=== PATIENT | male | born 1990 | race Caucasian/White ===

== ENCOUNTER 2017-08-13 02:49 | Emergency (ER) | payer OTHER ==
[~2017-08-13] VITALS: Ht 170.2 cm; Wt 79.4 kg
[~2017-08-13 02:49] MED LIST: "\\\"ANTIBIOTIC\\\"" PO; ACETAMINOPHEN-1 EAC1 PO; BACTRIM DS TAB1 EACH PO; CEPHALEXIN500 MG PO; CIPRO500 MG PO; CLINDAMYCIN HC300 MG PO; CYMBALTA60 MG PO; GABAPENTIN300 MG PO; HUMALOG100 UNIT/1 SUB-Q; HUMULIN R100 UNIT/1; IBUPROFEN800 MG PO; KEFLEX500 MG PO; LANTUS100 UNIT/1 SUB-Q; LISINOPRIL5 MG; NAPROXEN500 MG PO; NORCO 5-325 TA1 EACH PO; SILVADENE20 GM TOP; TRAMADOL HCL50 MG PO; ULTRAM50 MG PO
[2017-08-13] MEDS ORDERED: LYRICA150 MG PO (03:08)
[2017-08-13] MEDS ORDERED: CYCLOBENZAPRINE10 MG PO (03:08)
[2017-08-13] MEDS ORDERED: HUMALOG100 UNIT/1 SUB-Q (03:09)
--- OUTSIDE RECORDS SUMMARY | 2017-08-13 03:27 | XMS | Clinical Summary ---
Demographics + + + | Address | [address] | | | [place] [address] | + + + | Home Phone | | + + + | Preferred Language | Unknown | + + + | Marital Status | Single | + + + | Bahai Affiliation | UNKNOWN | + + + | Race | White | + + + | Ethnic Group | Not or | + + + Author + + + | Author | [facility] | + + + | Organization | [facility] | + + + | Address | Unknown | + + + | Phone | Unavailable | + + + Care Team Providers + +------+ + | Care Assembler Dc Field Ring Name | Role | Phone | + +------+ + PP | Unavailable | + +------+ + Allergies + + + +--------+ + | Active Allergy | Reactions | Severity | Noted | Comments | | | | | Date | | + + + +--------+ + | Amoxicillin | | | | | + + + +--------+ + | Penicillins | | | | | + + + +--------+ + Current Medications Not on file Active Problems + + + | Problem | Noted Date | + + + | Type I (juvenile type) diabetes mellitus without mention of | 07/30/2005 | | complication, not stated as uncontrolled | | + + + Social History + +-------+ +--------+------+ | Tobacco Use | Types | Packs/Day | Years | Date | | | | | Used | | + +-------+ +--------+------+ | Never Assessed | | | | | + +-------+ +--------+------+ + + + | Sex Assigned at | Date Recorded | | | | + + + | Not on file | | + + + Plan of Treatment + + + + + | Health Maintenance | Due Date | Last Done | Comments | + + + + + | Eye Exam Chronic | | | | | Disease | 8 | | | + + + + + | Foot Exam | | | | | | 8 | | | + + + + + | Microalbuminuria | | | | | | 8 | | | + + + + + | HIV Screening | | | | | | 3 | | | + + + + + | Hemoglobin A1c | | 11/23/2005, 07/27/2005, | | | | 6 | 01/26/2005 | | + + + + + | Lipid Screening | | 11/23/2005 | | | | 7 | | | + + + + + | Tetanus | | | | | | 7 | | | + + + + + | IMM Influenza (#1) | | | | | | 7 | | | + + + + + Results Not on filefrom Last 3 Months"
--- OUTSIDE RECORDS SUMMARY | 2017-08-13 03:27 | XMS | Clinical Summary ---
Demographics + + + | Address | [address] | | | [place] [address] | + + + | Home Phone | | + + + | Preferred Language | Unknown | + + + | Marital Status | Single | + + + | Restoration Affiliation | UNKNOWN | + + + [...] Team Providers + +------+ + | Care Program Lead Name | Role | Phone | + [...]
== END 2017-08-13 04:08 | disposition home or self-care (01) ==
LOC: ED 02:49
DX: H43.11 Vitreous hemorrhage, right eye (principal); E10.9 Type 1 diabetes mellitus without complications; I10 Essential (primary) hypertension; F17.200 Nicotine dependence, unspecified, uncomplicated; Z88.0 Allergy status to penicillin; Z88.1 Allergy status to other antibiotic agents; Z79.899 Other long term (current) drug therapy; Z79.4 Long term (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
CPT/HCPCS: 99282

== ENCOUNTER 2018-06-09 11:01 | Emergency (ER) | payer OTHER ==
[~2018-06-09] VITALS: Ht 170.2 cm; Wt 74.8 kg
[~2018-06-09 11:01] MED LIST changes: +CYCLOBENZAPRINE10 MG PO; +LYRICA150 MG PO
[2018-06-09] MEDS ORDERED: KETOROLAC TROME10 MG PO (12:12)
== END 2018-06-09 12:28 | disposition home or self-care (01) ==
LOC: ED 11:01
DX: R07.81 Pleurodynia (principal); E10.9 Type 1 diabetes mellitus without complications; I10 Essential (primary) hypertension; F17.200 Nicotine dependence, unspecified, uncomplicated; Z88.0 Allergy status to penicillin; Z79.899 Other long term (current) drug therapy
CPT/HCPCS: 71101; 96372; 99283; J1885

== ENCOUNTER 2019-01-08 15:41 | Emergency (ER) | payer OTHER ==
[~2019-01-08] VITALS: Ht 170.2 cm; Wt 85.3 kg
--- OUTSIDE RECORDS SUMMARY | ~2019-01-08 | XMS | Encounter Summary ---
Demographics + + + | Address | [address] | | | [place] [address] | + + + | Home Phone | | + + + | Preferred Language | Unknown | + + + | Marital Status | Single | + + + | Yazdanism Affiliation | NON | + + + | Race | White | + + + | Ethnic Group | Not or | + + + Author + + + | Author | [facility] | + + + | Organization | [facility] | + + + | Address | Unknown | + + + | Phone | Unavailable | + + + Support + + +---------+ + | Name | Relationship | Address | Phone | + + +---------+ + | MEIR ANN | ECON | Unknown | | + + +---------+ + Care Team Providers + +------+ + | Care Hose Sprayer Name | Role | Phone | + +------+ + | Dionne España | PCP | Unavailable | + +------+ + Reason for Visit + + + | Reason | Comments | + + + | Follow-up visit | | + + + Benefits Check (Routine) + +--------+ + + + + | Status | Reason | Specialty | Diagnoses / | Referred By | Referred To | | | | | Procedures | Contact | Contact | + +--------+ + + + + | Authorized | | Ophthalmology | | Non-[facility] | [facility] | | | | | | Epic Dept | [facility] | | | | | | | [address] | | | | | | | [place] | | | | | | | [place] | | | | | | | [place], [place] | | | | | | | [address] | | | | | | | Phone: | | | | | | | [phone] | | | | | | | Fax: | | | | | | | [phone] | + +--------+ + + + + Encounter Details +--------+---------+ + + + | Date | Type | Department | Care Team | Description | +--------+---------+ + + + | 11/13/ | Office | [facility] | Shahzad Awad, | Proliferative | | 2019 | Visit | [facility] | [address] | diabetic retinopathy | | | | [place] [address] | [place] | of left eye with | | | | [place], [place] | [place], [place] | macular edema | | | | [address] | [address] | associated with type | | | | [phone] | [phone] | 1 diabetes mellitus | | | | | | ([facility]); | | | | | | Proliferative | | | | | | diabetic retinopathy | | | | | | with macular edema, | | | | | | right eye | +--------+---------+ + + + Social History + + + +--------+------+ | Tobacco Use | Types | Packs/Day | Years | Date | | | | | Used | | + + + +--------+------+ | Current Every Day | Cigarettes | 0.5 | 10 | | | Smoker | | | | | + + + +--------+------+ + +---+---+---+ | Smokeless Tobacco: | | | | | Never Used | | | | + +---+---+---+ + + +---------+ + | Alcohol Use | Drinks/We | oz/Week | Comments | | | ek | | | + + +---------+ + | No | 0 | 0.0 | | | | Standard | | | | | drinks or | | | | | | | | | | equivalen | | | | | t | | | + + +---------+ + + + + | Sex Assigned at | Date Recorded | | | | + + + | Not on file | | + + + as of this encounter Progress Notes Shahzad Awad MD - 11/13/2018 3:30 PM PSTFormatting of this note may be different from the original. [facility] Progress Note 11/13/2018 Assessment & Plan: 28 y.o. 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 Will treat during upcoming visit in [place]. 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 Follow up: Return in about 2 weeks (around 11/27/2018). - Call for decreased vision, increased distortion, increased pain, new floaters or flashing lights Chief Complaint: Follow-up visit HPI (Edited by physician):Follow-up for diabetic retinopathy He states that 10/21 he noticed 'a bleed' in the right eye. It has cleared up some and he it is only at the top of his vision and is 'a little string hanging down.' Today when he woke up the left eye looked liked 'glazed over' and he couldn't see anything more than movement with that eye. BS: 154 this AM, currently 231 Last A1c: 8.6 (10/25) Current Outpatient Prescriptions (Other) Medication Sig cephALEXin Take 1 capsule by mouth four times daily. gabapentin Take 1 capsule by mouth three times daily. HumaLOG U-100 Insulin Indications: insulin pump 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: The respiratory therapy technician, under the supervision of the physician, is responsible for performing the f ollowing sections: RFV, ROS, PMH, PSH, SocHx, FH, Med list, Base Ophth Exam. The attending physician is responsible for the entire content of the note and has personall y performed the HPI and the physical examination SHAHZAD AWAD MD in this encounter Plan of Treatment Not on fileas of this encounter Procedures + +--------+ + + + | Procedure Name | Priori | Date/Time | Associated Diagnosis | Comments | | | ty | | | | + +--------+ + + + | OCT, RETINA | Routin | 11/13/2018 | Proliferative | Results for this | | | e | 3:39 PM | diabetic retinopathy | procedure are in the | | | | PST | of left eye with | results section. | | | | | macular edema | | | | | | associated with type | | | | | | 1 diabetes mellitus | | | | | | ([facility]) | | + +--------+ + + + in this encounter Results OCT, RETINA (11/13/2018 3:39 PM) + + + | Narrative | Performed At | + + + | [facility] | [facility] | | DocumentationRight EyeCentral macular thickness: 296 Left | [facility] | | EyeCentral macular thickness: 273 Provider DocumentationRight | | | EyeContour: no central thickening Fluid and related findings: | | | IRF, unchanged Left EyeComments: Traction on macula causing | | | elevation through fovea | | |Central macular thickness: 273 | | | | | | | | |Provider Documentation | | |Right Eye | | |Contour: no central thickening | | |Fluid and related findings: IRF, unchanged | | | | | | | | |Left Eye | | |Comments: Traction on macula causing elevation through fovea | | + + + + + + + + | Performing | Address | City/State/Zipcode | Phone Number | | Organization | | | | + + + + + | [facility] | [address] | [place] [address] | | | INSTITUTE | [place]. | | | + + + + + in this encounter Visit Diagnoses + + | Diagnosis | + + | Proliferative diabetic retinopathy of left eye with macular edema associated with type | | 1 diabetes mellitus (HCC) | + + | Proliferative diabetic retinopathy with macular edema, right eye | + +"
--- OUTSIDE RECORDS SUMMARY | ~2019-01-08 | XMS | Clinical Summary ---
Demographics + + + | Address | [address] | | | [place] [address] | + + + | Home Phone | | + + + | Preferred Language | Unknown | + + + | Marital Status | Single | + + + | Rastafarian Affiliation | NON | + + + | Race | White | + + + | Ethnic Group | Not or | + + + Author + + + | Author | [facility] | + + + | Organization | [facility] | + + + | Address | Unknown | + + + | Phone | Unavailable | + + + Support + + +---------+ + | Name | Relationship | Address | Phone | + + +---------+ + | MEIR ANN | ECON | Unknown | | + + +---------+ + Care Team Providers + +------+ + | Care Retail Representative Name | Role | Phone | + +------+ + | Dionne España | PP | Unavailable | + +------+ + Source Comments [facility] is fully [facility] and [facility] Allergies + + + + + + | Active Allergy | Reactions | Severity | Noted | Comments | | | | | Date | | + + + + + + | Penicillin | Hives | Medium | 05/01/20 | | | | | | 16 | | + + + + + + Current Medications + + +-------+---------+------+------+-------+ | Prescription | Sig. | Disp. | Refills | Star | End | Statu | | | | | | t | Date | s | | | | | | Date | | | + + +-------+---------+------+------+-------+ | HUMALOG 100 | Indications: | | | 02/2 | | Activ | | unit/mL subcutaneous | insulin pump | | | 8/20 | | e | | | | | | 17 | | | | solutionIndications: | | | | | | | | insulin pump | | | | | | | + + +-------+---------+------+------+-------+ | gabapentin 300 mg | Take 1 capsule by | | | 02/0 | | Activ | | oral capsule | mouth three times | | | 4/20 | | e | | | daily. | | | 19 | | | + + +-------+---------+------+------+-------+ | cephALEXin 500 mg | Take 1 capsule by | | | 02/0 | | Activ | | oral capsule | mouth four times | | | 6/20 | | e | | | daily. | | | 19 | | | + + +-------+---------+------+------+-------+ Active Problems + + + | Problem [...] treat | | during upcoming visit in [place]. 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 | + + + + + | Vitreous hemorrhage, right eye (HCC) | 08/13/2017 | + + + + + | Last Assessment & Plan: - STACY pappas for avastin right eye | + + + + + | Proliferative diabetic retinopathy (s/p PPV/MP [id number]) with | 12/12/2016 | | macular edema, [...] view today | | -discussed ultrasound in [place] is needed | + + + +---+ | Neuropathy (HCC) | | + +---+ Encounters +--------+ + + + + | Date | Type | Specialty | Care Team | Description | +--------+ + + + + | 11/13/ | Office | | Shahzad Awad, | Proliferative | | 2019 | Visit | | MD | diabetic retinopathy | | | | | | of left eye with | | | | | | macular edema | | | | | | associated with type | | | | | | 1 diabetes mellitus | | | | | | ([facility]); | | | | | | Proliferative | | | | | | diabetic retinopathy | | | | | | with macular edema, | | | | | | right eye | +--------+ + + + + | 10/21/ | Telephone | | Dania Mccloud, | Floaters | | 2019 | | | MD | | +--------+ + + + + from Last 3 Months Family History + + +------+ + | [...] on file | | + + + Last Filed Vital Signs + + + + | Vital Sign | Reading | Time Taken | + + + + | Blood Pressure | 139/80 | 03/31/2018 11:00 AM PDT | + + + + | Pulse | 88 | 03/31/2018 11:00 AM PDT | + + + + | Temperature | 36.7 C (98.1 F) | 03/31/2018 11:00 AM PDT | + + + + | Respiratory Rate | 19 | 03/31/2018 11:00 AM PDT | + + + + | Oxygen Saturation | 98% | 03/31/2018 11:00 AM PDT | + + + + | Inhaled Oxygen | - | - | | Concentration | | | + + + + | Weight | 74.8 kg (165 lb) | 03/31/2018 7:52 AM PDT | + + + + | Height | 170.2 cm (5' 7") | 03/31/2018 7:52 AM PDT | + + + + | Body Mass Index | 25.84 | 03/31/2018 7:52 AM PDT | + + + + Plan of Treatment + + + + + | Health Maintenance | Due Date | Last Done | Comments | + + + + + | Influenza (Flu) | | 07/16/2016, 10/08/2013, | | | vaccination (#1) | 8 | 08/16/2006, Additional history | | | | | exists | | + + + + + | Pneumococcal (Adult) | Completed | 02/23/2002 | | + + + + + Procedures + +--------+ + + + | [...] | | | | | | ([facility]) | | + +--------+ + + + from Last 3 Months Results OCT, RETINA (11/13/2018 3:39 PM) + + + | Narrative | Performed At | + + + | Physical Chemistry Professor | [facility] | | DocumentationRight EyeCentral [...] [facility] | [address] | [place] [address] | | | [place] | [place]. | | | + + + + + from Last 3 Months Insurance + +--------+ +--------+-------+---------+ | Payer | Benefi | Subscriber | Type | Phone | Address | | | t Plan | ID | | | | | | / | | | | | | | Group | | | | | + +--------+ +--------+-------+---------+ | METALLURGICAL ANALYST MEDICAID | METALLURGICAL ANALYST | xxxxxxxx | Medica | | | | | [place] | | id | | | | | [place] | | | | | + +--------+ +--------+-------+---------+ + +--------+ +--------+ + + | Guarantor Name | Accoun | Relation to | Date | Phone | Billing Address | | | t Type | Patient | of | | | | | | | | | | + +--------+ +--------+ + + | MARCO CABA | Person | Self | [birth year] | Home: | [address] | | [place] | [place] | | 1989 | [phone] | [place] | | | [place] | | | [phone] | + +--------+ +--------+ + +
--- OUTSIDE RECORDS SUMMARY | ~2019-01-08 | XMS | Encounter Summary ---
Demographics + + + | Address | [address] | | | [place] [address] | + + + | Home Phone [...] Author + + + | Author | [facility] | + + + | Organization | [facility] | + + + | Address | Unknown | + + + | Phone | Unavailable | + + + Support + + +---------+ + | Name | Relationship | Address | Phone | + + +---------+ + | MEIR ANN | ECON | Unknown | | + + +---------+ + Care Team Providers + +------+ + | Care Stoper Name | Role | Phone | + +------+ + | Dionne España | PCP | Unavailable | + +------+ + Reason for Visit + + + | Reason | Comments | + + + | Floaters | | + + + Encounter Details +--------+ + + + + | Date | Type | Department | Care Team | Description | +--------+ + + + + | 10/21/ | Telephone | [facility] | Dania Mccloud, | Floaters | | 2019 | | [facility] | [address] | | | | | [address] | [address] | | | | | [address] | [place], [place] | | | | | Mailcode: [facility] | [address] | | | | | [place], [place] | [phone] | | | | | [address] | | | | | | [phone] | | | +--------+ + + + [...] + + + as of this encounter Plan of Treatment Not on fileas of this encounter Visit Diagnoses Not on filein this encounter"
--- OUTSIDE RECORDS SUMMARY | ~2019-01-08 | XMS | Clinical Summary ---
Demographics + + + | Address | [address] | | | [place] [address] | + + + | Home Phone [...] + + | Author | [facility] | + + + | Organization | [facility] | + + + | Address | Unknown | + + + | Phone | Unavailable | + + + Support + + +---------+ + | Name | Relationship | Address | Phone | + + +---------+ + | MEIR ANN | ECON | Unknown | | + + +---------+ + Care Team Providers + +------+ + | Care Navy Seal Name | Role | Phone | + +------+ + | Dionne España | PP | Unavailable | + +------+ + Source Comments LIANET is fully [facility] Allergies + + + [...] treat | | during upcoming visit in [place]. He will have a lifter/driver. | + + + + + | Vitreous hemorrhage, right eye (HCC) | 08/13/2017 | + + + + + | Last Assessment & Plan: - STACY pappas for avastin right eye | + + + + + | Proliferative diabetic retinopathy (s/p PPV/MP [id number]) with | 12/12/2016 | | macular edema, [...] view today | | -discussed ultrasound in [place] is needed | + + + +---+ [...] | | | | | ([facility]); | | | | | | [...] | | | | | ([facility]) | | + +--------+ + + + from Last 3 Months Results OCT, RETINA (11/13/2018 3:39 PM) + + + | Narrative | Performed At | + + + | Hardware Test Engineer | [facility] | | DocumentationRight EyeCentral [...] [facility] | [address] | [place] [address] | | | [place] | [place]. | [...] | | | + +--------+ +--------+-------+---------+ | MAILING SPECIALIST MEDICAID | MAILING SPECIALIST | xxxxxxxx | Medica | | | [...] | [place] | | | [phone] | [phone] | + +--------+ +--------+ + +
--- OUTSIDE RECORDS SUMMARY | ~2019-01-08 | XMS | Encounter Summary ---
Demographics + + + | Address | [address] | | | [place] [address] | + + + | Home Phone [...] Author + + + | Author | [facility] | + + + | Organization | [facility] | + + + | Address | Unknown | + + + | Phone | Unavailable | + + + Support + + +---------+ + | Name | Relationship | Address | Phone | + + +---------+ + | MEIR ANN | ECON | Unknown | | + + +---------+ + Care Team Providers + +------+ + | Care Supervisor Dry Cell Assembly Name | Role | Phone | + [...] | | | | | | | [address] | | | | | | | [place] | | | | | | | [place] | | | | | | | [place], [place] | | | | | | | [address] | | | | | | | Phone: | | | | | | | [phone] | | | | | | | Fax: | | | | | | | [phone] | + +--------+ + + + + Encounter Details +--------+---------+ + + + | Date | Type | Department | Care Team | Description | +--------+---------+ + + + | 11/13/ | Office | [facility] | Shahzad Awad, | Proliferative | | 2019 | Visit | [facility] | [address] | diabetic retinopathy | | | | [place] [address] | [place] | of left eye with | | | | [place], [place] | [place], [place] | macular edema | | | | [address] | [address] | associated with type | | | | [phone] | [phone] | 1 diabetes mellitus | | | | | | ([facility]); | | | | | | [...] the original. [facility] Progress Note 11/13/2018 Assessment & Plan: 28 y.o. male Proliferative diabetic retinopathy (S/P PPV/MP [id number]) with macular edema, left eye New vitreous hemorrhage -no view today -discussed ultrasound in [place] is needed Proliferative diabetic retinopathy with macular edema, right eye Active NV today -needs treatment, does not want shot today because he drove and can only see out of this ey e currently. Will treat during upcoming visit in [place]. He will have a horse and wagon driver. Follow up: Return in about 2 [...] pump 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: The product safety technician, under the supervision of the [...] | | ([facility]) | | + +--------+ + + + in this encounter Results OCT, RETINA (11/13/2018 3:39 PM) + + + | Narrative | Performed At | + + + | Agricultural Equipment Sales Manager | [facility] | | DocumentationRight EyeCentral [...] [facility] | [address] | [place] [address] | | | INSTITUTE | [place]. | [...]
--- OUTSIDE RECORDS SUMMARY | ~2019-01-08 | XMS | Encounter Summary ---
Demographics + + + | Address | [address] | | | [place] [address] | + + + | Home Phone | | + + + | Preferred Language | Unknown | + + + | Marital Status | Single | + + + | Sikhism Affiliation | NON | + + + | Race | White | + + + | Ethnic Group | Not or | + + + Author + + + | Author | [facility] | + + + | Organization | [facility] | + + + | Address | Unknown | + + + | Phone | Unavailable | + + + Support + + +---------+ + | Name | Relationship | Address | Phone | + + +---------+ + | MEIR ANN | ECON | Unknown | | + + +---------+ + Care Team Providers + +------+ + | Care Claims Counsel Name | Role | Phone | + [...] | Floaters | | 2019 | | [facility] | [address] | | | | | [address] | [address] | | | | | [address] | [place], [place] | | | | | Mailcode: [facility] | [address] | | | | | [place], [place] | [phone] | | | | | [address] | | | | | | [phone] | | | +--------+ + + + [...]
[~2019-01-08 15:41] MED LIST changes: +KETOROLAC TROME10 MG PO
--- OUTSIDE RECORDS SUMMARY | 2019-01-08 15:44 | XMS ---
PreManage Notification: MARCO GARCIA Security Aba Tutor Events No recent Security Events currently on file CRITERIA MET - Group Notification - PDMP CARE PROVIDERS [facility]: Pulmonary Disease 06/10/2018-Current PHONE: Unknown Kevin Mayo Treatment Current PHONE: Unknown Sondra has no Care Guidelines for this patient. Arlene VISIT COUNT (12 MO.) Choco Borges TOTAL 2 NOTE: Visits indicate total known visits. ED/UCC VISIT TRACKING (12 MO.) 01/08/2019 15:41 [facility] [place] TYPE: Emergency COMPLAINT: - RIB PAIN 06/09/2018 11:02 [facility] [place] TYPE: Emergency COMPLAINT: - L RIB PAIN/FALL DIAGNOSES: - Allergy status to penicillin - Type 1 diabetes mellitus without complications - Nicotine dependence, unspecified, uncomplicated - Pleurodynia - Essential (primary) hypertension - Other shelter (current) drug therapy INPATIENT VISIT TRACKING (12 MO.) No inpatient visits to display in this time frame [email or web address]
[2019-01-08] MEDS ORDERED: GABAPENTIN300 MG PO (15:50)
== END 2019-01-08 16:04 | disposition home or self-care (01) ==
LOC: ED 15:41
DX: R07.81 Pleurodynia (principal); W19.XXXA Unspecified fall, initial encounter

== ENCOUNTER 2019-07-28 22:36 | Emergency (ER) | payer OTHER ==
[~2019-07-28] VITALS: Ht 170.2 cm; Wt 83.9 kg
--- OUTSIDE RECORDS SUMMARY | ~2019-07-28 | XMS | Encounter Summary ---
Demographics + + + | Address | [address] | | | [place] [address] | + + + | Home Phone | | + + + | Preferred Language | Unknown | + + + | Marital Status | Single | + + + | Holiness Affiliation | NON | + + + | Race | White | + + + | Ethnic Group | Not or | + + + Author + + + | Author | [facility] | + + + | Organization | [facility] | + + + | Address | Unknown | + + + | Phone | Unavailable | + + + Support + + +---------+ + | Name | Relationship | Address | Phone | + + +---------+ + | Madelyn Marquez | ECON | Unknown | | + + +---------+ + Care Team Providers + +------+ + | Care Project Architect Name | Role | Phone | + +------+ + | Taco Dionne NICHOLAS | PCP | | + +------+ + Reason for Visit + + + | Reason | Comments | + + + | Follow-up visit | | + + + | Proliferative | | | diabetic retinopathy | | + + + Benefits Check (Routine) +--------+--------+ + + + + | Status | Reason | Specialty | Diagnoses / | Referred By | Referred To | | | | | Procedures | Contact | Contact | +--------+--------+ + + + + | Closed | | Ophthalmology | | Non-[facility] | [facility], | | | | | | Epic Dept | MD Nghia | | | | | | | [address] | | [address] | | | | | | | [place], [place] | | | | | | | [address] | | | | | | | Phone: | | | | | | | [phone] | | | | | | | Fax: | | | | | | | [phone] | +--------+--------+ + + + + Encounter Details +--------+---------+ + + + | Date | Type | Department | Care Team | Description | +--------+---------+ + + + | 01/16/ | Office | [facility] | Nghia Bell MD | Proliferative | | 2017 | Visit | [facility] | [address] | diabetic retinopathy | | | | [place] [address] | [address] | of left eye with | | | | [place], [place] | [facility], [place] | macular edema | | | | [address] | [address] | associated with type | | | | [phone] | [phone] | 1 diabetes mellitus | | | | | | ([facility]) (Primary Dx) | +--------+---------+ + + + Social History + +-------+ +--------+------+ | Tobacco Use | Types | Packs/Day | Years | Date | | | | | Used | | + +-------+ +--------+------+ | Current Every Day | | | | | | Smoker | | | | | + +-------+ +--------+------+ + + +---------+ + | Alcohol Use | Drinks/Week | oz/Week | Comments | + + +---------+ + | Not Asked | 0 Standard drinks | 0.0 | | | | or equivalent | | | + + +---------+ + + + + | Sex Assigned at | Date Recorded | | | | + + + | Not on file | | + + + + + + + | Job Start Date | Occupation | Industry | + + + + | Not on file | Not on file | Not on file | + + + + + + + + | Travel History | Travel Start | Travel End | + + + + + + | No recent travel history available. | + + documented as of this encounter Progress Notes Nghia Bell MD - 01/16/2017 2:45 PM PDT [facility] Progress Note 01/16/2017 Assessment & Plan: 26 y.o. 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 OCT CMT Description Right 284 (01/16/17 1500) Comments:: No DME Fluid:: IRF;Better Edema:: No central edema Left 306 (01/16/17 1500) Comments:: No DME - - ERM, no TRD Fluid:: No fluid Edema:: No central edema Chief Complaint: Follow-up visit Proliferative diabetic retinopathy HPI: Pt feels vision has decreased since last visit tx. Current Outpatient Prescriptions (Other) Medication Sig cyclobenzaprine HumaLOG HYDROcodone-acetaminophen pregabalin Take by mouth two times daily. Max: 600 mg/day Past Medical History: Diagnosis Date Diabetes mellitus type 1 (HCC) Past Surgical History Procedure Laterality Date Hip fracture surgery Family History Problem Relation None Mother None Father None Sister None Brother None Maternal Grandmother None Maternal Grandfather None Paternal Grandmother None Paternal Grandfather Diabetes Neg Hx Glaucoma Neg Hx Macular degeneration Neg Hx Retinal detachment Neg Hx Social History Occupational History Not on file. Social History Main Topics Smoking status: Current Every Day Smoker Smokeless tobacco: Not on file Alcohol use Not on file Drug use: Yes Comment: Cannabus use Sexual activity: Not on file 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: The fabrication technician, under the supervision of the physician, is responsible for performing the f ollowing sections: RFV, ROS, PMH, PSH, SocHx, FH, Med list, Base Ophth Exam. The attending physician is responsible for the entire content of the note and has personall y performed the HPI and the physical examination NGHIA BELL MD docum ented in this encounter Plan of Treatment Not on filedocumented as of this encounter Visit Diagnoses + + | Diagnosis | + + | Proliferative diabetic retinopathy of left eye with macular edema associated with type | | 1 diabetes mellitus (HCC) - Primary | + + documented in this encounter"
--- OUTSIDE RECORDS SUMMARY | ~2019-07-28 | XMS | Encounter Summary ---
Demographics + + + | Address | [address] | | | [place] [address] | + + + | Home Phone | | + + + | Preferred Language | Unknown | + + + | Marital Status | Single | + + + | Confucianist Affiliation | NON | + + + | Race | White | + + + | Ethnic Group | Not or | + + + Author + + + | Author | [facility] | + + + | Organization | [facility] | + + + | Address | Unknown | + + + | Phone | Unavailable | + + + Support + + +---------+ + | Name | Relationship | Address | Phone | + + +---------+ + | Madelyn Marquez | ECON | Unknown | | + + +---------+ + Care Team Providers + +------+ + | Care Investment Fund Manager Name | Role | Phone | + +------+ + | TacoDionne MARINE STRUCTURAL DESIGNER | PCP | | + +------+ + Encounter Details +--------+ + + + + | Date | Type | Department | Care Team | Description | +--------+ + + + + | 08/15/ | Results/Int | [facility] | René Sue | Vitreous hemorrhage, | | 2016 | erpretation | [facility] | James Varela MD [address] | right eye (HCC) | | | | Aarti Cuello [facility] | [address] | | | | | [address] | [place], [place] | | | | | Mailcode: [facility] | [address] | | | | | [place], [place] | [phone] | | | | | [address] | | | | | | [phone] | | | +--------+ + + + + Social History + +-------+ +--------+------+ | Tobacco Use | Types | Packs/Day | Years | Date | | | | | Used | | + +-------+ +--------+------+ | Current Every Day | | | | | | Smoker | | | | | + +-------+ +--------+------+ + +---+---+---+ | Smokeless Tobacco: | [...] + documented as of this encounter Progress João Horta - 08/15/2017 8:43 AM ANGINaif Caba was seen in the [facility] Photography/Ultrasound Department today, 08/13/2017, for ultrasound. This is a B-scan of the right eye for vitreous hemorrhage. The ultrasound shows dense vitre ous opacities with inferior layering.There is a point of adhesion seen temporal to the macul a with possible NVE. The overall retina appears attached. This is a Preliminary Report. It is the responsibility of the ordering physician to determi ne clinical care from image provided, or wait for official report. João CHAVEZ I have reviewed the images and the initial report and I have made any necessary changes to the report as needed based on my assessment. RENÉ SUE MD documented in this encounter Plan of Treatment Not on filedocumented as of this encounter Visit Diagnoses + + | Diagnosis | + + | Vitreous hemorrhage, right eye (HCC) Vitreous hemorrhage | + + documented in this encounter"
--- OUTSIDE RECORDS SUMMARY | ~2019-07-28 | XMS | Encounter Summary ---
Demographics + + + | Address | [address] | | | [place] [address] | + + + | Home Phone | | + + + | Preferred Language | Unknown | + + + | Marital Status | Single | + + + | Uatsdin Affiliation | NON | + + + | Race | White | + + + | Ethnic Group | Not or | + + + Author + + + | Author | [facility] | + + + | Organization | [facility] | + + + | Address | Unknown | + + + | Phone | Unavailable | + + + Support + + +---------+ + | Name | Relationship | Address | Phone | + + +---------+ + | Madelyn Marquez | ECON | Unknown | | + + +---------+ + Care Team Providers + +------+ + | Care Transformer Repairer Name | Role | Phone | + [...] | | | | | | | [address] | | | [address] | | [address] | | | | | | | [place], [place] | | | | | | | [address] | | | | | | | Phone: | | | | | | | [phone] | | | | | | | Fax: | | | | | | | [phone] | +--------+--------+ + + + + Encounter Details +--------+---------+ + + + | Date | Type | Department | Care Team | Description | +--------+---------+ + + + | 05/22/ | Office | [facility] | Nghia Bell MD | Proliferative | | 2016 | Visit | [facility] | [address] | diabetic retinopathy | | | | [address]art[address]ello [address] | without macular | | | | [address] | [facility] [place] | edema associated | | | | Mailcode: [facility] | [address] | with type 1 diabetes | | | | [place], [place] | [phone] | mellitus (HCC) | | | | [address] | | (Primary Dx) | | | | [phone] | | | +--------+---------+ + + + Social History [...] of this encounter Patient Instructions Patient Instructions Dionne Rosen - 05/22/2016 5:09 PM PDT Care Instructions After Eye Injection: Do not rub or touch the eye. Redness in the corner of the eye is okay. Use Artificial tears every hour, RIGHT EYE, as needed for gritty sensation for next 2-3 days. Call immediately [phone] for increased pain or decreased vision.Electronically sign ed by Dionne Rosen at 05/22/2016 5:09 PM PDT documented in this encounter Progress Notes Nghia Bell MD - 05/23/2016 3:47 PM PDT [facility] Progress Note 05/22/2016 Assessment & Plan: 25 y.o. male Proliferative diabetic retinopathy without macular edema associated with type 1 diabetes me llitus (HCC) DME OD s/p Avastin 04/21 - Improved but persistent temporal edema PRP centrally Plan Avastin OD today Will need fill in PRP OD peripherally at next visit in the [place] Will need PRP OS in next several months Call for decreased vision, increased distortion, increased pain, new floaters or flashing l ights Follow up: No Follow-up on file. OCT CMT Description Right 381 (05/22/16 1600) Comments:: Temporal fluid, not invovlving foveal center Fluid:: Better;IRF Left 307 (05/22/16 1600) Comments:: Minimal fluid Chief Complaint: Follow-up visit Proliferative diabetic retinopathy Initial History: S/p-PRP Right eye 05/01/16 Pt states vision about the same. No worse but no better. Pt still has the piece of iron the re OD. Physician HPI: Following up per recommendation with no new issues, including eye pain, decreased vision, i ncreased floaters or increased distortion Pain: No pain (0 of 0-10) Current Outpatient Prescriptions (Other) Medication Sig INSULIN GLARGINE,HUM.REC.ANLOG (LANTUS SUBQ) Inject under the skin (SUBC). INSULIN LISPRO (HUMALOG SUBQ) Inject under the skin (SUBC). Past Medical History Diagnosis Date Diabetes mellitus type 1 (HCC) Past Surgical History Procedure Laterality Date Hip fracture surgery Social History Substance Use Topics Smoking status: Current Every Day Smoker Smokeless tobacco: Not on file Alcohol Use: Not on file family history is negative for Diabetes, and Glaucoma, and Macular degeneration, and Retina l detachment, . 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: The fork lift technician, under the supervision of the physician, is responsible for performing the f ollowing sections: RFV, ROS, PMH, PSH, SocHx, FH, Med list, Base Ophth Exam. The attending physician is responsible for the entire content of the note and has personall y performed the HPI and the physical examination NGHIA BELL MD owar Dionne mcdonald - 05/22/2016 5:09 PM PDT Intravitreal Injection Procedure Note 05/22/2016 for: AVASTIN, RIGHT EYE LOT # [id number] and Expiration 05/30/16 RIGHT EYE:8S Attending: Nghia Bell MD Diagnosis: Proliferative diabetic retinopathy without macular edema associated with type 1 diabetes mellitus (HCC) (primary encounter diagnosis) Indication: Risk of further vision loss without treatment Allergies: Penicillin Anesthesia: Subconjunctival lidocaine injection PARQ held for above. Team Pause: At 5:09 PM, prior to the beginning of the procedure, the team paused to verify the patient s identity, the procedure to be performed (in accordance with the consent,) an d the correct side/site. The patient was positioned appropriately. All relevant images and r esults were properly labeled and displayed. We addressed antibiotic prophylaxis and fluids f or irrigation as applicable to this patient. Any safety precautions were addressed. Procedure: A sterile prep was performed and ophthalmic speculum was placed. With a 30G needle, 0.05 cc of above medication was injected through the pars plana. Ophthalmoscopy was performed to co nfirm perfusion of the central retinal artery and/or IOP < 30 mmHg was confirmed prior to di scharge. The eye was rinsed. After the injection the patient reported : No pain (0 of 0-10) Complications: None EBL: None I, Nghia Bell MD, performed the entire procedure. Nghia Bell MD, 05/22/2016 documented in this enc ounter Plan of Treatment + + +--------+ + + | Name | Type | Priori | Associated Diagnoses | Order Schedule | | | | ty | | | + + +--------+ + + | CMPTR OPHTH DX IMG | Procedures | Routin | Proliferative | Expected: | | POST SEGMT | | e | diabetic retinopathy | 05/22/2016, Expires: | | | | | without macular | 11/22/2017 | | | | | edema associated | | | | | | with type 1 diabetes | | | | | | mellitus (HCC) | | + + +--------+ + + documented as of this encounter Procedures + +--------+ + + + | Procedure Name | Priori | Date/Time | Associated Diagnosis | Comments | | | ty | | | | + +--------+ + + + | [facility] | Routin | 05/22/2016 | Proliferative | | | CHARGE | e | 5:09 PM | diabetic retinopathy | | | | | PDT | without macular | | | | | | edema associated | | | | | | with type 1 diabetes | | | | | | mellitus (HCC) | | + +--------+ + + + | [place] INTRAVITREAL INJ, | Routin | 05/22/2016 | Proliferative | | | AVASTIN | e | 5:09 PM | diabetic retinopathy | | | | | PDT | without macular | | | | | | edema associated | | | | | | with type 1 diabetes | | | | | | mellitus (HCC) | | + +--------+ + + + documented in this encounter Visit Diagnoses + + | Diagnosis | + + | Proliferative diabetic retinopathy without macular edema associated with type 1 | | diabetes mellitus (HCC) - Primary | + + documented in this encounter"
--- OUTSIDE RECORDS SUMMARY | ~2019-07-28 | XMS | Clinical Summary ---
Demographics + + + | Address | [address] | | | [place] [address] | + + + | Home Phone | | + + + | Preferred Language | Unknown | + + + | Marital Status | Single | + + + | Spiritism Affiliation | NON | + + + | Race | White | + + + | Ethnic Group | Not or | + + + Author + + + | Author | [facility] | + + + | Organization | [facility] | + + + | Address | Unknown | + + + | Phone | Unavailable | + + + Support + + +---------+ + | Name | Relationship | Address | Phone | + + +---------+ + | Madelyn Marquez | ECON | Unknown | | + + +---------+ + Care Team Providers + +------+ + | Care Solutions Sales Executive Name | Role | Phone | + +------+ + | TacoDionne VACUUM FORM OPERATOR | PCP | | + +------+ + Source Comments LIANET is fully live on both [facility] Ambulatory and [facility] InPatient.Replaced By [facility] Allergies + + + + + + | Active Allergy | Reactions | Severity | Noted | Comments | | | | | Date | | + + + + + + | Penicillin | Hives | Medium | 05/01/20 | | | | | | 16 | | + + + + + + Medications + + + +---------+------+------+-------+ | Medication | Sig | Dispensed | Refills | Star | End | Statu | | | | | | t | Date | s | | | | | | Date | | | + + + +---------+------+------+-------+ | HUMALOG 100 | Indications: | | 0 | 02/2 | | Activ | | unit/mL subcutaneous | insulin pump | | | 8/20 | | e | | | | | | 17 | | | | solutionIndications: | | | | | | | | insulin pump | | | | | | | + + + +---------+------+------+-------+ | gabapentin 300 mg | Take 1 capsule by | | 0 | 02/0 | | Activ | | oral capsule | mouth three times | | | 4/20 | | e | | | daily. | | | 19 | | | + + + +---------+------+------+-------+ | cephALEXin 500 mg | Take 1 capsule by | | 0 | 02/0 | | Activ | | oral capsule | mouth four times | | | 6/20 | | e | | | daily. 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 Will treat | | during upcoming visit in [place]. 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 | + + + + + | Vitreous hemorrhage, right eye | 08/13/2017 | + + + + + | Last Assessment & Plan: - STACY pappas for avastin right eye | + + + + + | Proliferative diabetic retinopathy (s/p PPV/MP [id number]) with | 12/12/2016 | | macular edema, left eye | | + + + + + | Overview: PDR OU s/p PRP OU | | DME OU s/p Avastin OU | | Hx VH OS late 2016. 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 | | Increasing fluid OU | | | | s/p PPV/EL/MP/Afx OS (03/31/18) for tractional retinal detachment | | Last Assessment & Plan: New vitreous hemorrhage | | -no view today | | -discussed ultrasound in [place] is needed | + + + +---+ | Neuropathy | | + +---+ Family History + + +------+ + | Medical History | Relation | Name | Comments | + + +------+ + | None | Brother | | | + + +------+ + | None | Father | | | + + +------+ + | None | Maternal | | | | | Grandfath | | | | | er | | | + + +------+ + | None | Maternal | | | | | Grandmoth | | | | | er | | | + + +------+ + | None | Mother | | | + + +------+ + | None | Paternal | | | | | Grandfath | | | | | er | | | + + +------+ + | None | Paternal | | | | | Grandmoth | | | | | er | | | + + +------+ + | None | Sister | | | + + +------+ + | Diabetes | Neg Hx | | | + + +------+ + | Glaucoma | Neg Hx | | | + + +------+ + | Macular degeneration | Neg Hx | | | + + +------+ + | Retinal detachment | Neg Hx | | | + + +------+ + + +------+--------+ + | Relation | Name | Status | Comments | + +------+--------+ + | Brother | | | | + +------+--------+ + | Father | | | | + +------+--------+ + | Maternal Grandfather | | | | + +------+--------+ + | Maternal Grandmother | | | | + +------+--------+ + | Mother | | | | + +------+--------+ + | Paternal Grandfather | | | | + +------+--------+ + | Paternal Grandmother | | | | + +------+--------+ + | Sister | | | | + +------+--------+ + Social History + + + +--------+------+ [...] | | | + +---+---+---+ + + | Tobacco Cessation: Ready to Quit: No | + + + + +---------+ + | Alcohol Use [...] recent travel history available. | + + Last Filed Vital Signs + + + + + | Vital Sign | Reading | Time Taken | Comments | + + + + + | Blood Pressure | 139/80 | 03/31/2018 11:00 AM | | | | | PDT | | + + + + + | Pulse | 88 | 03/31/2018 11:00 AM | | | | | PDT | | + + + + + | Temperature | 36.7 C (98.1 F) | 03/31/2018 11:00 AM | | | | | PDT | | + + + + + | Respiratory Rate | 19 | 03/31/2018 11:00 AM | | | | | PDT | | + + + + + | Oxygen Saturation | 98% | 03/31/2018 11:00 AM | | | | | PDT | | + + + + + | Inhaled Oxygen | - | - | | | Concentration | | | | + + + + + | Weight | 74.8 kg (165 lb) | 03/31/2018 7:52 AM | | | | | PDT | | + + + + + | Height | 170.2 cm (5' 7") | 03/31/2018 7:52 AM | | | | | PDT | | + + + + + | Body Mass Index | 25.84 | 03/31/2018 7:52 AM | | | | | PDT | | + + + + + Plan of Treatment + + + + + | Health Maintenance | Due Date | Last Done | Comments | + + + + + | Influenza (Flu) | | 07/16/2016, 10/08/2013, | | | vaccination (#1) | 9 | 08/16/2006, Additional history | | | | | exists | | + + + + + | Pneumococcal | Completed | 02/23/2002 | | | vaccination | | | | + + + + + Results Not on filefrom Last 3 Months Insurance + +--------+ +--------+-------+---------+--------+ | Payer | Benefi | Subscriber | Effect | Phone | Address | Type | | | t Plan | ID | susan | | | | | | / | | Dates | | | | | | Group | | | | | | + +--------+ +--------+-------+---------+--------+ | [employer] | [employer] | xxxxxxxx | 07/23/ | | | Medica | | | [place] | | 2016-P | | | id | | | [place] | | resent | | | | + +--------+ +--------+-------+---------+--------+ + +--------+ +--------+ + + | Guarantor Name | Accoun | Relation to | Date | Phone | Billing Address | | | t Type | Patient | of | | | | | | | | | | + +--------+ +--------+ + + | Naif Caba | Person | Self | [birth year] | [address] | | [place] | [place] | | 1990 | [phone] | [place] | | | [place] | | | [address] ([place]) | [phone] | + +--------+ +--------+ + +
--- OUTSIDE RECORDS SUMMARY | ~2019-07-28 | XMS | Encounter Summary ---
Demographics + + + | Address | [address] | | | [place] [address] | + + + | Home Phone | | + + + | Preferred Language | Unknown | + + + | Marital Status | Single | + + + | Sikh Affiliation | NON | + + + | Race | White | + + + | Ethnic Group | Not or | + + + Author + + + | Author | [facility] | + + + | Organization | [facility] | + + + | Address | Unknown | + + + | Phone | Unavailable | + + + Support + + +---------+ + | Name | Relationship | Address | Phone | + + +---------+ + | Madelyn Marquez | ECON | Unknown | | + + +---------+ + Care Team Providers + +------+ + | Care Hot Braider Name | Role | Phone | + +------+ + | Dionne España NICHOLAS | PCP | | + +------+ + Reason for Visit + + + | Reason | Comments | + + + | Blurred vision - | | | hazy | | + + + Encounter Details +--------+ + + + + | Date | Type | Department | Care Team | Description | +--------+ + + + + | 07/23/ | Telephone | [facility] | Jason Elizondo MD | Blurred vision - | | 2015 | | [facility] | [address] | hazy | | | | [place] [address] | [address] [facility] | | | | | [place], [place] | [place], [place] | | | | | [address] | [address] | | | | | [phone] | [phone] | | | | | | | | +--------+ + + + [...]
--- OUTSIDE RECORDS SUMMARY | ~2019-07-28 | XMS | Encounter Summary ---
Demographics + + + | Address | [address] | | | [place] [address] | + + + | Home Phone | | + + + | Preferred Language | Unknown | + + + | Marital Status | Single | + + + | Jew Affiliation | NON | + + + | Race | White | + + + | Ethnic Group | Not or | + + + Author + + + | Author | [facility] | + + + | Organization | [facility] | + + + | Address | Unknown | + + + | Phone | Unavailable | + + + Support + + +---------+ + | Name | Relationship | Address | Phone | + + +---------+ + | Madelyn Marquez | ECON | Unknown | | + + +---------+ + Care Team Providers + +------+ + | Care Jinriksha Driver Name | Role | Phone | + [...] | | | | | | | [place], [place] | | | | | | | [address] | | | | | | | Phone: | | | | | | | [phone] | | | | | | | Fax: | | | | | | | [phone] | +--------+--------+ + + + + Encounter Details +--------+---------+ + + + | Date | Type | Department | Care Team | Description | +--------+---------+ + + + | 05/22/ | Office | [facility] | Nghia Bell MD | Proliferative | | 2016 | Visit | [facility] at | [address] | diabetic retinopathy | | | | Aarti Cuello [address] | without macular | | | | [address] | [facility] [place] | edema associated | | | | Mailcode: CEI | [address] | with type 1 diabetes | | | | [place], [place] | [phone] | mellitus (HCC) | | | | [address] | | (Primary Dx) | | | | [phone] | | | +--------+---------+ + + + [...] sensation for next 2-3 days. Call immediately [phone] for increased pain or decreased vision.Electronically sign ed by Dionen Rosen at 05/22/2016 5:09 PM PDT documented in this encounter Progress Notes Nghia Bell MD - 05/23/2016 3:47 PM PDT [facility] Progress Note 05/22/2016 Assessment & Plan: 25 [...] . 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: The health type 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 05/22/2016 for: AVASTIN, RIGHT EYE LOT # [id number] and Expiration 05/30/16 RIGHT EYE:8S Attending: Nghia [...] Nghia Bell MD, performed the entire procedure. Ngiha Bell MD, 05/22/2016 documented in this enc [...] | + +--------+ + + + | GA INTRAVITREAL INJ, | Routin | 05/22/2016 | [...]
--- OUTSIDE RECORDS SUMMARY | ~2019-07-28 | XMS | Encounter Summary ---
Demographics + + + | Address | [address] | | | [place] [address] | + + + | Home Phone | | + + + | Preferred Language | Unknown | + + + | Marital Status | Single | + + + | Protestant Affiliation | NON | + + + | Race | White | + + + | Ethnic Group | Not or | + + + Author + + + | Author | [facility] | + + + | Organization | [facility] | + + + | Address | Unknown | + + + | Phone | Unavailable | + + + Support + + +---------+ + | Name | Relationship | Address | Phone | + + +---------+ + | Madelyn Marquez | ECON | Unknown | | + + +---------+ + Care Team Providers + +------+ + | Care Real Estate Officer Name | Role | Phone | + +------+ + | TacoDionne FRUIT DRYER | PCP | | + +------+ + Reason for Visit + + + | Reason | Comments | + + + | Return Patient | | + + + Benefits Check [...] | | | | | | | [address] | | | | | | | [address] | | | | | | | [facility] [place] | | | | | | | [address] | | | | | | | Phone: | | | | | | | [phone] | | | | | | | Fax: | | | | | | | [phone] | +--------+--------+ + + + + Encounter Details +--------+---------+ + + + | Date | Type | Department | Care Team | Description | +--------+---------+ + + + | 05/15/ | Office | [facility] | Allan Snell | Proliferative | | 2018 | Visit | [facility] at | MD Christi [address] | diabetic retinopathy | | | | Aarti Cuello [facility] | [address] | with macular edema, | | | | [address] | [place], [place] | right eye (Primary | | | | Mailcode: [facility] | [address] | Dx); Proliferative | | | | [facility] [place] | [phone] | diabetic retinopathy | | | | [address] | | with macular edema, | | | | [phone] | | left eye; Vitreous | | | | | | hemorrhage, right | | | | | | eye (HCC) | +--------+---------+ + + + Social [...] of this encounter Patient Instructions Patient Instructions Allan Snell MD - 05/15/2018 3:00 PM PDTCare instructions afte r eye injections: ? Do not rub or touch your eye ? An dtny-eti-zhovvvm pain reliever (i.e. Tylenol) can be used for mild soreness ? Use artificial tears/lubricating drops once an hour for comfort ? It is okay to shower and wash your face COMMON symptoms after successful eye injections: ? Mild to moderate pain or irritation beginning the day of the injection. This should begi n to improve the following day. ? Eyelash in the eye or elida sensation ? Tearing ? Mild floaters or bubbles in your vision ? Bloody tears for 1-2 days after treatment ? Eye Redness ? Also known as subconjunctival hemorrhage ? This bruise can cover the entire white part of the eye and may last a few weeks CONCERNING symptoms after eye injections: ? Severe, constant pain ? Worsening pain after the first day ? Decreased vision ? Severe, constant floaters ? Curtain or veil in your vision Please call the clinic immediately for any of the above listed concerning symptoms or with any other questions documented in this encounter Progress Notes Allan Snell MD - 05/15/2018 3:00 PM PDT [facility] Progress Note 05/15/2018 Assessment & Plan: 27 y.o. male Proliferative diabetic retinopathy with macular edema, right eye - Worsening macular edema and with new mild VH - PARQ held for Avastin right eye, performed without complication Proliferative diabetic retinopathy with macular edema, left eye - Retinal thickening improved following pars plana vitrectomy - Continue to monitor Vitreous hemorrhage, right eye ([facility]) - PARQ held for avastin right eye Call for decreased vision, increased distortion, increased pain, new floaters or flashing l ights Follow up: Return in about 4 weeks (around 06/12/2018) for Dr. Lugo. Chief Complaint: Return Patient HPI (Edited by physician):Add on for blood in Right Eye x 1 day. Pt started seeing blood in vision OD surpriorly after work around 1:45 am. Denies flashing lights. Vision is slightly worse; pt has difficulty reading the screen at work. OS is stable. Gtt: None. Current Outpatient Prescriptions (Other) Medication Sig HumaLOG U-100 Insulin Indications: insulin pump 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: The orthotic finish grinding technician, under the supervision of the physician, is responsible for performing the f ollowing sections: RFV, ROS, PMH, PSH, SocHx, FH, Med list, Base Ophth Exam. The attending physician is responsible for the entire content of the note and has personall y performed the HPI and the physical examination ALLAN SNELL MD documented in this encounter Plan of Treatment + + +--------+ + + | Name | Type | Priori | Associated Diagnoses | Date/Time | | | | ty | | | + + +--------+ + + | OCT, RETINA | Ophthalmolo | Routin | Proliferative | 05/15/2018 4:42 PM | | | gy | e | diabetic retinopathy | PDT | | | | | with macular edema, | | | | | | right eye | | | | | | Proliferative | | | | | | diabetic retinopathy | | | | | | with macular edema, | | | | | | left eye | | + + +--------+ + + documented as of this encounter Procedures + +--------+ + + + | Procedure Name | Priori | Date/Time | Associated Diagnosis | Comments | | | ty | | | | + +--------+ + + + | AVASTIN INJECTION - | Routin | 05/15/2018 | Proliferative | Results for this | | OD - RIGHT EYE | e | 6:05 PM | diabetic retinopathy | procedure are in the | | | | PDT | with macular edema, | results section. | | | | | right eye | | + +--------+ + + + documented in this encounter Results AVASTIN INJECTION - OD - RIGHT EYE (05/15/2018 6:05 PM PDT) + + + | Narrative [...] | | | | | | Injection: 1.25 mg bevacizumab 1.25 mg/0.05 mL | | | [facility]: [id number] | | | Lot: [id number] | | | Expiration Date: 05/23/2018 | | | Route: intravitreal | | | Site: Right Eye | | | | | | Estimated blood loss: none | | | | | | | | | Post Op | | | Post procedure assessment: visual acuity at least count fingers, eye | | | rinsed, patient tolerated procedure well | | + + + documented in this encounter Visit Diagnoses + + | Diagnosis | + + | Proliferative diabetic retinopathy with macular edema, right eye - Primary | + + | Proliferative diabetic retinopathy with macular edema, left eye | + + | Vitreous hemorrhage, right eye (HCC) Vitreous hemorrhage | + + documented in this encounter Administered Medications + +--------+ +---------+------+--------+ | Medication Order | MAR | Action | Dose | Rate | Site | | | Action | Date | | | | + +--------+ +---------+------+--------+ | bevacizumab (AVASTIN) | Given | 05/15/20 | 1.25 mg | | Right | | intravitreal injection 1.25 mg | | 18 6:05 | | | Eye | | 1.25 mg, ONCE NEEDED, Starting | | PM PDT | | | | | Milagro 05/15/18 at 1805, Until Wed | | | | | | | 06/04/18 at 1110 | | | | | | + +--------+ +---------+------+--------+ +---+---+ | | | +---+---+ documented in this encounter"
--- OUTSIDE RECORDS SUMMARY | ~2019-07-28 | XMS | Encounter Summary ---
Demographics + + + | Address | [address] | | | [place] [address] | + + + | Home Phone [...] Author + + + | Author | [facility] | + + + | Organization | [facility] | + + + | Address | Unknown | + + + | Phone | Unavailable | + + + Support + + +---------+ + | Name | Relationship | Address | Phone | + + +---------+ + | Madelyn Marquez | ECON | Unknown | | + + +---------+ + Care Team Providers + +------+ + | Care Windows Software Developer Name | Role | Phone | + +------+ + | TacoDionne CABINETMAKER APPRENTICE | PCP | | + +------+ + Encounter Details +--------+ + + + + | Date | Type | Department | Care Team | Description | +--------+ + + + + | 08/15/ | Results/Int | [facility] | René Sue | Vitreous hemorrhage, | | 2016 | erpretation | [facility] | James Varela MD [address] | right eye (HCC) | | | | Aarti Cuello [facility] | [address] | | | | | [address] | [place], [place] | | | | | Mailcode: [facility] | [address] | | | | | [place], [place] | [phone] | | | | | [address] | | | | | | [phone] | | | +--------+ + + + [...] AM ANGINaif Caba was seen in the [facility] Photography/Ultrasound Department today, 08/13/2017, for ultrasound. This [...]
--- OUTSIDE RECORDS SUMMARY | ~2019-07-28 | XMS | Encounter Summary ---
Demographics + + + | Address | [address] | | | [place] [address] | + + + | Home Phone | | + + + | Preferred Language | Unknown | + + + | Marital Status | Single | + + + | Buddhist Affiliation | NON | + + + [...] Team Providers + +------+ + | Care Tub Washer Name | Role | Phone | + +------+ + | Dionne España NICHOLAS | PCP | | + +------+ + Encounter Details +--------+ + + + + | Date | Type | Department | Care Team | Description | +--------+ + + + + | 04/03/ | Document-Sc | Health Information | Unknown . | | | 2018 | anned | Services [address] | | | | | [address] | | | | | | Mailcode: [id number] | | | | | | [facility] | | | | | | [place], [place] | | | | | | [address] | | | | | | [phone] | | | +--------+ + + + [...]
--- OUTSIDE RECORDS SUMMARY | ~2019-07-28 | XMS | Encounter Summary ---
Demographics + + + | Address | [address] | | | [place] [address] | + + + | Home Phone | | + + + | Preferred Language | Unknown | + + + | Marital Status | Single | + + + | Jainism Affiliation | NON | + + + | Race | White | + + + | Ethnic Group | Not or | + + + Author + + + | Author | [facility] | + + + | Organization | [facility] | + + + | Address | Unknown | + + + | Phone | Unavailable | + + + Support + + +---------+ + | Name | Relationship | Address | Phone | + + +---------+ + | Madelyn Marquez | ECON | Unknown | | + + +---------+ + Care Team Providers + +------+ + | Care Water Treatment Plant Supervisor Name | Role | Phone | [...] + + | 02/27/ | Office | [facility] | Shahzad Awad, | Proliferative | | 2018 | Visit | [facility] | [address] | diabetic retinopathy | | | | Kimberly [address] | [address] | of left eye with | | | | [place], [place] | [place], [place] | macular edema | | | | [address] | [address] | associated with type | | | | [phone] | [phone] | 1 diabetes mellitus | | | | | | ([facility]); | | | | | | Proliferative | | | | | | diabetic retinopathy | | | | | | of right eye with | | | | | | macular edema | | | | | | associated with type | | | | | | 1 diabetes mellitus | | | | | | ([facility]) | +--------+---------+ + + + Social History [...] might be different fr om the original. [facility] Progress Note 02/27/2018 Assessment & Plan: 27 y.o. 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 - Call for decreased vision, increased [...] mg/day 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: The finishing 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
--- OUTSIDE RECORDS SUMMARY | ~2019-07-28 | XMS | Encounter Summary ---
Demographics + + + | Address | [address] | | | [place] [address] | + + + | Home Phone | | + + + | Preferred Language | Unknown | + + + | Marital Status | Single | + + + | Gnosticism Affiliation | NON | + + + | Race | White | + + + | Ethnic Group | Not or | + + + Author + + + | Author | [facility] | + + + | Organization | [facility] | + + + | Address | Unknown | + + + | Phone | Unavailable | + + + Support + + +---------+ + | Name | Relationship | Address | Phone | + + +---------+ + | Madelyn Marquez | ECON | Unknown | | + + +---------+ + Care Team Providers + +------+ + | Care Personal Development Mentor Name | Role | Phone | + +------+ + | Dionne España NICHOLAS | PCP | | + +------+ + Reason for Visit + + + | Reason | Comments | + + + | Letter From | | | Specialist | | + + + Encounter Details +--------+ + + + + | Date | Type | Department | Care Team | Description | +--------+ + + + + | 07/24/ | Telephone | [facility] | Shahzad Awad, | Letter From | | 2017 | | [place] [facility] | [address] | Specialist | | | | [address]ly [address] [facility] | [address] | | | | | [place] | [place], [place] | | | | | [address] | [address] | | | | | [phone] | [phone] | | | | | | | [...]
--- OUTSIDE RECORDS SUMMARY | ~2019-07-28 | XMS | Encounter Summary ---
Demographics + + + | Address | [address] | | | [place] [address] | + + + | Home Phone | | + + + | Preferred Language | Unknown | + + + | Marital Status | Single | + + + | Adventist Affiliation | NON | + + + [...] Team Providers + +------+ + | Care Pathology Tech Name | Role | Phone | + +------+ + | Taco Dionne INST[employer]ER [employer] | PCP | | + +------+ + [...] | | | | | | | [place], [place] | | | | | | | [address] | | | | | | | Phone: | | | | | | | [phone] | | | | | | | Fax: | | | | | | | [phone] | +--------+--------+ + + + + Encounter Details +--------+---------+ + + + | Date | Type | Department | Care Team | Description | +--------+---------+ + + + | 08/28/ | Office | [facility] | Nghia Bell MD | Proliferative | | 2017 | Visit | [place] [facility] | [address] | diabetic retinopathy | | | | [place] [address] | [address] | of left eye with | | | | [place], [place] | [place] | macular edema | | | | [address] | [address] | associated with type | | | | [phone] | [phone] | 1 diabetes mellitus | | | | | | (HCC) (Primary Dx) | +--------+---------+ [...] Bell MD - 08/28/2017 9:30 AM PST [facility] Progress Note 08/28/2017 Assessment & Plan: 27 [...] file 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: The supervisor sound 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
--- OUTSIDE RECORDS SUMMARY | ~2019-07-28 | XMS | Encounter Summary ---
Demographics + + + | Address | [address] | | | [place] [address] | + + + | Home Phone | | + + + | Preferred Language | Unknown | + + + | Marital Status | Single | + + + | Voodoo Affiliation | NON | + + + | Race | White | + + + | Ethnic Group | Not or | + + + Author + + + | Author | [facility] | + + + | Organization | [facility] | + + + | Address | Unknown | + + + | Phone | Unavailable | + + + Support + + +---------+ + | Name | Relationship | Address | Phone | + + +---------+ + | Madelyn Marquez | ECON | Unknown | | + + +---------+ + Care Team Providers + +------+ + | Care Corn Breeder Name | Role | Phone | + +------+ + | Taco Dionne NICHOLAS | PCP | | + +------+ + Reason for Visit + + + | Reason | Comments | + + + | Pre-op evaluation | | + + + Encounter Details +--------+ + + + + | Date | Type | Department | Care Team | Description | +--------+ + + + + | 03/27/ | Telephone-S | Preoperative | | Pre-op evaluation | | 2018 | chem[facility] | [facility] at | | | | | | [facility] 4th Floor Day | | | | | | Stay [address] | | | | | | [address] | | | | | | Mailcode: [id number] | | | | | | Danie Nava | | | | | | [address] [place], [place] | | | | | | [address] | | | | | | [phone] | | | +--------+ + + + + Anesthesia Record + + + + + | Procedure Name | Responsible | Anesthesia Start | Anesthesia Stop Time | | | Anesthesiologist | Time | | + + + + + | PARS PLANA | Epi Miranda MD | 03/31/18 0820 | 03/31/18 1011 | | VITRECTOMY, ENDO | | | | | LASER, air fluid | | | | | exchange , 23g left | | | | | eye (Left Eye) | | | | + + + + + +----+---+ + + | Da | T | Event | Comment | | te | i | | | | | m | | | | | e | | | +----+---+ + + | 06 | 0 | Eq Check | Anesthesia machine checked Equipment verified | | /2 | 7 | | | | 5/ | 4 | | | | 20 | 7 | | | | 18 | | | | +----+---+ + + | | 0 | Pt. Check | Prior to anesthesia start, pt. Identified, examined, chart | | | 8 | | reviewed, PARQ held, anesthetic plan made or approved by | | | 0 | | attending anesthesiologist. NPO status confirmed as appropriate | | | 8 | | for procedure Preoperative evaluation: unchanged | +----+---+ + + | | 0 | An Start | | | | 8 | | | | | 2 | | | | | 0 | | | +----+---+ + + | | 0 | An Start | | | | 8 | Data | | | | 2 | | | | | 4 | | | +----+---+ + + | | 0 | Vitals | Monitors applied Vital signs checked Patient ready for anesthesia | | | 8 | Checked | | | | 2 | | | | | 5 | | | +----+---+ + + | | 0 | SGA | | | | 8 | | | | | 2 | | | | | 7 | | | +----+---+ + + | | 0 | Ready | | | | 8 | | | | | 2 | | | | | 8 | | | +----+---+ + + | | 0 | Timeout | | | | 8 | | | | | 2 | | | | | 9 | | | +----+---+ + + | | 0 | Abx held | Contraindicated, or not indicated for this procedure, or already | | | 8 | Medical or | receiving antibiotics | | | 3 | Surgical | | | | 0 | Reason | | +----+---+ + + | | 0 | Retrobulbar | | | | 8 | Block by | | | | 3 | Surgeon | | | | 1 | | | +----+---+ + + | | 0 | An Data Art | | | | 8 | | | | | 3 | | | | | 2 | | | +----+---+ + + | | 0 | Incision | | | | 8 | | | | | 3 | | | | | 4 | | | +----+---+ + + | | 0 | Note | Glucose 168 mg/dL. | | | 9 | | | | | 2 | | | | | 8 | | | +----+---+ + + | | 1 | Surgery end | | | | 0 | | | | | 0 | | | | | 4 | | | +----+---+ + + | | 1 | SGA Removed | | | | 0 | | | | | 0 | | | | | 6 | | | +----+---+ + + | | 1 | Surgery end | | | | 0 | | | | | 0 | | | | | 7 | | | +----+---+ + + | | 1 | PACU Rpt | | | | 0 | Given | | | | 1 | | | | | 1 | | | +----+---+ + + | | 1 | Anesthesia | | | | 0 | End | | | | 1 | | | | | 1 | | | +----+---+ + + +------+ | Meds | +------+ + + + No medications | on file. | + + + + + | No agents on file. | + + + + | No blood administrations on file. | + + +--------+ + +---------+ | Type | Details | Placement | Removal | +--------+ + +---------+ | Periph | 03/31/18; 0757; CB RN; Right; | 03/31/18756 by | | | eral | Antecubital; 18 g; Lidocaine; No; | Joy Garcia RN | | | IV | Positive | | | +--------+ + +---------+ documented in this encounter Social History + + + +--------+------+ | [...]
--- OUTSIDE RECORDS SUMMARY | ~2019-07-28 | XMS | Encounter Summary ---
Demographics + + + | Address | [address] | | | [place] [address] | + + + | Home Phone | | + + + | Preferred Language | Unknown | + + + | Marital Status | Single | + + + | Samaritan Affiliation | NON | + + + | Race | White | + + + | Ethnic Group | Not or | + + + Author + + + | Author | [facility] | + + + | Organization | [facility] | + + + | Address | Unknown | + + + | Phone | Unavailable | + + + Support + + +---------+ + | Name | Relationship | Address | Phone | + + +---------+ + | Madelyn Marquez | ECON | Unknown | | + + +---------+ + Care Team Providers + +------+ + | Care Burial Vault Maker Name | Role | Phone | + +------+ + | Taco Dionne HOSPICE NURSE PRACTITIONER | PCP | | + +------+ + [...] | | | | | | | [place], [place] | | | | | | | [address] | | | | | | | Phone: | | | | | | | [phone] | | | | | | | Fax: | | | | | | | [phone] | +--------+--------+ + + + + Encounter Details +--------+---------+ + + + | Date | Type | Department | Care Team | Description | +--------+---------+ + + + | 12/12/ | Office | [facility] | Nghia Bell MD | Proliferative | | 2017 | Visit | [place] [facility] | [address] | diabetic retinopathy | | | | [place] [address] | [address] | of left eye with | | | | [place], [place] | [place], [place] | macular edema | | | | [address] | [address] | associated with type | | | | [phone] | [phone] | 1 diabetes mellitus | | | | | | (HCC) (Primary Dx); | | | | | | Proliferative [...] of this encounter Patient Instructions Patient Instructions Lanie Childs - 12/12/2016 3:30 PM PST Care Instructions After Eye Injection: Do not rub or touch the eye. Redness in the corner of the eye is okay. Use Artificial tears every hour, LEFT EYE, as needed for gritty sensation for next 2-3 d ays. 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 Team Pause: At 3:30 PM, prior to the beginning of the [...] performed the entire procedure. Nghia Bell MD, 12/12/2016 Vitreoretinal Laser Procedure Report 12/12/2016 for: Panretinal Photocoagulation, Left Eye Attending: Nghia Bell MD Diagnosis: Proliferative Diabetic Retinopathy Indication: Risk of further vision loss without treatment Allergies: Penicillin Anesthesia: Subconjunctival with 1% lidocaine with epinephrine Team Pause: At 3:32 PM, prior to the beginning of the [...] patient. Any safety precautions were addressed. Delivery: Indirect laser Laser type: Diode Green 532 nm Parameters: Duration: 100 ms Size: Indirect Power: Up to 320 mW Number: 571 spots. Location: Peripheral retina 360 degrees Complications: None Disposition: Eye rinsed After the procedure patient reported: No pain (0 of 0-10) Follow up as scheduled or earlier for worsening vision. INghia MD, performed the entire procedure. Nghia Bell MD, 12/12/2016 ghia Bell MD - 0 12/12/2016 2:45 PM PST [facility] Progress Note 12/12/2016 Assessment & Plan: 26 y.o. male Proliferative diabetic retinopathy without macular edema associated with type 1 diabetes me llitus (HCC) PDR OU s/p PRP OU Increasing NVD OS - DME OS Stable appearance OD, no new NV, no DME Plan: PRP Fill in OS Avastin OS Call for decreased vision, increased distortion, increased pain, new floaters or flashing l ights Follow up: No Follow-up on file. OCT CMT Description Right 272 (12/12/16 1500) Comments:: Temporal fluid, not invovlving foveal center Fluid:: No fluid Left 459 (12/12/16 1500) Comments:: Marked DME, center involving Fluid:: IRF Edema:: Center involving edema Chief Complaint: Follow-up visit Initial History: No noticeable change in vision. Flashes in the morning when he wakes up. N o floaters. BS: on pump- helps to control range. 100-200's Last A1C: unknown- maybe 11 Physician HPI: Following up per recommendation with no new issues, including eye pain, decreased vision, i ncreased floaters or increased distortion Pain: No pain (0 of 0-10) Current Outpatient Prescriptions (Other) Medication Sig cyclobenzaprine HumaLOG HYDROcodone-acetaminophen pregabalin Take by mouth two times daily. Max: 600 mg/day Past Medical History: Diagnosis Date Diabetes mellitus type 1 (HCC) Past Surgical History Procedure Laterality Date Hip fracture surgery Social History Substance Use Topics Smoking status: Current Every Day Smoker Smokeless tobacco: Not on file Alcohol use Not on file family history is negative for Diabetes, and Glaucoma, and Macular degeneration, and Retina l detachment, . 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 | + +--------+ + + + | CO RX RETINOPATHY | Routin | 12/12/2016 | Proliferative | | | PROGRESSV,PHOTOCOAG | e | 3:33 PM | diabetic retinopathy | | | | | PST | of left eye with | | | | | | macular edema | | | | | | associated with type | | | | | | 1 diabetes mellitus | | | | | | ([facility]) | | + +--------+ + + + | CO INTRAVITREAL INJ, | Routin | 12/12/2016 | Proliferative | | | AVASTIN | e | 3:30 PM | diabetic retinopathy | | | | | PST | of left eye with | | | | | | macular edema | | | | | | associated with type | | | | | | 1 diabetes mellitus | | | | | | ([facility]) | | + +--------+ + + + documented in this encounter Visit Diagnoses + + | Diagnosis | + + | Proliferative diabetic retinopathy of left eye with macular edema associated with type | | 1 diabetes mellitus ([facility]) - Primary | + + | Proliferative diabetic retinopathy with macular edema associated with type 1 diabetes | | mellitus (HCC) | + + documented in this encounter"
--- OUTSIDE RECORDS SUMMARY | ~2019-07-28 | XMS | Encounter Summary ---
Demographics + + + | Address | [address] | | | [place] [address] | + + + | Home Phone | | + + + | Preferred Language | Unknown | + + + | Marital Status | Single | + + + | Episcopal Affiliation | NON | + + + | Race | White | + + + | Ethnic Group | Not or | + + + Author + + + | Author | [facility] | + + + | Organization | [facility] | + + + | Address | Unknown | + + + | Phone | Unavailable | + + + Support + + +---------+ + | Name | Relationship | Address | Phone | + + +---------+ + | Madelyn Marquez | ECON | Unknown | | + + +---------+ + Care Team Providers + +------+ + | Care Icing And Glaze Maker Name | Role | Phone | + +------+ + | Dionne España THERAPEUTIC RECREATION ASSISTANT | PCP | | + +------+ + Reason for Visit + + + | Reason | Comments | + + + | OCT - Macula | OU | + + + Encounter Details +--------+ + + + + | Date | Type | Department | Care Team | Description | +--------+ + + + + | 05/01/ | Diagnostic | [facility] | | OCT - Macula (OU) | | 2016 | Visit | [place] | | | | | | Photography at | | | | | | [address] | | | | | | [address] | | | | | | Mailcode: [address] | | | | | | [place], [place] | | | | | | [address] | | | | | | [phone] | | | +--------+ + + + [...] + documented as of this encounter Progress Christiane SongricoAmador - 05/01/2016 4:28 PM PDTThe interpretation for the following study: OCT - Macula - OU can be found on physician encounter on 05/01/2016. documented in this e ncounter Plan of Treatment Not on filedocumented as of this encounter Visit Diagnoses + + | Diagnosis | + + | Proliferative diabetic retinopathy with macular edema associated with type 1 diabetes | | mellitus (HCC) | + + documented in this encounter"
--- OUTSIDE RECORDS SUMMARY | ~2019-07-28 | XMS | Encounter Summary ---
Demographics + + + | Address | [address] | | | [place] [address] | + + + | Home Phone | | + + + | Preferred Language | Unknown | + + + | Marital Status | Single | + + + | Orthodoxy Affiliation | NON | + + + [...] Team Providers + +------+ + | Care Litigation Services Manager Name | Role | Phone | + +------+ + | Dionne España REGIONAL ACCOUNT MANAGER | PCP | | + +------+ [...] PARS PLANA | | 2018 | | [address] | [address] | VITRECTOMY, ENDO | | | | Whitney MARTINI | [address] | LASER, air fluid | | | | [facility], | [place], [place] | exchange , 23g left | | | | [place] [address] | [address] | eye | | | | | [phone] | | | | | | | [...] eye, clean and dry. Your doctor shiva l remove it the day after surgery. Resume [...] + | [facility] | [address] | [place], [place] | | | [facility] | [address] | [address] | | | TESTS | | | [...] Shahzad Renteria | | | MD [facility] Or Student Teacher: None Anesthesia: General Implant: | | | [...] the Medicare carrier. Shahzad | | | T MD Delmi | | + + + CAPILLARY BLOOD [...] + + + + | [facility] | [address] | [place], [place] | | | [facility] | [address] | [address] | | | TESTS | | | [...] | | | | | | Until 03/31/18 at [address]8 | | | | [...] | | | | | | Starting 6/25/18 at 0914, | | | | | [...] 1 strip | | Both | | [id number] | | 18 9:12 | | | [...]
--- OUTSIDE RECORDS SUMMARY | ~2019-07-28 | XMS | Encounter Summary ---
Demographics + + + | Address | [address] | | | [place] [address] | + + + | Home Phone | | + + + | Preferred Language | Unknown | + + + | Marital Status | Single | + + + | Sabianism Affiliation | NON | + + + [...] Team Providers + +------+ + | Care Stock Control Supervisor Name | Role | Phone | + +------+ + | Taco Dionne HOSPITAL INTERN | PCP | | + +------+ + [...] | | | | | | | [place], [place] | | | | | | | [address] | | | | | | | Phone: | | | | | | | [phone] | | | | | | | Fax: | | | | | | | [phone] | +--------+--------+ + + + + Encounter Details +--------+---------+ + + + | Date | Type | Department | Care Team | Description | +--------+---------+ + + + | 12/11/ | Office | [facility] | Nghia Bell MD | Proliferative | | 2018 | Visit | [place] [facility] | [address] | diabetic retinopathy | | | | [place] [address] | [address] | of left eye with | | | | [place], [place] | [place], [place] | macular edema | | | | [address] | [address] | associated with type | | | | [phone] | [phone] | 1 diabetes mellitus | | | [...] Instructions Patient Instructions Nghia Bell MD - 12/11/2017 9:15 AM PSTReturn before scheduled vi sit with decreasing vision or new shower of floaters. documented in this encounter Progress Notes Nghia Bell MD - 12/11/2017 9:15 AM PST [facility] Progress Note 12/11/2017 Assessment & Plan: 27 y.o. male Proliferative diabetic retinopathy of left eye with macular edema associated with type 1 di abetes mellitus (HCC) PDR s/p PRP OU - Hx VH OS Regressed NVD - early traction along arcade Long discussion with patient - observe today Plan on FA transit OS at Next visit Possible Avastin OU Call for decreased vision, increased distortion, increased pain, new floaters or flashing l ights Follow up: Return in about 5 weeks (around 01/15/2018). Chief Complaint: Follow-up visit HPI: Follow-up for diabetic retinopathy Patient states that vision is unchanged. No new floaters or flashes of light. 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 | | | | | macular edema | | | | | | associated with type | | | | | | 1 diabetes mellitus | | | | | | ([facility]) | | + +--------+ + + + documented in this encounter Results OCT, RETINA (11/13/2018 3:39 PM PST) + + + | Narrative | Performed At | + + + | Etiologist | [facility] | | DocumentationRight EyeCentral [...] | + + + + + | [facility] | [address] | [place] [address] | | | INSTITUTE | [address] | | | + + + + + OCT, RETINA (08/21/2018 3:33 PM PST) + + + | Narrative | Performed At | + + + | Etiologist | [facility] | | DocumentationRight EyeCentral macular thickness: 255 Left | E[facility] INSTITUTE | | EyeCentral macular thickness: 273 Provider DocumentationRight | | | EyeContour: no central thickening Fluid and related findings: | | | better, no fluid Left EyeContour: central thickening Fluid and | | | related findings: better, IRF Comments: Traction on macula | | | causing elevation through fovea | | | | | | | | |Provider Documentation | | |Right Eye | | |Contour: no central thickening | | |Fluid and related findings: better, no fluid | | | | | | | | |Left Eye | | |Contour: central thickening | | |Fluid and related findings: better, IRF | | |Comments: Traction on macula causing elevation through fovea | | + + + + + + + + | Performing | Address | City/State/Zipcode | Phone Number | | Organization | | | | + + + + + | [facility] | [address] | [place] [address] | | | [place] | [place] | | | + + + + + OCT, RETINA (02/26/2018 9:24 AM PDT) + + + | Narrative | Performed At | + + + | Etiologist | [facility] | | DocumentationRight EyeCentral [...] + + + + + | [facility] | [address] | [place] [address] | | | INSTITUTE | [place] | | | + + + + + OCT, RETINA (01/15/2018 9:35 AM PDT) + + + | Narrative | Performed At | + + + | Etiologist | [facility] | | DocumentationRight EyeCentral macular thickness: 311 Left | [facility]STITUTE | | EyeCentral macular thickness: 323 Provider DocumentationRight | | | EyeFluid and related findings: IRF, worse Comments: NV Left | | | EyeFluid and related findings: IRF, worse Comments: NV, mild | | | traction but no SRF | | |Central macular thickness: 323 | | | | | | | | |Provider Documentation | | |Right Eye | | |Fluid and related findings: IRF, worse | | |Comments: NV | | | | | |Left Eye | | |Fluid and related findings: IRF, worse | | |Comments: NV, mild traction but no SRF | | + + + + + + + + | Performing | Address | City/State/Zipcode | Phone Number | | Organization | | | | + + + + + | [facility] | [address] | [place] [address] | | | INSTITUTE | [place] | | | + + + + + OCT, RETINA (12/11/2017 9:01 AM PST) + + + | Narrative | Performed At | + + + | Etiologist | [facility] | | DocumentationRight EyeCentral macular thickness: 277 Left | E[facility]STITUTE | | EyeCentral macular thickness: 317 Provider DocumentationRight | | | EyeFluid and related findings: IRF, worse Left EyeFluid and | | | related findings: IRF, worse | | |Left Eye | | |Central macular thickness: 317 | | | | | | | | |Provider Documentation | | |Right Eye | | |Fluid and related findings: IRF, worse | | | | | | | | |Left Eye | | |Fluid and related findings: IRF, worse | | + + + + + + + + | Performing | Address | City/State/Zipcode | Phone Number | | Organization | | | | + + + + + | [facility] | [address] | [place] [address] | | | [place] | [place] | | | + + + + + documented in this encounter Visit Diagnoses + + | Diagnosis | + + | Proliferative diabetic retinopathy of left eye with macular edema associated with type | | 1 diabetes mellitus (HCC) - Primary | + + documented in this encounter"
--- OUTSIDE RECORDS SUMMARY | ~2019-07-28 | XMS | Encounter Summary ---
Demographics + + + | Address | [address] | | | [place] [address] | + + + | Home Phone | | + + + | Preferred Language | Unknown | + + + | Marital Status | Single | + + + | Sabianist Affiliation | NON | + + + | Race | White | + + + | Ethnic Group | Not or | + + + Author + + + | Author | [facility] | + + + | Organization | [facility] | + + + | Address | Unknown | + + + | Phone | Unavailable | + + + Support + + +---------+ + | Name | Relationship | Address | Phone | + + +---------+ + | Madelyn Marquze | ECON | Unknown | | + + +---------+ + Care Team Providers + +------+ + | Care Renewals Manager Name | Role | Phone | + +------+ + | Taco Dionne EMAIL CAMPAIGN MANAGER | PCP | | + +------+ [...] | | | | | | | [place], [place] | | | | | | | [address] | | | | | | | Phone: | | | | | | | [phone] | | | | | | | Fax: | | | | | | | [phone] | +--------+--------+ + + + + Encounter Details +--------+---------+ + + + | Date | Type | Department | Care Team | Description | +--------+---------+ + + + | 11/13/ | Office | [facility] | Shahzad Awad, | Proliferative | | 2019 | Visit | [place] [facility] | [address] | diabetic retinopathy | | | | [place] [address] | [address] | of left eye with | | | | [place], [place] | [place], [place] | macular edema | | | | [address] | [address] | associated with type | | | | [phone] | [phone] | 1 diabetes mellitus | | | | | | ([facility]); | | | | | | Proliferative [...] 11/13/2018 3:30 PM PSTFormatting of this note might be different fr om the original. [facility] Progress Note 11/13/2018 Assessment & Plan: 28 y.o. male Proliferative diabetic retinopathy (S/P PPV/MP 31MAR2018) with macular edema, left eye New vitreous hemorrhage -no view today -discussed ultrasound in [place] is needed Proliferative diabetic retinopathy with macular edema, right eye Active NV today -needs treatment, does not want shot today because he drove and can only see out of this ey e currently. Will treat during upcoming visit in [place]. 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 Follow up: Return in about 2 weeks [...] pump 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: The biochemistry 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 | | | | | ([facility]) | | + +--------+ + + + documented in this encounter Results OCT, RETINA (11/13/2018 3:39 PM PST) + + + | Narrative | Performed At | + + + | Business Solutions Director | [facility] | | DocumentationRight EyeCentral [...] + + | [facility] | [address] | [place] [address] | | | [place] | [place] | [...]
--- OUTSIDE RECORDS SUMMARY | ~2019-07-28 | XMS | Encounter Summary ---
Demographics + + + | Address | [address] | | | [place] [address] | + + + | Home Phone | | + + + | Preferred Language | Unknown | + + + | Marital Status | Single | + + + | Mormon Affiliation | NON | + + + [...] Team Providers + +------+ + | Care Helix Coil Winder Name | Role | Phone | + [...] | | | | | | | [address] | | | | | | | [address] | [address] | | | | | | | [facility] [place] | | | | | | | [address] | | | | | | | Phone: | | | | | | | [phone] | | | | | | | Fax: | | | | | | | [phone] | +--------+--------+ + + + + Encounter Details +--------+---------+ + + + | Date | Type | Department | Care Team | Description | +--------+---------+ + + + | 05/01/ | Office | [facility] | Nghia Bell MD | Proliferative | | 2016 | Visit | [facility] | [address] | diabetic retinopathy | | | | [place] [address] | [address] | with macular edema | | | | [address] | [facility] [place] | associated with type | | | | Mailcode: CEI | [address] | 1 diabetes mellitus | | | | [facility] [place] | [phone] | ([facility]) (Primary Dx); | | | | [address] | | Proliferative | | | | [phone] | | diabetic retinopathy | | | | | | with macular edema | | | | | | associated with type | | | | | | 1 diabetes mellitus | | | | | | ([facility]) [E10.351] | +--------+---------+ + + + Social [...] condition in your retina. Here is what javier tillman can expect: The vision will be dim [...] is not normal. Please call us at [phone]. Care Instructions After Eye Injection: Do not rub or touch the eye. Redness in the corner of the eye is okay. Use Artificial tears every hour, RIGHT EYE, as needed for gritty sensation for next 2-3 day s. Call immediately [phone] for increased pain or decreased vision. documented [...] Note 05/01/2016 for: AVASTIN, RIGHT EYE LOT #[id number] Expiration 05/02/16RIGHT EYE:I12 Attending: Nghia Bell MD Diagnosis: Proliferative diabetic retinopathy with macular edema associated with type 1 brittney betes mellitus ([facility]) (primary encounter diagnosis) Proliferative diabetic retinopathy with macular edema associated with type 1 diabetes melli tus ([facility]) [E10.351] Indication: Risk of further vision loss [...] the entire procedure. Nghia Bell MD, 05/01/2016 uNghia prado MD - 0 05/01/2016 1:58 PM PDT [facility] Progress Note 05/01/2016 Assessment & Plan: 25 y.o. male Proliferative diabetic retinopathy without macular edema associated with type 1 diabetes me llitus ([facility]) PDR OU, DME OD Plan: PRP OD, [...] . 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: The central lab 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 | | | | ([facility]) | | + +--------+ + + + | MA INTRAVITREAL INJ, | Routin | 05/01/2016 | Proliferative | | | AVASTIN | e | 3:40 PM | diabetic retinopathy | | | | | PDT | with macular edema | | | | | | associated with type | | | | | | 1 diabetes mellitus | | | | | | ([facility]) | | + +--------+ + + + | MA RX RETINOPATHY | Routin | 05/01/2016 | Proliferative | | | PROGRESSV,PHOTOCOAG | e | 3:40 PM | diabetic retinopathy | | | | | PDT | with macular edema | | | | | | associated with type | | | | | | 1 diabetes mellitus | | | | | | ([facility]) [E10.351] | | + +--------+ + + + | MA RX RETINOPATHY | Routin | 05/01/2016 | Proliferative | | | PROGRESSV,PHOTOCOAG | e | 3:40 PM | diabetic retinopathy | | | | | PDT | with macular edema | | | | | | associated with type | | | | | | 1 diabetes mellitus | | | | | | ([facility]) [E10.351] | | + +--------+ + + + documented in this encounter Visit Diagnoses + + | Diagnosis | + + | Proliferative diabetic retinopathy with macular edema associated with type 1 diabetes | | mellitus (HCC) [E10.351] - Primary | + + documented in this encounter"
--- OUTSIDE RECORDS SUMMARY | ~2019-07-28 | XMS | Encounter Summary ---
Demographics + + + | Address | [address] | | | [place] [address] | + + + | Home Phone [...] Author + + + | Author | [facility] | + + + | Organization | [facility] | + + + | Address | Unknown | + + + | Phone | Unavailable | + + + Support + + +---------+ + | Name | Relationship | Address | Phone | + + +---------+ + | Madelyn Marquez | ECON | Unknown | | + + +---------+ + Care Team Providers + +------+ + | Care Acquisition Cost Estimator Name | Role | Phone | + +------+ + | Taco Dionne TUBE WORKER | PCP | | + +------+ + [...] | | | | | | | [place], [place] | | | | | | | [address] | | | | | | | Phone: | | | | | | | [phone] | | | | | | | Fax: | | | | | | | [phone] | +--------+--------+ + + + + Encounter Details +--------+---------+ + + + | Date | Type | Department | Care Team | Description | +--------+---------+ + + + | 07/18/ | Office | [facility] | Nghia Bell MD | Type 1 diabetes | | 2016 | Visit | [facility] | [address] | mellitus with | | | | Kimberly [address] | [address] | proliferative | | | | [place], [place] | [place], [place] | retinopathy of right | | | | [address] | [address] | eye and macular | | | | [phone] | [phone] | edema (HCC) (Primary | | | | | | Dx); Proliferative | | | | | | diabetic retinopathy | | | | | | of left eye with | | | | | | macular edema | | | | | | associated with type | | | | | | 1 diabetes mellitus | | | | | | ([facility]); | | | | | | Proliferative | | | | | | diabetic retinopathy | | | | | | with macular edema | | | | | | associated with type | | | | | | 1 diabetes mellitus | | | | | | ([facility]) [E10.3519]; | | | | | | Proliferative | | | | | | diabetic retinopathy | | | | | | without macular | | | | | | edema associated | | | | | | with type 1 diabetes | | | | | | mellitus ([facility]) | +--------+---------+ + + + [...] Bell MD - 07/30/2016 4:44 PM PDT [facility] Progress Note 07/18/2016 Assessment & Plan: 26 y.o. male Proliferative diabetic retinopathy without macular edema associated with type 1 diabetes me llitus ([facility]) Type 1 DM - PDR OU, DME [...] . 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
--- OUTSIDE RECORDS SUMMARY | ~2019-07-28 | XMS | Encounter Summary ---
Demographics + + + | Address | [address] | | | [place] [address] | + + + | Home Phone | | + + + | Preferred Language | Unknown | + + + | Marital Status | Single | + + + | Church Affiliation | NON | + + + [...] Team Providers + +------+ + | Care Manager Decision Support Name | Role | Phone | + +------+ + | Dionne España NICHOLAS | PCP | | + +------+ + Encounter Details +--------+ + + + + | Date | Type | Department | Care Team | Description | +--------+ + + + + | 03/31/ | Pharmacy | [facility] | | | | 2017 | Visit | [address] | | | [address] | | | | | | [place], [place] | | | | | | [address] | | | | | | [phone] | | | +--------+ + + + [...]
--- OUTSIDE RECORDS SUMMARY | ~2019-07-28 | XMS | Encounter Summary ---
Demographics + + + | Address | [address] | | | [place] [address] | + + + | Home Phone [...] Author + + + | Author | [facility] | + + + | Organization | [facility] | + + + | Address | Unknown | + + + | Phone | Unavailable | + + + Support + + +---------+ + | Name | Relationship | Address | Phone | + + +---------+ + | Madelyn Marquez | ECON | Unknown | | + + +---------+ + Care Team Providers + +------+ + | Care Police Matron Name | Role | Phone | + +------+ + | Dionne España BEAD TRIMMER | PCP | | + +------+ + Encounter Details +--------+ + + + + | Date | Type | Department | Care Team | Description | +--------+ + + + + | 03/31/ | Instrument Inspector | [facility] | Shahzad Awad, | | | 2018 | | [facility] | [address] | | | | | [facility] | [address] | | | | | [address] | [place], [place] | | | | | Mailcode: [facility] | [address] | | | | | [place], [place] | [phone] | | | | | [address] | | | | | | [phone] | | | +--------+ + + + [...]
--- OUTSIDE RECORDS SUMMARY | ~2019-07-28 | XMS | Encounter Summary ---
Demographics + + + | Address | [address] | | | [place] [address] | + + + | Home Phone | | + + + | Preferred Language | Unknown | + + + | Marital Status | Single | + + + | Roman Catholic Affiliation | NON | + + + | Race | White | + + + | Ethnic Group | Not or | + + + Author + + + | Author | [facility] | + + + | Organization | [facility] | + + + | Address | Unknown | + + + | Phone | Unavailable | + + + Support + + +---------+ + | Name | Relationship | Address | Phone | + + +---------+ + | Madelyn Marquez | ECON | Unknown | | + + +---------+ + Care Team Providers + +------+ + | Care Residential Interior Designer Name | Role | Phone | + [...] [address] | | | | | | [place], [place] | | | | | | [address] | | | | | | [phone] | | | +--------+ + + + [...]
--- OUTSIDE RECORDS SUMMARY | ~2019-07-28 | XMS | Clinical Summary ---
Demographics + + + | Address | [address] | | | [place] [address] | + + + | Home Phone | | + + + | Preferred Language | Unknown | + + + | Marital Status | Single | + + + | Mandaen Affiliation | NON | + + + | Race | White | + + + | Ethnic Group | Not or | + + + Author + + + | Author | [facility] | + + + | Organization | [facility] | + + + | Address | Unknown | + + + | Phone | Unavailable | + + + Support + + +---------+ + | Name | Relationship | Address | Phone | + + +---------+ + | Madelyn Marquez | ECON | Unknown | | + + +---------+ + Care Team Providers + +------+ + | Care Interpreter Name | Role | Phone | + +------+ + | TacoDionne SALES TRAINEE | PCP | | + +------+ + Source Comments LIANET is fully live on both [facility] Ambulatory and [facility] InPatient.[facility] Allergies + + + + + [...] treat | | during upcoming visit in [place]. 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 | + + + + + | Vitreous hemorrhage, right eye | 08/13/2017 | + + + + + | Last Assessment & Plan: - STACY pappas for avastin right eye | + + + + + | Proliferative diabetic retinopathy (s/p PPV/MP [id number]) with | 12/12/2016 | | macular edema, [...] view today | | -discussed ultrasound in [place] is needed | + + + +---+ [...] | | | + +--------+ +--------+-------+---------+--------+ | TRANSPORTATION DIRECTOR MEDICAID | TRANSPORTATION DIRECTOR | xxxxxxxx | 07/23/ | | | [...] [address] | | [place] | suis/Donato | | 1990 | [phone] | [place] | | | [place] | | | [address] ([place]) | [address] | + +--------+ +--------+ + +
--- OUTSIDE RECORDS SUMMARY | ~2019-07-28 | XMS | Encounter Summary ---
Demographics + + + | Address | [address] | | | [place] [address] | + + + | Home Phone [...] Author + + + | Author | [facility] | + + + | Organization | [facility] | + + + | Address | Unknown | + + + | Phone | Unavailable | + + + Support + + +---------+ + | Name | Relationship | Address | Phone | + + +---------+ + | Madelyn Marquez | ECON | Unknown | | + + +---------+ + Care Team Providers + +------+ + | Care Inventory Specialist Manager Name | Role | Phone | + +------+ + | Taco Dionne MECHANICAL CAD DESIGNER | PCP | | + +------+ [...] | | | | | | | [place], [place] | | | | | | | [address] | | | | | | | Phone: | | | | | | | [phone] | | | | | | | Fax: | | | | | | | [phone] | +--------+--------+ + + + + Encounter Details +--------+---------+ + + + | Date | Type | Department | Care Team | Description | +--------+---------+ + + + | 08/21/ | Office | [facility] | Shahzad Awad, | Proliferative | | 2018 | Visit | [place] [facility] | [address] | diabetic retinopathy | | | | Kimberly [address] | [address] | of left eye with | | | | [place], [place] | [place], [place] | macular edema | | | | [address] | [address] | associated with type | | | | [phone] | [phone] | 1 diabetes mellitus | | | | | | ([facility]); | | | | | | Proliferative [...] might be different fr om the original. [facility] Progress Note 08/21/2018 Assessment & Plan: [...] pump 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: The appliance repair 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 | | | | | ([facility]) | | + +--------+ + + + documented in this encounter Results OCT, RETINA (08/21/2018 3:33 PM PST) + + + | Narrative | Performed At | + + + | Lacquer Polisher | [facility] | | [facility] [...] [facility] | [address] | [place] [address] | | | [address] | [address]. | [...]
--- OUTSIDE RECORDS SUMMARY | ~2019-07-28 | XMS | Encounter Summary ---
Demographics + + + | Address | [address] | | | [place] [address] | + + + | Home Phone [...] + + + | Author | [facility] | + + + | Organization | [facility] | + + + | Address | Unknown | + + + | Phone | Unavailable | + + + Support + + +---------+ + | Name | Relationship | Address | Phone | + + +---------+ + | Madelyn Marquez | ECON | Unknown | | + + +---------+ + Care Team Providers + +------+ + | Care Air Conditioning Insulation Installer Name | Role | Phone | + +------+ + | Taco Dionne GEODETIC SURVEYOR TECHNOLOGIST | PCP | | + +------+ + [...] | | | | | | | [place], [place] | | | | | | | [address] | | | | | | | Phone: | | | | | | | [phone] | | | | | | | Fax: | | | | | | | [phone] | +--------+--------+ + + + + Encounter Details +--------+---------+ + + + | Date | Type | Department | Care Team | Description | +--------+---------+ + + + | 12/11/ | Office | [facility] | Nghia Bell MD | Proliferative | | 2018 | Visit | [place] [facility] | [address] | diabetic retinopathy | | | | [place] [address] | [address] | of left eye with | | | | [place], [place] | [place], [place] | macular edema | | | | [address] | [address] | associated with type | | | | [phone] | [phone] | 1 diabetes mellitus | | | [...] Bell MD - 12/11/2017 9:15 AM PST [facility] Progress Note 12/11/2017 Assessment & Plan: [...] file 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: The ophthalmology surgical 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 Performed At | + + + | Clinical Aide | [facility] | | [facility] [...] | + + + + + | [facility] | [address] | [place] [address] | | | INSTITUTE | [address] | | | + + + + + OCT, RETINA (08/21/2018 3:33 PM PST) + + + | Narrative | Performed At | + + + | Clinical Aide | [facility] | | [facility] [...] [facility] | [address] | [place] [address] | | | [address] | [address] | | | + + + + + OCT, RETINA (02/26/2018 9:24 AM PDT) + + + | Narrative | Performed At | + + + | Clinical Aide | [facility] | | [facility] [...] [facility] | [address] | [place] [address] | | | INSTITUTE | [address]. | | | + + + + + OCT, RETINA (01/15/2018 9:35 AM PDT) + + + | Narrative | Performed At | + + + | Clinical Aide | [facility] | | [facility] [...] | + + + + + | [facility] | [address] | [place] [address] | | | INSTITUTE | [address]. | | | + + + + + OCT, RETINA (12/11/2017 9:01 AM PST) + + + | Narrative | Performed At | + + + | Clinical Aide | [facility] | | [facility] [...] + + | [facility] | [address] | [place] [address] | | | [address] | [address] | | | + + + + + documented in this encounter Visit Diagnoses + + | Diagnosis | + + | Proliferative diabetic retinopathy of left eye with macular edema associated with type | | 1 diabetes mellitus (HCC) - Primary | + + documented in this encounter"
--- OUTSIDE RECORDS SUMMARY | ~2019-07-28 | XMS | Encounter Summary ---
Demographics + + + | Address | [address] | | | [place] [address] | + + + | Home Phone | | + + + | Preferred Language | Unknown | + + + | Marital Status | Single | + + + | Latter-Day Affiliation | NON | + + + | Race | White | + + + | Ethnic Group | Not or | + + + Author + + + | Author | [facility] | + + + | Organization | [facility] | + + + | Address | Unknown | + + + | Phone | Unavailable | + + + Support + + +---------+ + | Name | Relationship | Address | Phone | + + +---------+ + | Madelyn Marquez | ECON | Unknown | | + + +---------+ + Care Team Providers + +------+ + | Care Direct Service Provider Name | Role | Phone | + +------+ + | Taco Dionne PUBLIC POLICY COORDINATOR | PCP | | + +------+ + Reason for Visit Benefits Check (Routine) +--------+--------+ + + + [...] | | | | | | | [address] | | | | | | | [address] | | | | | | | [place] | | | | | | | [place], [place] | | | | | | | [address] | | | | | | | Phone: | | | | | | | [phone] | | | | | | | Fax: | | | | | | | [phone] | +--------+--------+ + + + + Encounter Details +--------+---------+ + + + | Date | Type | Department | Care Team | Description | +--------+---------+ + + + | 08/14/ | Office | [facility] | Nghia Bell MD | Proliferative | | 2017 | Visit | [place] [facility] | [address] | diabetic retinopathy | | | | [place] [address] | [address] | of left eye with | | | | [place], [place] | [place], [place] | macular edema | | | | [address] | [address] | associated with type | | | | [phone] | [phone] | 1 diabetes mellitus | | | | | | ([facility]) (Primary Dx) | +--------+---------+ + + + [...] of this encounter Patient Instructions Patient Instructions Livia Gonzalez - 08/14/2017 3:17 PM PST Care Instructions After Eye Injection: Do not rub or touch the eye. Redness in the corner of the eye is okay. Use Artificial tears every hour, RIGHT EYE, as needed for gritty sensation for next 2-3 days. Call immediately [phone] for increased pain or decreased vision.Electronically sign ed by Livia Carlos at 08/14/2017 3:17 PM PST documented in this encounter Progress Notes Livia Gonzalez - 08/14/2017 3:17 PM PST Intravitreal Injection Procedure Note 08/14/2017 for: AVASTIN, RIGHT EYE LOT #[id number]@3 (28KD) and Expiration 09/01/2017 RIGHT EYE: Attending: Nghia Bell MD Diagnosis: Proliferative diabetic retinopathy of left eye with macular edema associated wit h type 1 diabetes mellitus (HCC) (primary encounter diagnosis) Indication: Risk of further vision loss without treatment Allergies: Penicillin Anesthesia: Subconjunctival lidocaine injection PARQ held for above. Team Pause: At 3:17 PM, prior to the beginning of the [...] performed the entire procedure. Nghia Bell MD, 08/14/2017 Nghia Kincaid MD - 1 10/14/2016 3:00 PM PST [facility] Progress Note 08/14/2017 Assessment & Plan: 27 y.o. male Proliferative diabetic retinopathy of left eye with macular edema associated with type 1 di abetes mellitus (HCC) PDR OU s/p PRP OU DME OU s/p Avastin OU Fibrotic NV OU, new VH OD PARQ Avastin OD today Plan for Avastin OS in 2W Plan for additional PRP when VH cleared Call for decreased vision, increased distortion, increased pain, new floaters or flashing l ights Follow up: Return in about 2 weeks (around 08/28/2017). OCT CMT Description Right 300 (04/17/17 1400) Left 333 (04/17/17 1400) Chief Complaint: No chief complaint on file. HPI: Red jellyfish like object superiorly OD x 3 days. Decrease in vision. OS stable. Current Outpatient Prescriptions (Other) Medication Sig cyclobenzaprine [...] file 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: The robotics 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 | + +--------+ + + + | [place] INTRAVITREAL INJ, | Routin | 08/14/2017 | Proliferative | | | AVASTIN | e | 3:17 PM | diabetic retinopathy | | | | | PST | of left eye with | | | | | | macular edema | | | | | | associated with type | | | | | | 1 diabetes mellitus | | | | | | ([facility]) | | + +--------+ + + + documented in this encounter Visit Diagnoses + + | Diagnosis | + + | Proliferative diabetic retinopathy of left eye with macular edema associated with type | | 1 diabetes mellitus ([facility]) - Primary | + + documented in this encounter"
--- OUTSIDE RECORDS SUMMARY | ~2019-07-28 | XMS | Encounter Summary ---
Demographics + + + | Address | [address] | | | [place] [address] | + + + | Home Phone [...] + + + | Author | [facility] | + + + | Organization | [facility] | + + + | Address | Unknown | + + + | Phone | Unavailable | + + + Support + + +---------+ + | Name | Relationship | Address | Phone | + + +---------+ + | Madelyn Marquez | ECON | Unknown | | + + +---------+ + Care Team Providers + +------+ + | Care Furniture Lumber Production Worker Name | Role | Phone | + [...] | | | | | | [place], [place] | | | | | | [address] | | | | | | [phone] | | | +--------+ + + + [...]
--- OUTSIDE RECORDS SUMMARY | ~2019-07-28 | XMS | Encounter Summary ---
Demographics + + + | Address | [address] | | | [place] [address] | + + + | Home Phone | | + + + | Preferred Language | Unknown | + + + | Marital Status | Single | + + + | Islam Affiliation | NON | + + + | Race | White | + + + | Ethnic Group | Not or | + + + Author + + + | Author | [facility] | + + + | Organization | [facility] | + + + | Address | Unknown | + + + | Phone | Unavailable | + + + Support + + +---------+ + | Name | Relationship | Address | Phone | + + +---------+ + | Madelyn Marquez | ECON | Unknown | | + + +---------+ + Care Team Providers + +------+ + | Care Senior Network Architect Name | Role | Phone | + +------+ + | Dionne España NICHOLAS | PCP | | + +------+ + Encounter Details +--------+ + + + + | Date | Type | Department | Care Team | Description | +--------+ + + + + | 01/09/ | Document-Sc | Health Information | Unknown . | | | 2018 | anned | Services [id number] | | | | | | [address] | | | | | | Mailcode: [id number] | | | | | | [facility] | | | | | | [place], [place] | | | | | | [address] | | | | | | [phone] | | | +--------+ + + + [...] | + +--------+ + + + | LAB REPORTS | | 01/09/2018 | | Results for this | | | | 12:00 AM | | procedure are in the | | | | PDT | | results section. | + +--------+ + + + documented in this encounter Results LAB REPORTS (01/09/2018 12:00 AM PDT) + + + | Narrative | Performed At | + + + | | | + + + documented in this encounter Visit Diagnoses Not on filedocumented in this encounter"
--- OUTSIDE RECORDS SUMMARY | ~2019-07-28 | XMS | Encounter Summary ---
Demographics + + + | Address | [address] | | | [place] [address] | + + + | Home Phone | | + + + | Preferred Language | Unknown | + + + | Marital Status | Single | + + + | Advent Affiliation | NON | + + + [...] Team Providers + +------+ + | Care Field Support Engineer Name | Role | Phone | + [...] +--------+--------+ + + + + Encounter Details +--------+ + + + + | Date | Type | Department | Care Team | Description | +--------+ + + + + | 03/31/ | Hospital | [facility] | Shahzad Awad, | | | 2017 | Encounter | [address] | MD [address] | | | | | [address] | [address] | | | | | [facility] | [place], [place] | | | | | Aarti [address]man | [address] | | | | | [place] [address] | [phone] | | | | | [phone] | | | +--------+ + + + [...] [facility] | [address] | [place], [place] | | | [address] | [facility] | [address] | | | TESTS | | | [...] Shahzad Renteria | | | MD Delmi Profiler Hand: None Anesthesia: General Implant: | | | [...] + + + + | [facility] | [address] | [place], [place] | | | [address] [address] | [address] | [address] | | | TESTS | | | [...] eye - Primary | + + | Epiretinal membrane (ERM) of left eye | + + documented in this encounter Administered Medications + +--------+ +--------+------+------+ | Medication Order | MAR | Action | Dose | Rate | Site | | | Action | Date | | | | + +--------+ +--------+------+------+ | cyclopentolate 1%-PHENYLEPHrine | Given | 03/31/20 [...] | | | | | + +--------+ +--------+------+------+ +-------+ +--------+---+---+ | Given | 03/31/20 | 1 drop | | | | | 18 7:45 | | | | | | AM PDT | | | | +-------+ +--------+---+---+ + +---+ | | | + +---+ | fentaNYL (SUBLIMAZE) injection | | | 50 mcg 50 mcg, intravenous, | | | POSTPROCEDURE PRN, 4 doses, | | | Starting 03/31/18 at 0836, | | | Until Sat03/31/18 [...] | | | +---------+ + + +---+ + +---+ | | | + +---+ | meperidine (DEMEROL) injection | | | 25 mg 25 mg, intravenous, | | | POSTPROCEDURE PRN, 1 dose, | | | Starting 03/31/18 at 0836, | | | Until 03/31/18 at 1710, | | | shivering | [...] NEEDED, 1 dose, | | | Starting Sat03/31/18 at 1011, | | | Until Sat03/31/18 at 1710, | | | post-op severe pain | | + +---+ | | | + +---+ documented in this encounter
--- OUTSIDE RECORDS SUMMARY | ~2019-07-28 | XMS | Encounter Summary ---
Demographics + + + | Address | [address] | | | [place] [address] | + + + | Home Phone | | + + + | Preferred Language | Unknown | + + + | Marital Status | Single | + + + | Baptist Affiliation | NON | + + + | Race | White | + + + | Ethnic Group | Not or | + + + Author + + + | Author | [facility] | + + + | Organization | [facility] | + + + | Address | Unknown | + + + | Phone | Unavailable | + + + Support + + +---------+ + | Name | Relationship | Address | Phone | + + +---------+ + | Madelyn Marquez | ECON | Unknown | | + + +---------+ + Care Team Providers + +------+ + | Care Inbound Sales Consultant Name | Role | Phone | + +------+ + | TacoDionne BURIAL VAULT MAKER | PCP | | + +------+ + [...] | | | | | | | [address] | | | | | | | [address] | | | [address] | | | | | | | [facility] [place] | | | | | | | [address] | | | | | | | Phone: | | | | | | | [phone] | | | | | | | Fax: | | | | | | | [phone] | +--------+--------+ + + + + Encounter Details +--------+---------+ + + + | Date | Type | Department | Care Team | Description | +--------+---------+ + + + | 05/15/ | Office | [facility] | Allan Snell | Proliferative | | 2018 | Visit | [facility] | MD Christi [address] | diabetic retinopathy | | | | Aarti Cuello [facility] | [address] | with macular edema, | | | | [address] | [place], [place] | right eye (Primary | | | | Mailcode: CEI | [phone] | Dx); Proliferative | | | | [facility] [place] | [phone] | diabetic retinopathy | | | | [address] | | with macular edema, | | | | [phone] | | left eye; Vitreous | | [...] rub or touch your eye ? An qicj-fln-rzvlxjh pain reliever (i.e. Tylenol) can be used [...] PM PDT [facility] Progress Note 05/15/2018 Assessment & Plan: 27 y.o. male Proliferative diabetic retinopathy with macular edema, right eye - Worsening macular edema and with new mild VH - PARQ held for Avastin right eye, performed without complication Proliferative diabetic retinopathy with macular edema, left eye - Retinal thickening improved following pars plana vitrectomy - Continue to monitor Vitreous hemorrhage, right eye ([facility]) - PARQ held for avastin right eye [...] pump 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: The body technician/painter, under the supervision of the physician, is [...] bevacizumab 1.25 mg/0.05 mL | | | [facility]: [id number] | | | Lot: [id number] | | | Expiration Date: 05/23/2018 | [...]
--- OUTSIDE RECORDS SUMMARY | ~2019-07-28 | XMS | Encounter Summary ---
Demographics + + + | Address | [address] | | | [place] [address] | + + + | Home Phone [...] Author + + + | Author | [facility] | + + + | Organization | [facility] | + + + | Address | Unknown | + + + | Phone | Unavailable | + + + Support + + +---------+ + | Name | Relationship | Address | Phone | + + +---------+ + | Madelyn Marquez | ECON | Unknown | | + + +---------+ + Care Team Providers + +------+ + | Care Concrete Buster Operator Name | Role | Phone | + [...] Ruth | | | | | | [place], [place] | | | | | | [address] | | | | | | [phone] | | | +--------+ + + + [...]
--- OUTSIDE RECORDS SUMMARY | ~2019-07-28 | XMS | Encounter Summary ---
Demographics + + + | Address | [address] | | | [place] [address] | + + + | Home Phone | | + + + | Preferred Language | Unknown | + + + | Marital Status | Single | + + + | Tenriism Affiliation | NON | + + + [...] Team Providers + +------+ + | Care Machinist Job Setter Name | Role | Phone | + +------+ + | Dionne España BULLET SWAGING MACHINE OPERATOR | PCP | | + +------+ + Encounter Details +--------+ + + + + | Date | Type | Department | Care Team | Description | +--------+ + + + + | 05/18/ | Telephone | [facility] | Allan Snell | | | 2017 | | [facility] | [address] | | | | | [address]arti Cuello [facility] | [address] | | | | | [address] | [place], [place] | | | | | Mailcode: [facility] | [address] | | | | | [place], [place] | [phone] | | | | | [address] | | | | | | [phone] | | | +--------+ + + + [...]
--- OUTSIDE RECORDS SUMMARY | ~2019-07-28 | XMS | Encounter Summary ---
Demographics + + + | Address | [address] | | | [place] [address] | + + + | Home Phone [...] + + + | Author | [facility] | + + + | Organization | [facility] | + + + | Address | Unknown | + + + | Phone | Unavailable | + + + Support + + +---------+ + | Name | Relationship | Address | Phone | + + +---------+ + | Madelyn Marquez | ECON | Unknown | | + + +---------+ + Care Team Providers + +------+ + | Care Marine Resource Economist Name | Role | Phone | + +------+ + | Taco Dionne REAL TIME TRADER | PCP | | + +------+ + [...] | | | | | | | [address] | | | | | | | [address] | | | | | | | [place] | | | | | | | [place], [place] | | | | | | | [address] | | | | | | | Phone: | | | | | | | [phone] | | | | | | | Fax: | | | | | | | [phone] | +--------+--------+ + + + + Encounter Details +--------+---------+ + + + | Date | Type | Department | Care Team | Description | +--------+---------+ + + + | 08/14/ | Office | [facility] | Nghia Bell MD | Proliferative | | 2017 | Visit | [facility] | [address] | diabetic retinopathy | | | | [place] [address] | [address] | of left eye with | | | | [place], [place] | [place], [place] | macular edema | | | | [address] | [address] | associated with type | | | | [phone] | [phone] | 1 diabetes mellitus | | | | | | ([facility]) (Primary Dx) | +--------+---------+ + [...] sensation for next 2-3 days. Call immediately [phone] for increased pain or decreased vision.Electronically sign ed by Livia Carlos at 08/14/2017 3:17 PM PST documented in this encounter Progress Notes Livia Gonzalez - 08/14/2017 3:17 PM PST Intravitreal Injection Procedure Note 08/14/2017 for: AVASTIN, RIGHT EYE LOT #[id number] (28KD) and Expiration 09/01/2017 RIGHT EYE: Attending: [...] PM PST 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
--- OUTSIDE RECORDS SUMMARY | ~2019-07-28 | XMS | Encounter Summary ---
Demographics + + + | Address | [address] | | | [place] [address] | + + + | Home Phone [...] Team Providers + +------+ + | Care Hay Farmer Name | Role | Phone | + +------+ + | Dionne España WIND SITE MANAGER | PCP | | + +------+ + Reason for Visit + + + | Reason | Comments | + + + | OCT - Macula | ou | + + + Encounter Details +--------+ + + + + | Date | Type | Department | Care Team | Description | +--------+ + + + + | 05/23/ | Diagnostic | [facility] | | OCT - Macula (ou) | | 2016 | Visit | [place] | | | | | | Photography at | | | | | | Aarti Cuello [address] | | | | | [address] | | | | | | Mailcode: JORGE | | | | | | [place], [place] | | | | | | [address] | | | | | | [phone] | | | +--------+ + + + [...] + + documented as of this encounter Kerry Mendoza - 05/28/2016 2:41 PM PDTThe interpretation for the following study: OCT - Macula - ou can be found on physician encounter on 05/22/2016. documented in this encounter Plan of Treatment Not on filedocumented as of this encounter Visit Diagnoses + + | Diagnosis | + + | Proliferative diabetic retinopathy without macular edema associated with type 1 | | diabetes mellitus (HCC) | + + documented in this encounter"
--- OUTSIDE RECORDS SUMMARY | ~2019-07-28 | XMS | Encounter Summary ---
Demographics + + + | Address | [address] | | | [place] [address] | + + + | Home Phone | | + + + | Preferred Language | Unknown | + + + | Marital Status | Single | + + + | Rastafari Affiliation | NON | + + + [...] Team Providers + +------+ + | Care Corporate Services Manager Name | Role | Phone | + +------+ + | Dionne España NICHOLAS | PCP | | + +------+ + Reason for Visit + + + | Reason | Comments | + + + | History and physical | | | examination | | + + + Encounter Details +--------+ + + + + | Date | Type | Department | Care Team | Description | +--------+ + + + + | 03/27/ | Documentati | [facility] | Shahzad Awad, | History and physical | | 2018 | on | [facility] | [address] | examination | | | | [facility]art[facility] | [address] | | | | | [address] | [place], [place] | | | | | Mailcode: [facility] | [address] | | | | | [place], [place] | [phone] | | | | | [address] | | | | | | [phone] | | | +--------+ + + + [...]
--- OUTSIDE RECORDS SUMMARY | ~2019-07-28 | XMS | Encounter Summary ---
Demographics + + + | Address | [address] | | | [place] [address] | + + + | Home Phone | | + + + | Preferred Language | Unknown | + + + | Marital Status | Single | + + + | Mormonism Affiliation | NON | + + + [...] Team Providers + +------+ + | Care Section Gang Worker Name | Role | Phone | + +------+ + | Dionne España LINES TENDER | PCP | | + +------+ + Encounter Details +--------+ + + + + | Date | Type | Department | Care Team | Description | +--------+ + + + + | 05/18/ | Telephone | [facility] | Allan Snell | | | 2017 | | [facility] at | [address] | | | | | Aarti Cuello [facility] | [address] | | | | | [address] | [place], [place] | | | | | Mailcode: [facility] | [address] | | | | | [place], [place] | [phone] | | | | | [address] | | | | | | [phone] | | | +--------+ + + + [...]
--- OUTSIDE RECORDS SUMMARY | ~2019-07-28 | XMS | Encounter Summary ---
Demographics + + + | Address | [address] | | | [place] [address] | + + + | Home Phone [...] Team Providers + +------+ + | Care Room Service Clerk Name | Role | Phone | + +------+ + | Dionne España NICHOLAS | PCP | | + +------+ + Encounter Details +--------+ + + + + | Date | Type | Department | Care Team | Description | +--------+ + + + + | 08/06/ | Document-Sc | UNKNOWN DEPARTMENT | Unknown . | | | 2017 | anned | [address] | | | | | | [address] | | | | | | [place], [place] | | | | | | [address] | | | +--------+ + + + [...]
--- OUTSIDE RECORDS SUMMARY | ~2019-07-28 | XMS | Encounter Summary ---
Demographics + + + | Address | [address] | | | [place] [address] | + + + | Home Phone [...] Team Providers + +------+ + | Care Agricultural Chemicals Inspector Name | Role | Phone | + [...] | | | | | | | [address] | | | | | | | [address] | | | | | | | [place], [place] | | | | | | | [address] | | | | | | | Phone: | | | | | | | [phone] | | | | | | | Fax: | | | | | | | [phone] | +--------+--------+ + + + + Encounter Details +--------+---------+ + + + | Date | Type | Department | Care Team | Description | +--------+---------+ + + + | 01/16/ | Office | [facility] | Nghia Bell MD | Proliferative | | 2017 | Visit | [facility] [place] [facility] | [address] | diabetic retinopathy | | | | [address] | [address] | of left eye with | | | | [place], [place] | [facility], [place] | macular edema | | | | [address] | [address] | associated with type | | | | [phone] | [phone] | 1 diabetes mellitus | | | | | | ([facility]) (Primary Dx) | +--------+---------+ + + [...] Bell MD - 01/16/2017 2:45 PM PDT [facility] Progress Note 01/16/2017 Assessment & [...] file 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: The dental 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
--- OUTSIDE RECORDS SUMMARY | ~2019-07-28 | XMS | Encounter Summary ---
Demographics + + + | Address | [address] | | | [place] [address] | + + + | Home Phone [...] Team Providers + +------+ + | Care Hspt Tutor Name | Role | Phone | + [...] | +--------+ + + + + | 03/26/ | Telephone-S | Preoperative | | Pre-op evaluation | | 2018 | chemichaelled | [facility] at | | | | | | [facility] 4[facility] Floor Day | | | | | | Stay [address] | | | | | | [address] | | | | | | Mailcode: [id number] | | | | | | Danie Nava | | | | | | [address] [place], [place] | | | | | | [address] | | | | | | [phone] | | | +--------+ + + + [...] documented in this encounter Social History + +-------+ +--------+------+ | Tobacco [...]
--- OUTSIDE RECORDS SUMMARY | ~2019-07-28 | XMS | Encounter Summary ---
Demographics + + + | Address | [address] | | | [place] [address] | + + + | Home Phone | | + + + | Preferred Language | Unknown | + + + | Marital Status | Single | + + + | Pentecostal Affiliation | NON | + + + | Race | White | + + + | Ethnic Group | Not or | + + + Author + + + | Author | [facility] | + + + | Organization | [facility] | + + + | Address | Unknown | + + + | Phone | Unavailable | + + + Support + + +---------+ + | Name | Relationship | Address | Phone | + + +---------+ + | Madelyn Marquez | ECON | Unknown | | + + +---------+ + Care Team Providers + +------+ + | Care Kettle Chipper Name | Role | Phone | + +------+ + | Taco Dionne INSURANCE PROFESSIONAL | PCP | | + +------+ + [...] | | | | | | | [place], [place] | | | | | | | [address] | | | | | | | Phone: | | | | | | | [phone] | | | | | | | Fax: | | | | | | | [phone] | +--------+--------+ + + + + Encounter Details +--------+---------+ + + + | Date | Type | Department | Care Team | Description | +--------+---------+ + + + | 12/12/ | Office | [facility] | Nghia Bell MD | Proliferative | | 2017 | Visit | [place] [facility] | [address] | diabetic retinopathy | | | | [place] [address] | [address] | of left eye with | | | | [place], [place] | [place], [place] | macular edema | | | | [address] | [address] | associated with type | | | | [phone] | [phone] | 1 diabetes mellitus | | | [...] for next 2-3 d ays. Call immediately [phone] for increased pain or decreased vision.Electronically sign [...] MD - 0 12/12/2016 2:45 PM PST [facility] Progress Note 12/12/2016 Assessment & Plan: 26 [...] . 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
--- OUTSIDE RECORDS SUMMARY | ~2019-07-28 | XMS | Encounter Summary ---
Demographics + + + | Address | [address] | | | [place] [address] | + + + | Home Phone | | + + + | Preferred Language | Unknown | + + + | Marital Status | Single | + + + | Shinto Affiliation | NON | + + + | Race | White | + + + | Ethnic Group | Not or | + + + Author + + + | Author | [facility] | + + + | Organization | [facility] | + + + | Address | Unknown | + + + | Phone | Unavailable | + + + Support + + +---------+ + | Name | Relationship | Address | Phone | + + +---------+ + | Madelyn Marquez | ECON | Unknown | | + + +---------+ + Care Team Providers + +------+ + | Care Supervisor Customer Complaint Service Name | Role | Phone | + +------+ + | Taco Dionne CUTTER FINISHER | PCP | | + +------+ + [...] | | | | | | | [place], [place] | | | | | | | [address] | | | | | | | Phone: | | | | | | | [phone] | | | | | | | Fax: | | | | | | | [phone] | +--------+--------+ + + + + Encounter Details +--------+---------+ + + + | Date | Type | Department | Care Team | Description | +--------+---------+ + + + | 01/15/ | Office | [facility] | Nghia Bell MD | Proliferative | | 2018 | Visit | [facility] | [address] | diabetic retinopathy | | | | [place] [address] | [address] | of left eye with | | | | [place], [place] | [place], [place] | macular edema | | | | [address] | [address] | associated with type | | | | [phone] | [phone] | 1 diabetes mellitus | | | [...] AM PDT [facility] Progress Note 01/15/2018 Assessment & Plan: 27 [...] file 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: The auto 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 | AVASTIN INJECTION - | Routin | 01/15/2018 | Proliferative | Results for this | | OD - RIGHT EYE | e | 10:13 AM | diabetic retinopathy | procedure are in the | | | | PDT | of right eye with | results section. | | | | | macular edema | | | | | | associated with type | | | | | | 1 diabetes mellitus | | | | | | ([facility]) | | + +--------+ + + + | AVASTIN INJECTION - | Routin | 01/15/2018 | Proliferative | Results for this | | OS - LEFT EYE | e | 10:13 AM [...] bevacizumab 1.25 mg/0.05 mL | | | [facility]: [id number] | | | Lot: [id number] (26 [id number]) | | | Expiration Date: [...] bevacizumab 1.25 mg/0.05 mL | | | [facility]: [id number] | | | Lot: [id number] (25 [id number]) | | | Expiration Date: [...] Performed At | + + + | Email Marketing Processor | LIANET RAMIREZ | | [facility] [...] | + + + + + | [facility] | [address] | [place] [address] | | | INSTITUTE | [address]. | [...] PDT | | | | | Starting 01/15/18 at 1013, | | | | | | | Until Sat01/15/18 at 1013 | | | | | | + +-------+ +---------+---+--------+ +---+---+ | | | +---+---+ documented in this encounter"
--- OUTSIDE RECORDS SUMMARY | ~2019-07-28 | XMS | Encounter Summary ---
Demographics + + + | Address | [address] | | | [place] [address] | + + + | Home Phone [...] Team Providers + +------+ + | Care Compounder Name | Role | Phone | + +------+ + | TacoDionne OUTSOLE SKIVER | PCP | | + +------+ + Reason for Visit + + + | Reason | Comments | + + + | Floaters | | + + + Encounter Details +--------+ + + + + | Date | Type | Department | Care Team | Description | +--------+ + + + + | 10/21/ | Telephone | [facility] | Dania Mccloud, | [place] | | 2019 | | [facility] | [address] | | | | | [address] | | | | | [address] | [place], [place] | | | | | Mailcode: [place] | [address] | | | | | [place], [place] | [phone] | | | | | [address] | | | | | | [phone] | | | +--------+ + + + [...]
--- OUTSIDE RECORDS SUMMARY | ~2019-07-28 | XMS | Encounter Summary ---
Demographics + + + | Address | [address] | | | [place] [address] | + + + | Home Phone | | + + + | Preferred Language | Unknown | + + + | Marital Status | Single | + + + | Quaker Affiliation | NON | + + + | Race | White | + + + | Ethnic Group | Not or | + + + Author + + + | Author | [facility] | + + + | Organization | [facility] | + + + | Address | Unknown | + + + | Phone | Unavailable | + + + Support + + +---------+ + | Name | Relationship | Address | Phone | + + +---------+ + | Madelyn Marquez | ECON | Unknown | | + + +---------+ + Care Team Providers + +------+ + | Care Telecasting Engineer Name | Role | Phone | + +------+ + | TacoDionne INDUSTRIAL RELATIONS DIRECTOR | PCP | | + +------+ + [...] | [place] | | 2019 | | [facility] | [address] | | | | | [address]art[address]ello [address] | | | | | [address] | [place], [place] | | | | | Mailcode: [place] | [address] | | | | | [place], [place] | [phone] | | | | | [address] | | | | | | [phone] | | | +--------+ + + + [...]
--- OUTSIDE RECORDS SUMMARY | ~2019-07-28 | XMS | Encounter Summary ---
Demographics + + + | Address | [address] | | | [place] [address] | + + + | Home Phone [...] Providers + +------+ + | Care Administrative And Program Specialist Name | Role | Phone | + +------+ + | Dionne España PATTERN VAULT CLERK | PCP | | + +------+ + [...] Scan | | 2017 | Visit | [place] | | (OD) | | | | Photography at | | | | | | Aarti [facility]ello [facility] | | | | | | [address] | | | | | | Mailcode: [address] | | | | | | [place], [place] | | | | | | [address] | | | | | | [phone] | | | +--------+ + + + [...]
--- OUTSIDE RECORDS SUMMARY | ~2019-07-28 | XMS | Encounter Summary ---
Demographics + + + | Address | [address] | | | [place] [address] | + + + | Home Phone | | + + + | Preferred Language | Unknown | + + + | Marital Status | Single | + + + | Jewish Affiliation | NON | + + + | Race | White | + + + | Ethnic Group | Not or | + + + Author + + + | Author | [facility] | + + + | Organization | [facility] | + + + | Address | Unknown | + + + | Phone | Unavailable | + + + Support + + +---------+ + | Name | Relationship | Address | Phone | + + +---------+ + | Madelyn Marquez | ECON | Unknown | | + + +---------+ + Care Team Providers + +------+ + | Care Junior Php Developer Name | Role | Phone | [...] [address] | | | | | | [place], [place] | | | | | | [address] | | | +--------+ + + + [...]
--- OUTSIDE RECORDS SUMMARY | ~2019-07-28 | XMS | Encounter Summary ---
Demographics + + + | Address | [address] | | | [place] [address] | + + + | Home Phone | | + + + | Preferred Language | Unknown | + + + | Marital Status | Single | + + + | Worship Affiliation | NON | + + + | Race | White | + + + | Ethnic Group | Not or | + + + Author + + + | Author | [facility] | + + + | Organization | [facility] | + + + | Address | Unknown | + + + | Phone | Unavailable | + + + Support + + +---------+ + | Name | Relationship | Address | Phone | + + +---------+ + | Madelyn Marquez | ECON | Unknown | | + + +---------+ + Care Team Providers + +------+ + | Care Pilot Steam Yacht Name | Role | Phone | + +------+ + | Taco Dionne SERVICE OBSERVER | PCP | | + +------+ + [...] | | | | | | | [place], [place] | | | | | | | [address] | | | | | | | Phone: | | | | | | | [phone] | | | | | | | Fax: | | | | | | | [phone] | +--------+--------+ + + + + Encounter Details +--------+---------+ + + + | Date | Type | Department | Care Team | Description | +--------+---------+ + + + | 08/28/ | Office | [facility] | Nghia Bell MD | Proliferative | | 2017 | Visit | [place] [facility] | [address] | diabetic retinopathy | | | | [place] [address] | [address] | of left eye with | | | | [place], [place] | [place], [place] | macular edema | | | | [address] | [address] | associated with type | | | | [phone] | [phone] | 1 diabetes mellitus | | | [...] Bell MD - 08/28/2017 9:30 AM PST [facility] Progress Note 08/28/2017 Assessment & [...] file 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: The appliance 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
--- OUTSIDE RECORDS SUMMARY | ~2019-07-28 | XMS | Encounter Summary ---
Demographics + + + | Address | [address] | | | [place] [address] | + + + | Home Phone | | + + + | Preferred Language | Unknown | + + + | Marital Status | Single | + + + | Christian Affiliation | NON | + + + [...] Team Providers + +------+ + | Care Coat Finisher Name | Role | Phone | + +------+ + | TacoDionne SHEEPSKIN PICKLER | PCP | | + +------+ + Reason for Visit + + + | Reason | Comments | + + + | Decreased vision | | + + + Benefits Check [...] | | | | | | | [address] | | | | | | [address] | | [address] | | | | | | | [place], [place] | | | | | | | [address] | | | | | | | Phone: | | | | | | | [phone] | | | | | | | Fax: | | | | | | | [phone] | +--------+--------+ + + + + Encounter Details +--------+---------+ + + + | Date | Type | Department | Care Team | Description | +--------+---------+ + + + | 05/19/ | Office | [facility] | Luis Snider MD | Proliferative | | 2018 | Visit | [facility] at | [address] | diabetic retinopathy | | | | [place] [address] | [address] [facility] [place] | with macular edema, | | | | [address] | [address] | left eye (Primary | | | | Mailcode: CEI | [phone] | Dx) | | | | [place], [place] | | | | | | [address] | | | | | | [phone] | | | +--------+---------+ + + + [...] Instructions Patient Instructions Allan Snell MD - 05/19/2018 1:00 PM PDTCare instructions afte r eye injections: ? Do not rub or touch your eye ? An uiql-eiv-ulpatzk pain reliever (i.e. Tylenol) can be used [...] encounter Progress Notes Allan Snell MD - 05/19/2018 1:00 PM PDT [facility] Progress Note 05/19/2018 Assessment & Plan: 27 y.o. male Proliferative diabetic retinopathy with macular edema, left eye - With new vitreous hemorrhage left eye. - PARQ held for Avastin, left eye. Performed without complication - B-scan without breaks or detachment. - Sleep with head of bed elevated. - Will likely need Avastin both eyes at next appointment. Call for decreased vision, increased distortion, increased pain, new floaters or flashing l ights Follow up: Return in about 4 weeks (around 06/16/2018) for [place]. Chief Complaint: Decreased vision HPI (Edited by physician):Patient presents with dark vision in left eye (like looking throu gh film or dark plastic) x the morning of 05/18/2018. Only able to see light out of left eye. No pain. Eye that received injection this past week (right eye) doing well and with no new issues. Current Outpatient Prescriptions (Other) Medication Sig HumaLOG U-100 Insulin Indications: insulin pump 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: The isotope technician, under the supervision of the physician, is responsible for performing the f ollowing sections: RFV, ROS, PMH, PSH, SocHx, FH, Med list, Base Ophth Exam. The attending physician is responsible for the entire content of the note and has personall y performed the HPI and the physical examination Luis Snider MD documented in this encounter Plan of Treatment Not on filedocumented as of this encounter Procedures + +--------+ + + + | Procedure Name | Priori | Date/Time | Associated Diagnosis | Comments | | | ty | | | | + +--------+ + + + | AVASTIN INJECTION - | Routin | 05/19/2018 | Proliferative | Results for this | | OS - LEFT EYE | e | 3:13 PM | diabetic retinopathy | procedure are in the | | | | PDT | with macular edema, | results section. | | | | | left eye | | + +--------+ + + + | B SCAN ULTRASOUND - | Routin | 05/19/2018 | Proliferative | Results for this | | OS - LEFT EYE | e | 2:02 PM | diabetic retinopathy | procedure are in the | | | | PDT | with macular edema, | results section. | | | | | left eye | | + +--------+ + + + documented in this encounter Results AVASTIN INJECTION - OS - LEFT EYE (05/19/2018 3:13 PM PDT) + + + | Narrative | Performed At | + + + | | | | Pre-ProcedureProcedures, alternatives and risks discussed with | | | patient. Questions answered., confirmed correct patient, procedure, | | | site and consent. AnesthesiaAnesthesia: subconjunctival Anesthetic | | | Medication: Lidocaine Gel ProcedurePreparation: betadine to | | | ocular surface, eyelid speculum Needle: 30g Injection: 1.25 mg | | | bevacizumab 1.25 mg/0.05 mL ND: [id number]: [id number] | | | Expiration Date: 05/23/2018 Route: intravitreal Site: Left Eye | | | Estimated blood loss: none Post OpPost procedure assessment: eye | | | rinsed, patient tolerated procedure well NotesVisual acuity at least | | | hand motions | | |Preparation: betadine to ocular surface, eyelid speculum | | | | | |Needle: 30g | | | | | | | | |Injection: 1.25 mg bevacizumab 1.25 mg/0.05 mL | | | ND: [id number] | | | Lot: [id number] | | | Expiration Date: 05/23/2018 | | | Route: intravitreal | | | Site: Left Eye | | | | | |Estimated blood loss: none | | | | | | | | |Post Op | | |Post procedure assessment: eye rinsed, patient tolerated procedure well | | | | | | | | |Notes | | |Visual acuity at least hand motions | | + + + B SCAN ULTRASOUND - OS - LEFT EYE (05/19/2018 2:02 PM PDT) + + + | Narrative | Performed At | + + + | This is a | [facility] | | B-scan of the left eye for vitreous hemorrhage. The ultrasound | [facility] [place] | | demonstrates diffuse opacities throughout the vitreous cavity. There | | | is a nasal point of adhesion, but no subretinal fluid is seen at this | | | site. The retina appears attached. João PARMAR I have | | | reviewed the images and the initial report and I have made any | | | necessary changes to the report as needed based on my assessment. | | | RAMIRO FONTENOT MD | | |I have reviewed the images [...] + + | [facility] | [address] | [place] [address] | | | JOÃO | [place]. | | | + + + + + documented in this encounter Visit Diagnoses + + | Diagnosis | + + | Proliferative diabetic retinopathy with macular edema, left eye - Primary | + + documented in this encounter Administered Medications + +--------+ +---------+------+ + | Medication Order | MAR | Action | Dose | Rate | Site | | | Action | Date | | | | + +--------+ +---------+------+ + | bevacizumab (AVASTIN) | Given | 05/19/20 | 1.25 mg | | Left Eye | | intravitreal injection 1.25 mg | | 18 3:13 | | | | | 1.25 mg, ONCE NEEDED, Starting | | PM PDT | | | | | 05/19/18 at 1513, Until Wed | | | | | | | 06/04/18 at 1110 | | | | | | + +--------+ +---------+------+ + +---+---+ | | | +---+---+ documented in this encounter"
--- OUTSIDE RECORDS SUMMARY | ~2019-07-28 | XMS | Encounter Summary ---
Demographics + + + | Address | [address] | | | [place] [address] | + + + | Home Phone | | + + + | Preferred Language | Unknown | + + + | Marital Status | Single | + + + | Yarsanism Affiliation | NON | + + + | Race | White | + + + | Ethnic Group | Not or | + + + Author + + + | Author | [facility] | + + + | Organization | [facility] | + + + | Address | Unknown | + + + | Phone | Unavailable | + + + Support + + +---------+ + | Name | Relationship | Address | Phone | + + +---------+ + | Madelyn Marquez | ECON | Unknown | | + + +---------+ + Care Team Providers + +------+ + | Care Car Hop Name | Role | Phone | + [...] Proliferative | | 2018 | Visit | [facility] at | [address] | diabetic retinopathy | | | | Aarti Cuello [facility] | [address] | with macular edema, | | | [address] | [place], [place] | left eye (Primary | | | | Mailcode: CEI | [address] | Dx); Proliferative | | | | [place], [place] | [phone] | diabetic retinopathy | | | | [address] | | with macular edema, | | | | [phone] | | right eye | +--------+---------+ + [...] might be different from the o lottie. [facility] Progress Note 04/01/2018 Assessment & Plan: 27 [...] mg/day 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: The installer 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
--- OUTSIDE RECORDS SUMMARY | ~2019-07-28 | XMS | Encounter Summary ---
Demographics + + + | Address | [address] | | | [place] [address] | + + + | Home Phone | | + + + | Preferred Language | Unknown | + + + | Marital Status | Single | + + + | Alevism Affiliation | NON | + + + | Race | White | + + + | Ethnic Group | Not or | + + + Author + + + | Author | [facility] | + + + | Organization | [facility] | + + + | Address | Unknown | + + + | Phone | Unavailable | + + + Support + + +---------+ + | Name | Relationship | Address | Phone | + + +---------+ + | Madelyn Marquez | ECON | Unknown | | + + +---------+ + Care Team Providers + +------+ + | Care Senior Biostatistician/Group Leader Name | Role | Phone | + +------+ + | Taco Dionne RESPIRATORY CARE SPECIALIST | PCP | | + +------+ + [...] | | | | | | | [place], [place] | | | | | | | [address] | | | | | | | Phone: | | | | | | | [phone] | | | | | | | Fax: | | | | | | | [phone] | +--------+--------+ + + + + Encounter Details +--------+---------+ + + + | Date | Type | Department | Care Team | Description | +--------+---------+ + + + | 03/04/ | Office | [facility] | Shahzad Awad, | Proliferative | | 2018 | Visit | [facility] at | [address] | diabetic retinopathy | | | | Aarti Cuello [address] | of left eye with | | | | [address] | [place], [place] | macular edema | | | | Mailcode: CEI | [address] | associated with type | | | | [place], [place] | [phone] | 1 diabetes mellitus | | | | [address] | | ([facility]) (Primary Dx); | | | | [phone] | | Epiretinal membrane | | | [...] might be different fr om the original. [facility] Progress Note 03/04/2018 Assessment & Plan: 27 [...] mg/day 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: The fleet 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 mellitus | | | | | | ([facility]) | | + +--------+ + + + documented in this encounter Results FLUORESCEIN ANGIOGRAPHY (03/04/2018 4:59 PM PDT) + + + | Narrative | Performed At | + + + | Director Of Oncology | [facility] RAMIRE[facility] | | DocumentationConsent: Informed [...] | | |Notes | | |Injection by Marichuy Huitron | | + + + + + + + + | Performing | Address | City/State/Zipcode | Phone Number | | Organization | | | | + + + + + | [facility] | [address] | [place] [address] | | | INSTITUTE | [place]. | [...]
--- OUTSIDE RECORDS SUMMARY | ~2019-07-28 | XMS | Encounter Summary ---
Demographics + + + | Address | [address] | | | [place] [address] | + + + | Home Phone [...] Team Providers + +------+ + | Care Incubator Tender Name | Role | Phone | + +------+ + | Taco Dionne TURNTABLE WORKER | PCP | | + +------+ [...] | | | | | | | [address] | | | | | | | [address] | | | | | | | [place] | | | | | | | [place], [place] | | | | | | | [address] | | | | | | | Phone: | | | | | | | [phone] | | | | | | | Fax: | | | | | | | [phone] | +--------+--------+ + + + + Encounter Details +--------+---------+ + + + | Date | Type | Department | Care Team | Description | +--------+---------+ + + + | 08/13/ | Office | [facility] | Allan Snell | Vitreous hemorrhage, | | 2016 | Visit | [facility] | MD Christi [address] | right eye (HCC) | | | | Aarti Cuello [facility] | [address] | (Primary Dx); | | | | [address] | [place], [place] | Proliferative | | | | Mailcode: CEI | [address] | diabetic retinopathy | | | | [place], [place] | [phone] | of left eye with | | | | [address] | | macular edema | | | | [phone] | | associated with type | | [...] Snell MD - 08/13/2017 5:00 PM PST [facility] Progress Note 08/13/2017 CC: No chief [...] with type 1 d iabetes mellitus (HCC) [1779794] - Active NV OU today with new vitreous hemorrhage OD - No retinal breaks or tears noted on exam or US Venous engorgement in a hemifield distribution OD - Concern for BRVO - Consider FA (not available tonight) tomorrow in [place] - If FA consistent with BRVO, will coordinate evaluation of RF's with PCP PLAN: See Dr. Elizondo as scheduled tomorrow, probable avastin OU at that time. Call for decreased vision, increased distortion, increased pain, new floaters or flashing l ights Attestations: The resource 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 | | | ([facility]) | | + + +--------+ + + [...]
--- OUTSIDE RECORDS SUMMARY | ~2019-07-28 | XMS | Encounter Summary ---
Demographics + + + | Address | [address] | | | [place] [address] | + + + | Home Phone [...] Team Providers + +------+ + | Care Prop Sawyer Name | Role | Phone | + [...] | | | | | Stay [address] | | | | | | [address] | | | | | | Mailcode: [id number] | | | | | | Danie Nava | | | | | | [address] [place], [place] | | | | | | [address] | | | | | | [phone] | | | +--------+ + + + [...]
--- OUTSIDE RECORDS SUMMARY | ~2019-07-28 | XMS | Encounter Summary ---
Demographics + + + | Address | [address] | | | [place] [address] | + + + | Home Phone [...] Team Providers + +------+ + | Care Teaching Dietitian Name | Role | Phone | + +------+ + | Dionne España SETTER INDUCTION HEATING EQUIPMENT | PCP | | + +------+ + [...] | | [address] | [address] | VITRECTOMY, ENDO | | | | Whitney MARTINI | [address] | LASER, air fluid | | | | [facility], | [place], [place] | exchange , 23g left | | | | [place] [address] | [address] | eye | | | | | [phone] | | | | | | | [...] HUNTER | [address] | [place], [place] | | | [facility] | [address] | [address] | | | TESTS | | | [...] Shahzad Renteria | | | MD Delmi Cooker Meal: None Anesthesia: General Implant: | | | [...] MARQUAM | [address] | [place], [place] | | | [facility]IA T[facility] | [address] | [address] | | | TESTS | | | [...] 1 strip | | Both | | werdshvw-xgbruazcq-yllmvopetinxj | | 18 9:12 | | | [...]
--- OUTSIDE RECORDS SUMMARY | ~2019-07-28 | XMS | Encounter Summary ---
Demographics + + + | Address | [address] | | | [place] [address] | + + + | Home Phone [...] Team Providers + +------+ + | Care Golf Caddie Name | Role | Phone | + +------+ + | Dionne España INDUSTRIAL RECRUITER | PCP | | + +------+ + [...] | | | 2018 | Event | [address] | [address] | | | | | [facility] | [facility], | | | | | [facility], | [place] [address] | | | | | [place] [address] | [phone] | | | | | | | | | | | | Felix | | | | | | Manuel Daniels CRNA | | | | | | [address] | | | | | | [place], | | | | | | [place] [address] | | | | | | [phone] | | | | | | | [...]
--- OUTSIDE RECORDS SUMMARY | ~2019-07-28 | XMS | Encounter Summary ---
Demographics + + + | Address | [address] | | | [place] [address] | + + + | Home Phone [...] Team Providers + +------+ + | Care Spray Mixer Name | Role | Phone | + +------+ + | Taco Dionne BORDER GUARD | PCP | | + +------+ + [...] | | | | | | | [place], [place] | | | | | | | [address] | | | | | | | Phone: | | | | | | | [phone] | | | | | | | Fax: | | | | | | | [phone] | +--------+--------+ + + + + Encounter Details +--------+---------+ + + + | Date | Type | Department | Care Team | Description | +--------+---------+ + + + | 04/17/ | Office | [facility] | Nghia Bell MD | Proliferative | | 2017 | Visit | [facility] | [address] | diabetic retinopathy | | | | [place] [address] | [address] | of left eye with | | | | [place], [place] | [place], [place] | macular edema | | | | [address] | [address] | associated with type | | | | [phone] | [phone] | 1 diabetes mellitus | | | [...] increased pain or decreased vision, immediately call [phone].Elec tronically signed by Lanie Childs at 04/17/2017 3:15 PM PDT documented in this encounter Progress Notes Lanie Childs - 04/17/2017 3:15 PM PDT Intravitreal Injection Procedure Note 04/17/2017 for: AVASTIN, BOTH EYES LOT #[id number] (21 OD) and Expiration 04/24/2017 RIGHT EYE: LOT # [id number] (11 OD) and Expiration 04/24/2017 LEFT EYE: [...] MD - 0 04/17/2017 2:00 PM PDT [facility] Note 04/17/2017 Assessment & Plan: 26 y.o. [...] file 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: The medical instrument 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 | + +--------+ + + + | ND INTRAVITREAL INJ, | Routin | 04/17/2017 | [...]
--- OUTSIDE RECORDS SUMMARY | ~2019-07-28 | XMS | Encounter Summary ---
Demographics + + + | Address | [address] | | | [place] [address] | + + + | Home Phone [...] Team Providers + +------+ + | Care Street Cleaner Name | Role | Phone | + +------+ + | TacoDionne PHOTOGRAPHIC PROCESSOR | PCP | | + +------+ + [...] | | | | | | | [address] | | | | | | | [address] | [address] | | | | | | | [place], [place] | | | | | | | [address] | | | | | | | Phone: | | | | | | | [phone] | | | | | | | Fax: | | | | | | | [phone] | +--------+--------+ + + + + Encounter Details +--------+---------+ + + + | Date | Type | Department | Care Team | Description | +--------+---------+ + + + | 05/19/ | Office | [facility] | Luis Snider MD | Proliferative | | 2018 | Visit | [facility] at | [address] | diabetic retinopathy | | | | [place] [address] | [address] [facility] [place] | with macular edema, | | | | [address] | [address] | left eye (Primary | | | | Mailcode: [facility]I | [phone] | Dx) | | | | [place], [place] | | | | | | [address] | | | | | | [phone] | | | +--------+---------+ + + + [...] rub or touch your eye ? An duua-zyk-ewpfcql pain reliever (i.e. Tylenol) can be used [...] Snell MD - 05/19/2018 1:00 PM PDT [facility] Progress Note 05/19/2018 Assessment & Plan: 27 [...] in about 4 weeks (around 06/16/2018) for [place]. Chief Complaint: Decreased vision HPI (Edited by [...] pump 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: The biodiesel processing 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 | | bevacizumab 1.25 mg/0.05 mL ND: [id number]: [id number] | | | Expiration Date: 05/23/2018 Route: [...] 1.25 mg/0.05 mL | | | ND: [id number] | | | Lot: [id number] | | | Expiration Date: 05/23/2018 | [...] + + | This is a | [facility] | | B-scan of the left eye for vitreous hemorrhage. The ultrasound | [facility] | | demonstrates diffuse opacities throughout the [...] on my assessment. | | | RAMIRO FONTNEOT MD | | |I have reviewed the [...] + + | [facility] | [address] | [place] [address] | | | JOÃO | [place]. | [...]
--- OUTSIDE RECORDS SUMMARY | ~2019-07-28 | XMS | Encounter Summary ---
Demographics + + + | Address | [address] | | | [place] [address] | + + + | Home Phone [...] + + + | Author | [facility] | + + + | Organization | [facility] | + + + | Address | Unknown | + + + | Phone | Unavailable | + + + Support + + +---------+ + | Name | Relationship | Address | Phone | + + +---------+ + | Madelyn Marquez | ECON | Unknown | | + + +---------+ + Care Team Providers + +------+ + | Care Buckle Attacher Name | Role | Phone | + +------+ + | Dionne España NICHOLAS | PCP | | + +------+ + Reason for Visit + + + | Reason | Comments | + + + | Refill Request | Needing refill for Prednisolone | + + + Encounter Details +--------+--------+ + + + | Date | Type | Department | Care Team | Description | +--------+--------+ + + + | 04/23/ | Refill | [facility] | Shahzad Awad, | Refill Request | | 2018 | | [facility] | MD [address] | (Needing refill for | | | | Loreosiris Cuello [address] | Prednisolone) | | | | [address] | [place], [place] | | | | | Mailcode: [facility] | [address] | | | | | [place], [place] | [phone] | | | | | [address] | | | | | | [phone] | | | +--------+--------+ + + + [...]
--- OUTSIDE RECORDS SUMMARY | ~2019-07-28 | XMS | Encounter Summary ---
Demographics + + + | Address | [address] | | | [place] [address] | + + + | Home Phone [...] Team Providers + +------+ + | Care Life Specialist Name | Role | Phone | + +------+ + | Taco Dionne PIPE CUTTER | PCP | | + +------+ + [...] | | | | | | | [place], [place] | | | | | | | [address] | | | | | | | Phone: | | | | | | | [phone] | | | | | | | Fax: | | | | | | | [phone] | +--------+--------+ + + + + Encounter Details +--------+---------+ + + + | Date | Type | Department | Care Team | Description | +--------+---------+ + + + | 07/18/ | Office | [facility] | Nghia Bell MD | Type 1 diabetes | | 2016 | Visit | [facility] | [address] | mellitus with | | | | [place] [address] | [address] | proliferative | | | | [place], [place] | [place], [place] | retinopathy of right | | | | [address] | [address] | eye and macular | | | | [phone] | [phone] | edema (HCC) (Primary | | | [...] | | ([facility]); | | | | | | Proliferative | | | | | | diabetic retinopathy | | | | | | with macular edema | | | | | | associated with type | | | | | | 1 diabetes mellitus | | | | | | ([facility]) [E10.3519]; | | | | | | Proliferative | | | | | | diabetic retinopathy | | | | | | without macular | | | | | | edema associated | | | | | | with type 1 diabetes | | | | | | mellitus ([facility]) | +--------+---------+ + + + Social History [...] PM PDT [facility] Progress Note 07/18/2016 Assessment & Plan: 26 y.o. male Proliferative diabetic retinopathy without macular edema associated with type 1 diabetes me llitus ([facility]) Type 1 DM - PDR OU, DME [...] . 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
--- OUTSIDE RECORDS SUMMARY | ~2019-07-28 | XMS | Encounter Summary ---
Demographics + + + | Address | [address] | | | [place] [address] | + + + | Home Phone | | + + + | Preferred Language | Unknown | + + + | Marital Status | Single | + + + | Cheondoism Affiliation | NON | + + + [...] Team Providers + +------+ + | Care Nail Polish Brush Machine Feeder Name | Role | Phone | + [...] | | | | | Stay [address] [facility] | | | | | | [address] | | | | | | Mailcode: UHN65 | | | | | | [place]ie Nava | | | | | | [address] [place], [place] | | | | | | [address] | | | | | | [phone] | | | +--------+ + + + [...]
--- OUTSIDE RECORDS SUMMARY | ~2019-07-28 | XMS | Encounter Summary ---
Demographics + + + | Address | [address] | | | [place] [address] | + + + | Home Phone [...] Providers + +------+ + | Care Metal Solderer Name | Role | Phone | + +------+ + | Dionne España NICHOLAS | PCP | | + +------+ + Encounter Details +--------+ + + + + | Date | Type | Department | Care Team | Description | +--------+ + + + + | 05/09/ | Document-Sc | Health Information | Unknown . | | | 2016 | anned | Services [id number] | | | | | | [address] | | | | | | Mailcode: [id number] | | | | | | [facility] | | | | | | [place], [place] | | | | | | [address] | | | | | | [phone] | | | +--------+ + + + [...]
--- OUTSIDE RECORDS SUMMARY | ~2019-07-28 | XMS | Encounter Summary ---
Demographics + + + | Address | [address] | | | [place] [address] | + + + | Home Phone | | + + + | Preferred Language | Unknown | + + + | Marital Status | Single | + + + | Muslim Affiliation | NON | + + + [...] Providers + +------+ + | Care Customer Services Supervisor Name | Role | Phone | [...] Proliferative | | 2018 | Visit | [facility] | [address] | diabetic retinopathy | | | | Kimberly [address] [facility] | [address] | of left eye with | | | | [place], [place] | [place], [place] | macular edema | | | | [address] | [address] | associated with type | | | | [phone] | [phone] | 1 diabetes mellitus | | | | | | ([facility]); | | | | | [...] might be different fr om the original. [facility] Progress Note 02/27/2018 Assessment & Plan: 27 y.o. male Proliferative diabetic retinopathy of left eye with macular edema associated with type 1 di abetes mellitus (HCC) Scar tissue increasing -discussed possible PPV in [place] Follow up: Return for angiogram in [place] . - Call for decreased vision, increased [...] mg/day 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: The instrument and control 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
--- OUTSIDE RECORDS SUMMARY | ~2019-07-28 | XMS | Encounter Summary ---
Demographics + + + | Address | [address] | | | [place] [address] | + + + | Home Phone [...] Team Providers + +------+ + | Care Press Operator Apprentice Name | Role | Phone | + +------+ + | Dionne España PRODUCTION STAGE MANAGER | PCP | | + +------+ + Encounter Details +--------+ + + + + | Date | Type | Department | Care Team | Description | +--------+ + + + + | 03/31/ | Dealer Compliance Representative | [facility] | Shahzad Awad, | | | 2018 | | [facility] | [address] | | | | | Aarti Cuello [facility] | [address] | | | | | [address] | [place], [place] | | | | | Mailcode: [facility] | [address] | | | | | [place], [place] | [phone] | | | | | [address] | | | | | | [phone] | | | +--------+ + + + [...]
--- OUTSIDE RECORDS SUMMARY | ~2019-07-28 | XMS | Encounter Summary ---
Demographics + + + | Address | [address] | | | [place] [address] | + + + | Home Phone [...] Team Providers + +------+ + | Care Sifter And Miller Name | Role | Phone | + [...] + + | 04/10/ | Office | [facility] | Shahzad Awad, | Proliferative | | 2018 | Visit | [place] [facility] | [address] | diabetic retinopathy | | | | Kimberly [facility] | [address] | with macular edema, | | | | [place], [place] | [place], [place] | left eye | | | | [address] | [address] | | | | | [phone] | [phone] | | | | | | | [...] PDTdiscontinue Ofloxacin (t an cap) -discontinue Atropine (shared services representative) - Continue with Prednisolone drops (white cap) four times daily for one week, then three ti mes daily for one week, twice daily for one week, once daily -discontinue shield at night 3:1 5 PM PDT documented in this encounter Progress Notes Shahzad Awad MD - 04/10/2018 2:40 PM PDTFormatting of this note might be different fr om the original. [facility] Progress Note 04/10/2018 Assessment & Plan: 27 y.o. male Proliferative diabetic retinopathy with macular edema, left eye POW#1- s/p -PPV/EL/MP/afx OS 03/31/18 -discontinue Ofloxacin (padilla cap) -discontinue Atropine (shared services representative) - Continue with Prednisolone drops (white cap) [...] mg/day 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: The gallery or museum 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
--- OUTSIDE RECORDS SUMMARY | ~2019-07-28 | XMS | Encounter Summary ---
Demographics + + + | Address | [address] | | | [place] [address] | + + + | Home Phone [...] Providers + +------+ + | Care Assembler 1St Shift Name | Role | Phone | + +------+ + | Taco Dionne HYDRAULIC PRESS SERVICER | PCP | | + +------+ + [...] | | | | | | [place], [place] | | | | | | | [address] | | | | | | | Phone: | | | | | | | [phone] | | | | | | | Fax: | | | | | | | [phone] | +--------+--------+ + + + + Encounter Details +--------+---------+ + + + | Date | Type | Department | Care Team | Description | +--------+---------+ + + + | 01/15/ | Office | [facility] | Nghia Bell MD | Proliferative | | 2018 | Visit | [place] [facility] | [address] | diabetic retinopathy | | | | Kimberly [address] | [address] | of left eye with | | | | [place], [place] | [place], [place] | macular edema | | | | [address] | [address] | associated with type | | | | [phone] | [phone] | 1 diabetes mellitus | | | [...] AM PDT [facility] Progress Note 01/15/2018 Assessment & Plan: 27 [...] file 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: The renal dialysis 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 | | | | | | ([facility]) | | + +--------+ + [...] 1.25 mg/0.05 mL | | | [facility]: [id number] | | | Lot: [id number] (26 WD) | | | Expiration Date: [...] 1.25 mg/0.05 mL | | | [facility]: [id number] | | | Lot: [id number] (25 D) | | | Expiration Date: [...] Performed At | + + + | Metal Organ Pipe Maker | LIANET RAMIREZ | | DocumentationRight EyeCentral [...] + + | [facility] | [address] | [place] [address] | | | INSTITUTE | [place]. | [...]
--- OUTSIDE RECORDS SUMMARY | ~2019-07-28 | XMS | Encounter Summary ---
Demographics + + + | Address | [address] | | | [place] [address] | + + + | Home Phone [...] + + | Author | [facility] | + + + | Organization | [facility] | + + + | Address | Unknown | + + + | Phone | Unavailable | + + + Support + + +---------+ + | Name | Relationship | Address | Phone | + + +---------+ + | Madelyn Marquez | ECON | Unknown | | + + +---------+ + Care Team Providers + +------+ + | Care Emergency Veterinary Assistant Name | Role | Phone | + +------+ + | Taco Dionne TIP LENGTH CHECKER | PCP | | + +------+ + [...] | | | | | | | [place], [place] | | | | | | | [address] | | | | | | | Phone: | | | | | | | [phone] | | | | | | | Fax: | | | | | | | [phone] | +--------+--------+ + + + + Encounter Details +--------+---------+ + + + | Date | Type | Department | Care Team | Description | +--------+---------+ + + + | 02/26/ | Office | [facility] | Nghia Bell MD | Proliferative | | 2018 | Visit | [facility] | [address] | diabetic retinopathy | | | | Kimberly [address] | [address] | of left eye with | | | | [place], [place] | [place], [place] | macular edema | | | | [address] | [address] | associated with type | | | | [phone] | [phone] | 1 diabetes mellitus | | | | | | ([facility]); | | | | | | [...] Bell MD - 02/26/2018 8:45 AM PDT [facility] Progress Note 02/26/2018 Assessment & Plan: [...] file 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: The robotic 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 mellitus | | | | | | ([facility]) | | + +--------+ + + + documented in this encounter Results OCT, RETINA (02/26/2018 9:24 AM PDT) + + + | Narrative | Performed At | + + + | Judicial Administrative Assistant | LIANET RAMIREZ | | DocumentationRight EyeCentral [...] [facility] | [address] | [place] [address] | | | INSTITUTE | [place]. | [...]
--- OUTSIDE RECORDS SUMMARY | ~2019-07-28 | XMS | Encounter Summary ---
Demographics + + + | Address | [address] | | | [place] [address] | + + + | Home Phone [...] Team Providers + +------+ + | Care Electrical Equipment Technician Name | Role | Phone | + +------+ + | Dionne España NICHOLAS | PCP | | + +------+ + Encounter Details +--------+ + + + + | Date | Type | Department | Care Team | Description | +--------+ + + + + | 05/09/ | Document-Sc | Health Information | Unknown . | | | 2016 | anned | Services [id number] | | | | | | [address] | | | | | | Mailcode: OP17A | | | | | | [facility] | | | | | | [place], [place] | | | | | | [address] | | | | | | [phone] | | | +--------+ + + + [...]
--- OUTSIDE RECORDS SUMMARY | ~2019-07-28 | XMS | Encounter Summary ---
Demographics + + + | Address | [address] | | | [place] [address] | + + + | Home Phone [...] Author + + + | Author | [facility] | + + + | Organization | [facility] | + + + | Address | Unknown | + + + | Phone | Unavailable | + + + Support + + +---------+ + | Name | Relationship | Address | Phone | + + +---------+ + | Madelyn Marquez | ECON | Unknown | | + + +---------+ + Care Team Providers + +------+ + | Care Applied Computer Science Professor Name | Role | Phone | + +------+ + | Taco Dionne VENTILATING ENGINEER | PCP | | + +------+ [...] | | | | | | | [place], [place] | | | | | | | [address] | | | | | | | Phone: | | | | | | | [phone] | | | | | | | Fax: | | | | | | | [phone] | +--------+--------+ + + + + Encounter Details +--------+---------+ + + + | Date | Type | Department | Care Team | Description | +--------+---------+ + + + | 03/04/ | Office | [facility] | Shahzad Awad, | Proliferative | | 2018 | Visit | [facility] | [address] | diabetic retinopathy | | | | Aarti Cuello [address] | of left eye with | | | | [address] | [place], [place] | macular edema | | | | Mailcode: [facility] | [address] | associated with type | | | | [place], [place] | [phone] | 1 diabetes mellitus | | | | [address] | | ([facility]) (Primary Dx); | | | | [phone] | | Epiretinal membrane | | | [...] might be different fr om the original. [facility] Progress Note 03/04/2018 Assessment & Plan: 27 [...] mg/day 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: The medical laboratory technicians, under the supervision of the physician, is [...] | | | | | ([facility]) | | + +--------+ + + + documented in this encounter Results FLUORESCEIN ANGIOGRAPHY (03/04/2018 4:59 PM PDT) + + + | Narrative | Performed At | + + + | Fur Grader | LIANET RAMIREZ | | DocumentationConsent: Informed [...] + + | [facility] | [address] | [place] [address] | | | INSTITUTE | [place]. | [...]
--- OUTSIDE RECORDS SUMMARY | ~2019-07-28 | XMS | Encounter Summary ---
Demographics + + + | Address | [address] | | | [place] [address] | + + + | Home Phone [...] Team Providers + +------+ + | Care Frame Stylist Name | Role | Phone | + +------+ + | Taco Dionne MEDICAL RESIDENT | PCP | | + +------+ + [...] | | | | | | | [place], [place] | | | | | | | [address] | | | | | | | Phone: | | | | | | | [phone] | | | | | | | Fax: | | | | | | | [phone] | +--------+--------+ + + + + Encounter Details +--------+---------+ + + + | Date | Type | Department | Care Team | Description | +--------+---------+ + + + | 02/26/ | Office | [facility] | Nghia Bell MD | Proliferative | | 2018 | Visit | [place] [facility] | [address] | diabetic retinopathy | | | | Kimberly [address] | [address] | of left eye with | | | | [place], [place] | [place], [place] | macular edema | | | | [address] | [address] | associated with type | | | | [phone] | [phone] | 1 diabetes mellitus | | | | | | ([facility]); | | | | | [...] Bell MD - 02/26/2018 8:45 AM PDT [facility] Progress Note 02/26/2018 Assessment & Plan: 27 [...] file 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: The criminalist 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 mellitus | | | | | | ([facility]) | | + +--------+ + + + documented in this encounter Results OCT, RETINA (02/26/2018 9:24 AM PDT) + + + | Narrative | Performed At | + + + | Rectification Printer | LIANET RAMIREZ | | DocumentationRight EyeCentral [...] [facility] | [address] | [place] [address] | | | INSTITUTE | [place]. | [...]
--- OUTSIDE RECORDS SUMMARY | ~2019-07-28 | XMS | Encounter Summary ---
Demographics + + + | Address | [address] | | | [place] [address] | + + + | Home Phone [...] Team Providers + +------+ + | Care Commercial Art Instructor Name | Role | Phone | + +------+ + | Taco Dionne VEHICLE WINDOW TINTER | PCP | | + +------+ + [...] | | | | | | | [address] | | | | | | | [address] | | | | | | | [place] | | | | | | | [place], [place] | | | | | | | [address] | | | | | | | Phone: | | | | | | | [phone] | | | | | | | Fax: | | | | | | | [phone] | +--------+--------+ + + + + Encounter Details +--------+---------+ + + + | Date | Type | Department | Care Team | Description | +--------+---------+ + + + | 08/13/ | Office | [facility] | Allan Snell | Vitreous hemorrhage, | | 2016 | Visit | [facility] | [place]i [address] | right eye (HCC) | | | | Aarti Cuello [facility] | [address] | (Primary Dx); | | | | [address] | [place], [place] | Proliferative | | | | Mailcode: [facility] | [address] | diabetic retinopathy | | | | [place], [place] | [phone] | of left eye with | | | | [address] | | macular edema | | | | [phone] | | associated with type | | [...] Snell MD - 08/13/2017 5:00 PM PST [facility] Progress Note 08/13/2017 CC: No chief complaint [...] with type 1 d iabetes mellitus (HCC) [8585443] - Active NV OU today with new vitreous hemorrhage OD - No retinal breaks or tears noted on exam or US Venous engorgement in a hemifield distribution OD - Concern for BRVO - Consider FA (not available tonight) tomorrow in [place] - If FA consistent with BRVO, will coordinate evaluation of RF's with PCP PLAN: See Dr. Elizondo as scheduled tomorrow, probable avastin OU at that time. Call for decreased vision, increased distortion, increased pain, new floaters or flashing l ights Attestations: The ct 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 mellitus | | | | | | ([facility]) | | + + +--------+ + + [...]
--- OUTSIDE RECORDS SUMMARY | ~2019-07-28 | XMS | Encounter Summary ---
Demographics + + + | Address | [address] | | | [place] [address] | + + + | Home Phone [...] Team Providers + +------+ + | Care Photography Coordinator Name | Role | Phone | + +------+ + | Dionne España NICHOLAS | PCP | | + +------+ + Encounter Details +--------+ + + + + | Date | Type | Department | Care Team | Description | +--------+ + + + + | 03/31/ | Procedure | [facility] | | | | 2018 | Pass | [address] | | | | | | [place] | | | | | | [facility] | | | | | | [place] [address] | | | +--------+ + + + [...]
--- OUTSIDE RECORDS SUMMARY | ~2019-07-28 | XMS | Encounter Summary ---
Demographics + + + | Address | [address] | | | [place] [address] | + + + | Home Phone | | + + + | Preferred Language | Unknown | + + + | Marital Status | Single | + + + | Religion Affiliation | NON | + + + [...] Team Providers + +------+ + | Care General Manager Land Department Name | Role | Phone | + +------+ + | Dionne España CAB SUPERVISOR | PCP | | + +------+ [...] (OU) | | 2016 | Visit | [place] | | | | | | Photography at | | | | | | Aarti Cuello [address] | | | | | | [address] | | | | | | Mailcode: JORGE | | | | | | [place], [place] | | | | | | [address] | | | | | | [phone] | | | +--------+ + + + [...]
--- OUTSIDE RECORDS SUMMARY | ~2019-07-28 | XMS | Encounter Summary ---
Demographics + + + | Address | [address] | | | [place] [address] | + + + | Home Phone [...] Team Providers + +------+ + | Care Research Instructor Name | Role | Phone | [...] Letter From | | 2017 | | [place] at [facility] | [address] | Specialist | | | | Kimberly [facility] | [address] | | | | | [place] | [place], [place] | | | | | [address] | [address] | | | | | [phone] | [phone] | | | | | | | [...]
--- OUTSIDE RECORDS SUMMARY | ~2019-07-28 | XMS | Encounter Summary ---
Demographics + + + | Address | [address] | | | [place] [address] | + + + | Home Phone [...] Providers + +------+ + | Care Manager Action Name | Role | Phone | + [...] Proliferative | | 2018 | Visit | [place] at [facility] | [address] | diabetic retinopathy | | | | Kimberly [facility] | [address] | with macular edema, | | | | [place], [place] | [place], [place] | left eye | | | | [address] | [address] | | | | | [phone] | [phone] | | | | | | | [...] PDTdiscontinue Ofloxacin (t an cap) -discontinue Atropine (credit card specialist) - Continue with Prednisolone drops (white cap) four times daily for one week, then three ti mes daily for one week, twice daily for one week, once daily -discontinue shield at night 3:1 5 PM PDT documented in this encounter Progress Notes Shahzad Awad MD - 04/10/2018 2:40 PM PDTFormatting of this note might be different fr om the original. [facility] Progress Note 04/10/2018 Assessment & Plan: 27 y.o. male Proliferative diabetic retinopathy with macular edema, left eye POW#1- s/p -PPV/EL/MP/afx OS 03/31/18 -discontinue Ofloxacin (padilla cap) -discontinue Atropine (credit card specialist) - Continue with Prednisolone drops (white cap) [...] mg/day 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: The structural [...]
--- OUTSIDE RECORDS SUMMARY | ~2019-07-28 | XMS | Encounter Summary ---
Demographics + + + | Address | [address] | | | [place] [address] | + + + | Home Phone [...] Team Providers + +------+ + | Care Engineer Internship Name | Role | Phone | + +------+ + | Dionne España NICHOLAS | PCP | | + +------+ + Encounter Details +--------+ + + + + | Date | Type | Department | Care Team | Description | +--------+ + + + + | 01/09/ | Document-Sc | Health Information | Unknown . | | | 2018 | anned | Services [phone] | | | | | | [address] | | | | | | Mailcode: OP17A | | | | | | [facility] | | | | | | [place], [place] | | | | | | [address] | | | | | | [phone] | | | +--------+ + + + [...]
--- OUTSIDE RECORDS SUMMARY | ~2019-07-28 | XMS | Encounter Summary ---
Demographics + + + | Address | [address] [facility] | | | [place] [address] | + + + | Home Phone [...] Team Providers + +------+ + | Care Ldr Nurse Name | Role | Phone | + +------+ + | Dionne España SEPARATOR OPERATOR [employer] | PCP | | + +------+ + [...] Scan | | 2017 | Visit | [place] | | (OD) | | | | Photography at | | | | | | Aarti Cuello [facility] | | | | | | [address] | | | | | | Mailcode: [address] | | | | | | [place], [place] | | | | | | [address] | | | | | | [phone] | | | +--------+ + + + [...]
--- OUTSIDE RECORDS SUMMARY | ~2019-07-28 | XMS | Encounter Summary ---
Demographics + + + | Address | [address] | | | [place] [address] | + + + | Home Phone | | + + + | Preferred Language | Unknown | + + + | Marital Status | Single | + + + | Hoahaoism Affiliation | NON | + + + [...] Team Providers + +------+ + | Care Glass Breaker Name | Role | Phone | + [...] Proliferative | | 2018 | Visit | [facility] | [address] | diabetic retinopathy | | | | Aarti Cuello [facility] | [address] | with macular edema, | | | | [address] | [place], [place] | left eye (Primary | | | | Mailcode: [facility] | [address] | Dx); Proliferative | | | | [place], [place] | [phone] | diabetic retinopathy | | | | [address] | | with macular edema, | | | | [phone] | | right eye | +--------+---------+ + [...] might be different from the o lottie. [facility] Progress Note 04/01/2018 Assessment & Plan: [...] mg/day 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: The food safety 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
--- OUTSIDE RECORDS SUMMARY | ~2019-07-28 | XMS | Encounter Summary ---
Demographics + + + | Address | [address] [facility] [address] [facility] [address] [facility] | | | [place] [address] | + + + | Home Phone | | + + + | Preferred Language | Unknown | + + + | Marital Status | Single | + + + | Congregational Affiliation | NON | + + + | Race | White | + + + | Ethnic Group | Not or | + + + Author + + + | Author | [facility] | + + + | Organization | [facility] | + + + | Address | Unknown | + + + | Phone | Unavailable | + + + Support + + +---------+ + | Name | Relationship | Address | Phone | + + +---------+ + | Madelyn Marquez | ECON | Unknown | | + + +---------+ + Care Team Providers + +------+ + | Care Middle School Art Teacher Name | Role | Phone | [...] physical | | 2018 | on | [facility] at | [address] | examination | | | | Aarti Cuello [facility] | [address] | | | | | [address] | [place], [place] | | | | | Mailcode: [facility] | [address] | | | | | [place], [place] | [phone] | | | | | [address] | | | | | | [phone] | | | +--------+ + + + [...]
--- OUTSIDE RECORDS SUMMARY | ~2019-07-28 | XMS | Encounter Summary ---
Demographics + + + | Address | [address] [facility] | | | [place] [address] | + + + | Home Phone [...] Team Providers + +------+ + | Care Independent Jeweler Name | Role | Phone | + +------+ + | Taco Dionne BULLET CHARGING MACHINE OPERATOR | PCP | | + [...] | | | | | | | [place], [place] | | | | | | | [address] | | | | | | | Phone: | | | | | | | [phone] | | | | | | | Fax: | | | | | | | [phone] | +--------+--------+ + + + + Encounter Details +--------+---------+ + + + | Date | Type | Department | Care Team | Description | +--------+---------+ + + + | 11/13/ | Office | [facility] | Shahzad Awad, | Proliferative | | 2019 | Visit | [facility] | [address] | diabetic retinopathy | | | | Kimberly [address] | [address] | of left eye with | | | | [place], [place] | [place], [place] | macular edema | | | | [address] | [address] | associated with type | | | | [phone] | [phone] | 1 diabetes mellitus | | | [...] original. [facility] Progress Note 11/13/2018 Assessment & Plan: 28 y.o. male Proliferative diabetic retinopathy (S/P PPV/MP 31MAR2018) with macular edema, left eye New vitreous hemorrhage -no view today -discussed ultrasound in [place] is needed Proliferative diabetic retinopathy with macular edema, right eye Active NV today -needs treatment, does not want shot today because he drove and can only see out of this ey e currently. Will treat during upcoming visit in [place]. 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 Follow up: Return in about 2 [...] pump 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: The wildlife technician, under the supervision of the [...] Performed At | + + + | Powder Blender And Pourer | LIANET RAMIREZ | | DocumentationRight EyeCentral [...] + + | [facility] | [address] | [place] [address] | | | JOÃO | [place]. | [...]
--- OUTSIDE RECORDS SUMMARY | ~2019-07-28 | XMS | Encounter Summary ---
Demographics + + + | Address | [address] [facility] | | | [place] [address] | + + + | Home Phone [...] Team Providers + +------+ + | Care Nurse First Assist Name | Role | Phone | + +------+ + | Taco Dionne ASSEMBLY AND PACKING SUPERVISOR | PCP | | + +------+ [...] | | | | | | | [place], [place] | | | | | | | [address] | | | | | | | Phone: | | | | | | | [phone] | | | | | | | Fax: | | | | | | | [phone] | +--------+--------+ + + + + Encounter Details +--------+---------+ + + + | Date | Type | Department | Care Team | Description | +--------+---------+ + + + | 08/21/ | Office | [facility] | Shahzad Awad, | Proliferative | | 2018 | Visit | [place] at [facility] | [address] | diabetic retinopathy | | | | Kimberly [address] | [address] | of left eye with | | | | [place], [place] | [place], [place] | macular edema | | | | [address] | [address] | associated with type | | | | [phone] | [phone] | 1 diabetes mellitus | | | | | | ([facility]); | | | | | | [...] might be different fr om the original. [facility] Progress Note 08/21/2018 Assessment & Plan: [...] pump 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: The configuration 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 Performed At | + + + | Ict Support Engineer | [facility] | | DocumentationRight [...] [facility] | [address] | [place] [address] | | | JOÃO | Faraz. | [...]
--- OUTSIDE RECORDS SUMMARY | ~2019-07-28 | XMS | Encounter Summary ---
Demographics + + + | Address | [address] | | | [place] [address] | + + + | Home Phone [...] Team Providers + +------+ + | Care Apprentice Cosmetologist Name | Role | Phone | + [...] Refill Request | | 2018 | | [facility] | MD [address] | (Needing refill for | | | | Loreosiris Cuello [address] | Prednisolone) | | | | [address] | [place], [place] | | | | | Mailcode: [facility] | [address] | | | | | [place], [place] | [phone] | | | | | [address] | | | | | | [phone] | | | +--------+--------+ + + + [...]
--- OUTSIDE RECORDS SUMMARY | ~2019-07-28 | XMS | Encounter Summary ---
Demographics + + + | Address | [address] [facility] | | | [place] [address] | + + + | Home Phone [...] Team Providers + +------+ + | Care Mixer Machine Feeder Name | Role | Phone | + +------+ + | Dionne España MARKETING ANALYST | PCP | | + +------+ + Encounter Details +--------+ + + + + | Date | Type | Department | Care Team | Description | +--------+ + + + + | 05/15/ | Telephone | [facility] | Allan Snell | | | 2017 | | [facility] | MD [address] | | | | | Aarti Cuello [facility] | [address] | | | | | [address] | [place], [place] | | | | | Mailcode: [facility] | [address] | | | | | [place], [place] | [phone] | | | | | [address] | | | | | | [phone] | | | +--------+ + + + [...]
--- OUTSIDE RECORDS SUMMARY | ~2019-07-28 | XMS | Encounter Summary ---
Demographics + + + | Address | [address] [facility] [address] [facility] | | | [place] [address] | + + + | Home Phone [...] Team Providers + +------+ + | Care Financial Institution Manager Name | Role | Phone | + +------+ + | Taco Dionne DENTAL INTERN | PCP | | + +------+ [...] | | | | | | | [place], [place] | | | | | | | [address] | | | | | | | Phone: | | | | | | | [phone] | | | | | | | Fax: | | | | | | | [phone] | +--------+--------+ + + + + Encounter Details +--------+---------+ + + + | Date | Type | Department | Care Team | Description | +--------+---------+ + + + | 04/17/ | Office | [facility] | Nghia Bell MD | Proliferative | | 2017 | Visit | [place] [facility] | [address] | diabetic retinopathy | | | | [place] [address] | [address] | of left eye with | | | | [place], [place] | [place], [place] | macular edema | | | | [address] | [address] | associated with type | | | | [phone] | [phone] | 1 diabetes mellitus | | | [...] increased pain or decreased vision, immediately call [phone].Elec tronically signed by Lanie Childs at 04/17/2017 3:15 PM PDT documented in this encounter Progress Notes Lanie Childs - 04/17/2017 3:15 PM PDT Intravitreal Injection Procedure Note 04/17/2017 for: AVASTIN, BOTH EYES LOT #[id number] (21 OD) and Expiration 04/24/2017 RIGHT EYE: LOT # [id number] (11 OD) and Expiration 04/24/2017 LEFT EYE: [...] MD - 0 04/17/2017 2:00 PM PDT [facility] Note 04/17/2017 Assessment & Plan: 26 y.o. 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
--- OUTSIDE RECORDS SUMMARY | ~2019-07-28 | XMS | Encounter Summary ---
Demographics + + + | Address | [address] [facility] | | | [place] [address] | + + + | Home Phone [...] Team Providers + +------+ + | Care Print Production Manager Name | Role | Phone | + +------+ + | Dionne España PRINTER APPRENTICE | PCP | | + +------+ [...] (ou) | | 2016 | Visit | [place] | | | | | | [facility] at | | | | | | Aarti Cuello [address] | | | | | | [address] | | | | | | Mailcode: [address] | | | | | | [place], [place] | | | | | | [address] | | | | | | [phone] | | | +--------+ + + + [...]
--- OUTSIDE RECORDS SUMMARY | ~2019-07-28 | XMS | Encounter Summary ---
Demographics + + + | Address | [address] [facility] | | | [place] [address] | + + + | Home Phone [...] Team Providers + +------+ + | Care Grain Oilseed Or Pasture Grower Name | Role | Phone | + [...] vision - | | 2015 | | [place] | [address] | hazy | | | | Kimberly [address] | [facility] | | | | | [place], [place] | [place], [place] | | | | | [address] | [address] | | | | | [phone] | [phone] | | | | | | | [...]
--- OUTSIDE RECORDS SUMMARY | ~2019-07-28 | XMS | Encounter Summary ---
Demographics + + + | Address | [address] | | | [place] [address] | + + + | Home Phone [...] Team Providers + +------+ + | Care Household Chores Name | Role | Phone | + +------+ + | Dionne Esapña NICHOLAS | PCP | | + +------+ + Encounter Details +--------+ + + + + | Date | Type | Department | Care Team | Description | +--------+ + + + + | 03/31/ | Procedure | [facility] | | | | 2018 | Pass | [address] | | | | | | [place] | | | | | | [facility] | | | | | | [place] [address] | | | +--------+ + + + [...]
--- OUTSIDE RECORDS SUMMARY | ~2019-07-28 | XMS | Encounter Summary ---
Demographics + + + | Address | [address] [facility] | | | [place] [address] | + + + | Home Phone [...] Team Providers + +------+ + | Care Urologist Name | Role | Phone | + +------+ + | Dionne España BENCH TECHNICIAN | PCP | | + +------+ + [...] [address] | | | | | [facility] | [facility], | | | | | [facility], | [place] [address] | | | | | [place] [address] | [phone] | | | | | | | | | | | | [employer] | | | | | | Manuel Daniels CRNA | | | | | | [address] | | | | | | [place], | | | | | | [place] [address] | | | | | | [phone] | | | | | | | [...]
--- OUTSIDE RECORDS SUMMARY | ~2019-07-28 | XMS | Encounter Summary ---
Demographics + + + | Address | [address] [facility] | | | [place] [address] | + + + | Home Phone [...] Team Providers + +------+ + | Care Medical Imaging Director Name | Role | Phone | + +------+ + | Dionne España NICHOLAS | PCP | | + +------+ + Encounter Details +--------+ + + + + | Date | Type | Department | Care Team | Description | +--------+ + + + + | 04/03/ | Document-Sc | Health Information | Unknown . | | | 2018 | anned | Services [address] | | | | | [address] | | | | | | Mailcode: OP17A | | | | | | [facility] | | | | | | [place], [place] | | | | | | [address] | | | | | | [phone] | | | +--------+ + + + [...]
--- OUTSIDE RECORDS SUMMARY | ~2019-07-28 | XMS | Encounter Summary ---
Demographics + + + | Address | [address] [facility] | | | [place] [address] | + + + | Home Phone [...] Team Providers + +------+ + | Care Furnace Charging Machine Operator Name | Role | Phone | + +------+ + | Dionne España CAREER PORTALS TEACHER | PCP | | + +------+ + Encounter Details +--------+ + + + + | Date | Type | Department | Care Team | Description | +--------+ + + + + | 05/15/ | Telephone | [facility] | Allan Snell | | | 2017 | | [facility] | MD [address] | | | | | Aarti Cuello [facility] | [address] | | | | | [address] | [place], [place] | | | | | Mailcode: [facility] | [address] | | | | | [place], [place] | [phone] | | | | | [address] | | | | | | [phone] | | | +--------+ + + + [...]
--- OUTSIDE RECORDS SUMMARY | ~2019-07-28 | XMS | Encounter Summary ---
Demographics + + + | Address | [address] [facility] | | | [place] [address] | + + + | Home Phone [...] Team Providers + +------+ + | Care Clerical Secretary Name | Role | Phone | + [...] + + | 03/31/ | Hospital | [facility] | Shahzad Awad, | | | 2017 | Encounter | [address] | MD [address] | | | | | [address] | [address] | | | | | [facility] | [place], [place] | | | | | Aarti Tillman | [address] | | | | | [place] [address] | [phone] | | | | | [phone] | | | +--------+ + + + [...] HUNTER | [address] | [place], [place] | | | LLUVIA T[place] | [facility] | [address] | | | TESTS | | | [...] Shahzad Renteria | | | MD Delmi Insurance Representative: None Anesthesia: General Implant: | | | [...] AARTI | [address] | [place], [place] | | | [place]IA [place] | [address] | [address] | | | TESTS | | | [...]
--- OUTSIDE RECORDS SUMMARY | ~2019-07-28 | XMS | Encounter Summary ---
Demographics + + + | Address | [address] [facility] | | | [place] [address] | + + + | Home Phone [...] Team Providers + +------+ + | Care Shrink Pit Operator Name | Role | Phone | [...] | | | | | | | [address] | | | | | | | [address] | | [address] | | | | | | | [facility] [place] | | | | | | | [address] | | | | | | | Phone: | | | | | | | [phone] | | | | | | | Fax: | | | | | | | [phone] | +--------+--------+ + + + + Encounter Details +--------+---------+ + + + | Date | Type | Department | Care Team | Description | +--------+---------+ + + + | 05/01/ | Office | [facility] | Nghia Bell MD | Proliferative | | 2016 | Visit | [facility] | [address] | diabetic retinopathy | | | | [place] [address] | [address] | with macular edema | | | | [address] | [facility] [place] | associated with type | | | | Mailcode: [facility] | [address] | 1 diabetes mellitus | | | | [facility] [place] | [phone] | ([facility]) (Primary Dx); | | | | [address] | | Proliferative | | | | [phone] | | diabetic retinopathy | | | | | | with macular edema | | | | | | associated with type | | | | | | 1 diabetes mellitus | | | | | | ([facility]) [E10.351] | +--------+---------+ + + + Social [...] is not normal. Please call us at [phone]. Care Instructions After Eye Injection: Do not rub or touch the eye. Redness in the corner of the eye is okay. Use Artificial tears every hour, RIGHT EYE, as needed for gritty sensation for next 2-3 day s. Call immediately [phone] for increased pain or decreased vision. documented [...] Note 05/01/2016 for: AVASTIN, RIGHT EYE LOT #[id number] Expiration 05/02/16RIGHT EYE:I12 Attending: Nghia Bell MD Diagnosis: Proliferative diabetic retinopathy with macular edema associated with type 1 brittney betes mellitus ([facility]) (primary encounter diagnosis) Proliferative diabetic retinopathy with macular edema associated with type 1 diabetes melli tus ([facility]) [E10.351] Indication: Risk of further vision loss [...] MD - 0 05/01/2016 1:58 PM PDT [facility] Progress Note 05/01/2016 Assessment & Plan: 25 y.o. male Proliferative diabetic retinopathy without macular edema associated with type 1 diabetes me llitus ([facility]) PDR OU, DME OD Plan: PRP OD, [...] . 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 | + +--------+ + + + | OR INTRAVITREAL INJ, | Routin | 05/01/2016 | [...] | + +--------+ + + + | OR RX RETINOPATHY | Routin | 05/01/2016 | Proliferative | | | PROGRESSV,PHOTOCOAG | e | 3:40 PM | diabetic retinopathy | | | | | PDT | with macular edema | | | | | | associated with type | | | | | | 1 diabetes mellitus | | | | | | ([facility]) [E10.351] | | + +--------+ + + + | OR RX RETINOPATHY | Routin | 05/01/2016 | Proliferative | | | PROGRESSV,PHOTOCOAG | e | 3:40 PM | diabetic retinopathy | | | | | PDT | with macular edema | | | | | | associated with type | | | | | | 1 diabetes mellitus | | | | | | ([facility]) [E10.351] | | + +--------+ + + + documented in this encounter Visit Diagnoses + + | Diagnosis | + + | Proliferative diabetic retinopathy with macular edema associated with type 1 diabetes | | mellitus (HCC) [E10.351] - Primary | + + documented in this encounter"
--- OUTSIDE RECORDS SUMMARY | 2019-07-28 22:40 | XMS ---
PreManage Notification: MARCO GARCIA Security Animation Director Events No recent Security Events currently on file CRITERIA MET - LYRIC CARE PROVIDERS [facility]: Pulmonary Disease 06/10/2018-Current PHONE: Unknown Kevin Mayo MD PHONE: Unknown Sondra has no Care Guidelines for this patient. Arlene VISIT COUNT (12 MO.) Choco Borges TOTAL 2 NOTE: Visits indicate total known visits. ED/UCC VISIT TRACKING (12 MO.) 07/28/2019 22:37 [facility] [place] TYPE: Emergency COMPLAINT: - VISION LOSS IN LEFT EYE 01/08/2019 15:41 [facility] [place] TYPE: Emergency COMPLAINT: - RIB PAIN DIAGNOSES: - Unspecified fall, initial encounter - Pleurodynia INPATIENT VISIT TRACKING (12 MO.) No inpatient visits to display in this time frame [email or web address]
== END 2019-07-28 23:39 | disposition home or self-care (01) ==
LOC: ED 22:36
DX: H53.132 Sudden visual loss, left eye (principal); I10 Essential (primary) hypertension; E10.9 Type 1 diabetes mellitus without complications; F17.200 Nicotine dependence, unspecified, uncomplicated; Z88.0 Allergy status to penicillin
CPT/HCPCS: 99283

== ENCOUNTER 2020-02-13 03:39 | Emergency (ER) | payer OTHER ==
[~2020-02-13] VITALS: Ht 170.2 cm; Wt 83.9 kg
--- OUTSIDE RECORDS SUMMARY | ~2020-02-13 | XMS | Encounter Summary ---
Demographics + + + | Address | [address] | | | [place] [address] | + + + | Home Phone | | + + + | Preferred Language | Unknown | + + + | Marital Status | Single | + + + | Yazidi Affiliation | NON | + + + | Race | White | + + + | Ethnic Group | Not or | + + + Author + + + | Author | [facility] | + + + | Organization | [facility] | + + + | Address | Unknown | + + + | Phone | Unavailable | + + + Support + + +---------+ + | Name | Relationship | Address | Phone | + + +---------+ + | Madelyn Marquez | ECON | Unknown | | + + +---------+ + Care Team Providers + +------+ + | Care Underwater Welder Name | Role | Phone | + [...] | | | | | | | [address] | | | | | | | [address] | | | | | | | [place], [place] | | | | | | | [address] | | | | | | | Phone: | | | | | | | [phone] | | | | | | | Fax: | | | | | | | [phone] | +--------+--------+ + + + + Encounter Details +--------+---------+ + + + | Date | Type | Department | Care Team | Description | +--------+---------+ + + + | 01/16/ | Office | [facility] | Nghia Bell MD | Proliferative | | 2017 | Visit | [facility] | [address] | diabetic retinopathy | | | | [address] | [address] | of left eye with | | | | [facility] | [place], [place] | macular edema | | | | Clinic [place], | [address] | associated with type | | | | [place] [address] | [phone] | 1 diabetes mellitus | | | | [phone] | | ([facility]) (Primary Dx) | +--------+---------+ + + + [...] Bell MD - 01/16/2017 2:45 PM PDT [facility] Progress Note 01/16/2017 Assessment & Plan: [...] file 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: 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
--- OUTSIDE RECORDS SUMMARY | ~2020-02-13 | XMS | Encounter Summary ---
Demographics + + + | Address | [address] [facility] [facility] | | | [place] [address] | + + + | Home Phone | | + + + | Preferred Language | Unknown | + + + | Marital Status | Single | + + + | Hinduism Affiliation | NON | + + + | Race | White | + + + | Ethnic Group | Not or | + + + Author + + + | Author | [facility] | + + + | Organization | [facility] | + + + | Address | Unknown | + + + | Phone | Unavailable | + + + Support + + +---------+ + | Name | Relationship | Address | Phone | + + +---------+ + | Madelyn Marquez | ECON | Unknown | | + + +---------+ + Care Team Providers + +------+ + | Care Solder Making Laborer Name | Role | Phone | + +------+ + | Taco Dionne COUNTER CONTROL OPERATOR | PCP | | + +------+ + [...] | | | | | | | [address] | | | | | | | [address] | | | | | | | [place], [place] | | | | | | | [address] | | | | | | | Phone: | | | | | | | [phone] | | | | | | | Fax: | | | | | | | [phone] | +--------+--------+ + + + + Encounter Details +--------+---------+ + + + | Date | Type | Department | Care Team | Description | +--------+---------+ + + + | 08/28/ | Office | [facility] | Nghia Bell MD | Proliferative | | 2017 | Visit | [facility] | [address] | diabetic retinopathy | | | | [place] [address] | [address] | of left eye with | | | | [facility] | [facility] [place] [place] | macular edema | | | | Clinic [place], | [address] | associated with type | | | | [place] [address] | [phone] | 1 diabetes mellitus | | | | [phone] | | (HCC) (Primary Dx) | +--------+---------+ + + + [...] + + documented as of this encounter Patient Instructions Patient Instructions Nghia Bell MD - 08/28/2017 9:30 AM PSTReturn before scheduled vi sit with decreasing vision or new shower of floaters. documented in this encounter Progress Notes Nghia Bell MD - 08/28/2017 9:30 AM PST [facility] Progress Note 08/28/2017 Assessment & Plan: 27 y.o. male Proliferative diabetic retinopathy of left eye with macular edema associated with type 1 di abetes mellitus (HCC) PDR s/p PRP OU Hx DME s/p Avastin Now with decreasing VH OD s/p Avastin No retinal tears/detachment Cont to observe Call for decreased vision, increased distortion, increased pain, new floaters or flashing l ights Follow up: Return in about 4 weeks (around 09/25/2017). OCT CMT Description Right 266 (08/28/17 1000) Comments:: No DME Left 312 (08/28/17 1000) Comments:: No DME Chief Complaint: Follow-up visit HPI: Patient states that the floater in his right has decreased in size. Patient states fransisco t vision seems unchanged. No new floaters or flashes of light. 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
--- OUTSIDE RECORDS SUMMARY | ~2020-02-13 | XMS | Encounter Summary ---
Demographics + + + | Address | [address] | | | [place] [address] | + + + | Home Phone | | + + + | Preferred Language | Unknown | + + + | Marital Status | Single | + + + | Denominational Affiliation | NON | + + + | Race | White | + + + | Ethnic Group | Not or | + + + Author + + + | Author | [facility] | + + + | Organization | [facility] | + + + | Address | Unknown | + + + | Phone | Unavailable | + + + Support + + +---------+ + | Name | Relationship | Address | Phone | + + +---------+ + | Madelyn Marquez | ECON | Unknown | | + + +---------+ + Care Team Providers + +------+ + | Care Improvement Coordinator Name | Role | Phone | + +------+ + | Taco Dionne APIGEE DEVELOPER | PCP | | + +------+ + [...] | | | | | | | [place], [place] | | | | | | | [address] | | | | | | | Phone: | | | | | | | [phone] | | | | | | | Fax: | | | | | | | [phone] | +--------+--------+ + + + + Encounter Details +--------+---------+ + + + | Date | Type | Department | Care Team | Description | +--------+---------+ + + + | 02/26/ | Office | [facility] | Nghia Bell MD | Proliferative | | 2018 | Visit | [facility] | [address] | diabetic retinopathy | | | | [place] [address] | [address] | of left eye with | | | | [facility] | [place], [place] | macular edema | | | | [facility] [place], | [address] | associated with type | | | | [place] [address] | [phone] | 1 diabetes mellitus | | | | [phone] | | ([facility]); | | | | | | Proliferative | | | | | | diabetic retinopathy | | | | | | of both eyes with | | | | | | macular edema | | | | | | associated with type | | | | | | 1 diabetes mellitus | | | | | | (HCC) | +--------+---------+ + + + Social History [...] Instructions Patient Instructions Nghia Bell MD - 02/26/2018 8:45 AM PDTReturn before scheduled vi sit with decreasing vision or new shower of floaters. documented in this encounter Progress Notes Nghia Bell MD - 02/26/2018 8:45 AM PDT [facility] Progress Note 02/26/2018 Assessment & Plan: 27 y.o. 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 Improving VH OD Surgical retinal referral for tractional changes OS, consideration/timing of PPV OS Plan additional PRP/Avastin OD once VH more resolved Call for decreased vision, increased distortion, increased pain, new floaters or flashing l ights Follow up: Return in about 1 day (around 02/27/2018). Chief Complaint: Follow-up visit HPI: 6 week PDR w/ME OU check No improvement in va. Pt is seeing double at distance. Pt st's OS is very blurry. Inferior 1/2 of va OS is like looking through water. No eye pain. BS last night was 127. Last A1C was 8.7. Current Outpatient Prescriptions (Other) Medication Sig cyclobenzaprine HumaLOG U-100 Insulin HYDROcodone-acetaminophen pregabalin Take by mouth two times daily. 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 | | | | | macular edema | | | | | | associated with type | | | | | | 1 diabetes mellitus | | | | | | ([facility]) | | + +--------+ + + + documented in this encounter Results OCT, RETINA (02/26/2018 9:24 AM PDT) + + + | Narrative | Performed At | + + + | [facility] | [facility] | | [facility] macular thickness: 256 Left | [facility] | | EyeCentral macular thickness: 431 Provider DocumentationRight | | | EyeContour: no central thickening Fluid and related findings: | | | IRF, better Left EyeContour: central thickening Fluid and related | | | findings: IRF, worse Comments: Traction on macula causing | | | elevation through fovea | | | | | | | | |Provider Documentation | | |Right Eye | | |Contour: no central thickening | | |Fluid and related findings: IRF, better | | | | | | | | |Left Eye | | |Contour: central thickening | | |Fluid and related findings: IRF, worse | | |Comments: Traction on macula causing elevation through fovea | | + + + + + + + + | Performing | Address | City/State/Zipcode | Phone Number | | Organization | | | | + + + + + | [facility] | [address] | [place] [address] | | | [facility] | [place] | | | + + + + + documented in this encounter Visit Diagnoses + + | Diagnosis | + + | Proliferative diabetic retinopathy of left eye with macular edema associated with type | | 1 diabetes mellitus (HCC) | + + | Proliferative diabetic retinopathy of both eyes with macular edema associated with | | type 1 diabetes mellitus (HCC) | + + documented in this encounter"
--- OUTSIDE RECORDS SUMMARY | ~2020-02-13 | XMS | Encounter Summary ---
Demographics + + + | Address | [address] | | | [place] [address] | + + + | Home Phone | | + + + | Preferred Language | Unknown | + + + | Marital Status | Single | + + + | Methodist Affiliation | NON | + + + | Race | White | + + + | Ethnic Group | Not or | + + + Author + + + | Organization | Unknown | + + + | Address | Unknown | + + + | Phone | Unavailable | + + + Support + + +---------+ + | Name | Relationship | Address | Phone | + + +---------+ + | Madelyn MONTERO | Unknown | | + + +---------+ + Care Team Providers + +------+ + | Care Dragger Name | Role | Phone | + +------+ + | Partha España MD | PCP | | + +------+ + Encounter Details +--------+--------+ + + + | Date | Type | Department | Care Team | Description | +--------+--------+ + + + | 08/13/ | Travel | | | | | 2019 | | | | | +--------+--------+ + + + Social History + + [...] Comments | + + +---------+ + | No | 0 Standard drinks | 0.0 | [...] + + documented as of this encounter Plan of Treatment Not on filedocumented as of this encounter Visit Diagnoses Not on filedocumented in this encounter"
--- OUTSIDE RECORDS SUMMARY | ~2020-02-13 | XMS | Encounter Summary ---
Demographics + + + | Address | [address] | | | [place] [address] | + + + | Home Phone | | + + + | Preferred Language | Unknown | + + + | Marital Status | Single | + + + | Synagogue Affiliation | NON | + + + [...] Team Providers + +------+ + | Care Vice President Network Development Name | Role | Phone | + +------+ + | Taco Dionne PRESSROOM FOREMAN | PCP | | + +------+ + [...] | | | | | | | [place], [place] | | | | | | | [address] | | | | | | | Phone: | | | | | | | [phone] | | | | | | | Fax: | | | | | | | [phone] | +--------+--------+ + + + + Encounter Details +--------+---------+ + + + | Date | Type | Department | Care Team | Description | +--------+---------+ + + + | 07/18/ | Office | [facility] | Nghia Bell MD | Type 1 diabetes | | 2016 | Visit | [facility] | [address] | mellitus with | | | | [place] [address] | [address] | proliferative | | | | [facility] | [place], [place] | retinopathy of right | | | | Clinic [place] [place], | [address] | eye and macular | | | | [place] [address] | [phone] | edema (HCC) (Primary | | | | [phone] | | Dx); Proliferative | | | | | | diabetic retinopathy | | | | | | of left eye with | | | | | | macular edema | | | | | | associated with type | | | | | | 1 diabetes mellitus | | | | | | ([facility]); | | | | | | Proliferative | | | | | | diabetic retinopathy | | | | | | with macular edema | | | | | | associated with type | | | | | | 1 diabetes mellitus | | | | | | ([facility]) [E10.3519]; | | | | | | Proliferative | | | | | | diabetic retinopathy | | | | | | without macular | | | | | | edema associated | | | | | | with type 1 diabetes | | | | | | mellitus ([facility]) | +--------+---------+ + + + Social History [...] Instructions Patient Instructions Nghia Bell MD - 07/30/2016 4:46 PM PDTReturn before scheduled vi sit with decreasing vision or new shower of floaters. documented in this encounter Progress Notes Nghia Bell MD - 07/30/2016 4:44 PM PDT [facility] Progress Note 07/18/2016 Assessment & Plan: 26 y.o. 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 VH preventing full rx OS PRP OS today Call for decreased vision, increased distortion, increased pain, new floaters or flashing l ights Follow up: Return in about 6 weeks (around 08/29/2016). OCT CMT Description Right 287 (07/18/16 1400) Comments:: Temporal fluid, not invovlving foveal center Fluid:: Better;IRF Left 303 (07/18/16 1400) Comments:: Minimal fluid Fluid:: IRF;Unchanged Chief Complaint: Follow-up visit Initial History: No change in vision since last visit. No flashes of light. A few intermitt ent small floaters OD. BS: 180-300 . 220 today Physician HPI: Following up per recommendation with no new issues, including eye pain, decreased vision, i ncreased floaters or increased distortion Pain: No pain (0 of 0-10) Current Outpatient Prescriptions (Other) Medication Sig INSULIN GLARGINE,HUM.REC.ANLOG (LANTUS SUBQ) Inject under the skin (SUBC). INSULIN LISPRO (HUMALOG SUBQ) Inject under the skin (SUBC). pregabalin Take by mouth two times daily. Max: 600 mg/day Past Medical History Diagnosis Date Diabetes mellitus type 1 (HCC) Past Surgical History Procedure Laterality Date Hip fracture surgery Social History Substance Use Topics Smoking status: Current Every Day Smoker Smokeless tobacco: Not on file Alcohol Use: Not on file family history is negative for Diabetes, and Glaucoma, and Macular degeneration, and Retina l detachment, . 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: The office automation technician, under the supervision of the physician, is responsible for performing the f ollowing sections: RFV, ROS, PMH, PSH, SocHx, FH, Med list, Base Ophth Exam. The attending physician is responsible for the entire content of the note and has personall y performed the HPI and the physical examination NGHIA BELL MD anie Joshi - 07/18/2016 3:07 PM PDT Vitreoretinal Laser Procedure Report 07/18/2016 for: Panretinal Photocoagulation, Left Eye Attending: Nghia Bell MD Diagnosis: Proliferative Diabetic Retinopathy Indication: Risk of further vision loss without treatment Allergies: Penicillin Anesthesia: Subconjunctival with 2% lidocaine without epinephrine Team Pause: At 3:07 PM, prior to the beginning of the [...] this patient. Any safety precautions were addressed. Delivery: Slit lamp with Superquad 160 Laser type: Diode Green 532 nm Parameters: Duration: 100 ms Size: 200 microns Power: Up to 320 mW Number: 802 spots. Location: Peripheral retina 360 degrees Complications: None Disposition: Eye rinsed After the procedure patient reported: Minimal pain (1-2 of 0-10) Follow up as scheduled or earlier for worsening vision. INghia MD, performed the entire procedure. Nghia Bell MD, 07/18/2016 documented in this enc ounter Plan of Treatment Not on filedocumented as of this encounter Procedures + +--------+ + + + | Procedure Name | Priori | Date/Time | Associated Diagnosis | Comments | | | ty | | | | + +--------+ + + + | DE RX RETINOPATHY | Routin | 07/18/2016 | Proliferative | | | PROGRESSV,PHOTOCOAG | e | 3:07 PM | diabetic retinopathy | | | | | PDT | of left eye with | | | | | | macular edema | | | | | | associated with type | | | | | | 1 diabetes mellitus | | | | | | ([facility]) | | + +--------+ + + + documented in this encounter Visit Diagnoses + + | Diagnosis | + + | Type 1 diabetes mellitus with proliferative retinopathy of right eye and macular edema | | ([facility]) - Primary | + + | Proliferative diabetic retinopathy of left eye with macular edema associated with type | | 1 diabetes mellitus ([facility]) | + + | Proliferative diabetic retinopathy with macular edema associated with type 1 diabetes | | mellitus ([facility]) [E10.3519] | + + | Proliferative diabetic retinopathy without macular edema associated with type 1 | | diabetes mellitus ([facility]) | + + documented in this encounter"
--- OUTSIDE RECORDS SUMMARY | ~2020-02-13 | XMS | Encounter Summary ---
Demographics + + + | Address | [address] | | | [place] [address] | + + + | Home Phone | | + + + | Preferred Language | Unknown | + + + | Marital Status | Single | + + + | Yarsani Affiliation | NON | + + + | Race | White | + + + | Ethnic Group | Not or | + + + Author + + + | Author | [facility] | + + + | Organization | [facility] | + + + | Address | Unknown | + + + | Phone | Unavailable | + + + Support + + +---------+ + | Name | Relationship | Address | Phone | + + +---------+ + | Madelyn Marquez | ECON | Unknown | | + + +---------+ + Care Team Providers + +------+ + | Care Per Diem Physical Therapist Name | Role | Phone | + +------+ + | Partha España MD | PCP | | + +------+ + Reason for Visit + + + | Reason | Comments | + + + | Follow-up visit | | + + + Encounter Details +--------+---------+ + + + | Date | Type | Department | Care Team | Description | +--------+---------+ + + + | 01/21/ | Office | [facility] | Triny Trammell | Proliferative | | 2020 | Visit | [facility] | MD Michael [address] | diabetic retinopathy | | | | Aarti Cuello [address] | of left eye with | | | | [address] | [place], [place] | macular edema | | | | Eye [place], [facility] | [address] | associated with type | | | | floor [place], [place] | [phone] | 1 diabetes mellitus | | | | [id number] | | (HCC) (Primary Dx); | | | | | | PDR with macular | | | | | | edema, right eye; | | | | | | Proliferative | | | | | | diabetic retinopathy | | | | | | of right eye with | | | | | | macular edema | | | | | | associated with type | | | | | | 1 diabetes mellitus | | | | | | ([facility]) | +--------+---------+ + + + Social [...] recent travel history available. | + + + + + + | COVID-19 Exposure | Response | Date Recorded | + + + + | In the last month, have you been in contact | No / Unsure | 01/22/2020 10:18 AM | | with someone who was confirmed or | | PDT | | suspected to have Coronavirus / COVID-19? | | | + + + + documented as of this encounter Patient Instructions Patient Instructions Triny Trammell MD - 01/22/2020 10:00 AM PDTReturn before schedule d visit with decreasing vision, distortion, or new shower of floaters. Today: Artificial tears 1 drop every hour while awake Tomorrow: Artificial tears 1 drop every 2 hours while awake Care instructions after eye injections: Do not rub or touch your eye An wjzp-onz-zoyrehz pain reliever (e.g.,Tylenol) can be used for mild soreness Use artificial tears/lubricating drops once an hour for comfort It is okay to shower and wash your face COMMON symptoms after successful eye injections: Mild to moderate pain or irritation beginning the day of the injection. This should beg in to improve the following day. Eyelash in the eye or elida sensation Tearing Mild floaters or bubbles in your vision Bloody tears for 1-2 days after treatment Eye Redness ? Also known as subconjunctival hemorrhage ? This bruise can cover the entire white part of the eye and may last a few weeks CONCERNING symptoms after eye injections: Severe, constant pain Worsening pain after the first day Decreased vision Severe, constant floaters Curtain or veil in your vision Please call the clinic immediately for any of the above listed concerning symptoms or with any other questions documented in this encounter Progress Notes Triny Trammell MD - 01/22/2020 10:00 AM PDT [facility] Progress Note 01/22/2020 Assessment & Plan: 29 y.o. male Proliferative diabetic retinopathy (s/p PPV/MP [id number]) with macular edema, left eye Recent dense vitreous hemorrhage, no view posteriorly. Retina attached on B scan and there are no concerning areas of traction, only NVE as expected. Will treat with Avastin. Discus sed need for regular treatment as he has had multiple recurrent hemorrhages. Discussed impor tance of appointments as he has been lost to follow-up for the past 5 months. PARQ held for Avastin OS Ocular ultrasound shows vitreous hemorrhage without retinal tears or detachments. Instructed on importance of glucose and blood pressure control Discussed with patient: head of bed elevated at all times if possible and to avoid vigor ous physical activity (including heavy lifting and bending). RD precautions instructed PDR with macular edema, right eye Increased traction over time with new lamellar hole due to VMT. More SRF and tractional mem branes along arcades. Last Avastin in July 2019. Previously discussed with Dr. Awad fransisco t vitrectomy is recommended. Given dense VH in fellow left eye, would hold on surgery OD for now until OS more stable. Discussed options, including observation, anti-VEGF (discussed possible increase in trac tion), vitrectomy OD Hold on Avastin OD given traction present Return in 2-3 weeks, consider sign up for vitrectomy with pre-op Avastin OD 1 week prior to surgery Call for decreased vision, increased distortion, increased pain, new floaters or flashing l ights Follow up: Return for 2-3 weeks, Dr. Awad. Chief Complaint: Follow-up visit HPI (Edited by physician): Pt states the left eye has no vision - it started declining on . Denies any flashes of light. Left eye started throbbing, has been feeling a lot of p ressure. He also states that he vision in the right has not been good for several months. Us ually his left eye is his better seeing eye and sees details. 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 LA1C: 8 something Current Outpatient Medications (Other) Medication Sig cephALEXin Take 1 capsule by mouth four times daily. gabapentin Take 1 capsule by mouth three times daily. HumaLOG U-100 Insulin Indications: insulin pump Reviewed: Tobacco | Allergies | Meds | Med Hx | Surg Hx | Fam Hx | Soc Hx 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: The attending physician is responsible for and agrees with the entire content of the note a nd has personally performed the HPI and the physical examination. Triny Trammell MD, PhD Fellow, Vitreoretinal Disease and Surgery [facility] documented in this encounter Plan of Treatment Not on filedocumented as of this encounter Procedures + +--------+ + + + | Procedure Name | Priori | Date/Time | Associated Diagnosis | Comments | | | ty | | | | + +--------+ + + + | AVASTIN INJ - OS - | Routin | 01/22/2020 | Proliferative | Results for this | | LEFT EYE | e | 12:55 PM | diabetic retinopathy | procedure are in the | | | | PDT | of left eye with | results section. | | | | | macular edema | | | | | | associated with type | | | | | | 1 diabetes mellitus | | | | | | (HCC) | | + +--------+ + + + | B SCAN ULTRASOUND - | Routin | 01/22/2020 | Proliferative | Results for this | | OS - LEFT EYE | e | 11:46 AM | diabetic retinopathy | procedure are in the | | | | PDT | of left eye with | results section. | | | | | macular edema | | | | | | associated with type | | | | | | 1 diabetes mellitus | | | | | | ([facility]) | | | | | | Proliferative | | | | | | diabetic retinopathy | | | | | | of right eye with | | | | | | macular edema | | | | | | associated with type | | | | | | 1 diabetes mellitus | | | | | | (HCC) | | + +--------+ + + + | OCT, RETINA | Routin | 01/22/2020 | Proliferative | Results for this | | | e | 11:00 AM | diabetic retinopathy | procedure are in the | | | | PDT | of left eye with | results section. | | | | | macular edema | | | | | | associated with type | | | | | | 1 diabetes mellitus | | | | | | ([facility]) | | | | | | Proliferative | | | | | | diabetic retinopathy | | | | | | of right eye with | | | | | | macular edema | | | | | | associated with type | | | | | | 1 diabetes mellitus | | | | | | ([facility]) | | + +--------+ + + + documented in this encounter Results AVASTIN INJ - OS - LEFT EYE (01/22/2020 12:55 PM PDT) + + + | Narrative | Performed At | + + + | Pre-Procedure | | | Procedures, alternatives and risks discussed with patient. Questions | | | answered., confirmed correct patient, procedure, site and consent. | | | | | | | | | Anesthesia | | | Anesthesia: subconjunctival | | | Anesthetic Medication: Lidocaine 1% | | | | | | | | | Procedure | | | Preparation: betadine to ocular surface, eyelid speculum | | | | | | Needle: 30g | | | | | | | | | Injection: | | | 1.25 mg bevacizumab 1.25 mg/0.05 mL | | | [facility]: [id number], Lot: [id number], Expiration date: 01/27/2020 | | | Route: intravitreal, Site: Left Eye | | | | | | Estimated blood loss: none | | | | | | | | | Post Op | | | Post procedure assessment: visual acuity at least count fingers, eye | | | rinsed, patient tolerated procedure well | | | Patient reported pain is 0 on a 0-10 scale. | | + + + B SCAN ULTRASOUND - OS - LEFT EYE (01/22/2020 11:46 AM PDT) + + -+ | Narrative | Performed At | + + -+ | B-scan OS | [facility] | | Indications: Vitreous Hemorrhage Procedure:the patient was positioned | [facility] | | *upine in the exam chair and 0.5% proparacaine was administered to the | | | Left eye. A 10 MHz transducer was used to perform contact B-scan of | | | the left eye. Findings:Anterior chamber: Formed and clear Lens: | | | Phakic Vitreous: Diffuse opacities, anterior residual vitreous Retina: | | | attached within field of view Choroid: unremarkable Sclera: | | | unremarkable Optic nerve: unremarkable Orbit: orbital tissues and | | | extraocular muscles appear within normal limits Impression: Diffuse | | | opacities in the vitreous cavity consistent in appearance with s/p | | | vitrectomy with anterior residual vitreous. Small tuft like elevation | | | at inferotemporal aspect of the disc. The retina appears attached with | | | no points of traction. Limitations: none João PARMAR I | | | have reviewed the images and the initial report and I have made any | | | necessary changes to the report as needed based on my assessment. | | | RAMIRO FONTENOT MD | | | | | |Choroid: unremarkable | | | | | |Sclera: unremarkable | | | | | |Optic nerve: unremarkable | | | | | |Orbit: orbital tissues and extraocular muscles appear within normal limits | | | | | | | | |Impression: Diffuse opacities in the vitreous cavity consistent in | | |appearance with s/p vitrectomy with anterior residual vitreous. Small tuft | | |like elevation at inferotemporal aspect of the disc. The retina appears | | |attached with no points of traction. | | | | | |Limitations: none | | | | | |João PARMAR | | | | | |I have reviewed the images and the initial report and I have made any | | |necessary changes to the report as needed based on my assessment. | | |RAMIRO FONTENOT MD | | | | | + + -+ + + + + + | Performing | Address | City/State/Zipcode | Phone Number | | Organization | | | | + + + + + | [facility] | [phone] | [place] [address] | | | JOÃO | [place] | | | + + + + + OCT, RETINA (01/22/2020 11:00 AM PDT) + + -+ | Narrative | Performed At | + + -+ | [employer] | [facility] | | DocumentationRight EyeQuality: good Central macular thickness: | [facility] | | 405 Segmentation: accurate Left EyeQuality: poor (Unable to | | | follow up to previous scans OS 2/2 poor view) Central macular | | | thickness: 359 Segmentation: poor Provider DocumentationRight | | | EyeFluid and related findings: IRF, worse Retinal findings: | | | Lamellar hole Comments: new lamellar hole Left EyeFluid and | | | related findings: no fluid Retinal findings: epiretinal membrane | | | Comments: poor view through VH, retina appears flat without | | | significant DME | | | | | |Central macular thickness: 359 | | |Segmentation: poor | | | | | | | | |Provider Documentation | | |Right Eye | | |Fluid and related findings: IRF, worse | | |Retinal findings: Lamellar hole | | |Comments: new lamellar hole | | | | | |Left Eye | | |Fluid and related findings: no fluid | | |Retinal findings: epiretinal membrane | | |Comments: poor view through VH, retina appears flat without significant | | |DME | | + + -+ + + + + + | Performing | Address | City/State/Zipcode | Phone Number | | Organization | | | | + + + + + | [facility] | [phone] | [place] [address] | | | INSTITUTE | [place] | | | + + + + + documented in this encounter Visit Diagnoses + + | Diagnosis | + + | Proliferative diabetic retinopathy of left eye with macular edema associated with type | | 1 diabetes mellitus (HCC) - Primary | + + | PDR with macular edema, right eye | + + documented in this encounter Administered Medications + +--------+ +---------+------+ + | Medication Order | MAR | Action | Dose | Rate | Site | | | Action | Date | | | | + +--------+ +---------+------+ + | bevacizumab (AVASTIN) | Given | 01/22/20 | 1.25 mg | | Left Eye | | intravitreal injection 1.25 mg | | 20 12:55 | | | | | 1.25 mg, ONCE PRN (IPROC), 1 | | PM PDT | | | | | dose, Starting Sat01/22/20 at | | | | | | | 1255, Until Sat01/22/20 at 1255 | | | | | | + +--------+ +---------+------+ + +---+---+ | | | +---+---+ documented in this encounter"
--- OUTSIDE RECORDS SUMMARY | ~2020-02-13 | XMS | Encounter Summary ---
Demographics + + + | Address | [address] | | | [place] [address] | + + + | Home Phone | | + + + | Preferred Language | Unknown | + + + | Marital Status | Single | + + + | Yazidism Affiliation | NON | + + + | Race | White | + + + | Ethnic Group | Not or | + + + Author + + + | Author | [facility] | + + + | Organization | [facility] | + + + | Address | Unknown | + + + | Phone | Unavailable | + + + Support + + +---------+ + | Name | Relationship | Address | Phone | + + +---------+ + | Madelyn Marquez | ECON | Unknown | | + + +---------+ + Care Team Providers + +------+ + | Care Vamp Presser Name | Role | Phone | + +------+ + | Partha España MD | PCP | | + +------+ + Reason for Visit + + + | Reason | Comments | + + + | Request For Forms | | + + + Encounter Details +--------+ + + + + | Date | Type | Department | Care Team | Description | +--------+ + + + + | 01/25/ | Telephone | [facility] | Triny Trammell | Request For Forms | | 2020 | | [facility] | MD Michael [address] | | | | | [address] [facility] [address] | [address] | | | | | [address] | [place], [place] | | | | | Eye [place], [facility] | [address] | | | | | floor [place], [place] | [phone] | | | | | [address] | | | +--------+ + + + + Social History + + [...]
--- OUTSIDE RECORDS SUMMARY | ~2020-02-13 | XMS | Encounter Summary ---
Demographics + + + | Address | [address] | | | [place] [address] | + + + | Home Phone [...] Author + + + | Author | [facility] | + + + | Organization | [facility] | + + + | Address | Unknown | + + + | Phone | Unavailable | + + + Support + + +---------+ + | Name | Relationship | Address | Phone | + + +---------+ + | Madelyn Marquez | ECON | Unknown | | + + +---------+ + Care Team Providers + +------+ + | Care Bath Design Sales Consultant Name | Role | Phone | + +------+ + | Taco Dionne NICHOLAS | PCP | | + +------+ + Reason for Visit + + + | Reason | Comments | + + + | Referred by doctor | | + + + Benefits Check (Routine) +--------+--------+ + + + + | Status | Reason | Specialty | Diagnoses / | Referred By | Referred To | | | | | Procedures | Contact | Contact | +--------+--------+ + + + + | Closed | | Ophthalmology | | Non-[facility] | [facility] | | | | | | [facility] | MD Nghia | | | | | | | [address] | | | | | | | [address] | [address] | | | | | | | [place], [place] | | | | | | | [address] | | | | | | | Phone: | | | | | | | [phone] | | | | | | | Fax: | | | | | | | [phone] | +--------+--------+ + + + + Encounter Details +--------+---------+ + + + | Date | Type | Department | Care Team | Description | +--------+---------+ + + + | 05/01/ | Office | [facility] | Nghia Bell MD | Proliferative | | 2016 | Visit | [facility] | [address] | diabetic retinopathy | | | | [facility] [address] | [address] | with macular edema | | | | [address] | [place], [place] | associated with type | | | | Eye [place], [facility] | [address] | 1 diabetes mellitus | | | | floor [place], [place] | [phone] | ([facility]) (Primary Dx); | | | | [id number] | | Proliferative | | | | | | diabetic retinopathy | | | | | | with macular edema | | | | | | associated with type | | | | | | 1 diabetes mellitus | | | | | | ([facility]) [E10.351] | +--------+---------+ + + + Social History [...] + + documented as of this encounter Last Filed Vital Signs + +---------+ + + | Vital Sign | Reading | Time Taken | Comments | + +---------+ + + | Blood Pressure | 120/74 | 05/01/2016 1:48 PM | | | | | PDT | | + +---------+ + + | Pulse | 79 | 05/01/2016 1:48 PM | | | | | PDT | | + +---------+ + + | Temperature | - | - | | + +---------+ + + | Respiratory Rate | - | - | | + +---------+ + + | Oxygen Saturation | - | - | | + +---------+ + + | Inhaled Oxygen | - | - | | | Concentration | | | | + +---------+ + + | Weight | - | - | | + +---------+ + + | Height | - | - | | + +---------+ + + | Body Mass Index | - | - | | + +---------+ + + documented in this encounter Patient Instructions Patient Instructions Dionne Rosen - 05/01/2016 3:40 PM PDT Retinal Laser Procedure Patient Instructions Your doctor performed a laser procedure to treat a condition in your retina. Here is what y primo can expect: The vision will be dim for a few hours. If you don't feel comfortable driving yourself h ome, please call a ride or let us help you arrange your way home. It is common for the eye to feel gritty. Use artificial tears as needed. If you had floaters before the laser procedure, they will be there after the procedure. The laser does not make the floaters go away. If your vision gets worse or if you have severe pain, this is not normal. Please call us at [phone]. Care Instructions After Eye Injection: Do not rub or touch the eye. Redness in the corner of the eye is okay. Use Artificial tears every hour, RIGHT EYE, as needed for gritty sensation for next 2-3 day s. Call immediately [phone] for increased pain or decreased vision. documented in this encounter Progress Notes Dionne Rosen - 05/01/2016 3:40 PM PDT Vitreoretinal Laser Procedure Report 05/01/2016 for: Panretinal Photocoagulation, Right Eye Attending: Nghia Bell MD Diagnosis: Proliferative Diabetic Retinopathy Indication: Risk of further vision loss without treatment Allergies: Penicillin Anesthesia: Subconjunctival with 1% lidocaine with epinephrine Team Pause: At 3:39 PM, prior to the beginning of the [...] ms Size: 200 microns Power: Up to 350 mW Number: [phone] spots. Location: Peripheral retina 360 degrees Complications: None Disposition: Eye rinsed After the procedure patient reported: Minimal pain (1-2 of 0-10) Follow up as scheduled or earlier for worsening vision. Nghia Darby MD, performed the entire procedure. Nghia Bell MD, 05/01/2016 Intravitreal Injection Procedure Note 05/01/2016 for: AVASTIN, RIGHT EYE LOT #[id number] Expiration 05/02/16RIGHT EYE:I12 Attending: Nghia Bell MD Diagnosis: Proliferative diabetic retinopathy with macular edema associated with type 1 brittney betes mellitus ([facility]) (primary encounter diagnosis) Proliferative diabetic retinopathy with macular edema associated with type 1 diabetes melli tus (HCC) [E10.351] Indication: Risk of further vision loss without treatment Allergies: Penicillin Anesthesia: Subconjunctival lidocaine injection PARQ held for above. Team Pause: At 3:40 PM, prior to the beginning of the [...] performed the entire procedure. Nghia Bell MD, 05/01/2016 ghia Bell MD - 0 05/01/2016 1:58 PM PDT [facility] Progress Note 05/01/2016 Assessment & Plan: 25 y.o. male Proliferative diabetic retinopathy without macular edema associated with type 1 diabetes me llitus (HCC) PDR OU, DME OD Plan: PRP OD, Avastin OD Call for decreased vision, increased distortion, increased pain, new floaters or flashing l ights Follow up: No Follow-up on file. OCT CMT Description Right 402 (05/01/16 1500) Comments:: Temporal fluid, not invovlving foveal center Fluid:: IRF Left 312 (05/01/16 1500) Comments:: Minimal fluid Fluid:: IRF Chief Complaint: Referred by doctor Initial History: This is 25 yo Male Naif Caba referred here by for PDR w/D ME possible focal tx for edema. Past 2-3 months blurred, distorted vision. Distance and near vision unfocused, OD>OS. Trou ble seeing in the dark. OD itching, burning and sore x 2 weeks Foreign body sensation. He i s using A. Tears with some relief. Blood sugar fairly stable 170-250 range recently. Last A1C: 11.0 Physician HPI: Here to establish care for PDR OU Pain: No pain (0 of 0-10) ROS Positive for: Endocrine, Eyes Negative for: Constitutional, Gastrointestinal, Neurological, Skin, Genitourinary, Musculo skeletal, HENT, Cardiovascular, Respiratory, Psychiatric, Allergic/Imm, Heme/Lymph Last edited by Lanie Childs on 05/01/2016 2:29 PM. (History) Specialty History: PDR/DME OU PRP Right eye 05/01/16 Initiated Avastin OD 05/01/16 -Consented Avastin OD 05/01/16 Type 1 diabetes x 15 years Current Outpatient Prescriptions (Other) Medication Sig INSULIN [...] . 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: The ammonia technician, under the supervision of the physician, is responsible for performing the f ollowing sections: RFV, ROS, PMH, PSH, SocHx, FH, Med list, Base Ophth Exam. The attending physician is responsible for the entire content of the note and has personall y performed the HPI and the physical examination NGHIA BELL MD docum ented in this encounter Plan of Treatment + + +--------+ + + | Name | Type | Priori | Associated Diagnoses | Order Schedule | | | | ty | | | + + +--------+ + + | CMPTR OPHTH DX IMG | Procedures | Routin | Proliferative | Expected: | | POST SEGMT | | e | diabetic retinopathy | 05/01/2016, Expires: | | | | | with macular edema | 11/01/2017 | | | | | associated with type | | | | | | 1 diabetes mellitus | | | | | | (HCC) | | + + +--------+ + + documented as of this encounter Procedures + +--------+ + + + | Procedure Name | Priori | Date/Time | Associated Diagnosis | Comments | | | ty | | | | + +--------+ + + + | [facility] | Routin | 05/01/2016 | Proliferative | | | CHARGE | e | 3:40 PM | diabetic retinopathy | | | | | PDT | with macular edema | | | | | | associated with type | | | | | | 1 diabetes mellitus | | | | | | ([facility]) | | + +--------+ + + + | AR INTRAVITREAL INJ, | Routin | 05/01/2016 | Proliferative | | | AVASTIN | e | 3:40 PM | diabetic retinopathy | | | | | PDT | with macular edema | | | | | | associated with type | | | | | | 1 diabetes mellitus | | | | | | ([facility]) | | + +--------+ + + + | AR RX RETINOPATHY | Routin | 05/01/2016 | Proliferative | | | PROGRESSV,PHOTOCOAG | e | 3:40 PM | diabetic retinopathy | | | | | PDT | with macular edema | | | | | | associated with type | | | | | | 1 diabetes mellitus | | | | | | ([facility]) [E10.351] | | + +--------+ + + + | AR RX RETINOPATHY | Routin | 05/01/2016 | Proliferative | | | PROGRESSV,PHOTOCOAG | e | 3:40 PM | diabetic retinopathy | | | | | PDT | with macular edema | | | | | | associated with type | | | | | | 1 diabetes mellitus | | | | | | ([facility]) [E10.351] | | + +--------+ + + + documented in this encounter Visit Diagnoses + + | Diagnosis | + + | Proliferative diabetic retinopathy with macular edema associated with type 1 diabetes | | mellitus (HCC) [E10.351] - Primary | + + documented in this encounter"
--- OUTSIDE RECORDS SUMMARY | ~2020-02-13 | XMS | Encounter Summary ---
Demographics + + + | Address | [address] | | | [place] [address] | + + + | Home Phone | | + + + | Preferred Language | Unknown | + + + | Marital Status | Single | + + + | Jain Affiliation | NON | + + + | Race | White | + + + | Ethnic Group | Not or | + + + Author + + + | Author | [facility] | + + + | Organization | [facility] | + + + | Address | Unknown | + + + | Phone | Unavailable | + + + Support + + +---------+ + | Name | Relationship | Address | Phone | + + +---------+ + | Madelyn Marquez | ECON | Unknown | | + + +---------+ + Care Team Providers + +------+ + | Care Residential Property Tax Appraiser Name | Role | Phone | + +------+ + | Dionne España VEHICLE SAFETY INSPECTOR | PCP | | + +------+ + Reason for Visit + + + | Reason | Comments | + + + | Ultrasound - B Scan | OD | + + + Encounter Details +--------+ + + + + | Date | Type | Department | Care Team | Description | +--------+ + + + + | 08/14/ | Diagnostic | [facility] | | Ultrasound - B Scan | | 2017 | Visit | [place] | | (OD) | | | | Photography at | | | | | | Aarti Cuello [facility] | | | | | | [address] | | | | | | Eye [place], 4th | | | | | | floor [place], [place] | | | | | | [address] | | | +--------+ + + + [...] + + documented as of this encounter João Odonnell - 08/13/2017 6:00 PM PSTUltrasound-Ultrasound - B Scan - OD was performed. Interpretation for the above study can be found in Dr. René Sue s results interpretation encounter on 08/13/2017.Electronically signed by João Walker at 06/2017 8:48 AM PSTdocumented in this encounter Plan of Treatment Not on filedocumented as of this encounter Visit Diagnoses + + | Diagnosis | + + | Proliferative diabetic retinopathy of left eye with macular edema associated with type | | 1 diabetes mellitus (HCC) | + + documented in this encounter"
--- OUTSIDE RECORDS SUMMARY | ~2020-02-13 | XMS | Encounter Summary ---
Demographics + + + | Address | [address] | | | [place] [address] | + + + | Home Phone | | + + + | Preferred Language | Unknown | + + + | Marital Status | Single | + + + | Gnosticist Affiliation | NON | + + + | Race | White | + + + | Ethnic Group | Not or | + + + Author + + + | Author | [facility] | + + + | Organization | [facility] | + + + | Address | Unknown | + + + | Phone | Unavailable | + + + Support + + +---------+ + | Name | Relationship | Address | Phone | + + +---------+ + | Madelyn Marquez | ECON | Unknown | | + + +---------+ + Care Team Providers + +------+ + | Care Oil Expert Name | Role | Phone | + [...] Proliferative | | 2020 | Visit | [facility] at | MD Michael [address] | diabetic retinopathy | | | | Aarti Cuello [address] | of left eye with | | | | [address] | [place], [place] | macular edema | | | | Eye [place], [facility] | [address] | associated with type | | | | floor [place], [place] | [phone] | 1 diabetes mellitus | | | | [id number] | | (HCC) (Primary Dx); | | [...] mellitus | | | | | | ([facility]) | +--------+---------+ + + + Social History [...] not rub or touch your eye An knur-jdc-[id number] pain reliever (e.g.,Tylenol) can be used for [...] AM PDT [facility] Progress Note 01/22/2020 Assessment & Plan: 29 [...] 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 LA1C: 8 something Current Outpatient Medications (Other) [...] MD, PhD Fellow, Vitreoretinal Disease and Surgery [facility] documented in this encounter Plan of Treatment [...] mellitus | | | | | | ([facility]) | | | | | | Proliferative [...] mellitus | | | | | | ([facility]) | | | | | | Proliferative | | | | | | diabetic retinopathy | | | | | | of right eye with | | | | | | macular edema | | | | | | associated with type | | | | | | 1 diabetes mellitus | | | | | | ([facility]) | | + +--------+ + [...] bevacizumab 1.25 mg/0.05 mL | | | [facility]: [id number], Lot: [id number], Expiration date: 01/27/2020 | | | Route: [...] Hemorrhage Procedure:the patient was positioned | [facility] [place] | | *upine in the exam chair [...] | + + + + + | [facility] | [address] | [place] [address] | | | JOÃO | [place] | | | + + + + + OCT, RETINA (01/22/2020 11:00 AM PDT) + + -+ | Narrative | Performed At | + + -+ | Operations Research Analyst | [facility] | | DocumentationRight EyeQuality: [...] [facility] | [address] | [place] [address] | | | INSTITUTE | [place]. | [...]
--- OUTSIDE RECORDS SUMMARY | ~2020-02-13 | XMS | Encounter Summary ---
Demographics + + + | Address | [address] | | | [place] [address] | + + + | Home Phone | | + + + | Preferred Language | Unknown | + + + | Marital Status | Single | + + + | Presybeterian Affiliation | NON | + + + | Race | White | + + + | Ethnic Group | Not or | + + + Author + + + | Author | [facility] | + + + | Organization | [facility] | + + + | Address | Unknown | + + + | Phone | Unavailable | + + + Support + + +---------+ + | Name | Relationship | Address | Phone | + + +---------+ + | Madelyn Marquez | ECON | Unknown | | + + +---------+ + Care Team Providers + +------+ + | Care Edger Automatic Name | Role | Phone | + +------+ + | Dionne España PERFORMANCE ANALYST | PCP | | + +------+ + [...] Scan | | 2017 | Visit | [place] | | (OD) | | | | Photography at | | | | | | Aarti Cuello [facility] | | | | | | [address] | | | | | | Eye [place], 4th | | | | | | floor [place], [place] | | | | | | [address] | | | +--------+ + + + [...]
--- OUTSIDE RECORDS SUMMARY | ~2020-02-13 | XMS | Encounter Summary ---
Demographics + + + | Address | [address] | | | [place] [address] | + + + | Home Phone | | + + + | Preferred Language | Unknown | + + + | Marital Status | Single | + + + | Moravian Affiliation | NON | + + + | Race | White | + + + | Ethnic Group | Not or | + + + Author + + + | Author | [facility] | + + + | Organization | [facility] | + + + | Address | Unknown | + + + | Phone | Unavailable | + + + Support + + +---------+ + | Name | Relationship | Address | Phone | + + +---------+ + | Madelyn Marquez | ECON | Unknown | | + + +---------+ + Care Team Providers + +------+ + | Care Estimator Printing Name | Role | Phone | + +------+ + | TacoDionne OUTSIDE PHYSICAL DAMAGE APPRAISER | PCP | | + +------+ + Encounter Details +--------+ + + + + | Date | Type | Department | Care Team | Description | +--------+ + + + + | 05/15/ | Telephone | [facility] | Allan [facility]ell | | | 2018 | | [facility] | MD Christi [address] | | | | | Aarti Cuello [address] | [address] | | | | | [address] | [place], [place] | | | | | Eye [facility] | [address] | | | | | [place], [place] | [phone] | | | | | [address] | [...]
--- OUTSIDE RECORDS SUMMARY | ~2020-02-13 | XMS | Encounter Summary ---
Demographics + + + | Address | [address] | | | [place] [address] | + + + | Home Phone [...] Author + + + | Author | [facility] | + + + | Organization | [facility] | + + + | Address | Unknown | + + + | Phone | Unavailable | + + + Support + + +---------+ + | Name | Relationship | Address | Phone | + + +---------+ + | Madelyn Marquez | ECON | Unknown | | + + +---------+ + Care Team Providers + +------+ + | Care Sample Wrapper Name | Role | Phone | + +------+ + | Taco Dionne DIRECTOR OF MARKETING ANALYTICS | PCP | | + +------+ + [...] | | | Epic Dept | MD Jason | | | | | | | [address] | | | | | | | [address] | | | | | | | [place], [place] | | | | | | | [address] | | | | | | | Phone: | | | | | | | [phone] | | | | | | | Fax: | | | | | | | [phone] | +--------+--------+ + + + + Encounter Details +--------+---------+ + + + | Date | Type | Department | Care Team | Description | +--------+---------+ + + + | 03/04/ | Office | [facility] | Shahzad Awad, | Proliferative | | 2018 | Visit | [facility] at | [address] | diabetic retinopathy | | | | Aarti Cuello [address] | of left eye with | | | | [address] | [place], [place] | macular edema | | | | Eye [place], [facility] | [address] | associated with type | | | | floor [place], [place] | [phone] | 1 diabetes mellitus | | | | [id number] | | (HCC) (Primary Dx); | | | | | | Epiretinal membrane | | | | | | (ERM) of left eye; | | | | | | [...] documented as of this encounter Progress Notes Shahzad Awad MD - 03/04/2018 3:00 PM PDTFormatting of this note might be different fr om the original. [facility] Progress Note 03/04/2018 Assessment & Plan: 27 y.o. male with Epiretinal membrane (ERM) of left eye Associated with proliferative diabetic retinopathy. 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 Resulting in signicant macular traction and retinal thickening, t george currently no evidence of tractional retinal detachment. Discussed surgery in detail, including chance of adherent membranes to retina and risk of r ecurrent fibrosis as well as proliferative vitreo-retinopathy. Given worsening traction and recent vision loss, treatment is recommended. Currently, there is no active neovascular ti ssue. PARQ for vitrectomy, membrane peel, PRP endolaser, possible gas bubble or oil bubble. Medical clearance needed prior to surgery. Follow up: Return for surgery/post-op as scheduled. - Call for decreased vision, increased distortion, increased pain, new floaters or flashing lights Chief Complaint: Follow-up visit HPI (Edited by physician):The patient reports stable vision with no new flashes or floaters in either eye. Last A1C was 8.7 Fasting blood sugars have ranged from 87-400 "something" in the past 30 days. Current Outpatient Prescriptions (Other) Medication Sig cyclobenzaprine HumaLOG U-100 Insulin HYDROcodone-acetaminophen pregabalin Take by mouth two times daily. Max: 600 mg/day 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: The ecg technician, under the supervision of the physician, is responsible for performing the f ollowing sections: RFV, ROS, PMH, PSH, SocHx, FH, Med list, Base Ophth Exam. The attending physician is responsible for the entire content of the note and has personall y performed the HPI and the physical examination I, Izaiah Liu, am functioning as a scribe for Shahzad Awad MD I have personally seen and examined this patient. I agree with the notes entered by the Jose David reardon. SHAHZAD AWAD MD documented in this encounter Plan of Treatment Not on filedocumented as of this encounter Procedures + +--------+ + + + | Procedure Name | Priori | Date/Time | Associated Diagnosis | Comments | | | ty | | | | + +--------+ + + + | FLUORESCEIN | Routin | 03/04/2018 | Proliferative | Results for this | | ANGIOGRAPHY | e | 4:59 PM | diabetic retinopathy | procedure are in the | | | | PDT | of left eye with | results section. | | | | | macular edema | | | | | | associated with type | | | | | | 1 diabetes mellitus | | | | | | ([facility]) | | + +--------+ + + + documented in this encounter Results FLUORESCEIN ANGIOGRAPHY (03/04/2018 4:59 PM PDT) + + + | Narrative | Performed At | + + + | Fax Machine Operator | [facility] | | DocumentationConsent: Informed consent obtained IV Inejction: 5cc of | [facility] | | 10% fluoroscein sodium injected, antecubital Right EyeQuality: | | | good Type: Optos Left EyeQuality: good Type: Optos | | | Provider DocumentationRight EyeTransit: delayed venous fillling | | | Additional Findings: capillary drop out, peripheral nonperfusion | | | (Leakage from areas of fibrosis.) Left EyeAdditional Findings: | | | capillary drop out, peripheral nonperfusion (Leakage from areas of | | | fibrosis ) NotesInjection by Marichuy Huitron | | | | | |Left Eye | | |Quality: good | | |Type: Optos | | | | | | | | |Provider Documentation | | |Right Eye | | |Transit: delayed venous fillling | | |Additional Findings: capillary drop out, peripheral nonperfusion | | |(Leakage from areas of fibrosis.) | | | | | | | | | | | |Left Eye | | |Additional Findings: capillary drop out, peripheral nonperfusion | | |(Leakage from areas of fibrosis ) | | | | | | | | | | | |Notes | | |Injection by Mraichuy Huitron | | + + + + + + + + | Performing | Address | City/State/Zipcode | Phone Number | | Organization | | | | + + + + + | [facility] | [address] | [place] [address] | | | INSTITUTE | [place]. | | | + + + + + documented in this encounter Visit Diagnoses + + | Diagnosis | + + | Proliferative diabetic retinopathy of left eye with macular edema associated with type | | 1 diabetes mellitus (HCC) - Primary | + + | Epiretinal membrane (ERM) of left eye | + + | Proliferative diabetic retinopathy with macular edema, right eye | + + documented in this encounter
--- OUTSIDE RECORDS SUMMARY | ~2020-02-13 | XMS | Encounter Summary ---
Demographics + + + | Address | [address] | | | [place] [address] | + + + | Home Phone | | + + + | Preferred Language | Unknown | + + + | Marital Status | Single | + + + | Zoroastrian Affiliation | NON | + + + [...] Team Providers + +------+ + | Care Economic Analyst Name | Role | Phone | + +------+ + | Partha España MD | PCP | | + +------+ + Encounter Details +--------+--------+ + + + | Date | Type | Department | Care Team | Description | +--------+--------+ + + + | 07/29/ | Travel | | | | | [...]
--- OUTSIDE RECORDS SUMMARY | ~2020-02-13 | XMS | Encounter Summary ---
Demographics + + + | Address | [address] | | | [place] [address] | + + + | Home Phone | | + + + | Preferred Language | Unknown | + + + | Marital Status | Single | + + + | Buddhism Affiliation | NON | + + + | Race | White | + + + | Ethnic Group | Not or | + + + Author + + + | Author | [facility] | + + + | Organization | [facility] | + + + | Address | Unknown | + + + | Phone | Unavailable | + + + Support + + +---------+ + | Name | Relationship | Address | Phone | + + +---------+ + | Madelyn Marquez | ECON | Unknown | | + + +---------+ + Care Team Providers + +------+ + | Care Under Ground Miner Name | Role | Phone | + +------+ + | Dionne España NICHOLAS | PCP | | + +------+ + Reason for Visit + + + | Reason | Comments | + + + | Referred by doctor | | + + + Encounter Details +--------+---------+ + + + | Date | Type | Department | Care Team | Description | +--------+---------+ + + + | 02/27/ | Office | [facility] | Shahzad Awad, | Proliferative | | 2018 | Visit | [facility] | [address] | diabetic retinopathy | | | | [place] [address] | [address] | of left eye with | | | | [facility] | [place], [place] | macular edema | | | | Clinic [place], | [address] | associated with type | | | | [place] [address] | [phone] | 1 diabetes mellitus | | | | [phone] | | ([facility]); | | | | | | Proliferative | | | | | | diabetic retinopathy | | | | | | of right eye with | | | | | | macular edema | | | | | | associated with type | | | | | | 1 diabetes mellitus | | | | | | ([facility]) | +--------+---------+ + + + Social History [...] encounter Progress Notes Shahzad Awad MD - 02/27/2018 4:00 PM PDTFormatting of this note might be different fr om the original. [facility] Progress Note 02/27/2018 Assessment & Plan: 27 y.o. 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 - Call for decreased vision, increased distortion, increased pain, new floaters or flashing lights Chief Complaint: Referred by doctor DINAH (Edited by physician):Referred by Dr. Elizondo for possible retinal detachment evaluation. Patient saw Dr. Elizondo yesterday. Patient mentioned no improvement in vision - seeing doubl e at distance. Left eye still blurry - like looking through water. No eye pain. Last A1C was 8.7. Current Outpatient Prescriptions (Other) Medication Sig cyclobenzaprine HumaLOG U-100 Insulin HYDROcodone-acetaminophen pregabalin Take by mouth two times daily. Max: 600 mg/day 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: The fish and wildlife technician, under the supervision of the physician, is responsible for performing the f ollowing sections: RFV, ROS, PMH, PSH, SocHx, FH, Med list, Base Ophth Exam. The attending physician is responsible for the entire content of the note and has personall y performed the HPI and the physical examination SHAHZAD AWAD MD documented in this e ncounter Plan of Treatment Not on filedocumented as of this encounter Visit Diagnoses + + | Diagnosis | + + | Proliferative diabetic retinopathy of left eye with macular edema associated with type | | 1 diabetes mellitus (HCC) | + + | Proliferative diabetic retinopathy of right eye with macular edema associated with | | type 1 diabetes mellitus (HCC) | + + documented in this encounter"
--- OUTSIDE RECORDS SUMMARY | ~2020-02-13 | XMS | Encounter Summary ---
Demographics + + + | Address | [address] | | | [place] [address] | + + + | Home Phone | | + + + | Preferred Language | Unknown | + + + | Marital Status | Single | + + + | Hindu Affiliation | NON | + + + [...] Team Providers + +------+ + | Care Passport Support Associate Name | Role | Phone | + +------+ + | Partha España MD | PCP | | + +------+ + Encounter Details +--------+--------+ + + + | Date | Type | Department | Care Team | Description | +--------+--------+ + + + | 01/21/ | Travel | | | | | 2020 | | | | | +--------+--------+ + [...]
--- OUTSIDE RECORDS SUMMARY | ~2020-02-13 | XMS | Encounter Summary ---
Demographics + + + | Address | [address] | | | [place] [address] | + + + | Home Phone | | + + + | Preferred Language | Unknown | + + + | Marital Status | Single | + + + | Evangelical Affiliation | NON | + + + | Race | White | + + + | Ethnic Group | Not or | + + + Author + + + | Author | [facility] | + + + | Organization | [facility] | + + + | Address | Unknown | + + + | Phone | Unavailable | + + + Support + + +---------+ + | Name | Relationship | Address | Phone | + + +---------+ + | Madelyn Marquez | ECON | Unknown | | + + +---------+ + Care Team Providers + +------+ + | Care Fast Food Shift Supervisor Name | Role | Phone | + +------+ + | Partha España MD | PCP | | + +------+ + Encounter Details +--------+ + + + + | Date | Type | Department | Care Team | Description | +--------+ + + + + | 04/03/ | Pharmacy | [facility] | | | | 2018 | Visit | [address] | | | | | | [place] [address] | | | | | | [phone] | | | +--------+ + + + [...]
--- OUTSIDE RECORDS SUMMARY | ~2020-02-13 | XMS | Encounter Summary ---
Demographics + + + | Address | [address] | | | [place] [address] | + + + | Home Phone | | + + + | Preferred Language | Unknown | + + + | Marital Status | Single | + + + | Lutheran Affiliation | NON | + + + [...] Team Providers + +------+ + | Care Bankman Name | Role | Phone | + +------+ + | Dionne España PREFLIGHT INSPECTOR | PCP | | + +------+ + Reason for Visit AUTH/CERT +--------+--------+ + + + + | Status | Reason | Specialty | Diagnoses / | Referred By | Referred To | | | | | Procedures | Contact | Contact | +--------+--------+ + + + + | | | | | | | +--------+--------+ + + + + Encounter Details +--------+---------+ + + + | Date | Type | Department | Care Team | Description | +--------+---------+ + + + | 03/31/ | Surgery | [facility] | Shahzad Awad, | [facility] PLA[facility] | | 2018 | | [address] | [address] | VITRECTOMY, ENDO | | | | [facility] | [address] | LASER, air fluid | | | | [place] [address] | [place], [place] | exchange , 23g left | | | | | [address] | eye | | | | | [phone] | | | | | | | | +--------+---------+ + + + [...] this encounter Last Filed Vital Signs + + + [...] + + + documented in this encounter Discharge Instructions Instructions Manuel Suárez RN - 03/31/2018Home Care after Retinal Detachment and Vi trectomy Surgery Do not drive, drink alcoholic beverages, sign legal documents or make major decisions astrid boo the next 24 hours. Leave the bandage & shield on your eye, clean and dry. Your doctor shiva marin remove it the day after surgery. Resume your previous diet and take your medications as u sual. Eye care ? Your eye patch will be removed in the doctor s office the day after surgery ? Keep it dry ? Please bring all recently prescribed Eye medication to the appointment ? Please do not o rub your operated eye o lift heavy objects o engage in any strenuous exercise or activity for two weeks To help prevent infection: Always wash your hands before caring for your eyes or using eye medicine. Do not touch any part of your eye or skin with the tip of the eye medicine bottle or tub e Special positioning may be required to enhance the surgical repair of your eye. Specific in structions will be given and length of time varies with the type of repair you received. If you have a gas bubble in your eye: Do not sleep flat on your back (this causes the gas bubble to move forward and puts unwante d pressure against your lens and the front of your eye). If a gas bubble is in your eye, thi s could expand as you increase elevation resulting in pain or vision loss; should you experi ence headache, nausea or vision loss you must descend immediately. Please discuss with your physician what elevation is safe to travel to. Air travel is contraindicated with a gas bubb le in your eye and could result in permanent vision loss and blindness. POSITIONING What to expect It is normal after surgery to experience: ? Dull ache / headache ? Slight redness of the eye ? Swelling / discoloration around the eye ? Scratchy sensation ? Droopy eyelid Call your Doctor if Temperature above 101 degrees (fever) Purulent drainage (which is drainage that is whitish-padilla or greenish in color) from the surgical site If there is increased redness at the edges of the surgical site Increased pain, even with pain medication ? You notice decreased vision How to reach your Doctor ? Call (Day or Night) ? Return appointment date: ? Time: documented in this encounter Medications at Time of Discharge + + + +---------+ + + | Medication | Sig | Dispensed | Refills | Start | End Date | | | | | | Date | | + + + +---------+ + + | HUMALOG 100 | Indications: | | 0 | 12/04/19 | | | unit/mL subcutaneous | insulin pump | | | 17 | | | | | | | | | | solutionIndications: | | | | | | | insulin pump | | | | | | + + + +---------+ + + | ofloxacin 0.3 % | Instill 1 drop into | 5 mL | 0 | 03/31/20 | | | ophthalmic (eye) | the left eye four | | | 18 | 8 | | drops | times daily for 7 | | | | | | | days. | | | | | + + + +---------+ + + documented as of this encounter Plan of Treatment Not on filedocumented as of this encounter Procedures + +--------+ + + + | Procedure Name | Priori | Date/Time | Associated Diagnosis | Comments | | | ty | | | | + +--------+ + + + | CAPILLARY BLOOD | Routin | 03/31/2018 | Proliferative | Results for this | | GLUCOSE (NO CHG), | e | 10:15 AM | diabetic retinopathy | procedure are in the | | POC | | PDT | with macular edema, | results section. | | | | | right eye | | + +--------+ + + + | PROCEDURE NOTE | Routin | 03/31/2018 | | Results for this | | | e | 10:07 AM | | procedure are in the | | | | PDT | | results section. | + +--------+ + + + | INDIRECT LASER | Electi | 03/31/2018 | Retinal Detachment | | | | ve | 8:20 AM | H33.41 | | | | Surgic | PDT | Proliferative | | | | al | | Diabetic Retinopathy | | | | | | E10.3513 | | + +--------+ + + + | (INACTIVE) 23G | Electi | 03/31/2018 | Retinal Detachment | | | VITRECTOMY WITH | ve | 8:20 AM | H33.41 | | | SILICONE OIL | Surgic | PDT | Proliferative | | | INSERTION | al | | Diabetic Retinopathy | | | | | | E10.3513 | | + +--------+ + + + | CAPILLARY BLOOD | Routin | 03/31/2018 | | Results for this | | GLUCOSE (NO CHG), | e | 7:57 AM | | procedure are in the | | POC | | PDT | | results section. | + +--------+ + + + | CARDIOLOGY | | 03/31/2018 | | Results for this | | | | 12:00 AM | | procedure are in the | | | | PDT | | results section. | + +--------+ + + + documented in this encounter Results CAPILLARY BLOOD GLUCOSE (NO CHG), POC (03/31/2018 10:15 AM PDT) + +---------+ + + + | Component | Value | Ref Range | Performed | Pathologist | | | | | At | Signature | + +---------+ + + + | BLOOD | 318 (H) | 70 - 99 mg/dL | [facility] - | | | GLUCOSE, | | | [facility] | | | POC | | | [facility] | | | | | | OF CARE | | | | | | TESTS | | + +---------+ + + + + + | Specimen | + + | | + + + + + + + | Performing | Address | City/State/Zipcode | Phone Number | | Organization | | | | + + + + + | [facility] | [address] | [place], [place] | | | [facility] | [place] [address] | [address] | | | TESTS | | | | + + + + + PROCEDURE NOTE (03/31/2018 10:07 AM PDT) + + + | Narrative | Performed At | + + + | Shahzad Awad MD 03/31/2018 10:15 AM Procedure Date: | | | 03/31/2018 Pre-operative Diagnosis: Epiretinal membrane, left eye | | | Traction retinal detachment, left eye Proliferative diabetic | | | retinopathy, left eye Proliferative diabetic retinopathy, right eye | | | Post-operative Diagnosis: Same as pre-operative diagnosis Procedure: | | | Pars plana vitrectomy, left eye Endolaser photocoagulation, left | | | eye Membrane peel, left eye Air-fluid exchange, left eye Cervantes | | | retinal photocoagulation treatment, right eye Surgeon: Shahzad Renteria | | | MD Delmi Helper Marble Finisher: None Anesthesia: General Implant: | | | None EBL: < 5mL Specimens: None Complications: None Drain: None | | | Indication for Surgery: Naif Caba is a 27 y.o. male | | | with proliferative diabetic retinopathy in both eyes and | | | epi-retinal membrane formation with macular traction. He now | | | undergoes surgery. Surgical Narrative: The patient was brought | | | into the operating theatre and was placed in supine position. | | | General anesthesia was induced and a retrobulbar block was given to | | | the left eye without complications. The right eye was treated with | | | indirect laser panretinal photocoagulation and an estimated 760 | | | treatment valladares were provided in areas previously not treated. The | | | area around the left eye was then prepped and draped in usual | | | sterile manner for ophthalmic surgery. A lid speculum was placed and | | | the operating microscope was brought over the eye. The eye was set | | | up for standard 23-gauge vitrectomy with the infusion trocar in the | | | infratemporal quadrant and instrument trocars in the supratemporal | | | and supranasal quadrants. Using light pipe, vitrector, and the | | | Resight viewing system, vitrectomy was performed. A diluted | | | triamcinolone solution was placed with a soft tip cannula over the | | | macula for better visualization of the membrane and peripheral | | | vitreous. The peripheral vitreous was from the retina | | | and trimmed with the vitrector. The posterior hyaloid was firmly | | | attached to the optic nerve and to fibrovascular tissue along the | | | vascular arcades. Careful laminar segmentation and delamination | | | with the membrane forceps and delaminating scissors resulting in | | | removing all hyaloid and epi-retinal membrane tissue. The | | | periphery was carefully inspected and no retinal breaks or | | | detachment was detected. Air-fluid exchange was performed with the | | | extrusion cannula. An endolaser probe was used to perform | | | panretinal photocoagulation in the peripheral retina. The optic | | | nerve remained perfused throughout the case. 7-0 Polysorb sutures | | | were placed in the leaky wounds superior temporal and superior | | | nasal. Normal tactile intraocular pressure was confirmed. Decadron | | | and Vancomycin were given as subconjunctival injections. Ointment, a | | | gauze patch, and a metal shield were placed over the eye. The | | | patient was moved to the recovery area in satisfactory condition. | | | I certify that the services of which payment is claimed were | | | medically necessary and that no qualified resident was available to | | | perform the services. I further understand that these services are | | | subject to post-payment review by the Medicare carrier. Shahzad | | | Myra Awad MD | | + + + CAPILLARY BLOOD GLUCOSE (NO CHG), POC (03/31/2018 7:57 AM PDT) + +---------+ + + + | Component | Value | Ref Range | Performed | Pathologist | | | | | At | Signature | + +---------+ + + + | BLOOD | 168 (H) | 70 - 99 mg/dL | [facility] - | | | GLUCOSE, | | | [facility] | | | POC | | | [facility] | | | | | | OF CARE | | | | | | TESTS | | + +---------+ + + + + + | Specimen | + + | | + + + + + + + | Performing | Address | City/State/Zipcode | Phone Number | | Organization | | | | + + + + + | [facility] | [address] | [place], [place] | | | [facility] | [place] [address] | [address] | | | TESTS | | | | + + + + + CARDIOLOGY (03/31/2018 12:00 AM PDT) + + + | Narrative | Performed At | + + + | | | + + + documented in this encounter Visit Diagnoses Not on filedocumented in this encounter Administered Medications + +--------+ +-------+------+ + | Medication Order | MAR | Action | Dose | Rate | Site | | | Action | Date | | | | + +--------+ +-------+------+ + | balanced salt (BSS) ophthalmic | Given | 03/31/20 | 15 mL | | Left Eye | | irrigation INTRAPROCEDURE PRN, | | 18 9:12 | | | | | Starting Sat03/31/18 at 0912, | | AM PDT | | | | | Until Sat03/31/18 at 1008 | | | | | | + +--------+ +-------+------+ + +---+---+ | | | +---+---+ + +-------+ +--------+---+---+ | cyclopentolate 1%-PHENYLEPHrine | Given | 03/31/20 | 1 drop | | | | 2.5%-tropicamide 0.25% | | 18 7:51 | | | | | (SUPERDROPS) ophthalmic drops 1 | | AM PDT | | | | | drop 1 drop, Both Eyes, EVERY 5 | | | | | | | MINUTES NEEDED, 2 doses, | | | | | | | Starting Sat03/31/18 at 0808, | | | | | | | Until Sat03/31/18 at 0751, | | | | | | | pre-procedure dilation | | | | | | + +-------+ +--------+---+---+ +-------+ +--------+---+---+ | Given | 03/31/20 | 1 drop | | | | | 18 7:45 | | | | | | AM PDT | | | | +-------+ +--------+---+---+ +---+---+ | | | +---+---+ + +-------+ +-------+---+ + | dexamethasone PF (DECADRON) | Given | 03/31/20 | 10 mg | | Left Eye | | injection INTRAPROCEDURE PRN, | | 18 9:13 | | | | | Starting Sat03/31/18 at 0913, | | AM PDT | | | | | Until Sat03/31/18 at 1008 | | | | | | + +-------+ +-------+---+ + +---+---+ | | | +---+---+ + +-------+ + +---+ + | Dilating Solution (Phakic & | Given | 03/31/20 | 1 Bottle | | Left Eye | | Diabetic): BSS Plus 500 mL - 3 mL | | 18 9:23 | | | | | D50 - 0.5 mL EPINEPHrine | | AM PDT | | | | | (1:1,000) INTRAPROCEDURE PRN, | | | | | | | Starting Sat03/31/18 at 0923, | | | | | | | Until Sat03/31/18 at 1008 | | | | | | + +-------+ + +---+ + + +---+ | | | + +---+ | fentaNYL (SUBLIMAZE) injection | | | 50 mcg 50 mcg, intravenous, | | | POSTPROCEDURE PRN, 4 doses, | | | Starting Sat03/31/18 at 0836, | | | Until Sat03/31/18 at 1710, severe | | | pain while in Phase I Recovery | | + +---+ | | | + +---+ + +-------+ +---------+---+---+ | HYDROcodone-acetaminophen | Given | 03/31/20 | 2 | | | | (NORCO) 5-325 mg tablet 1-2 | | 18 10:54 | tablets | | | | tablet 1-2 tablet, oral, | | AM PDT | | | | | NEEDED, 1 dose, Starting Mon | | | | | | | 03/31/18 at 1011, Until Mon | | | | | | | 03/31/18 at 1054, post-op moderate | | | | | | | pain | | | | | | + +-------+ +---------+---+---+ +---+---+ | | | +---+---+ + +-------+ +---------+---+ + | insulin regular (HUMULIN R) | Given | 03/31/20 | 2 Units | | Left Arm | | injection 2 Units 2 Units, | | 18 10:20 | | | | | subcutaneous, ONCE, 1 dose, Mon | | AM PDT | | | | | 03/31/18 at 1100 | | | | | | + +-------+ +---------+---+ + +---+---+ | | | +---+---+ + + + +---+---+---+ | lactated Ringers IV 10 mL/hr, | given by | 03/31/20 | | | | | intravenous, CONTINUOUS, Starting | | 18 9:52 | | | | | 03/31/18 at 0830, Until Mon | anesthes | AM PDT | | | | | 03/31/18 at 1710 | iology | | | | | + + + +---+---+---+ +---------+ + + +---+ | New Bag | 03/31/20 | | | | | | 18 8:17 | | | | | | AM PDT | | | | +---------+ + + +---+ | New Bag | 03/31/20 | 10 mL/hr | 10 mL/hr | | | | 18 7:58 | | | | | | AM PDT | | | | +---------+ + + +---+ +---+---+ | | | +---+---+ + +-------+ +-------+---+ + | Local with hyaluronidase: | Given | 03/31/20 | 10 mL | | Left Eye | | lidocaine 2% - bupivacaine 0.75% | | 18 9:14 | | | | | - hyaluronidase 150 units/mL 1 mL | | AM PDT | | | | | 1:10:10) INTRAPROCEDURE PRN, | | | | | | | Starting 03/31/18 at 0914, | | | | | | | Until Sat03/31/18 at 1008 | | | | | | + +-------+ +-------+---+ + + +---+ | | | + +---+ | meperidine (DEMEROL) injection | | | 25 mg 25 mg, intravenous, | | | POSTPROCEDURE PRN, 1 dose, | | | Starting Sat03/31/18 at 0836, | | | Until Sat03/31/18 at 1710, | | | shivering | | + +---+ | | | + +---+ | naloxone (NARCAN) injection | | | intravenous, POSTPROCEDURE PRN, | | | Starting Sat03/31/18 at 0836, | | | Until Sat03/31/18 at 1710, | | | hypopnea | | + +---+ | | | + +---+ + +-------+ +---------+---+-------+ | | Given | 03/31/20 | 1 strip | | Both | | uchcoyze-euhgkqpxr-jxbgksrqxnsmc | | 18 9:12 | | | Eyes | | (MAXITROL) 3.5 mg/g-10,000 | | AM PDT | | | | | unit/g-0.1 % ophthalmic ointment | | | | | | | INTRAPROCEDURE PRN, Starting Mon | | | | | | | 03/31/18 at 0912, Until Mon | | | | | | | 03/31/18 at 1008 | | | | | | + +-------+ +---------+---+-------+ + +---+ | | | + +---+ | oxyCODONE (immediate release) | | | (ROXICODONE) tablet 5-10 mg 5-10 | | | mg, oral, NEEDED, 1 dose, | | | Starting 03/31/18 at 1011, | | | Until 03/31/18 at 1710, | | | post-op severe pain | | + +---+ | | | + +---+ + +-------+ +------+---+ + | triamcinolone acetonide | Given | 03/31/20 | 5 mg | | Left Eye | | (KENALOG-40) injection | | 18 9:12 | | | | | INTRAPROCEDURE PRN, Starting Mon | | AM PDT | | | | | 03/31/18 at 0912, Until Mon | | | | | | | 03/31/18 at 1008 | | | | | | + +-------+ +------+---+ + +---+---+ | | | +---+---+ + +-------+ +-------+---+ + | vancomycin (VANCOCIN) injection | Given | 03/31/20 | 25 mg | | Left Eye | | INTRAPROCEDURE PRN, Starting | | 18 9:14 | | | | | 03/31/18 at 0914, Until Mon | | AM PDT | | | | | 03/31/18 at 1008 | | | | | | + +-------+ +-------+---+ + +---+---+ | | | +---+---+ documented in this encounter
--- OUTSIDE RECORDS SUMMARY | ~2020-02-13 | XMS | Encounter Summary ---
Demographics + + + | Address | [address] | | | [place] [address] | + + + | Home Phone [...] Team Providers + +------+ + | Care Garment Folder Name | Role | Phone | + +------+ + | Partha España MD | PCP | | + +------+ + Encounter Details +--------+---------+ + + + | Date | Type | Department | Care Team | Description | +--------+---------+ + + + | 07/29/ | Office | [facility] | Jimmy Briggs MD | Vitreous hemorrhage, | | 2019 | Visit | [facility] at | [address] | left eye (HCC) | | | | [facility] [address] [facility] [place] | (Primary Dx) | | | | [address] [place] | [address] | | | | | Eye [facility], [facility] | [phone] | | | | | floor [place], [place] | | | | | | [address] | | | +--------+---------+ + + + [...] documented as of this encounter Progress Notes Jimmy Briggs MD - 07/29/2019 2:00 PM PDTReviewed ultrasound with the patient: no breaks or RD Patient will follow up with Dr. Awad 19 3:13 PM PDTdocumented in this encounter Plan of Treatment Not on filedocumented as of this encounter Visit Diagnoses + + | Diagnosis | + + | Vitreous hemorrhage, left eye (HCC) - Primary Vitreous hemorrhage | + + documented in this encounter"
--- OUTSIDE RECORDS SUMMARY | ~2020-02-13 | XMS | Encounter Summary ---
Demographics + + + | Address | [address] | | | [place] [address] | + + + | Home Phone | | + + + | Preferred Language | Unknown | + + + | Marital Status | Single | + + + | Nondenominational Affiliation | NON | + + + [...] Team Providers + +------+ + | Care Phys Asst Name | Role | Phone | + +------+ + | TacoDionne MATERIALS TECH | PCP | | + +------+ + Reason for Visit +---------+ + | Reason | Comments | +---------+ + | Post Op | | +---------+ + Encounter Details +--------+---------+ + + + | Date | Type | Department | Care Team | Description | +--------+---------+ + + + | 04/01/ | Office | [facility] | Shahzad Awad, | Proliferative | | 2018 | Visit | [facility] at | [address] | diabetic retinopathy | | | | [place] [address] [address] | [address] | with macular edema, | | | | [address] [place] | [place], [place] | left eye (Primary | | | | [facility], [address]th | [address] | Dx); Proliferative | | | | floor [place], [place] | [phone] | diabetic retinopathy | | | | [address] | | with macular edema, | | [...] of this encounter Patient Instructions Patient Instructions Izaiah Liu - 04/01/2018 8:00 AM PDTDROPS/OINTMENTS: LEFT EYE - Ofloxacin (padilla cap): 1 drop 4 times a day - Prednisolone Acetate 1% (white or pink top): 1 drop 4 times a day - Atropine (red top): 1 drop 2 times a day INSTRUCTIONS: - RE-APPLY plastic or metal eye shield (no gauze pad) before you go to bed - DO NOT bend from the waist or lift any objects greater than 20 pounds for 2 weeks - ALWAYS wait 5 minutes in between drops (order does not matter) - ALWAYS wash your hands before caring for your eyes documented in this encounter Progress Notes Izaiah Liu - 04/01/2018 8:00 AM PDTFormatting of this note might be different from the o lottie. [facility] Progress Note 04/01/2018 Assessment & Plan: 27 y.o. male with Proliferative diabetic retinopathy with macular edema, left eye POD#1 s/p PPV/EL/MP/Afx OS (03/31/18) - doing well, vision as expected, good IOP - Ofloxacin QID; Pred Forte QID; Atropine BID; Shield QHS - Positioning: No restrictions, avoid supine - Activity restrictions: Do not lift >20lbs - Return precautions discussed Proliferative diabetic retinopathy with macular edema, right eye POD#1 s/p PRP OD (03/31/18) - well treated - Observe for now Follow up: Return in about 1 week (around 04/10/2018 - Call for decreased vision, increased distortion, increased pain, new floaters or flashing lights Chief Complaint: Post Op HPI (Edited by physician):Some difficulty sleeping on side, no pain or nausea, BS 269 right now Current Outpatient Prescriptions (Ophthalmic Medications) Medication Sig atropine Instill 1 drop into the left eye two times daily. ofloxacin Instill 1 drop into the left eye four times daily for 7 days. prednisoLONE acetate Instill 1 drop into the left eye four times daily. Current Outpatient Prescriptions (Other) Medication Sig HumaLOG U-100 Insulin Indications: insulin pump HYDROcodone-acetaminophen HYDROcodone-acetaminophen Take 1-2 tablets by mouth every six hours as needed. pregabalin Take by mouth two times daily. Max: 600 mg/day 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: The facilities maintenance 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 the Jose David reardon. SHAHZAD AWAD MD document ed in this encounter Plan of Treatment Not on filedocumented as of this encounter Visit Diagnoses + + | Diagnosis | + + | Proliferative diabetic retinopathy with macular edema, left eye - Primary | + + | Proliferative diabetic retinopathy with macular edema, right eye | + + documented in this encounter"
--- OUTSIDE RECORDS SUMMARY | ~2020-02-13 | XMS | Encounter Summary ---
Demographics + + + | Address | [address] | | | [place] [address] | + + + | Home Phone | | + + + | Preferred Language | Unknown | + + + | Marital Status | Single | + + + | Restorationism Affiliation | NON | + + + | Race | White | + + + | Ethnic Group | Not or | + + + Author + + + | Author | [facility] | + + + | Organization | [facility] | + + + | Address | Unknown | + + + | Phone | Unavailable | + + + Support + + +---------+ + | Name | Relationship | Address | Phone | + + +---------+ + | Madelyn Marquez | ECON | Unknown | | + + +---------+ + Care Team Providers + +------+ + | Care Director Trading Name | Role | Phone | + +------+ + | Partha España MD | PCP | | + +------+ + Encounter Details +--------+ + + + + | Date | Type | Department | Care Team | Description | +--------+ + + + + | 04/03/ | Pharmacy | [facility] | | | | 2018 | Visit | [address] [facility] | | | | | | [place] [address] | | | | | | [phone] | | | +--------+ + + + [...]
--- OUTSIDE RECORDS SUMMARY | ~2020-02-13 | XMS | Encounter Summary ---
Demographics + + + | Address | [address] | | | [place] [address] | + + + | Home Phone | | + + + | Preferred Language | Unknown | + + + | Marital Status | Single | + + + | Restoration Affiliation | NON | + + + | Race | White | + + + | Ethnic Group | Not or | + + + Author + + + | Author | [facility] | + + + | Organization | [facility] | + + + | Address | Unknown | + + + | Phone | Unavailable | + + + Support + + +---------+ + | Name | Relationship | Address | Phone | + + +---------+ + | Madelyn Marquez | ECON | Unknown | | + + +---------+ + Care Team Providers + +------+ + | Care Slip Injector And Applicator Name | Role | Phone | + +------+ + | Taco Dionne ECOMMERCE PROJECT MANAGER | PCP | | + +------+ + Encounter Details +--------+ + + + + | Date | Type | Department | Care Team | Description | +--------+ + + + + | 08/15/ | Results/Int | [facility] | René Sue | Vitreous hemorrhage, | | 2017 | erpretation | [facility] at | James Varela MD [address] | right eye (HCC) | | | | [place] [address] [address] | | | | | [address] | [place], [place] | | | | | Eye [place], [facility] | [address] | | | | | floor [place], [place] | [phone] | | | | | [address] | [...] Progress João Horta - 08/15/2017 8:43 AM Eric aCba was seen in the [facility] Photography/Ultrasound Department today, 08/13/2017, for ultrasound. This [...] image provided, or wait for official report. Jooã CHAVEZ I have reviewed the images and [...]
--- OUTSIDE RECORDS SUMMARY | ~2020-02-13 | XMS | Encounter Summary ---
Demographics + + + | Address | [address] | | | [place] [address] | + + + | Home Phone [...] Providers + +------+ + | Care Transformer Maker Name | Role | Phone | [...]
--- OUTSIDE RECORDS SUMMARY | ~2020-02-13 | XMS | Encounter Summary ---
Demographics + + + | Address | [address] | | | [place] [address] | + + + | Home Phone [...] Author + + + | Author | [facility] | + + + | Organization | [facility] | + + + | Address | Unknown | + + + | Phone | Unavailable | + + + Support + + +---------+ + | Name | Relationship | Address | Phone | + + +---------+ + | Madelyn Marquez | ECON | Unknown | | + + +---------+ + Care Team Providers + +------+ + | Care Ethanol Maintenance Mechanic Name | Role | Phone | + +------+ + | Taco Dionne GROUNDSKEEPER SUPERVISOR | PCP | | + +------+ + [...] | | | | | | [place], [place] | | | | | | | [address] | | | | | | | Phone: | | | | | | | [phone] | | | | | | | Fax: | | | | | | | [phone] | +--------+--------+ + + + + Encounter Details +--------+---------+ + + + | Date | Type | Department | Care Team | Description | +--------+---------+ + + + | 08/21/ | Office | [facility] | Shahzad Awad, | Proliferative | | 2018 | Visit | [place] [facility] | [address] | diabetic retinopathy | | | | [place] [address] | [address] | of left eye with | | | | [facility] | [place], [place] | macular edema | | | | Clinic [place], | [address] | associated with type | | | | [place] [address] | [phone] | 1 diabetes mellitus | | | | [phone] | | ([facility]); | | | | | [...] encounter Progress Notes Shahzad Awad MD - 08/21/2018 2:50 PM PSTFormatting of this note might be different fr om the original. [facility] Progress Note 08/21/2018 Assessment & Plan: 28 y.o. male Proliferative diabetic retinopathy (S/P PPV/MP 31MAR2018) with macular edema, left eye Improving -defer treatment Proliferative diabetic retinopathy with macular edema, right eye Macular edema and vitreous hemorrhage better. Prior increase in edema may have been relate d to additional PRP on 03/31/2018. Defer injection today - monitor. Discussed future treatment may be needed if macular edema returns. -glucose control reviewed Follow up: Return in about 8 weeks (around 10/16/2018). - Call for decreased vision, increased distortion, increased pain, new floaters or flashing lights Chief Complaint: Follow-up visit HPI (Edited by physician):S/p PPV/EL/MP/Afx OS (03/31/18), Vitreous heme OS 05/19/2018 OS has cleared up with a little central fuzziness remaining. A few intermittent lines in VA OS. OD stable without any floaters or flashes of light. BS: stable Last A1c: 8.6 Current Outpatient Prescriptions (Other) Medication Sig HumaLOG U-100 Insulin Indications: insulin pump 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: The autocad 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 + | OCT, RETINA | Routin | 08/21/2018 | Proliferative | Results for this | | | e | 3:33 PM | diabetic retinopathy | procedure are [...] documented in this encounter Results OCT, RETINA (08/21/2018 3:33 PM PST) + + + | Narrative | Performed At | + + + | Answering Service Operator | LIANET RAMIREZ | | DocumentationRight EyeCentral [...] [facility] | [address] | [place] [address] | | | JO[place] | [place]. | [...]
--- OUTSIDE RECORDS SUMMARY | ~2020-02-13 | XMS | Encounter Summary ---
Demographics + + + | Address | [address] | | | [place] [address] | + + + | Home Phone | | + + + | Preferred Language | Unknown | + + + | Marital Status | Single | + + + | Amish Affiliation | NON | + + + | Race | White | + + + | Ethnic Group | Not or | + + + Author + + + | Author | [facility] | + + + | Organization | [facility] | + + + | Address | Unknown | + + + | Phone | Unavailable | + + + Support + + +---------+ + | Name | Relationship | Address | Phone | + + +---------+ + | Madelyn Marquez | ECON | Unknown | | + + +---------+ + Care Team Providers + +------+ + | Care Machine Buffer Name | Role | Phone | + +------+ + | Taco Dionne PATENT COUNSEL | PCP | | + +------+ + [...] | | | | | | | [place], [place] | | | | | | | [address] | | | | | | | Phone: | | | | | | | [phone] | | | | | | | Fax: | | | | | | | [phone] | +--------+--------+ + + + + Encounter Details +--------+---------+ + + + | Date | Type | Department | Care Team | Description | +--------+---------+ + + + | 01/15/ | Office | [facility] | Nghia Bell MD | Proliferative | | 2018 | Visit | [place] | [address] | diabetic retinopathy | | | | [place] [address] | [address] | of left eye with | | | | [facility] | [place], [place] | macular edema | | | | Clinic [facility], | [address] | associated with type | | | | [place] [address] | [phone] | 1 diabetes mellitus | | | | [phone] | | (HCC) (Primary Dx); | | [...] encounter Progress Notes Nghia Bell MD - 01/15/2018 8:45 AM PDT [facility] Progress Note 01/15/2018 Assessment & Plan: 27 y.o. male Proliferative diabetic retinopathy of both eyes with macular edema associated with type 1 d iabetes mellitus (HCC) PDR s/p PRP OU - Hx VH OD Regressed NVD OU Geetha and ischemia OU PARQ Avastin OU Call for decreased vision, increased distortion, increased pain, new floaters or flashing l ights Follow up: Return in about 6 weeks (around 02/26/2018). Chief Complaint: Follow-up visit HPI: Follow-up for diabetic retinopathy Patient states that in the last week the vision in his left eye has gotten very 'blurry & g lossy.' He has been closing his left eye to do things. No new floaters or flashes of light. He has had no change in his right eye. Last BS: 184 this AM Last A1c: 9.0 (07/23) Current Outpatient Prescriptions (Other) Medication Sig cyclobenzaprine [...] file 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: The structural engineering 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 + + + | AVASTIN INJ - OD - | Routin | 01/15/2018 | Proliferative | Results for this | | RIGHT EYE | e | 10:13 AM | diabetic retinopathy | procedure are in the | | | | PDT | of right eye with | results section. | | | | | macular edema | | | | | | associated with type | | | | | | 1 diabetes mellitus | | | | | | ([facility]) | | + +--------+ + + + | AVASTIN INJ - OS - | Routin | 01/15/2018 | Proliferative | Results for this | | LEFT EYE | e | 10:13 AM | diabetic retinopathy | procedure are [...] + | OCT, RETINA | Routin | 01/15/2018 | Proliferative | Results for this | | | e | 9:35 AM | diabetic retinopathy | procedure are [...] AVASTIN INJECTION - OD - RIGHT EYE (01/15/2018 10:13 AM PDT) + + + | Narrative | Performed At | + + + | Pre-Procedure | | | confirmed correct patient, procedure, site and consent., Procedures, | | | alternatives and risks discussed with patient. Questions answered. | | | | | | | [...] bevacizumab 1.25 mg/0.05 mL | | | [facility]: [id number] | | | Lot: [id number] (26 [id number]) | | | Expiration Date: 02/20/2018 | | | Route: intravitreal | | | Site: Right Eye | | | | | | General Details | | | Estimated blood loss: none | | | | | | | | | Post Op | | | Post procedure assessment: visual acuity at least count fingers, eye | | | rinsed, patient tolerated procedure well | | | Patient reported pain is 0 on a 0-10 scale. | | + + + AVASTIN INJECTION - OS - LEFT EYE (01/15/2018 10:13 AM PDT) + + + | Narrative [...] bevacizumab 1.25 mg/0.05 mL | | | [facility]: [id number] | | | Lot: [id number] (25 [id number]) | | | Expiration Date: 02/20/2018 | | | Route: intravitreal | | | Site: Left Eye | | | | | | General Details | | | Estimated blood loss: none | | | | | | | | | Post Op | | | Post procedure assessment: visual acuity at least count fingers, eye | | | rinsed, patient tolerated procedure well | | | Patient reported pain is 0 on a 0-10 scale. | | + + + OCT, RETINA (01/15/2018 9:35 AM PDT) + + + | Narrative | Performed At | + + + | Traffic Rate Computer | LIANET RAMIREZ | | DocumentationRight EyeCentral macular thickness: 311 [...] + + | [facility] | [address] | [place] [address] | | | INSTITUTE | [place]. | | | + + + + + documented in this encounter Visit Diagnoses + + | Diagnosis | + + | Proliferative diabetic retinopathy of left eye with macular edema associated with type | | 1 diabetes mellitus (HCC) - Primary | + + | Proliferative diabetic retinopathy of right eye with macular edema associated with | | type 1 diabetes mellitus (HCC) | + + documented in this encounter Administered Medications + +--------+ +---------+------+ + | Medication Order | MAR | Action | Dose | Rate | Site | | | Action | Date | | | | + +--------+ +---------+------+ + | bevacizumab (AVASTIN) | Given | 01/16/20 | 1.25 mg | | Left Eye | | intravitreal injection 1.25 mg | | 18 10:12 | | | | | 1.25 mg, ONCE NEEDED, 1 dose, | | AM PDT | | | | | Starting Sat01/15/18 at 1012, | | | | | | | Until Sat01/15/18 at 1012 | | | | | | + +--------+ +---------+------+ + +---+---+ | | | +---+---+ + +-------+ +---------+---+--------+ | bevacizumab (AVASTIN) | Given | 01/16/20 | 1.25 mg | | Right | | intravitreal injection 1.25 mg | | 18 10:13 | | | Eye | | 1.25 mg, ONCE NEEDED, 1 dose, | | AM PDT | | | | | Starting Sat01/15/18 at 1013, | | | | | | | Until Sat01/15/18 at 1013 | | | | | | + +-------+ +---------+---+--------+ +---+---+ | | | +---+---+ documented in this encounter"
--- OUTSIDE RECORDS SUMMARY | ~2020-02-13 | XMS | Encounter Summary ---
Demographics + + + | Address | [address] | | | [place] [address] | + + + | Home Phone | | + + + | Preferred Language | Unknown | + + + | Marital Status | Single | + + + | Zoroastrianism Affiliation | NON | + + + [...] Team Providers + +------+ + | Care Compliance Vice President Name | Role | Phone | + +------+ + | Taco Dionne ROVING MACHINE OPERATOR | PCP | | + +------+ [...] | | | | | | | [place], [place] | | | | | | | [address] | | | | | | | Phone: | | | | | | | [phone] | | | | | | | Fax: | | | | | | | [phone] | +--------+--------+ + + + + Encounter Details +--------+---------+ + + + | Date | Type | Department | Care Team | Description | +--------+---------+ + + + | 12/11/ | Office | [facility] | Nghia Bell MD | Proliferative | | 2018 | Visit | [facility] | [address] | diabetic retinopathy | | | | [place] [address] | [address] | of left eye with | | | | [facility] | [place], [place] | macular edema | | | | Clinic [facility] [place], | [address] | associated with type | | | | [place] [address] | [phone] | 1 diabetes mellitus | | | | [phone] | | (HCC) (Primary Dx) | +--------+---------+ [...] Bell MD - 12/11/2017 9:15 AM PST [facility] Progress Note 12/11/2017 Assessment & Plan: 27 [...] file 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: The cath lab radiology 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 mellitus | | | | | | ([facility]) | | + +--------+ + + + documented in this encounter Results OCT, RETINA (08/13/2019 11:05 AM PST) + + + | Narrative | Performed At | + + + | Certified Tumor Registrar | LIANET RAMIREZ | | DocumentationRight EyeCentral macular thickness: 442 Left | [facility] | | EyeCentral macular thickness: 359 Provider DocumentationRight | | | EyeFluid and related findings: IRF, better Left EyeFluid and | | | related findings: no fluid Retinal findings: epiretinal membrane | | | | | |Central macular thickness: 359 | | | | | | | | |Provider Documentation | | |Right Eye | | |Fluid and related findings: IRF, better | | | | | | | | |Left Eye | | |Fluid and related findings: no fluid | | |Retinal findings: epiretinal membrane | | + + + + + + + + | Performing | Address | City/State/Zipcode | Phone Number | | Organization | | | | + + + + + | [facility] | [address] | [place] [address] | | | INSTITUTE | [place]. | | | + + + + + OCT, RETINA (07/29/2019 11:13 AM PDT) + + + | Narrative | Performed At | + + + | Certified Tumor Registrar | LIANET RAMIREZ | | DocumentationRight EyeCentral macular thickness: 574 Left | [facility] | | EyeCentral [...] | + + + + + | [facility] | [address] | [place] [address] | | | [place] | [place]. | | | + + + + + OCT, RETINA (11/13/2018 3:39 PM PST) + + + | Narrative | Performed At | + + + | Certified Tumor Registrar | LIANET RAMIREZ | | DocumentationRight EyeCentral [...] | + + + + + | [facility] | [address] | [place] [address] | | | INSTITUTE | [place]. | | | + + + + + OCT, RETINA (08/21/2018 3:33 PM PST) + + + | Narrative | Performed At | + + + | Certified Tumor Registrar | LIANET RAMIREZ | | DocumentationRight EyeCentral [...] + + | [facility] | [address] | [place] [address] | | | [place] | [place]. | | | + + + + + OCT, RETINA (02/26/2018 9:24 AM PDT) + + + | Narrative | Performed At | + + + | Certified Tumor Registrar | LIANET RAMIREZ | | DocumentationRight EyeCentral [...] [facility] | [address] | [place] [address] | | | [place] | [place]. | | | + + + + + BUTCH REAL (01/15/2018 9:35 AM PDT) + + + | Narrative | Performed At | + + + | Certified Tumor Registrar | LIANET RAMIREZ | | DocumentationRight EyeCentral [...] | + + + + + | [facility] | [address] | [place] [address] | | | INSTITUTE | [place]. | | | + + + + + OCT, RETINA (12/11/2017 9:01 AM PST) + + + | Narrative | Performed At | + + + | Certified Tumor Registrar | LIANET RAMIREZ | | DocumentationRight EyeCentral [...] [facility] | [address] | [place] [address] | | | INSTITUTE | [place]. | | | + + + + + documented in this encounter Visit Diagnoses + + | Diagnosis | + + | Proliferative diabetic retinopathy of left eye with macular edema associated with type | | 1 diabetes mellitus (HCC) - Primary | + + documented in this encounter"
--- OUTSIDE RECORDS SUMMARY | ~2020-02-13 | XMS | Encounter Summary ---
Demographics + + + | Address | [address] | | | [place] [address] | + + + | Home Phone [...] + + + | Author | [facility] | + + + | Organization | [facility] | + + + | Address | Unknown | + + + | Phone | Unavailable | + + + Support + + +---------+ + | Name | Relationship | Address | Phone | + + +---------+ + | Madelyn Marquez | ECON | Unknown | | + + +---------+ + Care Team Providers + +------+ + | Care Campaign Marketing Specialist Name | Role | Phone | + +------+ + | TacoDionne NICHOLAS | PCP | | + +------+ [...] | | | | | | [address] | | | | | [address] | | | | | | Mailcode: [id number] | | | | | | [place]ie [place]ava | | | | | | [address] [place], [place] | | | | | | [address] | | | | | | [phone] | | | +--------+ + + + [...]
--- OUTSIDE RECORDS SUMMARY | ~2020-02-13 | XMS | Encounter Summary ---
Demographics + + + | Address | [address] | | | [place] [address] | + + + | Home Phone [...] Team Providers + +------+ + | Care Information Systems Manager Name | Role | Phone | + +------+ + | Partha España MD | PCP | | + +------+ + Encounter Details +--------+--------+ + + + | Date | Type | Department | Care Team | Description | +--------+--------+ + + + | 02/10/ | Travel | | | | | [...] in contact | No / Unsure | 02/11/2020 9:38 AM | | with someone who was confirmed or | | PDT | | suspected to have Coronavirus / COVID-19? | | | + + + + documented as of this encounter Plan of Treatment Not on filedocumented as of this encounter Visit Diagnoses Not on filedocumented in this encounter"
--- OUTSIDE RECORDS SUMMARY | ~2020-02-13 | XMS | Encounter Summary ---
Demographics + + + | Address | [address] | | | [place] [address] | + + + | Home Phone [...] + + + | Author | [facility] | + + + | Organization | [facility] | + + + | Address | Unknown | + + + | Phone | Unavailable | + + + Support + + +---------+ + | Name | Relationship | Address | Phone | + + +---------+ + | Madelyn Marquez | ECON | Unknown | | + + +---------+ + Care Team Providers + +------+ + | Care Air Export Operations Agent Name | Role | Phone | + +------+ + | Taco Dionne SHIP SUPERINTENDENT | PCP | | + +------+ + [...] | | | | | | | [place], [place] | | | | | | | [address] | | | | | | | Phone: | | | | | | | [phone] | | | | | | | Fax: | | | | | | | [phone] | +--------+--------+ + + + + Encounter Details +--------+---------+ + + + | Date | Type | Department | Care Team | Description | +--------+---------+ + + + | 11/13/ | Office | [facility] | Shahzad Awad, | Proliferative | | 2019 | Visit | [place] [facility] | [address] | diabetic retinopathy | | | | [place] [address] | [address] | of left eye with | | | | [facility] | [place], [place] | macular edema | | | | Clinic [place], | [address] | associated with type | | | | [place] [address] | [phone] | 1 diabetes mellitus | | | | [phone] | | ([facility]); | | | | | | [...] the original. [facility] Progress Note 11/13/2018 Assessment & Plan: 28 y.o. male Proliferative diabetic retinopathy (S/P PPV/MP 31MAR2018) with macular edema, left eye New vitreous hemorrhage -no view today -discussed ultrasound in [place] is needed Proliferative diabetic retinopathy with macular edema, right eye Active NV today -needs treatment, does not want shot today because he drove and can only see out of this ey e currently. Will treat during upcoming visit in [place]. He will have a van driver helper. Follow up: Return in about 2 weeks [...] pump 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: The computed tomography 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 | | | | | | ([facility]) | | + +--------+ + + + documented in this encounter Results OCT, RETINA (11/13/2018 3:39 PM PST) + + + | Narrative | Performed At | + + + | Laboratory Technical Specialist | LIANET RAMIREZ | | DocumentationRight EyeCentral [...] + + | [facility] | [address] | [place] [address] | | | [place] | [place]. | [...]
--- OUTSIDE RECORDS SUMMARY | ~2020-02-13 | XMS | Clinical Summary ---
Demographics + + + | Address | [address] | | | [place] [address] | + + + | Home Phone [...] + + | Author | [facility] | + + + | Organization | [facility] | + + + | Address | Unknown | + + + | Phone | Unavailable | + + + Support + + +---------+ + | Name | Relationship | Address | Phone | + + +---------+ + | Madelyn Marquez | ECON | Unknown | | + + +---------+ + Care Team Providers + +------+ + | Care Burling And Joining Supervisor Name | Role | Phone | + +------+ + | Partha España MD | PCP | | + +------+ + Source Comments LI[facility]ET is fully live on both [facility] Ambulatory and [facility] InPatient.[facility] & [facility] Allergies + + + + + [...] | | | + + + +---------+------+------+-------+ + + +-------+ +------+------+-------+ | Hospital, Clinic, or | Ordered | Route | Frequency | Star | End | Statu | | Other Facility | Dose | | | t | Date | s | | Administered | | | | Date | | | | Medication | | | | | | | + + +-------+ +------+------+-------+ | bevacizumab | 1.25 mg | | ONCE PRN (IPROC) | 01/05 | 01/05 | Ended | | (AVASTIN) | | | | 04/25 | 04/25 | | | intravitreal | | | | 20 | 20 | | | injection 1.25 | | | | | | | | mgIndications: | | | | | | | | Proliferative | | | | | | | | diabetic retinopathy | | | | | | | | of left eye with | | | | | | | | macular edema | | | | | | | | associated with type | | | | | | | | 1 diabetes mellitus | | | | | | | | (HCC) | | | | | | | + + +-------+ +------+------+-------+ Active Problems + + + | Problem [...] (03/31/18) Last Assessment & Plan: | | Worse with increased traction with lamellar hole appearance and | | worsening fibrosis. Hesitant for anti-VEGF injection because of | | worry for crunch.-recommend vitrectomy. Possible anti-VEGF | | treatment the week before surgery. -discussed surgery in detail, | | including post-op restrictions and procedure. | + + + + + | Vitreous hemorrhage, right eye | 08/13/2017 | + + + + + | Last Assessment & Plan: - STACY pappas for avastin right eye | + + + + + | Proliferative diabetic retinopathy (s/p PPV/MP [id number]) with | 12/12/2016 | | macular edema, left eye | | + + + + + | Overview: PDR OU s/p PRP OU DME OU s/p Avastin OUHx VH OS | | late 2016.Fibrotic NV OU, no VHIncreasing fluid OUs/p | | PPV/EL/MP/Afx OS (03/31/18) for tractional retinal detachment | | Last Assessment & Plan: Vitreous hemorrhage resolved. No | | active NV on exam.-continue to monitor | |Increasing fluid OU | | | |s/p PPV/EL/MP/Afx OS (03/31/18) for tractional retinal detachment | | Last Assessment & Plan: Vitreous hemorrhage resolved. No active NV on exam. | |-continue to monitor | + + + +---+ | Neuropathy | | + +---+ Encounters +--------+ + + + + | Date | Type | Specialty | Care Team | Description | +--------+ + + + + | 02/10/ | Office | Ophthalmology | Shahzad Awad, | Proliferative | | 2019 | Visit | | MD | diabetic retinopathy | | | | | | of left eye with | | | | | | macular edema | | | | | | associated with type | | | | | | 1 diabetes mellitus | | | | | | ([facility]); PDR with | | | | | | macular edema, right | | | | | | eye | +--------+ + + + + | 02/10/ | Travel | | | | | 2019 | | | | | +--------+ + + + + | 01/25/ | Telephone | Ophthalmology | Triny Trammell | Request For Forms | | 2019 | | | A, MD | | +--------+ + + + + | 01/21/ | Office | Ophthalmology | Triny Trammell | Proliferative | | 2019 | Visit | | A, MD | diabetic retinopathy | | | | | | of left eye with | | | | | | macular edema | | | | | | associated with type | | | | | | 1 diabetes mellitus | | | | | | ([facility]) (Primary Dx); | | | | | [...] mellitus | | | | | | ([facility]) | +--------+ + + + + | 01/21/ | Travel | | | | | 2020 | | | | | +--------+ + + + + | 01/19/ | Telephone | Ophthalmology | Shahzad Awad, | Vitreous hemorrhage | | 2019 | | | MD [...] | | | + + + + Last Filed Vital Signs [...] + + | Influenza (Flu) | | 07/09/2018, 07/16/2016, | | | vaccination (Season | 0 | 10/08/2013, Additional history | | | Ended) | | exists | | + + [...] | | | | (HCC) | | | | | | Proliferative [...] mellitus | | | | | | ([facility]) | | | | | | Proliferative | | | | | | diabetic retinopathy | | | | | | of right eye with | | | | | | macular edema | | | | | | associated with type | | | | | | 1 diabetes mellitus | | | | | | ([facility]) | | + +--------+ + + + from Last 3 Months Results AVASTIN INJ - OS - LEFT [...] bevacizumab 1.25 mg/0.05 mL | | | [facility]: [id number], Lot: [id number], Expiration date: 01/27/2020 | | | Route: [...] + + -+ | B-scan OS | [facility] | | Indications: Vitreous Hemorrhage Procedure:the patient was positioned | [facility] | | *upine in the exam chair [...] [facility] | [address] | [place] [address] | | | INSTITUTE | [address]raz. | | | + + + + + BUTCH REAL (01/22/2020 11:00 AM PDT) + + -+ | Narrative | Performed At | + + -+ | Farm General Manager | [facility] | | DocumentationRight EyeQuality: [...] [facility] | [address] | [place] [address] | | | INSTITUTE | [address] 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
--- OUTSIDE RECORDS SUMMARY | ~2020-02-13 | XMS | Encounter Summary ---
Demographics + + + | Address | [address] | | | [place] [address] | + + + | Home Phone [...] + + + | Author | [facility] | + + + | Organization | [facility] | + + + | Address | Unknown | + + + | Phone | Unavailable | + + + Support + + +---------+ + | Name | Relationship | Address | Phone | + + +---------+ + | Madelyn Marquez | ECON | Unknown | | + + +---------+ + Care Team Providers + +------+ + | Care Supervisor Stone Name | Role | Phone | + +------+ + | Partha España MD | PCP | | + +------+ + Encounter Details +--------+ + + + + | Date | Type | Department | Care Team | Description | +--------+ + + + + | 03/31/ | Pharmacy | [facility] | | | | 2018 | Visit | [address] | | | | | | [place] [address] | | | | | | [phone] | | | +--------+ + + + [...]
--- OUTSIDE RECORDS SUMMARY | ~2020-02-13 | XMS | Encounter Summary ---
Demographics + + + | Address | [address] | | | [place] [address] | + + + | Home Phone | | + + + | Preferred Language | Unknown | + + + | Marital Status | Single | + + + | Mandaeism Affiliation | NON | + + + [...] Team Providers + +------+ + | Care 5Th Grade Teacher Name | Role | Phone | + +------+ + | Taco Dionne FREELANCE DATA ENTRY | PCP | | + +------+ + [...] | | | | | | | [address] | | | | | | | [place] | | | | | | | [place] | | | | | | | [place], [place] | | | | | | | [address] | | | | | | | Phone: | | | | | | | [phone] | | | | | | | Fax: | | | | | | | [phone] | +--------+--------+ + + + + Encounter Details +--------+---------+ + + + | Date | Type | Department | Care Team | Description | +--------+---------+ + + + | 08/14/ | Office | [facility] | Nghia Bell MD | Proliferative | | 2017 | Visit | [facility] | [address] | diabetic retinopathy | | | | Kimberly [address] | [address] | of left eye with | | | | [facility] | [place], [place] | macular edema | | | | Clinic [place], | [address] | associated with type | | | | [place] [address] | [phone] | 1 diabetes mellitus | | | | [phone] | | ([facility]) (Primary Dx) | +--------+---------+ + + [...] sensation for next 2-3 days. Call immediately [phone] for increased pain or decreased vision.Electronically sign ed by Livia Gonzalez at 08/14/2017 3:17 PM PST documented in this encounter Progress Notes Livia Gonzalez - 08/14/2017 3:17 PM PST Intravitreal Injection Procedure Note 08/14/2017 for: AVASTIN, RIGHT EYE LOT #[id number] ([id number]) and Expiration 09/01/2017 RIGHT EYE: Attending: [...] MD - 1 10/14/2016 3:00 PM PST [facility] Progress Note 08/14/2017 Assessment & Plan: 27 [...] file 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: The coroner forensic 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 | + +--------+ + + + | MD INTRAVITREAL INJ, | Routin | 08/14/2017 | [...] | | | | | ([facility]) | | + +--------+ + + + documented in this encounter Visit Diagnoses + + | Diagnosis | + + | Proliferative diabetic retinopathy of left eye with macular edema associated with type | | 1 diabetes mellitus ([facility]) - Primary | + + documented in this encounter"
--- OUTSIDE RECORDS SUMMARY | ~2020-02-13 | XMS | Encounter Summary ---
Demographics + + + | Address | [address] | | | [place] [address] | + + + | Home Phone [...] Author + + + | Author | [facility] | + + + | Organization | [facility] | + + + | Address | Unknown | + + + | Phone | Unavailable | + + + Support + + +---------+ + | Name | Relationship | Address | Phone | + + +---------+ + | Madelyn Marquez | ECON | Unknown | | + + +---------+ + Care Team Providers + +------+ + | Care Crowning Hammer Operator Name | Role | Phone | + +------+ + | TacoDionne DIGITAL HARDWARE DESIGN ENGINEER | PCP | | + +------+ + Encounter Details +--------+ + + + + | Date | Type | Department | Care Team | Description | +--------+ + + + + | 05/15/ | Telephone | [facility] | Allan Snell | | | 2018 | | [facility] at | [address] | | | | | Aarti Cuello [facility] [address] | [address] | | | | | [address] | [place], [place] | | | | | Eye [place] | [address] | | | | | [place], [place] | [phone] | | | | | [address] | [...]
--- OUTSIDE RECORDS SUMMARY | ~2020-02-13 | XMS | Encounter Summary ---
Demographics + + + | Address | [address] | | | [place] [address] | + + + | Home Phone | | + + + | Preferred Language | Unknown | + + + | Marital Status | Single | + + + | Episcopalian Affiliation | NON | + + + [...] Team Providers + +------+ + | Care Chemist Internship Name | Role | Phone | + +------+ + | Dionne España METAL RIVET MACHINE OPERATOR | PCP | | + [...] + + + + | 03/31/ | Anesthesia | [facility] | Epi Miranda MD | | | 2018 | Event | [address] | [address] | | | | | [facility] | [facility], | | | | | [place] [address] | [place] [address] | | | | | | [phone] | | | | | | | | | | | | Felix, | | | | | | Manuel Daniels CRNA | | | | | | [address] | | | | | | [facility], | | | | | | [place] [address] | | | | | | [phone] | | | | | | | [...] + +------+ | Meds | +------+ + +---------+ | Name | Total | + +---------+ | midazolam | 2 mg | + +---------+ | fentaNYL | 150 mcg | + +---------+ | lidocaine 2% | 40 mg | + +---------+ | propofol | 200 mg | + +---------+ | ePHEDrine | 5 mg | + +---------+ | PHENYLEPHrine | 100 mcg | + +---------+ | ondansetron | 4 mg | + +---------+ | lactated Ringers IV | 800 mL | + +---------+ + + | Name | + + | Insp Sevo | + + | Et Sevo | + + | EtN2O % | + + | Insp N2O % | + + | O2 Flow Rate (Total Liters) | + + | Air Flow rate (L/min) | + + + + | No blood administrations on file. | + + +--------+ + +---------+ | Type | Details | Placement | Removal | +--------+ + +---------+ | Periph | 03/31/18; 0757; CB RN; Right; | 03/31/18 0757 by | | | eral | Antecubital; [...] | + +--------+ + + + | ANE LMA | Routin | 03/31/2018 | | Results for this | | | e | 8:35 AM | | procedure are in the | | | | PDT | | results section. | + +--------+ + + + documented in this encounter Results ANE LMA (03/31/2018 8:35 AM PDT) + + + | Narrative | Performed At | + + + | Manuel Washington CRNA 03/31/2018 8:35 AM Procedure | | | Reason for Intubation: For surgical procedure, Location Performed: | | | OR , Patient was preoxygenated Mask Ventilation Grade 0 - | | | Ventilation by mask not attempted ETT SGA Atraumatic | | | Placement: Yes LMA Type: Air-Q LMA Size: 4.5LMA Size: 4.5 LMA | | | positive for Etco2 Breath Sounds Auscultated: Bilateral and equal | | | Narrative Attending physically present | | + + + documented in this encounter Visit Diagnoses Not on filedocumented in this encounter Administered Medications + +--------+ +------+------+------+ | Medication Order | MAR | Action | Dose | Rate | Site | | | Action | Date | | | | + +--------+ +------+------+------+ | ePHEDrine injection | Given | 03/31/20 | 5 mg | | | | intravenous, INTRAPROCEDURE PRN, | | 18 9:11 | | | | | Starting 03/31/18 at 0911, | | AM PDT | | | | | Until Sat03/31/18 at 1012 | | | | | | + +--------+ +------+------+------+ +---+---+ | | | +---+---+ + +-------+ +--------+---+---+ | fentaNYL citrate (PF) | Given | 03/31/20 | 25 mcg | | | | (SUBLIMAZE) injection | | 18 9:52 | | | | | INTRAPROCEDURE PRN, Starting Mon | | AM PDT | | | | | 6/25/18 at 0827, Until Mon | | | | | | | 03/31/18 at 1012 | | | | | | + +-------+ +--------+---+---+ +-------+ +--------+---+---+ | Given | 03/31/20 | 25 mcg | | | | | 18 9:34 | | | | | | AM PDT | | | | +-------+ +--------+---+---+ | Given | 03/31/20 | 25 mcg | | | | | 18 9:00 | | | | | | AM PDT | | | | +-------+ +--------+---+---+ +---+---+ | | | +---+---+ + + [...] +---+---+ | | | +---+---+ + +-------+ +-------+---+---+ | lidocaine (XYLOCAINE MPF) 2 % | Given | 03/31/20 | 40 mg | | | | (20 mg/mL) injection | | 18 8:27 | | | | | INTRAPROCEDURE PRN, Starting Mon | | AM PDT | | | | | 03/31/18 at 0827, Until Mon | | | | | | | 03/31/18 at 1012 | | | | | | + +-------+ +-------+---+---+ +---+---+ | | | +---+---+ + +-------+ +------+---+---+ | midazolam (VERSED) injection | Given | 03/31/20 | 2 mg | | | | INTRAPROCEDURE PRN, Starting Mon | | 18 8:20 | | | | | 03/31/18 at 0820, Until Mon | | AM PDT | | | | | 03/31/18 at 1012 | | | | | | + +-------+ +------+---+---+ +---+---+ | | | +---+---+ + +-------+ +------+---+---+ | ondansetron (ZOFRAN) injection | Given | 03/31/20 | 4 mg | | | | INTRAPROCEDURE PRN, Starting Mon | | 18 9:44 | | | | | 03/31/18 at 0944, Until Mon | | AM PDT | | | | | 03/31/18 at 1012 | | | | | | + +-------+ +------+---+---+ +---+---+ | | | +---+---+ + +-------+ +---------+---+---+ | PHENYLEPHrine 100 mcg/mL IV | Given | 03/31/20 | 100 mcg | | | | syringe INTRAPROCEDURE PRN, | | 18 9:34 | | | | | Starting Sat03/31/18 at 0934, | | AM PDT | | | | | Until Sat03/31/18 at 1012 | | | | | | + +-------+ +---------+---+---+ +---+---+ | | | +---+---+ + +-------+ +--------+---+---+ | propofol INTRAPROCEDURE PRN, | Given | 03/31/20 | 200 mg | | | | Starting Sat03/31/18 at 0827, | | 18 8:27 | | | | | Until Sat03/31/18 at 1012 | | AM PDT | | | | + +-------+ +--------+---+---+ +---+---+ | | | +---+---+ documented in this encounter"
--- OUTSIDE RECORDS SUMMARY | ~2020-02-13 | XMS | Encounter Summary ---
Demographics + + + | Address | [address] | | | [place] [address] | + + + | Home Phone | | + + + | Preferred Language | Unknown | + + + | Marital Status | Single | + + + | Jehovah'S Witness Affiliation | NON | + + + | Race | White | + + + | Ethnic Group | Not or | + + + Author + + + | Author | [facility] | + + + | Organization | [facility] | + + + | Address | Unknown | + + + | Phone | Unavailable | + + + Support + + +---------+ + | Name | Relationship | Address | Phone | + + +---------+ + | Madelyn Marquez | ECON | Unknown | | + + +---------+ + Care Team Providers + +------+ + | Care Civil Drafter Name | Role | Phone | + +------+ + | TacoDionne DIRECTOR COST | PCP | | + +------+ + Encounter Details +--------+ + + + + | Date | Type | Department | Care Team | Description | +--------+ + + + + | 05/18/ | Telephone | [facility] | Allan Snell | | | 2018 | | [facility] | [address] | | | | | [address]arti [address] [facility] [address] | [address] | | | | | [address] | [place], [place] | | | | | Eye [place] | [address] | | | | | [place], [place] | [phone] | | | | | [address] | [...]
--- OUTSIDE RECORDS SUMMARY | ~2020-02-13 | XMS | Encounter Summary ---
Demographics + + + | Address | [address] | | | [place] [address] | + + + | Home Phone [...] Author + + + | Author | [facility] | + + + | Organization | [facility] | + + + | Address | Unknown | + + + | Phone | Unavailable | + + + Support + + +---------+ + | Name | Relationship | Address | Phone | + + +---------+ + | Madelyn Marquez | ECON | Unknown | | + + +---------+ + Care Team Providers + +------+ + | Care Driver Salesman Name | Role | Phone | + +------+ + | Partha España MD | PCP | | + +------+ + Reason for Visit + + + | Reason | Comments | + + + | Vitreous hemorrhage | | + + + Encounter Details +--------+ + + + + | Date | Type | Department | Care Team | Description | +--------+ + + + + | 01/19/ | Telephone | [facility] | Shahzad Awad, | Vitreous hemorrhage | | 2019 | | [place] [facility] | [address] | | | | | [address]ly [address] [facility] | [address] | | | | | [facility] | [place], [place] | | | | | Clinic [place], | [address] | | | | | [place] [address] | [phone] | | | | | [phone] | | | +--------+ + + + [...]
--- OUTSIDE RECORDS SUMMARY | ~2020-02-13 | XMS | Encounter Summary ---
Demographics + + + | Address | [address] | | | [place] [address] | + + + | Home Phone [...] Author + + + | Author | [facility] | + + + | Organization | [facility] | + + + | Address | Unknown | + + + | Phone | Unavailable | + + + Support + + +---------+ + | Name | Relationship | Address | Phone | + + +---------+ + | Madelyn Marquez | ECON | Unknown | | + + +---------+ + Care Team Providers + +------+ + | Care Solid Fiber Paster Operator Name | Role | Phone | [...] Letter From | | 2017 | | [facility] | [address] | Specialist | | | | [facility] | [address] | | | | | [facility] | [place], [place] | | | | | Clinic [place], | [address] | | | | | [place] [address] | [phone] | | | | | [phone] | | | +--------+ + + + [...]
--- OUTSIDE RECORDS SUMMARY | ~2020-02-13 | XMS | Encounter Summary ---
Demographics + + + | Address | [address] | | | [place] [address] | + + + | Home Phone [...] Team Providers + +------+ + | Care Customer Order Clerk Name | Role | Phone | + +------+ + | Taco Dionne REGIONAL CLIMATE CHANGE ANALYST | PCP | | + +------+ [...] | | | | | | | [address] | | | | | | | [place] | | | | | | | [place] | | | | | | | [place], [place] | | | | | | | [address] | | | | | | | Phone: | | | | | | | [phone] | | | | | | | Fax: | | | | | | | [phone] | +--------+--------+ + + + + Encounter Details +--------+---------+ + + + | Date | Type | Department | Care Team | Description | +--------+---------+ + + + | 08/13/ | Office | [facility] | Allan Snell | Vitreous hemorrhage, | | 2017 | Visit | [facility] | MD Christ[address] | right eye (HCC) | | | | Aarti [address] | [address] | (Primary Dx); | | | | [address] | [place], [place] | Proliferative | | | | Eye [facility] | [address] | diabetic retinopathy | | | | floor [place], [place] | [phone] | of left eye with | | | | [address] | | macular edema | | | | | | associated with type | | | | | | 1 diabetes mellitus | | | | | | (HCC); | | | | | | Proliferative | | | | | | diabetic retinopathy | | | | | | of right eye | | | | | | determined by | | | | | | examination | | | | | | associated [...] documented as of this encounter Progress Notes Allan Snell MD - 08/13/2017 5:00 PM PST [facility] Progress Note 08/13/2017 CC: No chief complaint on file. Initial History: Painless blurring of the vision that began today. See's web's in vision and it has gotten p rogressively more blurry OD Last 3 ambulatory procedures on record: Procedure: Avastin OU (04/17/17 1514) Procedure: PRP OS (12/12/16 1532) Procedure: Avastin OS (12/12/16 1527) POH: PDR/DME OU PRP Right eye 05/01/16 PRP Left eye 07/18/2016,12/12/16 Initiated Avastin OD 05/01/16 -Consented Avastin OU 04/17/2017 Last injection OD:11 months: Avastin Last injection: Avastin OU 18 weeks Type 1 diabetes x 15 years Current Outpatient Prescriptions (Other) Medication Sig cyclobenzaprine HumaLOG HYDROcodone-acetaminophen pregabalin Take by mouth two times daily. Max: 600 mg/day Past Medical History: Diagnosis Date Diabetes mellitus type 1 (HCC) Past Surgical History Procedure Laterality Date Hip fracture surgery Social History Substance Use Topics Smoking status: Current Every Day Smoker Smokeless tobacco: Not on file Alcohol use Not on file See Ophthalmology Module for Examination Diagnostics Ordered Right Left OCT --- --- FA --- --- FUNDUS --- --- Others (Bscan) Vitreous hemorrhage. Point of vitreous adhesion at the optic nerve. No ret inal tears, no RD IMPRESSION: 27 y.o. male with Ophthalmologic Problems Proliferative diabetic retinopathy of both eyes with macular edema associated with type 1 d iabetes mellitus (HCC) [2761995] - Active NV OU today with new vitreous hemorrhage OD - No retinal breaks or tears noted on exam or US Venous engorgement in a hemifield distribution OD - Concern for BRVO - Consider FA (not available tonight) tomorrow in [place] - If FA consistent with BRVO, will coordinate evaluation of RF's with PCP PLAN: See Dr. Elizondo as scheduled tomorrow, probable avastin OU at that time. Call for decreased vision, increased distortion, increased pain, new floaters or flashing l ights Attestations: The cook chill 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 | + + +--------+ + + | ULTRASOUND, B SCAN | Procedures | Routin | Proliferative | Expected: | | | | e | diabetic retinopathy | 08/13/2017, Expires: | | | | | of left eye with | 02/10/2019 | | | | | macular edema | | | | | | associated with type | | | | | | 1 diabetes mellitus | | | | | | ([facility]) | | + + +--------+ + + documented as of this encounter Visit Diagnoses + + | Diagnosis | + + | Vitreous hemorrhage, right eye (HCC) - Primary Vitreous hemorrhage | + + | Proliferative diabetic retinopathy of left eye with macular edema associated with type | | 1 diabetes mellitus (HCC) | + + | Proliferative diabetic retinopathy of right eye determined by examination associated | | with type 1 diabetes mellitus (HCC) | + + documented in this encounter"
--- OUTSIDE RECORDS SUMMARY | ~2020-02-13 | XMS | Encounter Summary ---
Demographics + + + | Address | [address] | | | [place] [address] | + + + | Home Phone [...] Team Providers + +------+ + | Care Travel Agent Name | Role | Phone | [...]
--- OUTSIDE RECORDS SUMMARY | ~2020-02-13 | XMS | Encounter Summary ---
Demographics + + + | Address | [address] | | | [place] [address] | + + + | Home Phone [...] + + + | Author | [facility] | + + + | Organization | [facility] | + + + | Address | Unknown | + + + | Phone | Unavailable | + + + Support + + +---------+ + | Name | Relationship | Address | Phone | + + +---------+ + | Madelyn Marquez | ECON | Unknown | | + + +---------+ + Care Team Providers + +------+ + | Care Bean Sprout Laborer Name | Role | Phone | + +------+ + | Partha España MD | PCP | | + +------+ + Reason for Visit + + + | Reason | Comments | + + + | Decreased vision | | + + + Encounter Details +--------+ + + + + | Date | Type | Department | Care Team | Description | +--------+ + + + + | 07/28/ | Telephone | [facility] | Lavelle Redmond MD | Decreased vision | | 2019 | | [facility] at | [address] | | | | | [place] [address] [address] | [address] | | | | | [address] | [place], [place] | | | | | Eye [facility] | [address] | | | | | floor [place], [place] | [phone] | | | | | [address] | [...]
--- OUTSIDE RECORDS SUMMARY | ~2020-02-13 | XMS | Encounter Summary ---
Demographics + + + | Address | [address] | | | [place] [address] | + + + | Home Phone | | + + + | Preferred Language | Unknown | + + + | Marital Status | Single | + + + | Taoism Affiliation | NON | + + + | Race | White | + + + | Ethnic Group | Not or | + + + Author + + + | Author | [facility] | + + + | Organization | [facility] | + + + | Address | Unknown | + + + | Phone | Unavailable | + + + Support + + +---------+ + | Name | Relationship | Address | Phone | + + +---------+ + | Madelyn Marquez | ECON | Unknown | | + + +---------+ + Care Team Providers + +------+ + | Care Rn Advice Name | Role | Phone | + +------+ + | TacoDionne WIRE SPLICER | PCP | | + +------+ + [...] | | | | | | | [address] | | | | | | | [address] | | | | | | | [place], [place] | | | | | | | [address] | | | | | | | Phone: | | | | | | | [phone] | | | | | | | Fax: | | | | | | | [phone] | +--------+--------+ + + + + Encounter Details +--------+---------+ + + + | Date | Type | Department | Care Team | Description | +--------+---------+ + + + | 05/15/ | Office | [facility] | Allan Snell | Proliferative | | 2018 | Visit | [facility] at | MD Christi [address] | diabetic retinopathy | | | | Aarti Cuello [address] | [address] | with macular edema, | | | | [address] | [place], [place] | right eye (Primary | | | | Eye [facility], [address] | [address] | Dx); Proliferative | | | | floor [place], [place] | [phone] | diabetic retinopathy | | | | [address] | | with macular edema, | | | | | | left eye; Vitreous | | [...] rub or touch your eye ? An tkys-rid-[id number] pain reliever (i.e. Tylenol) can be used [...] PM PDT [facility] Progress Note 05/15/2018 Assessment & Plan: 27 y.o. male Proliferative diabetic retinopathy with macular edema, right eye - Worsening macular edema and with new mild VH - PARQ held for Avastin right eye, performed without complication Proliferative diabetic retinopathy with macular edema, left eye - Retinal thickening improved following pars plana vitrectomy - Continue to monitor Vitreous hemorrhage, right eye (HCC) - PARQ held for avastin right eye [...] pump 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: The medical equipment repair technician, under the supervision of the [...] INJ - OD - | Routin | 05/15/2018 | Proliferative | Results for this | | RIGHT EYE | e | 6:05 PM [...] mL | | | [facility]: [id number] | | | Lot: [id number] | | | Expiration Date: 05/23/2018 | [...]
--- OUTSIDE RECORDS SUMMARY | ~2020-02-13 | XMS | Encounter Summary ---
Demographics + + + | Address | [address] | | | [place] [address] | + + + | Home Phone [...] Team Providers + +------+ + | Care Administrative Medical Director Name | Role | Phone | + +------+ + | Dionne España NICHOLAS | PCP | | + +------+ + Encounter Details +--------+ + + + + | Date | Type | Department | Care Team | Description | +--------+ + + + + | 01/09/ | Document-Sc | Health Information | Unknown . | | | 2018 | anned | Services [phone] | | | | | | [address] | | | | | | Mailcode: [id number] | | | | | | [facility] | | | | | | [place], [place] | | | | | | [address] | | | | | | [phone] | | | +--------+ + + + [...]
--- OUTSIDE RECORDS SUMMARY | ~2020-02-13 | XMS | Encounter Summary ---
Demographics + + + | Address | [address][1] | | | [place] [address] | + + + | Home Phone [...] Team Providers + +------+ + | Care Wood Mechanist Name | Role | Phone | + [...] | | | | | | | [address] | | | | | | | [address] | | [address] | | | | | | | [place], [place] | | | | | | | [address] | | | | | | | Phone: | | | | | | | [phone] | | | | | | | Fax: | | | | | | | [phone] | +--------+--------+ + + + + Encounter Details +--------+---------+ + + + | Date | Type | Department | Care Team | Description | +--------+---------+ + + + | 05/22/ | Office | [facility] | Nghia Bell MD | Proliferative | | 2016 | Visit | [facility] | [address] | diabetic retinopathy | | | | [facility] [address] | [address] | without macular | | | | [address] | [place], [place] | edema associated | | | | Eye [place], [facility] | [address] | with type 1 diabetes | | | | floor [place], [place] | [phone] | mellitus (HCC) | | | | [phone] | | (Primary Dx) | +--------+---------+ + + + [...] sensation for next 2-3 days. Call immediately [phone] for increased pain or decreased vision.Electronically sign ed by Dionne Rosen at 05/22/2016 5:09 PM PDT documented in this encounter Progress Notes Nghia Bell MD - 05/23/2016 3:47 PM PDT [facility] Progress Note 05/22/2016 Assessment & Plan: 25 y.o. male Proliferative diabetic retinopathy without macular edema associated with type 1 diabetes me llitus ([facility]) DME OD s/p Avastin 04/21 - Improved [...] . 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: The rf technician, under the supervision of the physician, is responsible for performing the f ollowing sections: RFV, ROS, PMH, PSH, SocHx, FH, Med list, Base Ophth Exam. The attending physician is responsible for the entire content of the note and has personall y performed the HPI and the physical examination NGHIA BELL MD owDionne corea - 05/22/2016 5:09 PM PDT Intravitreal Injection Procedure Note 05/22/2016 for: AVASTIN, RIGHT EYE LOT # [id number] and Expiration 05/30/16 RIGHT EYE:8S Attending: Nghia [...] + +--------+ + + + | IN INTRAVITREAL INJ, | Routin | 05/22/2016 | [...]
--- OUTSIDE RECORDS SUMMARY | ~2020-02-13 | XMS | Encounter Summary ---
Demographics + + + | Address | [address] | | | [place] [address] | + + + | Home Phone | | + + + | Preferred Language | Unknown | + + + | Marital Status | Single | + + + | Druze Affiliation | NON | + + + | Race | White | + + + | Ethnic Group | Not or | + + + Author + + + | Author | [facility] | + + + | Organization | [facility] | + + + | Address | Unknown | + + + | Phone | Unavailable | + + + Support + + +---------+ + | Name | Relationship | Address | Phone | + + +---------+ + | Madelyn Marquez | ECON | Unknown | | + + +---------+ + Care Team Providers + +------+ + | Care Heel Seat Fitter Name | Role | Phone | + [...] + + | 03/31/ | Hospital | [facility] JORGE [facility] | Shahzad Awad, | | | 2018 | Encounter | [address] | [address] | | | | | [address] [facility] | [address] | | | | | [facility] | [place], [place] | | | | | [place], [place] | [address] | | | | | [address] | [phone] | | | | | | | [...] + + | LIANET HUNTER | [address] | [place], [place] | | | LLUVIA TILLMAN OF [facility] | [address] | [address] | | | TESTS | | | [...] Shahzad Renteria | | | MD Delmi Foreign Language Stenographer: None Anesthesia: General Implant: | | | [...] + + + + | [facility] | [address] | [place], [place] | | | ANTONIO TILLMAN | [facility] | [address] | | | TESTS | | | [...] intravenous, POSTPROCEDURE PRN, | | | Starting 03/31/18 at 0836, [...]
--- OUTSIDE RECORDS SUMMARY | ~2020-02-13 | XMS | Encounter Summary ---
Demographics + + + | Address | [address] | | | [place] [address] | + + + | Home Phone [...] Team Providers + +------+ + | Care Kiln Maintenance Name | Role | Phone | + [...]
--- OUTSIDE RECORDS SUMMARY | ~2020-02-13 | XMS | Encounter Summary ---
Demographics + + + | Address | [address] | | | [place] [address] | + + + | Home Phone [...] Team Providers + +------+ + | Care Makeup Editor Name | Role | Phone | + +------+ + | Dionne España PERINATAL BREASTFEEDING ASSISTANT | PCP | | + +------+ [...] | | 2018 | | [address] | [address] | VITRECTOMY, ENDO | | | | [facility] | [address] | LASER, air fluid | | | | [place] [address] | [place], [place] | exchange , 23g left | | | | | [address] | eye | | | | | [phone] | | | | | | | [...] HUNTER | [address] | [place], [place] | | | LLUVIA TILLMAN OF [facility] | [address] | [address] | | | TESTS | | | [...] Shahzad Renteria | | | MD Delmi Christian Science Reader: None Anesthesia: General Implant: | | | [...] SAMMIEAM | [address] | [place], [place] | | | LLUVIA TILLMAN OF [place] | [address] | [address] | | | TESTS | | | [...] 1 strip | | Both | | [id number] | | 18 9:12 | | | [...]
--- OUTSIDE RECORDS SUMMARY | ~2020-02-13 | XMS | Encounter Summary ---
Demographics + + + | Address | [address] | | | [place] [address] | + + + | Home Phone [...] Team Providers + +------+ + | Care Dust Handler Name | Role | Phone | + +------+ + | Taco Dionne LUMBER PRESS OPERATOR | PCP | | + +------+ [...] | | | | | | | [place], [place] | | | | | | | [address] | | | | | | | Phone: | | | | | | | [phone] | | | | | | | Fax: | | | | | | | [phone] | +--------+--------+ + + + + Encounter Details +--------+---------+ + + + | Date | Type | Department | Care Team | Description | +--------+---------+ + + + | 12/11/ | Office | [facility] | Nghia Bell MD | Proliferative | | 2018 | Visit | [facility] | [address] | diabetic retinopathy | | | | Kimberly [address] | [address] | of left eye with | | | | [facility] | [place], [place] | macular edema | | | | Clinic [facility], | [address] | associated with type | | | | [place] [address] | [phone] | 1 diabetes mellitus | | | | [phone] | | (HCC) (Primary Dx) | +--------+---------+ [...] Bell MD - 12/11/2017 9:15 AM PST [facility] Progress Note 12/11/2017 Assessment & Plan: 27 [...] file 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: The crystal growing 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 Performed At | + + + | Fabric Separator Operator | LIANET RAMIREZ | | DocumentationRight [...] + + | [facility] | [address] | [place] [address] | | | INSTITUTE | [address]. | | | + + + + + OCT, RETINA (07/29/2019 11:13 AM PDT) + + + | Narrative | Performed At | + + + | Fabric Separator Operator | LIANET RAMIREZ | | DocumentationRight [...] | + + + + + | [facility] | [address] | [place] [address] | | | JOÃO | [address]. | | | + + + + + OCT, RETINA (11/13/2018 3:39 PM PST) + + + | Narrative | Performed At | + + + | Fabric Separator Operator | LIANET RAMIREZ | | DocumentationRight [...] + + | [facility] | [address] | [place] [address] | | | INSTITUTE | [address]. | | | + + + + + OCT, RETINA (08/21/2018 3:33 PM PST) + + + | Narrative | Performed At | + + + | Fabric Separator Operator | LIANET RAMIREZ | | DocumentationRight [...] + + | [facility] | [address] | [place] [address] | | | JOÃO | [address]. | | | + + + + + OCT, RETINA (02/26/2018 9:24 AM PDT) + + + | Narrative | Performed At | + + + | Fabric Separator Operator | LIANET RAMIREZ | | DocumentationRight [...] [facility] | [address] | [place] [address] | | | JOÃO | [address]. | | | + + + + + BUTCH REAL (01/15/2018 9:35 AM PDT) + + + | Narrative | Performed At | + + + | Fabric Separator Operator | LIANET RAMIREZ | | DocumentationRight [...] | + + + + + | [facility] | [address] | [place] [address] | | | INSTITUTE | [address]. | | | + + + + + OCT, RETINA (12/11/2017 9:01 AM PST) + + + | Narrative | Performed At | + + + | Fabric Separator Operator | LIANET RAMIREZ | | DocumentationRight [...] [facility] | [address] | [place] [address] | | | INSTITUTE | [address]. | | | + + + + + documented in this encounter Visit Diagnoses + + | Diagnosis | + + | Proliferative diabetic retinopathy of left eye with macular edema associated with type | | 1 diabetes mellitus (HCC) - Primary | + + documented in this encounter"
--- OUTSIDE RECORDS SUMMARY | ~2020-02-13 | XMS | Encounter Summary ---
Demographics + + + | Address | [address] | | | [place] [address] | + + + | Home Phone [...] Author + + + | Author | [facility] | + + + | Organization | [facility] | + + + | Address | Unknown | + + + | Phone | Unavailable | + + + Support + + +---------+ + | Name | Relationship | Address | Phone | + + +---------+ + | Madelyn Marquez | ECON | Unknown | | + + +---------+ + Care Team Providers + +------+ + | Care Application Development Project Manager Name | Role | Phone | + +------+ + | Taco Dionne SAGGER FILLER | PCP | | + +------+ + [...] | | | | | | | [place], [place] | | | | | | | [address] | | | | | | | Phone: | | | | | | | [phone] | | | | | | | Fax: | | | | | | | [phone] | +--------+--------+ + + + + Encounter Details +--------+---------+ + + + | Date | Type | Department | Care Team | Description | +--------+---------+ + + + | 12/12/ | Office | [facility] | Nghia Bell MD | Proliferative | | 2017 | Visit | [facility] | [address] | diabetic retinopathy | | | | Kimberly [address] | [address] | of left eye with | | | | [facility] | [place], [place] | macular edema | | | | Clinic [facility], | [address] | associated with type | | | | [place] [address] | [phone] | 1 diabetes mellitus | | | | [phone] | | (HCC) (Primary Dx); | | [...] for next 2-3 d ays. Call immediately [phone] for increased pain or decreased vision.Electronically sign [...] MD - 0 12/12/2016 2:45 PM PST [facility] Progress Note 12/12/2016 Assessment & Plan: 26 [...] . 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: The skin care 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 | + +--------+ + + + | [place] RX RETINOPATHY | Routin | 12/12/2016 | [...] | | | | | ([facility]) | | + +--------+ + + + | [place] INTRAVITREAL INJ, | Routin | 12/12/2016 | [...] | | | | | ([facility]) | | + +--------+ + + + documented in this encounter Visit Diagnoses + + | Diagnosis | + + | Proliferative diabetic retinopathy of left eye with macular edema associated with type | | 1 diabetes mellitus ([facility]) - Primary | + + | Proliferative diabetic retinopathy with macular edema associated with type 1 diabetes | | mellitus (HCC) | + + documented in this encounter"
--- OUTSIDE RECORDS SUMMARY | ~2020-02-13 | XMS | Encounter Summary ---
Demographics + + + | Address | [address] | | | [place] [address] | + + + | Home Phone | | + + + | Preferred Language | Unknown | + + + | Marital Status | Single | + + + | Judaism Affiliation | NON | + + + [...] Team Providers + +------+ + | Care Burlap Man Name | Role | Phone | + [...] physical | | 2018 | on | [facility] | [address] | examination | | | | [employer] [address] | [address] | | | | | [address] | [place], [place] | | | | | Eye [facility] | [address] | | | | | floor [place], [place] | [phone] | | | | | [address] | [...]
--- OUTSIDE RECORDS SUMMARY | ~2020-02-13 | XMS | Encounter Summary ---
Demographics + + + | Address | [address] | | | [place] [address] | + + + | Home Phone [...] Team Providers + +------+ + | Care Photoengraver Apprentice Name | Role | Phone | + +------+ + | Dionne España MULTIMEDIA COORDINATOR | PCP | | + +------+ [...] | 2018 | Event | [address] | [address] | | | | | [facility] | [facility], | | | | | [place] [address] | [place] [address] | | | | | | [phone] | | | | | | | | | | | | Felix, | | | | | | Manuel Daniels CRNA | | | | | | [address] | | | | | | [facility], | | | | | | [place] [address] | | | | | | [phone] | | | | | | | [...]
--- OUTSIDE RECORDS SUMMARY | ~2020-02-13 | XMS | Encounter Summary ---
Demographics + + + | Address | [address] | | | [place] [address] | + + + | Home Phone [...] | Author | [facility] | + + + | Organization | [facility] | + + + | Address | Unknown | + + + | Phone | Unavailable | + + + Support + + +---------+ + | Name | Relationship | Address | Phone | + + +---------+ + | Madelyn Marquez | ECON | Unknown | | + + +---------+ + Care Team Providers + +------+ + | Care Whipped Topping Mixer Name | Role | Phone | + +------+ + | Taco Dionne MUD CLEANER OPERATOR | PCP | | + +------+ [...] | | | | | | | [address] | | | | | | | [address] | | | | | | | [place] | | | | | | | [place], [place] | | | | | | | [address] | | | | | | | Phone: | | | | | | | [phone] | | | | | | | Fax: | | | | | | | [phone] | +--------+--------+ + + + + Encounter Details +--------+---------+ + + + | Date | Type | Department | Care Team | Description | +--------+---------+ + + + | 08/14/ | Office | [facility] | Nghia Bell MD | Proliferative | | 2017 | Visit | [place] [facility] | [address] | diabetic retinopathy | | | | Kimberly [address] | [address] | of left eye with | | | | [facility] | [place], [place] | macular edema | | | | Clinic [facility], | [address] | associated with type | | | | [place] [address] | [phone] | 1 diabetes mellitus | | | | [phone] | | ([facility]) (Primary Dx) | +--------+---------+ + [...] sensation for next 2-3 days. Call immediately [phone] for increased pain or decreased vision.Electronically sign ed by Livia Gonzalez at 08/14/2017 3:17 PM PST documented in this encounter Progress Notes Livia Gonzalez - 08/14/2017 3:17 PM PST Intravitreal Injection Procedure Note 08/14/2017 for: AVASTIN, RIGHT EYE LOT #[id number] ([id number]) and Expiration 09/01/2017 RIGHT EYE: Attending: [...] MD - 1 10/14/2016 3:00 PM PST [facility] Progress Note 08/14/2017 Assessment & Plan: [...] file 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: The certified veterinary 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 | + +--------+ + + + | [place] INTRAVITREAL INJ, | Routin | 08/14/2017 | [...] diabetes mellitus ([facility]) - Primary | + + documented in this encounter"
--- OUTSIDE RECORDS SUMMARY | ~2020-02-13 | XMS | Encounter Summary ---
Demographics + + + | Address | [address] | | | [place] [address] | + + + | Home Phone | | + + + | Preferred Language | Unknown | + + + | Marital Status | Single | + + + | Scientology Affiliation | NON | + + + [...] Team Providers + +------+ + | Care Batch Or Continuous Still Operator Name | Role | Phone | + +------+ + | Taco Dionne CANNONEER | PCP | | + +------+ + [...] | | | | | | | [place], [place] | | | | | | | [address] | | | | | | | Phone: | | | | | | | [phone] | | | | | | | Fax: | | | | | | | [phone] | +--------+--------+ + + + + Encounter Details +--------+---------+ + + + | Date | Type | Department | Care Team | Description | +--------+---------+ + + + | 02/26/ | Office | [facility] | Nghia Bell MD | Proliferative | | 2018 | Visit | [place] [facility] | [address] | diabetic retinopathy | | | | Kimberly [address] | [address] | of left eye with | | | | [facility] | [place], [place] | macular edema | | | | Clinic [facility], | [address] | associated with type | | | | [place] [address] | [phone] | 1 diabetes mellitus | | | | [phone] | | ([facility]); | | | | | | Proliferative [...] Bell MD - 02/26/2018 8:45 AM PDT [facility] Progress Note 02/26/2018 Assessment & Plan: 27 [...] file 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: The orthotic 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 | | | | | | ([facility]) | | + +--------+ + + + documented in this encounter Results OCT, RETINA (02/26/2018 9:24 AM PDT) + + + | Narrative | Performed At | + + + | Weight Trainer | LIANET RAMIREZ | | [facility] [...] [facility] | [address] | [place] [address] | | | INSTITUTE | [place]. | [...]
--- OUTSIDE RECORDS SUMMARY | ~2020-02-13 | XMS | Encounter Summary ---
Demographics + + + | Address | [address] [facility] [address] [facility] | | | [place] [address] | + + + | Home Phone [...] Team Providers + +------+ + | Care Shredder Operator Name | Role | Phone | + +------+ + | Taco Dionne ESTATE PLANNING PARALEGAL | PCP | | + +------+ + Encounter Details +--------+ + + + + | Date | Type | Department | Care Team | Description | +--------+ + + + + | 08/15/ | Results/Int | [facility] | René Sue | Vitreous hemorrhage, | | 2017 | erpretation | [facility] | James Varela MD [address] | right eye (HCC) | | | | [place] [address] [address] | [address] | | | | | [address] | [place], [place] | | | | | Eye [place], [facility] | [address] | | | | | floor [place], [place] | [phone] | | | | | [address] | [...] João Horta - 08/15/2017 8:43 AM Eric Caba was seen in the [facility] Photography/Ultrasound Department [...]
--- OUTSIDE RECORDS SUMMARY | ~2020-02-13 | XMS | Encounter Summary ---
Demographics + + + | Address | [address] | | | [place] [address] | + + + | Home Phone | | + + + | Preferred Language | Unknown | + + + | Marital Status | Single | + + + | Faith Affiliation | NON | + + + | Race | White | + + + | Ethnic Group | Not or | + + + Author + + + | Author | [facility] | + + + | Organization | [facility] | + + + | Address | Unknown | + + + | Phone | Unavailable | + + + Support + + +---------+ + | Name | Relationship | Address | Phone | + + +---------+ + | Madelyn Marquez | ECON | Unknown | | + + +---------+ + Care Team Providers + +------+ + | Care Floor Person Name | Role | Phone | + +------+ + | TacoDionne MAINTENANCE SUPERVISOR | PCP | | + +------+ [...] | | | | | | | [address] | | | | | | | [address] | [address] | | | | | | | [place], [place] | | | | | | | [address] | | | | | | | Phone: | | | | | | | [phone] | | | | | | | Fax: | | | | | | | [phone] | +--------+--------+ + + + + Encounter Details +--------+---------+ + + + | Date | Type | Department | Care Team | Description | +--------+---------+ + + + | 05/15/ | Office | [facility] | Allan Snell | Proliferative | | 2018 | Visit | [facility] | MD Christi [address] | diabetic retinopathy | | | | Aarti Cuello [address] | [address] | with macular edema, | | | | [address] | [place], [place] | right eye (Primary | | | | [facility], [address] | [address] | Dx); Proliferative | | | | floor [place], [place] | [phone] | diabetic retinopathy | | | | [...] rub or touch your eye ? An zcns-jbw-pukbpju pain reliever (i.e. Tylenol) can be used [...] PM PDT [facility] Progress Note 05/15/2018 Assessment & Plan: [...] pump 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: The outside plant 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 bevacizumab 1.25 mg/0.05 mL | | | [facility]: [id number] | | | Lot: [id number] | | | Expiration Date: 05/23/2018 | [...]
--- OUTSIDE RECORDS SUMMARY | ~2020-02-13 | XMS | Encounter Summary ---
Demographics + + + | Address | [address] | | | [place] [address] | + + + | Home Phone [...] + + + | Author | [facility] | + + + | Organization | [facility] | + + + | Address | Unknown | + + + | Phone | Unavailable | + + + Support + + +---------+ + | Name | Relationship | Address | Phone | + + +---------+ + | Madelyn Marquez | ECON | Unknown | | + + +---------+ + Care Team Providers + +------+ + | Care Sprinkling System Installer Name | Role | Phone | + +------+ + | TacoDionne JEEP DRIVER | PCP | | + +------+ + Encounter Details +--------+ + + + + | Date | Type | Department | Care Team | Description | +--------+ + + + + | 03/31/ | Medical Driver | [facility] | Shahzad Awad, | | | 2018 | | [facility] | [address] | | | | [address] | [address] | | | | | [address] | [place], [place] | | | | | Eye [facility] | [address] | | | | | [place], [place] | [phone] | | | | | [address] | [...]
--- OUTSIDE RECORDS SUMMARY | ~2020-02-13 | XMS | Encounter Summary ---
Demographics + + + | Address | [address] | | | [place] [address] | + + + | Home Phone | | + + + | Preferred Language | Unknown | + + + | Marital Status | Single | + + + | Oriental Orthodox Affiliation | NON | + + + | Race | White | + + + | Ethnic Group | Not or | + + + Author + + + | Author | [facility] | + + + | Organization | [facility] | + + + | Address | Unknown | + + + | Phone | Unavailable | + + + Support + + +---------+ + | Name | Relationship | Address | Phone | + + +---------+ + | Madelyn Marquez | ECON | Unknown | | + + +---------+ + Care Team Providers + +------+ + | Care Software Engineering Associate Manager Name | Role | Phone | + +------+ + | TacoDionne HOOP EXPANDER | PCP | | + +------+ + Reason for Visit +---------+ + | Reason | Comments | +---------+ + | Post Op | | +---------+ + Encounter Details +--------+---------+ + + + | Date | Type | Department | Care Team | Description | +--------+---------+ + + + | 04/10/ | Office | [facility] | Shahzad Awad, | Proliferative | | 2018 | Visit | [place] [facility] | [address] | diabetic retinopathy | | | | Kimberly [address] [facility] | [address] | with macular edema, | | | | [facility] | [place], [place] | left eye | | | | Clinic [place], | [address] | | | | | [place] [address] | [phone] | | | | | [phone] | | | +--------+---------+ + + + [...] of this encounter Patient Instructions Patient Instructions Shahzad Awad MD - 04/10/2018 2:40 PM PDTdiscontinue Ofloxacin (t an cap) -discontinue Atropine (manager credit) - Continue with Prednisolone drops (white cap) four times daily for one week, then three ti mes daily for one week, twice daily for one week, once daily -discontinue shield at night 3:1 5 PM PDT documented in this encounter Progress Notes Shahzad Awad MD - 04/10/2018 2:40 PM PDTFormatting of this note might be different fr om the original. [facility] Progress Note 04/10/2018 Assessment & Plan: 27 y.o. male Proliferative diabetic retinopathy with macular edema, left eye POW#1- s/p -PPV/EL/MP/afx OS 03/31/18 -discontinue Ofloxacin (padilla cap) -discontinue Atropine (manager credit) - Continue with Prednisolone drops (white cap) four times daily for one week, then three ti mes daily for one week, twice daily for one week, once daily -discontinue shield at night -Return precautions reviewed Follow up: Return in about 3 weeks (around 05/01/2018) for OCT OU, dilation OU. - Call for decreased vision, increased distortion, increased pain, new floaters or flashing lights Chief Complaint: Post Op HPI (Edited by physician):POW#1 s/p PPV/EL/MP/Afx OS (03/31/18) Vision has improved and eye is more comfort. Bubble is gone. Stopped using drops yesterday. Current Outpatient Prescriptions (Ophthalmic Medications) Medication Sig [...] mg/day 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: The certified technician specialist, under the supervision of the physician, is [...] macular edema, left eye | + + documented in this encounter"
--- OUTSIDE RECORDS SUMMARY | ~2020-02-13 | XMS | Encounter Summary ---
Demographics + + + | Address | [address] | | | [place] [address] | + + + | Home Phone [...] Team Providers + +------+ + | Care Wound Care Rn Name | Role | Phone | [...] Rd | | | | | | [place], [place] | | | | | | [address] | | | +--------+ + + + [...]
--- OUTSIDE RECORDS SUMMARY | ~2020-02-13 | XMS | Encounter Summary ---
Demographics + + + | Address | [address] | | | [place] [address] | + + + | Home Phone | | + + + | Preferred Language | Unknown | + + + | Marital Status | Single | + + + | Confucianism Affiliation | NON | + + + [...] Team Providers + +------+ + | Care Marketing Assistant Name | Role | Phone | + [...] Rd | | | | | | [place], [place] | | | | | | [address] | | | +--------+ + + + [...]
--- OUTSIDE RECORDS SUMMARY | ~2020-02-13 | XMS | Encounter Summary ---
Demographics + + + | Address | [address] | | | [place] [address] | + + + | Home Phone [...] + + | Author | [facility] | + + + | Organization | [facility] | + + + | Address | Unknown | + + + | Phone | Unavailable | + + + Support + + +---------+ + | Name | Relationship | Address | Phone | + + +---------+ + | Madelyn Marquez | ECON | Unknown | | + + +---------+ + Care Team Providers + +------+ + | Care Weed Inspector Name | Role | Phone | + +------+ + | Taco Dionne BRANCH OPERATIONS COORDINATOR | PCP | | + +------+ [...] | | | | | | | [place], [place] | | | | | | | [address] | | | | | | | Phone: | | | | | | | [phone] | | | | | | | Fax: | | | | | | | [phone] | +--------+--------+ + + + + Encounter Details +--------+---------+ + + + | Date | Type | Department | Care Team | Description | +--------+---------+ + + + | 07/18/ | Office | [facility] | Nghia Bell MD | Type 1 diabetes | | 2016 | Visit | [place] [facility] | [address] | mellitus with | | | | [place] [address] | [address] | proliferative | | | | [facility] | [place], [place] | retinopathy of right | | | | Clinic [place], | [address] | eye and macular | | | | [place] [address] | [phone] | edema (HCC) (Primary | | | | [phone] | | Dx); Proliferative | | | [...] | | | | ([facility]) [E10.3519]; | | | | | | Proliferative | | | | | | diabetic retinopathy | | | | | | without macular | | | | | | edema associated | | | | | | with type 1 diabetes | | | | | | mellitus ([facility]) | +--------+---------+ + + [...] PM PDT [facility] Progress Note 07/18/2016 Assessment & Plan: 26 y.o. male Proliferative diabetic retinopathy without macular edema associated with type 1 diabetes me llitus ([facility]) Type 1 DM - PDR OU, DME [...] . 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
--- OUTSIDE RECORDS SUMMARY | ~2020-02-13 | XMS | Encounter Summary ---
Demographics + + + | Address | [address] | | | [place] [address] | + + + | Home Phone [...] Author + + + | Author | [facility] | + + + | Organization | [facility] | + + + | Address | Unknown | + + + | Phone | Unavailable | + + + Support + + +---------+ + | Name | Relationship | Address | Phone | + + +---------+ + | Madelyn Marquez | ECON | Unknown | | + + +---------+ + Care Team Providers + +------+ + | Care Agriculture Manager Name | Role | Phone | [...] | | | Epic Dept | MD Jasno | | | | | | | [address] | | | | | | | [address] | | | | | | | [address] | | | | | | | [place], [place] | | | | | | | [address] | | | | | | | Phone: | | | | | | | [phone] | | | | | | | Fax: | | | | | | | [phone] | +--------+--------+ + + + + Encounter Details +--------+---------+ + + + | Date | Type | Department | Care Team | Description | +--------+---------+ + + + | 07/29/ | Office | [facility] | Jason Elizondo MD | Proliferative | | 2019 | Visit | [place] [facility] | [address] | diabetic retinopathy | | | | [place] [address] | [address] | with macular edema, | | | | [facility] | [place], [place] | right eye (Primary | | | | Clinic [place], | [address] | Dx); Proliferative | | | | [place] [address] | [phone] | diabetic retinopathy | | | | [phone] | | of left eye with | | | | | | macular edema | | | | | | associated with type | | | | | | 1 diabetes mellitus | | | | | | ([facility]); | | | | | | Proliferative [...] ([facility]) | +--------+---------+ + + + Social History [...] of this encounter Patient Instructions Patient Instructions Jason Elizondo MD - 07/29/2019 10:30 AM PDTReturn before scheduled vi sit with decreasing vision, distortion, or new shower of floaters. documented in this encounter Progress Notes Jason Elizondo MD - 07/29/2019 10:30 AM PDT [facility] Progress Note 07/29/2019 Assessment & Plan: 29 y.o. male Proliferative diabetic retinopathy (s/p PPV/MP 31MAR2018) with macular edema, left eye PDR s/p PRP OU s/p PPV/MP OS 03/24 DME OU s/p Avastin OU Had VH OS in 11/2017, told to f/u in [place] for US, but did not show. VA had improved, bu t now much worse since last night. New VH Progressive PDR and DME OD PARQ Avastin OD now B-scan in [place] today to r/o RD OS Call for decreased vision, increased distortion, increased pain, new floaters or flashing l ights Follow up: Return today (on 07/29/2019). Chief Complaint: Follow-up visit HPI: Last night he woke up at 9 PM and 'my vision in the left eye was gone.' He was able to see light and nothing else. BS: 122 this AM Last A1c: unknown No occupation listed. Current Outpatient Medications (Other) Medication Sig cephALEXin Take 1 capsule by mouth four times daily. gabapentin Take 1 capsule by mouth three times daily. HumaLOG U-100 Insulin Indications: insulin pump Reviewed: Tobacco | Allergies | Meds | Problems | Med Hx | Surg Hx | Fam Hx | Soc Hx 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: The attending physician is responsible for and agrees with the entire content of the note a nd has personally performed the HPI and the physical examination. Jason Elizondo MD docum ented in this encounter Plan of Treatment Not on filedocumented as of this encounter Procedures + +--------+ + + + | Procedure Name | Priori | Date/Time | Associated Diagnosis | Comments | | | ty | | | | + +--------+ + + + | AVASTIN INJ - OD - | Routin | 07/29/2019 | Proliferative | Results for this | | RIGHT EYE | e | 11:49 AM | diabetic retinopathy | procedure are [...] + | OCT, RETINA | Routin | 07/29/2019 | Proliferative | Results for this | | | e | 11:13 AM | diabetic retinopathy | procedure are [...] + + documented in this encounter Results B SCAN ULTRASOUND - OS - LEFT EYE (07/29/2019 2:03 PM PDT) + + + | Narrative | Performed At | + + + | B-scan OS | [facility] | | AC: Formed | [facility] | | Lens: Phakic | | | Vitreous: Diffuse opacities | | | Retina: attached within field of view | | | Choroid/ sclera: unremarkable | | | Disc/ Nerve: unremarkable | | | Orbit/ muscles: unremarkable | | | | | | | | | João PARMAR | | | | | | I have reviewed the images and the [...] | + + + + + | [facility] | [address] | [place] [address] | | | INSTITUTE | [address]. | | | + + + + + AVASTIN INJECTION - OD - RIGHT EYE (07/29/2019 11:49 AM PDT) + + + | Narrative [...] bevacizumab 1.25 mg/0.05 mL | | | [facility]: [id number], Lot: [id number], Expiration date: 09/02/2019 | | | Route: intravitreal, Site: Right Eye | | | | [...] | | + + + OCT, RETINA (07/29/2019 11:13 AM PDT) + + + | Narrative | Performed At | + + + | Reverber[facility] | [facility] | | DocumentationRight [facility] [...] + + | [facility] | [address] | [place] [address] | | | JOÃO | [address]. | [...] +---------+------+--------+ | bevacizumab (AVASTIN) | Given | 07/29/20 | 1.25 mg | | Right | | intravitreal injection 1.25 mg | | 19 11:49 | | | Eye | | 1.25 mg, ONCE PRN (IPROC), 1 | | AM PDT | | | | | dose, Starting Sat07/29/19 at | | | | | | | 1149, Until Sat07/29/19 at 1149 | | | | | | + +--------+ +---------+------+--------+ +---+---+ | | | +---+---+ documented in this encounter"
--- OUTSIDE RECORDS SUMMARY | ~2020-02-13 | XMS | Encounter Summary ---
Demographics + + + | Address | [address] | | | [place] [address] | + + + | Home Phone [...] Author + + + | Author | [facility] | + + + | Organization | [facility] | + + + | Address | Unknown | + + + | Phone | Unavailable | + + + Support + + +---------+ + | Name | Relationship | Address | Phone | + + +---------+ + | Madelyn Marquez | ECON | Unknown | | + + +---------+ + Care Team Providers + +------+ + | Care Operations Intelligence Superintendent Name | Role | Phone | + +------+ + | Taco Dionne HYDROELECTRIC PLANT MAINTAINER | PCP | | + +------+ + [...] | | | | | | | [place], [place] | | | | | | | [address] | | | | | | | Phone: | | | | | | | [phone] | | | | | | | Fax: | | | | | | | [phone] | +--------+--------+ + + + + Encounter Details +--------+---------+ + + + | Date | Type | Department | Care Team | Description | +--------+---------+ + + + | 08/28/ | Office | [facility] | Nghia Bell MD | Proliferative | | 2017 | Visit | [place] [facility] | [address] | diabetic retinopathy | | | | [place] [address] | [address] | of left eye with | | | | [facility] | [facility], [place] | macular edema | | | | Clinic [place], | [address] | associated with type | | | | [place] [address] | [phone] | 1 diabetes mellitus | | | | [phone] | | (HCC) (Primary Dx) | +--------+---------+ [...] Bell MD - 08/28/2017 9:30 AM PST [facility] Progress Note 08/28/2017 Assessment & Plan: 27 [...] file 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: The career guidance 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
--- OUTSIDE RECORDS SUMMARY | ~2020-02-13 | XMS | Encounter Summary ---
Demographics + + + | Address | [address] | | | [place] [address] | + + + | Home Phone [...] Team Providers + +------+ + | Care Greeter Guest Services Name | Role | Phone | + [...] Decreased vision | | 2019 | | [facility] | [address] | | | | | [place] [address] [address] | [address] | | | | | [address] | [place], [place] | | | | | Eye [facility], [facility] | [address] | | | | | floor [place], [place] | [phone] | | | | | [address] | [...]
--- OUTSIDE RECORDS SUMMARY | ~2020-02-13 | XMS | Encounter Summary ---
Demographics + + + | Address | [address] | | | [place] [address] | + + + | Home Phone [...] Team Providers + +------+ + | Care Fnp Name | Role | Phone | + +------+ + | Partha España MD | PCP | | + +------+ + Encounter Details +--------+--------+ + + + | Date | Type | Department | Care Team | Description | +--------+--------+ + + + | 07/28/ | Intake | Transfer Center | | N/A | | 2019 | | [address] | | | | | | [place], | | | | | | [place] [address] | | | +--------+--------+ + + + [...]
--- OUTSIDE RECORDS SUMMARY | ~2020-02-13 | XMS | Clinical Summary ---
Demographics + + + | Address | [address] | | | [place] [address] | + + + | Home Phone [...] + + | Author | [facility] | + + + | Organization | [facility] | + + + | Address | Unknown | + + + | Phone | Unavailable | + + + Support + + +---------+ + | Name | Relationship | Address | Phone | + + +---------+ + | Madelyn Marquez | ECON | Unknown | | + + +---------+ + Care Team Providers + +------+ + | Care Sales Designer Name | Role | Phone | + +------+ + | Partha España MD | PCP | | + +------+ + Source Comments [facility] is fully live on both [facility] and [facility] InPatient.[facility] Allergies + + + + + [...] + | Proliferative diabetic retinopathy (s/p PPV/MP [id number]) with | 12/12/2016 | | macular edema, [...] | | | | ([facility]); PDR with | | | | | [...] | | | ([facility]) (Primary Dx); | | | | | [...] | | ([facility]) | +--------+ + + + + | [...] | ([facility]) | | | | | | Proliferative [...] bevacizumab 1.25 mg/0.05 mL | | | [facility]: [id number], Lot: [id number], Expiration date: 01/27/2020 | | | Route: [...] + + -+ | B-scan OS | [facility] | | Indications: Vitreous Hemorrhage Procedure:the [...] [facility] | [address] | [place] [address] | | | INSTITUTE | [address]. | | | + + + + + BUTCH REAL (01/22/2020 11:00 AM PDT) + + -+ | Narrative | Performed At | + + -+ | Senior Accountant Analyst | [facility] | | DocumentationRight [...] [facility] | [address] | [place] [address] | | | INSTITUTE | [address] | [...] | | | + +--------+ +--------+-------+---------+--------+ | PIN DRAFTER OPERATOR MEDICAID | PIN DRAFTER OPERATOR | [id number] | 07/23/ | | | [...] [address] | | | [address] (Home) | [address] | + +--------+ +--------+ + +
--- OUTSIDE RECORDS SUMMARY | ~2020-02-13 | XMS | Encounter Summary ---
Demographics + + + | Address | [address] | | | [place] [address] | + + + | Home Phone | | + + + | Preferred Language | Unknown | + + + | Marital Status | Single | + + + | Bahai Affiliation | NON | + + + [...] Team Providers + +------+ + | Care Certified Lactation Educator Name | Role | Phone | + +------+ + | Dionne España NICHOLAS | PCP | | + +------+ + Encounter Details +--------+ + + + + | Date | Type | Department | Care Team | Description | +--------+ + + + + | 01/09/ | Document-Sc | Health Information | Unknown . | | | 2018 | anned | Services [address] | | | | | [address] | | | | | | Mailcode: [id number] | | | | | | [facility] | | | | | | [place], [place] | | | | | | [address] | | | | | | [phone] | | | +--------+ + + + [...]
--- OUTSIDE RECORDS SUMMARY | ~2020-02-13 | XMS | Encounter Summary ---
Demographics + + + | Address | [address] | | | [place] [address] | + + + | Home Phone | | + + + | Preferred Language | Unknown | + + + | Marital Status | Single | + + + | Mu-Ism Affiliation | NON | + + + [...] Team Providers + +------+ + | Care Capacity Planning Analyst Name | Role | Phone | [...] + + | 03/27/ | Documentati | [facility] | Shahzad Awad, | History and physical | | 2018 | on | [facility] | [address] | examination | | | | [address] | [address] | | | | | [address] | [place], [place] | | | | | Eye [place] | [address] | | | | | floor [place], [place] | [phone] | | | | | [address] | [...]
--- OUTSIDE RECORDS SUMMARY | ~2020-02-13 | XMS | Encounter Summary ---
Demographics + + + | Address | [address] | | | [place] [address] | + + + | Home Phone | | + + + | Preferred Language | Unknown | + + + | Marital Status | Single | + + + | Caodaism Affiliation | NON | + + + [...] Team Providers + +------+ + | Care Concession Cashier Name | Role | Phone | + +------+ + | Taco Dionne CONDEMNATION ENGINEER | PCP | | + +------+ [...] | | | | | | | [place], [place] | | | | | | | [address] | | | | | | | Phone: | | | | | | | [phone] | | | | | | | Fax: | | | | | | | [phone] | +--------+--------+ + + + + Encounter Details +--------+---------+ + + + | Date | Type | Department | Care Team | Description | +--------+---------+ + + + | 04/17/ | Office | [facility] | Nghia Bell MD | Proliferative | | 2017 | Visit | [place] [facility] | [address] | diabetic retinopathy | | | | [place] [address] | [address] | of left eye with | | | | [facility] | [place], [place] | macular edema | | | | Clinic [place], | [address] | associated with type | | | | [place] [address] | [phone] | 1 diabetes mellitus | | | | [phone] | | (HCC) (Primary Dx) | +--------+---------+ [...] Patient Instructions Patient Instructions Lanie Childs - 04/17/2017 3:15 PM PDT Care Instructions After Eye Injection: Do not rub or touch your eyes. Redness in the corner of the eye is okay. Use Artificial tears every hour for BOTH EYES as needed for gritty sensation over the ne xt 2-3 days. If you experience increased pain or decreased vision, immediately call [phone].Elec tronically signed by Lanie Childs at 04/17/2017 3:15 PM PDT documented in this encounter Progress Notes Lanie Childs - 04/17/2017 3:15 PM PDT Intravitreal Injection Procedure Note 04/17/2017 for: AVASTIN, BOTH EYES LOT #[id number] (21 OD) and Expiration 04/24/2017 RIGHT EYE: LOT # [id number] (11 OD) and Expiration 04/24/2017 LEFT EYE: Attending: Nghia Bell MD Diagnosis: Proliferative diabetic retinopathy of left eye with macular edema associated wit h type 1 diabetes mellitus (HCC) (primary encounter diagnosis) Indication: Risk of further vision loss without treatment Allergies: Penicillin Anesthesia: Subconjunctival lidocaine injection PARQ held for above. Team Pause: At 3:15 PM, prior to the beginning of the [...] performed the entire procedure. Nghia Bell MD, 04/17/2017 Nghia Dasilva MD - 0 04/17/2017 2:00 PM PDT [facility] Progress Note 04/17/2017 Assessment & Plan: 26 y.o. male Proliferative diabetic retinopathy of left eye with macular edema associated with type 1 di abetes mellitus (HCC) PDR OU s/p PRP OU DME OU s/p Avastin OU Fibrotic NV OU, no VH Increasing fluid OU PARQ Avastin OU today Call for decreased vision, increased distortion, increased pain, new floaters or flashing l ights Follow up: Return in about 9 weeks (around 06/19/2017). OCT CMT Description Right 300 (04/17/17 1400) Comments:: DME Fluid:: IRF;Worse Left 333 (04/17/17 1400) Comments:: Minimal DME - - ERM, no TRD Fluid:: IRF;Worse Chief Complaint: Follow-up visit HPI: Vision seems to be improving. No floaters or flashes of light. BS: much better with pump- stable Last A1C: 9.0 Current Outpatient Prescriptions (Other) Medication Sig [...] file 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: The cardiopulmonary technician and eeg tech, under the supervision of the physician, is [...] | + +--------+ + + + | SD INTRAVITREAL INJ, | Routin | 04/17/2017 | Proliferative | | | AVASTIN | e | 3:15 PM | diabetic retinopathy | | | [...]
--- OUTSIDE RECORDS SUMMARY | ~2020-02-13 | XMS | Encounter Summary ---
Demographics + + + | Address | [address] | | | [place] [address] | + + + | Home Phone [...] Team Providers + +------+ + | Care Track Inspector Name | Role | Phone | [...] | | | | | [address] [place], | | | | | | [place] [address] | | | +--------+--------+ + + + [...]
--- OUTSIDE RECORDS SUMMARY | ~2020-02-13 | XMS | Encounter Summary ---
Demographics + + + | Address | [address] | | | [place] [address] | + + + | Home Phone [...] Team Providers + +------+ + | Care Vehicle Safety Inspector Name | Role | Phone | + +------+ + | Taco Dionne OPERATOR SUPPLY | PCP | | + +------+ + Reason for Visit + + + | Reason | Comments | + + + | Floaters | | + + + Encounter Details +--------+ + + + + | Date | Type | Department | Care Team | Description | +--------+ + + + + | 10/21/ | Telephone | [facility] | Dania Mccloud | [place] | | 2019 | | [facility] | [address] [facility] | | | | | Aarti Cuello [address] | [facility] | | | | | [address] | [place], [place] | | | | | Eye [place], [facility] | [address] | | | | | [place], [place] | [phone] | | | | | [id number] | | | +--------+ + + + [...]
--- OUTSIDE RECORDS SUMMARY | ~2020-02-13 | XMS | Encounter Summary ---
Demographics + + + | Address | [address] | | | [place] [address] | + + + | Home Phone [...] Team Providers + +------+ + | Care Metal Tube Cutter Name | Role | Phone | + +------+ + | TacoDionne CUSTODIAL MANAGER | PCP | | + +------+ [...] | | | | | | | [address] | | | | | | [address] | | | | | | | [address] | | | | | | | [place], [place] | | | | | | | [address] | | | | | | | Phone: | | | | | | | [phone] | | | | | | | Fax: | | | | | | | [phone] | +--------+--------+ + + + + Encounter Details +--------+---------+ + + + | Date | Type | Department | Care Team | Description | +--------+---------+ + + + | 05/19/ | Office | [facility] | Luis Snider MD | Proliferative | | 2018 | Visit | [facility] at | [address] | diabetic retinopathy | | | | [facility] [address] [facility] [place] | with macular edema, | | | | [address] [place] | [address] | left eye (Primary | | | | Eye [facility] | [phone] | Dx) | | | | floor [place], [place] | | | | | | [...] rub or touch your eye ? An azpn-nty-vcbjgfx pain reliever (i.e. Tylenol) can be used [...] Snell MD - 05/19/2018 1:00 PM PDT [facility] Progress Note 05/19/2018 Assessment & Plan: 27 [...] in about 4 weeks (around 06/16/2018) for [place]. Chief Complaint: Decreased vision HPI (Edited by [...] pump 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: The office [...] INJ - OS - | Routin | 05/19/2018 | Proliferative | Results for this | | LEFT EYE | e | 3:13 PM [...] | | | bevacizumab 1.25 mg/0.05 mL [facility]: [id number] Lot: [id number] | | | Expiration Date: 05/23/2018 Route: [...] bevacizumab 1.25 mg/0.05 mL | | | [facility]: [id number] | | | Lot: [id number] | | | Expiration Date: 05/23/2018 | [...] + + | This is a | [facility] | | B-scan of the left eye for vitreous hemorrhage. The ultrasound | [facility] | | demonstrates diffuse opacities throughout the [...] + + | [facility] | [address] | [place] [address] | | | JOÃO | Faraz. | [...]
--- OUTSIDE RECORDS SUMMARY | ~2020-02-13 | XMS | Encounter Summary ---
Demographics + + + | Address | [address] [facility] [address] | | | [place] [address] | + + + | Home Phone [...] Team Providers + +------+ + | Care Oracle Database Manager Name | Role | Phone | + +------+ + | Dionne España NICHOLAS | PCP | | + +------+ + Encounter Details +--------+ + + + + | Date | Type | Department | Care Team | Description | +--------+ + + + + | 05/09/ | Document-Sc | Health Information | Unknown . | | | 2016 | anned | Services [phone] | | | | | | [address] | | | | | | Mailcode: [id number] | | | | | | [facility] | | | | | | [place], [place] | | | | | | [address] | | | | | | [phone] | | | +--------+ + + + [...]
--- OUTSIDE RECORDS SUMMARY | ~2020-02-13 | XMS | Encounter Summary ---
Demographics + + + | Address | [address] [facility] [facility] | | | [place] [address] | + + + | Home Phone [...] Team Providers + +------+ + | Care Undergraduate Internship Name | Role | Phone | + +------+ + | Partha España MD | PCP | | + +------+ + Reason for Referral Consult to [place] (Routine) + +--------+ + + + + | Status | Reason | Specialty | Diagnoses / | Referred By | Referred To | | | | | Procedures | Contact | Contact | + +--------+ + + + + | New Request | | | Diagnoses | [facility] | | | | | | | Shahzad Renteria MD | | | | | | [facility] | [address] | | | | | | e diabetic | [address] | | | | | | retinopathy | [address]vd | | | | | | of left eye | [place], [place] | | | | | | with macular | [address] | | | | | | edema | Phone: | | | | | | associated | [phone] | | | | | | with type 1 | Fax: | | | | | | diabetes | [phone] | | | | | | mellitus | | | | | | | ([facility]) | | | | | | | Proliferativ | | | | | | | e diabetic | | | | | | | retinopathy | | | | | | | of right eye | | | | | | | with | | | | | | | macular | | | | | | | edema | | | | | | | associated | | | | | | | with type 1 | | | | | | | diabetes | | | | | | | mellitus | | | | | | | ([facility]) | | | | | | | Procedures | | | | | | | REQUEST TO | | | | | | | SURGERY | | | | | | | BENCH PRECISION ASSEMBLER | | | + +--------+ + + + + Reason for Visit + + + [...] + +--------+ + + + + | Pending | | Ophthalmology | | Non-[facility] | [facility], | | Review | | | | Epic Dept | Shahzad Renteria MD | | | | | | | [address] | | | | | | [address] | | | | | | | [address] | | | | | | | [place], [place] | | | | | | | [address] | | | | | | | Phone: | | | | | | | [phone] | | | | | | | Fax: | | | | | | | [phone] | + +--------+ + + + + Encounter Details +--------+---------+ + + + | Date | Type | Department | Care Team | Description | +--------+---------+ + + + | 02/10/ | Office | [facility] | Shahzad Awad, | Proliferative | | 2020 | Visit | [facility] | [address] | diabetic retinopathy | | | | [address] | of left eye with | | | | [facility] | [place], [place] | macular edema | | | | Clinic [place], | [address] | associated with type | | | | [place] [address] | [phone] | 1 diabetes mellitus | | | | [phone] | | ([facility]); PDR with | | | | | | macular edema, right | | | | | | eye | +--------+---------+ + + + Social [...] encounter Progress Notes Shahzad Awad MD - 02/11/2020 9:30 AM PDTFormatting of this note might be different fr om the original. [facility] Progress Note 02/11/2020 Assessment & Plan: 29 y.o. 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 No active NV on exam. -continue to monitor PDR with macular edema, right eye Worse with increased traction with lamellar hole appearance and worsening fibrosis. Hesita nt for anti-VEGF injection because of worry for crunch. -recommend vitrectomy. Possible anti-VEGF treatment the week before surgery. -discussed surgery in detail, including post-op restrictions and procedure. Follow up: Return schedule PPV OD. - Call for decreased vision, increased distortion, increased pain, new floaters or flashing lights Chief Complaint: Follow-up visit HPI (Edited by physician):Improved vision OS (almost back to normal), stable OD, BS 184, la st A1C 8.6 Current Outpatient Medications (Other) Medication Sig cephALEXin Take 1 capsule by mouth four times daily. gabapentin Take 1 capsule by mouth three times daily. HumaLOG U-100 Insulin Indications: insulin pump 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: The electrical mechanical 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 diabetes mellitus (HCC) | + + | PDR with macular edema, right eye | + + documented in this encounter"
--- OUTSIDE RECORDS SUMMARY | ~2020-02-13 | XMS | Encounter Summary ---
Demographics + + + | Address | [address] [facility] [facility] | | | [place] [address] | + + + | Home Phone | | + + + | Preferred Language | Unknown | + + + | Marital Status | Single | + + + | Anabaptist Affiliation | NON | + + + [...] Providers + +------+ + | Care Machine I Coremaker Name | Role | Phone | + [...] Proliferative | | 2018 | Visit | [facility] | [address] | diabetic retinopathy | | | | Kimberly [address] | [address] | of left eye with | | | | [facility] | [place], [place] | macular edema | | | | Clinic [place], | [address] | associated with type | | | | [place] [address] | [phone] | 1 diabetes mellitus | | | | [phone] | | ([facility]); | | | | | | Proliferative | | | | | | diabetic retinopathy | | | | | | of right eye with | | | | | | macular edema | | | | | | associated with type | | | | | | 1 diabetes mellitus | | | | | | ([facility]) | +--------+---------+ + + + [...] the original. [facility] Progress Note 02/27/2018 Assessment & Plan: 27 y.o. 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 - Call for decreased vision, increased [...] mg/day 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: The solid waste 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
--- OUTSIDE RECORDS SUMMARY | ~2020-02-13 | XMS | Encounter Summary ---
Demographics + + + | Address | [address] | | | [place] [address] | + + + | Home Phone [...] Team Providers + +------+ + | Care Mix Crusher Operator Name | Role | Phone | [...] Vitreous hemorrhage | | 2019 | | [facility] | [address] | | | | | Kimberly [facility] | [address] | | | | | [facility] | [place], [place] | | | | | Clinic [place], | [address] | | | | | [place] [address] | [phone] | | | | | [phone] | | | +--------+ + + + [...]
--- OUTSIDE RECORDS SUMMARY | ~2020-02-13 | XMS | Encounter Summary ---
Demographics + + + | Address | [address] [facility] | | | [place] [address] | + + + | Home Phone [...] Team Providers + +------+ + | Care Adhesion Tester Name | Role | Phone | + +------+ + | TacoDionne FINANCE AND ADMINISTRATION MANAGER | PCP | | + +------+ [...] | | | | | | | [address] | | | | | | | [address] | | | | | | | [address] | | | | | | | [place], [place] | | | | | | | [address] | | | | | | | Phone: | | | | | | | [phone] | | | | | | | Fax: | | | | | | | [phone] | +--------+--------+ + + + + Encounter Details +--------+---------+ + + + | Date | Type | Department | Care Team | Description | +--------+---------+ + + + | 05/19/ | Office | [facility] | Luis Snider MD | Proliferative | | 2018 | Visit | [facility] at | [address] | diabetic retinopathy | | | | [facility] [address] [facility] [place] | with macular edema, | | | | [address] [place] | [address] | left eye (Primary | | | | [facility] | [phone] | Dx) | | | | floor [place], [place] | | | | | | [...] rub or touch your eye ? An bbkc-iyk-vnjntlh pain reliever (i.e. Tylenol) can be used [...] PM PDT [facility] Progress Note 05/19/2018 Assessment & Plan: [...] in about 4 weeks (around 06/16/2018) for [place]. Chief Complaint: Decreased vision HPI (Edited by [...] pump 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: The vein access 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 | | | bevacizumab 1.25 mg/0.05 mL [facility]: [id number] Lot: [id number] | | | Expiration Date: 05/23/2018 Route: [...] 1.25 mg/0.05 mL | | | [facility]: [id number] | | | Lot: [id number] | | | Expiration Date: 05/23/2018 | [...] + + | This is a | [facility] | | B-scan of the left eye for vitreous hemorrhage. The ultrasound | [facility] | | demonstrates diffuse opacities throughout the vitreous cavity. There | | | is a nasal point of adhesion, but no subretinal fluid is seen at this | | | site. The retina appears attached. João APRMAR I have | | | reviewed the [...] + + | [facility] | [address] | [place] [address] | | | JOÃO | Faraz. | [...]
--- OUTSIDE RECORDS SUMMARY | ~2020-02-13 | XMS | Encounter Summary ---
Demographics + + + | Address | [address] [facility] | | | [place] [address] | + + + | Home Phone [...] Phone | + + +---------+ + | Madeyln Marquez | ECON | Unknown | | + + +---------+ + Care Team Providers + +------+ + | Care Ehs Specialist Name | Role | Phone | [...] Letter From | | 2017 | | [facility] | [address] | Specialist | | | | [facility] | [address] | | | | | [facility] | [place], [place] | | | | | Clinic [place], | [address] | | | | | [place] [address] | [phone] | | | | | [phone] | | | +--------+ + + + [...]
--- OUTSIDE RECORDS SUMMARY | ~2020-02-13 | XMS | Encounter Summary ---
Demographics + + + | Address | [address] [facility] [facility] | | | [place] [address] | + + + | Home Phone | | + + + | Preferred Language | Unknown | + + + | Marital Status | Single | + + + | Christianity Affiliation | NON | + + + [...] Team Providers + +------+ + | Care C Python Developer Name | Role | Phone | + +------+ + | Taco Dionne CONDUIT BENDER | PCP | | + +------+ + [...] | | | | | | [place], [place] | | | | | | | [address] | | | | | | | Phone: | | | | | | | [phone] | | | | | | | Fax: | | | | | | | [phone] | +--------+--------+ + + + + Encounter Details +--------+---------+ + + + | Date | Type | Department | Care Team | Description | +--------+---------+ + + + | 11/13/ | Office | [facility] | Shahzad Awad, | Proliferative | | 2019 | Visit | [place] [facility] | [address] | diabetic retinopathy | | | | Kimberly [address] | [address] | of left eye with | | | | [facility] | [place], [place] | macular edema | | | | Clinic [place], | [address] | associated with type | | | | [place] [address] | [phone] | 1 diabetes mellitus | | | | [phone] | | ([facility]); | | | | | [...] the original. [facility] Progress Note 11/13/2018 Assessment & Plan: 28 y.o. male Proliferative diabetic retinopathy (S/P PPV/MP 31MAR2018) with macular edema, left eye New vitreous hemorrhage -no view today -discussed ultrasound in [place] is needed Proliferative diabetic retinopathy with macular edema, right eye Active NV today -needs treatment, does not want shot today because he drove and can only see out of this ey e currently. Will treat during upcoming visit in [place]. He will have a wheelchair driver. Follow up: Return in about 2 [...] pump 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: The fleet [...] | | | | | | ([facility]) | | + +--------+ + + + documented in this encounter Results OCT, RETINA (11/13/2018 3:39 PM PST) + + + | Narrative | Performed At | + + + | [employer]ric[employer] | [facility] | | DocumentationRight EyeCentral [...] + + | [facility] | [address] | [place] [address] | | | JOÃO | Faraz. | [...]
--- OUTSIDE RECORDS SUMMARY | ~2020-02-13 | XMS | Encounter Summary ---
Demographics + + + | Address | [address] [facility] | | | [place] [address] | + + + | Home Phone [...] Team Providers + +------+ + | Care Net Mvc Developer Name | Role | Phone | + +------+ + | TacoDionne CUSTOMER PROFESSIONAL | PCP | | + +------+ [...] Proliferative | | 2018 | Visit | [place] [facility] | [address] | diabetic retinopathy | | | | [facility]ly [address] | [address] | with macular edema, | | | | [facility] | [place], [place] | left eye | | | | Clinic [place], | [address] | | | | | [place] [address] | [phone] | | | | | [phone] | | | +--------+---------+ + + + [...] PDTdiscontinue Ofloxacin (t an cap) -discontinue 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 [facility] Progress Note 04/10/2018 Assessment & Plan: 27 y.o. 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
--- OUTSIDE RECORDS SUMMARY | ~2020-02-13 | XMS | Encounter Summary ---
Demographics + + + | Address | [address] [facility] [facility] | | | [place] [address] | + + + | Home Phone [...] Team Providers + +------+ + | Care Home Service Demonstrator Name | Role | Phone | + [...] | | | | | | [address] [place], [place] | | | | | | [address] | | | | | | [phone] | | | +--------+ + + + [...]
--- OUTSIDE RECORDS SUMMARY | ~2020-02-13 | XMS | Encounter Summary ---
Demographics + + + | Address | [address] [facility] [facility] | | | [place] [address] | + + + | Home Phone [...] Team Providers + +------+ + | Care Front Office Spec Name | Role | Phone | + [...] | | | | | | | [address] | | | | | | | [address] | | [address] | | | | | | | [place], [place] | | | | | | | [address] | | | | | | | Phone: | | | | | | | [phone] | | | | | | | Fax: | | | | | | | [phone] | +--------+--------+ + + + + Encounter Details +--------+---------+ + + + | Date | Type | Department | Care Team | Description | +--------+---------+ + + + | 05/22/ | Office | [facility] | Nghia Bell MD | Proliferative | | 2016 | Visit | [facility] at | [address] | diabetic retinopathy | | | | [facility] [address] | without macular | | | | [address] | [place], [place] | edema associated | | | | [facility] [place] | [address] | with type 1 diabetes | | | | floor [place], [place] | [phone] | mellitus (HCC) | | | | [id number] | | (Primary Dx) | +--------+---------+ + [...] sensation for next 2-3 days. Call immediately [phone] for increased pain or decreased vision.Electronically sign ed by Dionne Rosen at 05/22/2016 5:09 PM PDT documented in this encounter Progress Notes Nghia Bell MD - 05/23/2016 3:47 PM PDT [facility] Progress Note 05/22/2016 Assessment & Plan: 25 y.o. male Proliferative diabetic retinopathy without macular edema associated with type 1 diabetes me llitus ([facility]) DME OD s/p Avastin 04/21 - Improved [...] . 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: The bioinformatics 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 05/22/2016 for: AVASTIN, RIGHT EYE LOT # [id number] and Expiration 05/30/16 RIGHT EYE:8S Attending: Nghia [...] | + +--------+ + + + | MN INTRAVITREAL INJ, | Routin | 05/22/2016 | [...]
--- OUTSIDE RECORDS SUMMARY | ~2020-02-13 | XMS | Encounter Summary ---
Demographics + + + | Address | [address] [facility] [address] [facility] | | | [place] [address] | + + + | Home Phone [...] Team Providers + +------+ + | Care Board Stacker Name | Role | Phone | + +------+ + | Taco Dionne ENVIRONMENTAL PROGRAMS MANAGER | PCP | | + +------+ [...] | | | | | | | [place], [place] | | | | | | | [address] | | | | | | | Phone: | | | | | | | [phone] | | | | | | | Fax: | | | | | | | [phone] | +--------+--------+ + + + + Encounter Details +--------+---------+ + + + | Date | Type | Department | Care Team | Description | +--------+---------+ + + + | 03/04/ | Office | [facility] | Shahzad Awad, | Proliferative | | 2018 | Visit | [facility] at | [address] | diabetic retinopathy | | | | Aarti Cuello [address] | [address] | of left eye with | | | | [address] | [place], [place] | macular edema | | | | Eye [place], [facility] | [address] | associated with type | | | | floor [place], [place] | [phone] | 1 diabetes mellitus | | | [...] might be different fr om the original. [facility] Progress Note 03/04/2018 Assessment & Plan: [...] mg/day 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: The warehouse 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 | | | | | ([facility]) | | + +--------+ + + + documented in this encounter Results FLUORESCEIN ANGIOGRAPHY (03/04/2018 4:59 PM PDT) + + + | Narrative | Performed At | + + + | Professional Fee Coder | [facility] | | DocumentationConsent: Informed [...] + + | [facility] | [address] | [place] [address] | | | INSTITUTE | Faraz. | [...]
--- OUTSIDE RECORDS SUMMARY | ~2020-02-13 | XMS | Encounter Summary ---
Demographics + + + | Address | [address] [facility] | | | [place] [address] | + + + | Home Phone [...] Team Providers + +------+ + | Care Waterproofing Mixer Name | Role | Phone | + +------+ + | Dionne España NICHOLAS | PCP | | + +------+ + Encounter Details +--------+ + + + + | Date | Type | Department | Care Team | Description | +--------+ + + + + | 04/03/ | Document-Sc | Health Information | Unknown . | | | 2018 | anned | Services [address] | | | | | | [address] | | | | | | Mailcode: [id number] | | | | | | [facility] | | | | | | [place], [place] | | | | | | [address] | | | | | | [phone] | | | +--------+ + + + [...]
--- OUTSIDE RECORDS SUMMARY | ~2020-02-13 | XMS | Encounter Summary ---
Demographics + + + | Address | [address] [facility] | | | [place] [address] | + + + | Home Phone [...] Team Providers + +------+ + | Care Rehabilitation Specialist Name | Role | Phone | [...] | | | | | | | [address] | | | | | | | [address] | | [address] | | | | | | | [place], [place] | | | | | | | [address] | | | | | | | Phone: | | | | | | | [phone] | | | | | | | Fax: | | | | | | | [phone] | +--------+--------+ + + + + Encounter Details +--------+---------+ + + + | Date | Type | Department | Care Team | Description | +--------+---------+ + + + | 05/01/ | Office | [facility] | Nghia Bell MD | Proliferative | | 2016 | Visit | [facility] at | [address] | diabetic retinopathy | | | | [facility] [address] | [address] | with macular edema | | | | [address] | [place], [place] | associated with type | | | | Eye [place], [facility] | [address] | 1 diabetes mellitus | | | | floor [place], [place] | [phone] | ([facility]) (Primary Dx); | | | | [address] | | Proliferative | | | | | | diabetic retinopathy | | | | | | with macular edema | | | | | | associated with type | | | | | | 1 diabetes mellitus | | | | | | ([facility]) [E10.351] | +--------+---------+ + + + Social [...] is not normal. Please call us at [phone]. Care Instructions After Eye Injection: Do not rub or touch the eye. Redness in the corner of the eye is okay. Use Artificial tears every hour, RIGHT EYE, as needed for gritty sensation for next 2-3 day s. Call immediately [phone] for increased pain or decreased vision. documented [...] Note 05/01/2016 for: AVASTIN, RIGHT EYE LOT #[id number] Expiration 05/02/16RIGHT EYE:I12 Attending: Nghia Bell MD Diagnosis: Proliferative diabetic retinopathy with macular edema associated with type 1 brittney betes mellitus ([facility]) (primary encounter diagnosis) Proliferative diabetic retinopathy with [...] MD - 0 05/01/2016 1:58 PM PDT [facility] Progress Note 05/01/2016 Assessment & Plan: 25 [...] . 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: The sterile 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 | ([facility]) | | + +--------+ + + + | MO INTRAVITREAL INJ, | Routin | 05/01/2016 | Proliferative | | | AVASTIN | e | 3:40 PM | diabetic retinopathy | | | | | PDT | with macular edema | | | | | | associated with type | | | | | | 1 diabetes mellitus | | | | | | ([facility]) | | + +--------+ + + + | MO RX RETINOPATHY | Routin | 05/01/2016 | Proliferative | | | PROGRESSV,PHOTOCOAG | e | 3:40 PM | diabetic retinopathy | | | | | PDT | with macular edema | | | | | | associated with type | | | | | | 1 diabetes mellitus | | | | | | ([facility]) [E10.351] | | + +--------+ + + + | MO RX RETINOPATHY | Routin | 05/01/2016 | Proliferative | | | PROGRESSV,PHOTOCOAG | e | 3:40 PM | diabetic retinopathy | | | | | PDT | with macular edema | | | | | | associated with type | | | | | | 1 diabetes mellitus | | | | | | ([facility]) [E10.351] | | + +--------+ + + + documented in this encounter Visit Diagnoses + + | Diagnosis | + + | Proliferative diabetic retinopathy with macular edema associated with type 1 diabetes | | mellitus (HCC) [E10.351] - Primary | + + documented in this encounter"
--- OUTSIDE RECORDS SUMMARY | ~2020-02-13 | XMS | Encounter Summary ---
Demographics + + + | Address | [address] [facility] | | | [place] [address] | + + + | Home Phone [...] Team Providers + +------+ + | Care Game Moderator Name | Role | Phone | + +------+ + | Partha España MD | PCP | | + +------+ + Encounter Details +--------+ + + + + | Date | Type | Department | Care Team | Description | +--------+ + + + + | 03/31/ | Procedure | [facility] OP LOC | | | | 2018 | Pass | [address] | | | | | | [facility] | | | | | | [place] [address] | | | +--------+ + + + [...]
--- OUTSIDE RECORDS SUMMARY | ~2020-02-13 | XMS | Encounter Summary ---
Demographics + + + | Address | [address] [facility] | | | [place] [address] | + + + | Home Phone [...] Team Providers + +------+ + | Care Balloon Sander Name | Role | Phone | + +------+ + | TacoDionne CNC MILL AND LATHE OPERATOR | PCP | | + +------+ [...] Proliferative | | 2018 | Visit | [facility] at | [address] | diabetic retinopathy | | | | [place] [address] | [address] | with macular edema, | | | | [address] | [place], [place] | left eye (Primary | | | | Eye [place], 4th | [address] | Dx); Proliferative | | | | floor [place], [place] | [phone] | diabetic retinopathy | | | | [...] might be different from the o lottie. [facility] Progress Note 04/01/2018 Assessment & Plan: 27 [...] mg/day 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: The bindery 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
--- OUTSIDE RECORDS SUMMARY | ~2020-02-13 | XMS | Encounter Summary ---
Demographics + + + | Address | [address] [facility] | | | [place] [address] | + + + | Home Phone [...] Team Providers + +------+ + | Care Auto Body Mechanic Apprentice Name | Role | Phone | [...] For Forms | | 2020 | | [facility] at | MD Michael [address] | | | | | [facility] [address] | [address] | | | | | [address] | [place], [place] | | | | | Eye [place], [facility] | [address] | | | | | floor [place], [place] | [phone] | | | | | [address] | [...]
--- OUTSIDE RECORDS SUMMARY | ~2020-02-13 | XMS | Encounter Summary ---
Demographics + + + | Address | [address] [facility] | | | [place] [address] | + + + | Home Phone [...] Team Providers + +------+ + | Care Hub Cutter Apprentice Name | Role | Phone | + +------+ + | TacoDionne ADOPTION SERVICES MANAGER | PCP | | + +------+ + Encounter Details +--------+ + + + + | Date | Type | Department | Care Team | Description | +--------+ + + + + | 03/31/ | Trust Advisor | [facility] | Shahzad Awad, | | | 2018 | | [facility] at | [address] | | | | [address] | [address] | | | | | [address] | [place], [place] | | | | | Eye [place], [facility] | [address] | | | | | [place], [place] | [phone] | | | | | [address] | [...]
--- OUTSIDE RECORDS SUMMARY | ~2020-02-13 | XMS | Encounter Summary ---
Demographics + + + | Address | [address] [facility] | | | [place] [address] | + + + | Home Phone [...] Team Providers + +------+ + | Care Groover Operator Name | Role | Phone | + +------+ + | Taco Dionne MAIL MACHINE OPERATOR | PCP | | + [...] | | | | | | | [address] | | | | | | | Phone: | | | | | | | [phone] | | | | | | | Fax: | | | | | | | [phone] | +--------+--------+ + + + + Encounter Details +--------+---------+ + + + | Date | Type | Department | Care Team | Description | +--------+---------+ + + + | 01/15/ | Office | [facility] | Nghia Bell MD | Proliferative | | 2018 | Visit | [place] [facility] The | [address] | diabetic retinopathy | | | | [place] [address] | [address] | of left eye with | | | | [facility] | [place], [place] | macular edema | | | | Clinic [place], | [address] | associated with type | | | | [place] [address] | [phone] | 1 diabetes mellitus | | | | [phone] | | (HCC) (Primary Dx); | | [...] AM PDT [facility] Progress Note 01/15/2018 Assessment & Plan: 27 [...] file 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: The gyroscope 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 | | | [facility]: [id number] | | | Lot: [id number] (26 WD) | | | Expiration Date: [...] | | | [facility]: [id number] | | | Lot: [id number] (25 D) | | | Expiration Date: [...] Performed At | + + + | Bus Dispatcher Interstate | LIANET RAMIREZ | | DocumentationRight EyeCentral [...] + + | [facility] | [address] | [place] [address] | | | INSTITUTE | [place]. | [...]
--- OUTSIDE RECORDS SUMMARY | ~2020-02-13 | XMS | Encounter Summary ---
Demographics + + + | Address | [address] [facility] | | | [place] [address] | + + + | Home Phone [...] Team Providers + +------+ + | Care Molding Line Operator Name | Role | Phone | + +------+ + | TacoDionne AND DRYING SUPERVISOR COOKING CASING | PCP | | + +------+ + [...] | OCT - Macula (ou) | | 2015 | Visit | [place] | | | | | | [facility] at | | | | | | [address] | | | | | | [address] | | | | | | Eye [place], [facility] | | | | | | floor [place], [place] | | | | | | [address] | | | +--------+ + + + [...] documented as of this encounter Progress Notes Kerry Méndez - 05/28/2016 2:41 PM PDTThe interpretation for [...]
--- OUTSIDE RECORDS SUMMARY | ~2020-02-13 | XMS | Encounter Summary ---
Demographics + + + | Address | [address] [facility] | | | [place] [address] | + + + | Home Phone [...] Team Providers + +------+ + | Care Before And After School Daycare Worker Name | Role | Phone | + +------+ + | Dionne España NICHOLAS | PCP | | + +------+ + Encounter Details +--------+ + + + + | Date | Type | Department | Care Team | Description | +--------+ + + + + | 04/03/ | Document-Sc | Health Information | Unknown . | | | 2018 | anned | Services [phone] | | | | | [address] | | | | | | Mailcode: [id number] | | | | | | [facility] | | | | | | [place], [place] | | | | | | [address] | | | | | | [phone] | | | +--------+ + + + [...]
--- OUTSIDE RECORDS SUMMARY | ~2020-02-13 | XMS | Encounter Summary ---
Demographics + + + | Address | [address] [facility] | | | [place] [address] | + + + | Home Phone [...] Team Providers + +------+ + | Care Hydraulic Auto Jack Mechanic Name | Role | Phone | [...] | | | | | | | [place], [place] | | | | | | | [address] | | | | | | | Phone: | | | | | | | [phone] | | | | | | | Fax: | | | | | | | [phone] | +--------+--------+ + + + + Encounter Details +--------+---------+ + + + | Date | Type | Department | Care Team | Description | +--------+---------+ + + + | 01/16/ | Office | [facility] | Nghia Bell MD | Proliferative | | 2017 | Visit | [place] [facility] The | [address] | diabetic retinopathy | | | | [address] [address] | [address] | of left eye with | | | | [facility] | [place], [place] | macular edema | | | | Clinic [facility], | [address] | associated with type | | | | [place] [address] | [phone] | 1 diabetes mellitus | | | | [phone] | | ([facility]) (Primary Dx) | +--------+---------+ + [...] Bell MD - 01/16/2017 2:45 PM PDT [facility] Progress Note 01/16/2017 Assessment & Plan: 26 [...] file 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: The engineering specialist 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
--- OUTSIDE RECORDS SUMMARY | ~2020-02-13 | XMS | Encounter Summary ---
Demographics + + + | Address | [address] [facility] | | | [place] [address] | + + + | Home Phone [...] Team Providers + +------+ + | Care Repairer Resistance Welding Machines Name | Role | Phone | + +------+ + | Taco Doinne STAMPING PRESS OPERATOR | PCP | | + [...] | | | | | | | [place], [place] | | | | | | | [address] | | | | | | | Phone: | | | | | | | [phone] | | | | | | | Fax: | | | | | | | [phone] | +--------+--------+ + + + + Encounter Details +--------+---------+ + + + | Date | Type | Department | Care Team | Description | +--------+---------+ + + + | 12/12/ | Office | [facility] | Nghia Bell MD | Proliferative | | 2017 | Visit | [place] [facility] | [address] | diabetic retinopathy | | | | [place] [address] | [address] | of left eye with | | | | [facility] | [place], [place] | macular edema | | | | Clinic [facility], | [address] | associated with type | | | | [place] [address] | [phone] | 1 diabetes mellitus | | | | [phone] | | (HCC) (Primary Dx); | | [...] for next 2-3 d ays. Call immediately [phone] for increased pain or decreased vision.Electronically sign [...] MD - 0 12/12/2016 2:45 PM PST [facility] Progress Note 12/12/2016 Assessment & Plan: 26 [...] . 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: The factory focus 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 | + +--------+ + + + | AL RX RETINOPATHY | Routin | 12/12/2016 | Proliferative | | | PROGRESSV,PHOTOCOAG | e | 3:33 PM | diabetic retinopathy | | | | | PST | of left eye with | | | | | | macular edema | | | | | | associated with type | | | | | | 1 diabetes mellitus | | | | | | ([facility]) | | + +--------+ + + + | AL INTRAVITREAL INJ, | Routin | 12/12/2016 | Proliferative | | | AVASTIN | e | 3:30 PM | diabetic retinopathy | | | | | PST | of left eye with | | | | | | macular edema | | | | | | associated with type | | | | | | 1 diabetes mellitus | | | | | | ([facility]) | | + +--------+ + + + documented in this encounter Visit Diagnoses + + | Diagnosis | + + | Proliferative diabetic retinopathy of left eye with macular edema associated with type | | 1 diabetes mellitus ([facility]) - Primary | + + | Proliferative diabetic retinopathy with macular edema associated with type 1 diabetes | | mellitus (HCC) | + + documented in this encounter"
--- OUTSIDE RECORDS SUMMARY | ~2020-02-13 | XMS | Encounter Summary ---
Demographics + + + | Address | [address] [facility] | | | [place] [address] | + + + | Home Phone [...] Team Providers + +------+ + | Care Precision Aircraft Systems Assembler Name | Role | Phone | + [...] | | | | | | | [place], [place] | | | | | | | [address] | | | | | | | Phone: | | | | | | | [phone] | | | | | | | Fax: | | | | | | | [phone] | +--------+--------+ + + + + Encounter Details +--------+---------+ + + + | Date | Type | Department | Care Team | Description | +--------+---------+ + + + | 08/13/ | Office | [facility] | Shahzad Awad, | Proliferative | | 2019 | Visit | [place] [facility] | [address] | diabetic retinopathy | | | | [place] [address] | [address] | of left eye with | | | | [facility] | [place], [place] | macular edema | | | | Clinic [facility], | [address] | associated with type | | | | [place] [address] | [phone] | 1 diabetes mellitus | | | | [phone] | | (HCC); PDR with | | | | | [...] encounter Progress Notes Shahzad Awad MD - 08/13/2019 9:10 AM PSTFormatting of this note might be different fr om the original. [facility] Progress Note 08/13/2019 Assessment & Plan: 29 y.o. male Proliferative diabetic retinopathy (s/p PPV/MP 31MAR2018) with macular edema, left eye Recent vitreous hemorrhage likely related to mild NVE tissue seen on exam. Retina otherwis e attach and there are no concerning areas of traction. Will treat with Avastin, discussed possibility of regular treatment to try and prevent recurrent hemorrhages. -PARQ held for Avastin OS PDR with macular edema, right eye Increased traction over time. Stable after last Avastin injection. Discussed importance of follow-up and given changes vitrectomy is recommended. He prefers this to be in 1-2 months because of his new job. This is reasonable as long as he does not notice any changes. Ret urn in about 5 weeks and will try and schedule vitrectomy. Follow up: Return in about 5 weeks (around 09/17/2019). - Call for decreased vision, increased distortion, increased pain, new floaters or flashing lights Chief Complaint: Follow-up visit HPI (Edited by physician):He has noticed that the outer edges of his vision in the left eye is starting to clear up. The central vision is still really bad. The vision in the right eye is stable. BS: 162 this AM Last A1c: waiting for results Current Outpatient Medications (Other) Medication Sig cephALEXin Take 1 capsule by mouth four times daily. gabapentin Take 1 capsule by mouth three times daily. HumaLOG U-100 Insulin Indications: insulin pump 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: The engineering technician, under the supervision of the [...] INJ - OS - | Routin | 08/13/2019 | Proliferative | Results for this | | LEFT EYE | e | 11:05 AM | diabetic retinopathy | procedure are [...] + | OCT, RETINA | Routin | 08/13/2019 | Proliferative | Results for this | | | e | 11:05 AM | diabetic retinopathy | procedure are [...] AVASTIN INJECTION - OS - LEFT EYE (08/13/2019 11:05 AM PST) + + + [...] bevacizumab 1.25 mg/0.05 mL | | | [facility]: [id number], Lot: [id number], Expiration date: 08/19/2019 | | | Route: intravitreal, Site: Left [...] | | + + + OCT, RETINA (08/13/2019 11:05 AM PST) + + + | Narrative | Performed At | + + + | Safety Pin Assembling Machine Operator | LIANET RAMIREZ | | DocumentationRight [...] [facility] | [address] | [place] [address] | | | JOÃO | [place]. | [...] + | bevacizumab (AVASTIN) | Given | 08/13/20 | 1.25 mg | | Left Eye | | intravitreal injection 1.25 mg | | 19 11:05 | | | | | 1.25 mg, ONCE PRN (IPROC), 1 | | AM PST | | | | | dose, Starting Milagro 08/13/19 at | | | | | | | 1105, Until Milagro 08/13/19 at 1105 | | | | | | + +--------+ +---------+------+ + +---+---+ | | | +---+---+ documented in this encounter"
--- OUTSIDE RECORDS SUMMARY | ~2020-02-13 | XMS | Encounter Summary ---
Demographics + + + | Address | [address] [facility] | | | [place] [address] | + + + | Home Phone | | + + + | Preferred Language | Unknown | + + + | Marital Status | Single | + + + | Congregation Affiliation | NON | + + + [...] Team Providers + +------+ + | Care Interstate Bus Driver Name | Role | Phone | + +------+ + | Taco Dionne REPRESENTATIVE GOVERNMENT RELATIONS | PCP | | + +------+ + [...] | | | | | | | [address] | | | | | | | [address] | | | | | | | [place] | | | | | | | [place], [place] | | | | | | | [address] | | | | | | | Phone: | | | | | | | [phone] | | | | | | | Fax: | | | | | | | [phone] | +--------+--------+ + + + + Encounter Details +--------+---------+ + + + | Date | Type | Department | Care Team | Description | +--------+---------+ + + + | 08/13/ | Office | [facility] | Allan Snell | Vitreous hemorrhage, | | 2017 | Visit | [facility] | MD Christi [address] | right eye (HCC) | | | | [place]arti [place] [address] | [address] | (Primary Dx); | | | | [address] | [place], [place] | Proliferative | | | | Eye [facility], [facility] | [address] | diabetic retinopathy | | | | floor [place], [place] | [phone] | of left eye with | | [...] PM PST [facility] Progress Note 08/13/2017 CC: No chief [...] with type 1 d iabetes mellitus (HCC) [9502584] - Active NV OU today with new vitreous hemorrhage OD - No retinal breaks or tears noted on exam or US Venous engorgement in a hemifield distribution OD - Concern for BRVO - Consider FA (not available tonight) tomorrow in [place] - If FA consistent with BRVO, will coordinate evaluation of RF's with PCP PLAN: See Dr. Elizondo as scheduled tomorrow, probable avastin OU at that time. Call for decreased vision, increased distortion, increased pain, new floaters or flashing l ights Attestations: The clinical 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
--- OUTSIDE RECORDS SUMMARY | ~2020-02-13 | XMS | Encounter Summary ---
Demographics + + + | Address | [address] [facility] | | | [place] [address] | + + + | Home Phone [...] Team Providers + +------+ + | Care Trousseau Consultant Name | Role | Phone | [...] | | | | | | | [place], [place] | | | | | | | [address] | | | | | | | Phone: | | | | | | | [phone] | | | | | | | Fax: | | | | | | | [phone] | +--------+--------+ + + + + Encounter Details +--------+---------+ + + + | Date | Type | Department | Care Team | Description | +--------+---------+ + + + | 08/13/ | Office | [facility] | Shahzad Awad, | Proliferative | | 2019 | Visit | [place] [facility] | [address] | diabetic retinopathy | | | | [place] [address] | [address] | of left eye with | | | | [facility] | [place], [place] | macular edema | | | | Clinic [facility], | [address] | associated with type | | | | [place] [address] | [phone] | 1 diabetes mellitus | | | | [phone] | | (HCC); PDR with | | [...] might be different fr om the original. [facility] Progress Note 08/13/2019 Assessment & Plan: [...] pump 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: The instrumentation 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 bevacizumab 1.25 mg/0.05 mL | | | [facility]: [id number], Lot: [id number], Expiration date: 08/19/2019 | | | Route: [...] | + + + | Director Of Cardiology Service Line | LIANET RAMIREZ | | DocumentationRight EyeCentral [...] [facility] | [address] | [place] [address] | | | JOÃO | [place]. | [...]
--- OUTSIDE RECORDS SUMMARY | ~2020-02-13 | XMS | Encounter Summary ---
Demographics + + + | Address | [address] [facility] | | | [place] [address] | + + + | Home Phone [...] Providers + +------+ + | Care Application Integration Engineer Name | Role | Phone | + +------+ + | Dionne España NICHOLAS | PCP | | + +------+ + Encounter Details +--------+ + + + + | Date | Type | Department | Care Team | Description | +--------+ + + + + | 05/09/ | Document-Sc | Health Information | Unknown . | | | 2016 | anned | Services [phone] | | | | | | [address] | | | | | | Mailcode: [id number] | | | | | | [facility] | | | | | | [place], [place] | | | | | | [address] | | | | | | [phone] | | | +--------+ + + + [...]
--- OUTSIDE RECORDS SUMMARY | ~2020-02-13 | XMS | Encounter Summary ---
Demographics + + + | Address | [address] [facility] | | | [place] [address] | + + + | Home Phone [...] Team Providers + +------+ + | Care Paralegal Internship Name | Role | Phone | [...] + + | 03/31/ | Hospital | [facility] | Shahzad Awad, | | | 2018 | Encounter | [address] | [address] | | | | | [address] [facility] | [address] | | | | | [facility] | [place], [place] | | | | | [place], [place] | [address] | | | | | [address] | [phone] | | | | | | | [...] LIANET HUNTER | [address] | [place], [place] | | | LLUVIA T[facility] | [address] | [address] | | | TESTS | | | [...] Shahzad Renteria | | | MD Delmi Paver: None Anesthesia: General Implant: | | | [...] DALE | [address] | [place], [place] | | | ANTONIO TILLMAN | [facility] | [address] | | | TESTS | | | [...]
--- OUTSIDE RECORDS SUMMARY | ~2020-02-13 | XMS | Encounter Summary ---
Demographics + + + | Address | [address] [facility] | | | [place] [address] | + + + | Home Phone | | + + + | Preferred Language | Unknown | + + + | Marital Status | Single | + + + | Orthodox Affiliation | NON | + + [...] Team Providers + +------+ + | Care Doll Wig Hackler Name | Role | Phone | + [...] MD | | | | | | [facility] | [address] | | | | | | e diabetic | [address] | | | | | | retinopathy | Blvd | | | | | | of left eye | [place], [place] | | | | | | with macular | [address] | | | | | | edema | Phone: | | | | | | associated | [phone] | | | | | | with type 1 | Fax: | | | | | | diabetes | [phone] | | | | | | mellitus | | | | | | | ([facility]) | | | | | | | [...] | | | | | | | ([facility]) | | | | | | | Procedures | | | | | | | REQUEST TO | | | | | | | SURGERY | | | | | | | MOLDER WAX BALL | | | + +--------+ + + [...] | | | | | | | [address] | | | | | | | [address] | | | | | | | [address] | | | | | | | [place], [place] | | | | | | | [address] | | | | | | | Phone: | | | | | | | [phone] | | | | | | | Fax: | | | | | | | [phone] | + +--------+ + + + + Encounter Details +--------+---------+ + + + | Date | Type | Department | Care Team | Description | +--------+---------+ + + + | 02/10/ | Office | [facility] | Shahzad Awad, | Proliferative | | 2020 | Visit | [place] [facility] | MD [address] | diabetic retinopathy | | | | Kimberly [address] | [address] | of left eye with | | | | [facility] | [place], [place] | macular edema | | | | Clinic [place] [place], | [address] | associated with type | | | | [place] [address] | [phone] | 1 diabetes mellitus | | | | [phone] | | ([facility]); PDR with | | | | | [...] might be different fr om the original. [facility] Progress Note 02/11/2020 Assessment & Plan: 29 [...] pump 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: The senior service 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
--- OUTSIDE RECORDS SUMMARY | ~2020-02-13 | XMS | Encounter Summary ---
Demographics + + + | Address | [address] [facility] | | | [place] [address] | + + + | Home Phone [...] Team Providers + +------+ + | Care Family Support Coordinator Name | Role | Phone | [...] | 2018 | Pass | [address] | | | | | | [facility] | | | | | | [place] [address] | | | +--------+ + + + [...]
--- OUTSIDE RECORDS SUMMARY | ~2020-02-13 | XMS | Encounter Summary ---
Demographics + + + | Address | [address] [facility] | | | [place] [address] | + + + | Home Phone [...] Team Providers + +------+ + | Care Scientific Writer Name | Role | Phone | + +------+ + | Taco Dionne FURNITURE REPRODUCER | PCP | | + +------+ + [...] | Beverly | | 2019 | | [facility] | [address] [facility] [facility] | | | | | Aarti Cuello [address] | [facility] | | | | | [address] | [place], [place] | | | | | Eye [place], [facility] | [address] | | | | | [place], [place] | [phone] | | | | | [phone] | | | +--------+ + + + [...]
--- OUTSIDE RECORDS SUMMARY | ~2020-02-13 | XMS | Encounter Summary ---
Demographics + + + | Address | [address] [facility] | | | [place] [address] | + + + | Home Phone [...] Team Providers + +------+ + | Care Records Section Supervisor Name | Role | Phone | + +------+ + | Partha España MD | PCP | | + +------+ + Encounter Details +--------+ + + + + | Date | Type | Department | Care Team | Description | +--------+ + + + + | 03/31/ | Pharmacy | [facility] | | | | 2018 | Visit | [address] [facility] | | | | | | [place] [address] | | | | | | [phone] | | | +--------+ + + + [...]
--- OUTSIDE RECORDS SUMMARY | ~2020-02-13 | XMS | Encounter Summary ---
Demographics + + + | Address | [address] [facility] | | | [place] [address] | + + + | Home Phone | | + + + | Preferred Language | Unknown | + + + | Marital Status | Single | + + + | Pentecostalism Affiliation | NON | + + + [...] Team Providers + +------+ + | Care Ram Car Operator Name | Role | Phone | + +------+ + | Partha España MD | PCP | | + +------+ + Encounter Details +--------+ + + + + | Date | Type | Department | Care Team | Description | +--------+ + + + + | 07/29/ | Diagnostic | [facility] | Jason Elizondo MD | | | 2019 | Visit | [place] [id number] | | | | | Photography at | [address] | | | | | [address] | [place], [place] | | | | | [address] | [address] | | | | | Eye [facility] | [phone] | | | | | [place], [place] | | | | | | [...] B SCAN ULTRASOUND - | Routin | 07/29/2019 | Proliferative | Results for this | | OS - LEFT EYE | e | 2:03 PM | diabetic retinopathy | procedure are in the | | | | PDT | of right eye with | results section. | | | | | macular edema | | | | | | associated with type | | | | | | 1 diabetes mellitus | | | | | | ([facility]) | | + +--------+ + + + documented in this encounter Results B SCAN ULTRASOUND - OS - LEFT EYE (07/29/2019 2:03 PM PDT) + + + | Narrative | Performed At | + + + | B-scan OS | [facility] | | AC: Formed [facility] | | Lens: Phakic | | | Vitreous: Diffuse opacities | | | Retina: attached within field of view | | | Choroid/ sclera: unremarkable | | | Disc/ Nerve: unremarkable | | | Orbit/ muscles: unremarkable | | | | | | | | | João Walker CDOS ROUB | | | | | | I [...] [facility] | [address] | [place] [address] | | | INSTITUTE | Faraz. | | | + + + + + documented in this encounter Visit Diagnoses + + | Diagnosis | + + | Proliferative diabetic retinopathy with macular edema, right eye | + + documented in this encounter"
--- OUTSIDE RECORDS SUMMARY | ~2020-02-13 | XMS | Encounter Summary ---
Demographics + + + | Address | [address] [facility] | | | [place] [address] | + + + | Home Phone [...] Team Providers + +------+ + | Care Generator Technician Name | Role | Phone | + +------+ + | Taco Dionne CRESTER | PCP | | + +------+ + [...] | | | | | | | [place], [place] | | | | | | | [address] | | | | | | | Phone: | | | | | | | [phone] | | | | | | | Fax: | | | | | | | [phone] | +--------+--------+ + + + + Encounter Details +--------+---------+ + + + | Date | Type | Department | Care Team | Description | +--------+---------+ + + + | 04/17/ | Office | [facility] | Nghia Bell MD | Proliferative | | 2017 | Visit | [place] [facility] | [address] | diabetic retinopathy | | | | Kimberly [address] | [address] | of left eye with | | | | [facility] | [place], [place] | macular edema | | | | Clinic [facility]ory [facility], | [address] | associated with type | | | | [place] [address] | [phone] | 1 diabetes mellitus | | | | [phone] | | (HCC) (Primary Dx) | +--------+---------+ [...] increased pain or decreased vision, immediately call [phone].Elec tronically signed by Lanie Childs at 04/17/2017 3:15 PM PDT documented in this encounter Progress Notes Lanie Childs - 04/17/2017 3:15 PM PDT Intravitreal Injection Procedure Note 04/17/2017 for: AVASTIN, BOTH EYES LOT #[id number] (21 OD) and Expiration 04/24/2017 RIGHT EYE: LOT # [id number] (11 OD) and Expiration 04/24/2017 LEFT EYE: [...] - 0 04/17/2017 2:00 PM PDT [facility] Progress Note 04/17/2017 Assessment & Plan: 26 [...] file 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: The fitness 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 | + +--------+ + + + | NV INTRAVITREAL INJ, | Routin | 04/17/2017 | [...]
--- OUTSIDE RECORDS SUMMARY | ~2020-02-13 | XMS | Encounter Summary ---
Demographics + + + | Address | [address] [facility] | | | [place] [address] | + + + | Home Phone [...] Providers + +------+ + | Care Marketing Operations Assistant Name | Role | Phone | + +------+ + | TacoDionne AUTISM TEACHER | PCP | | + +------+ + [...] (ou) | | 2015 | Visit | [place] | | | | | | Photography at | | | | | | [address] | | | | | | [address] | | | | | | Eye [place], [facility] | | | | | | floor [place], [place] | | | | | | [address] | | | +--------+ + + + [...]
--- OUTSIDE RECORDS SUMMARY | ~2020-02-13 | XMS | Encounter Summary ---
Demographics + + + | Address | [address] [facility] | | | [place] [address] | + + + | Home Phone [...] Author + + + | Author | [facility] | + + + | Organization | [facility] | + + + | Address | Unknown | + + + | Phone | Unavailable | + + + Support + + +---------+ + | Name | Relationship | Address | Phone | + + +---------+ + | Madelyn Marquez | ECON | Unknown | | + + +---------+ + Care Team Providers + +------+ + | Care Retail Account Representative Name | Role | Phone | + +------+ + | Partha España MD | PCP | | + +------+ + Encounter Details +--------+ + + + + | Date | Type | Department | Care Team | Description | +--------+ + + + + | 07/29/ | Diagnostic | [facility] | Jason Elizondo MD | | | 2019 | Visit | [place] [address] | | | | | Photography at | [address] | | | | | [address] | [place], [place] | | | | | [address] | [address] | | | | | Eye [facility] | [phone] | | | | | [place], [place] | | | | | | [...] [facility] | [address] | [place] [address] | | | INSTITUTE | [place]. | | | + + + + + documented in this encounter Visit Diagnoses + + | Diagnosis | + + | Proliferative diabetic retinopathy with macular edema, right eye | + + documented in this encounter"
--- OUTSIDE RECORDS SUMMARY | ~2020-02-13 | XMS | Encounter Summary ---
Demographics + + + | Address | [address] [facility] | | | [place] [address] | + + + | Home Phone [...] Team Providers + +------+ + | Care Story Writer Name | Role | Phone | [...] Refill Request | | 2018 | | [facility] | MD [address] | (Needing refill for | | | | Aarti [place] [address] | [address] | Prednisolone) | | | | [address] | [place], [place] | | | | | Eye [place], [facility] | [address] | | | | | [place], [place] | [phone] | | | | | [address] | | | +--------+--------+ + + + [...]
--- OUTSIDE RECORDS SUMMARY | ~2020-02-13 | XMS | Encounter Summary ---
Demographics + + + | Address | [address] [facility] | | | [place] [address] | + + + | Home Phone [...] Team Providers + +------+ + | Care Demonstrator Knitting Name | Role | Phone | + [...] vision - | | 2015 | | [place] [facility] | [address] | hazy | | | | Kimberly [address] | [address] | | | | | [facility] | [place], [place] | | | | | Clinic [facility], | [address] | | | | | [place] [address] | [phone] | | | | | [phone] | | | +--------+ + + + [...]
--- OUTSIDE RECORDS SUMMARY | ~2020-02-13 | XMS | Encounter Summary ---
Demographics + + + | Address | [address] [facility] | | | [place] [address] | + + + | Home Phone | | + + + | Preferred Language | Unknown | + + + | Marital Status | Single | + + + | Latter Day Affiliation | NON | + + + [...] Team Providers + +------+ + | Care Animal Assistant Name | Role | Phone | [...] vision - | | 2015 | | [facility] | [address] | hazy | | | | Kimberly [address] | [address] | | | | | [facility] | [place], [place] | | | | | Clinic [place] [place], | [address] | | | | | [place] [address] | [phone] | | | | | [phone] | | | +--------+ + + + [...]
--- OUTSIDE RECORDS SUMMARY | ~2020-02-13 | XMS | Encounter Summary ---
Demographics + + + | Address | [address] [facility] | | | [place] [address] | + + + | Home Phone [...] Team Providers + +------+ + | Care Java Spring Developer Name | Role | Phone | + +------+ + | Partha España MD | PCP | | + +------+ + Encounter Details +--------+---------+ + + + | Date | Type | Department | Care Team | Description | +--------+---------+ + + + | 07/29/ | Office | [facility] | Jimmy Briggs MD | Vitreous hemorrhage, | | 2019 | Visit | [facility] | [address] | left eye (HCC) | | | | [facility] [address] | [address] [facility] [place] | (Primary Dx) | | | | [address] | [address] | | | | | Eye [place], [facility] | [phone] | | | | | floor [place], [place] | | | | | | [...]
--- OUTSIDE RECORDS SUMMARY | ~2020-02-13 | XMS | Encounter Summary ---
Demographics + + + | Address | [address] [facility] | | | [place] [address] | + + + | Home Phone [...] Team Providers + +------+ + | Care Chief Controller Tower Name | Role | Phone | + [...] | | | | | | | [place], [place] | | | | | | | [address] | | | | | | | Phone: | | | | | | | [phone] | | | | | | | Fax: | | | | | | | [phone] | +--------+--------+ + + + + Encounter Details +--------+---------+ + + + | Date | Type | Department | Care Team | Description | +--------+---------+ + + + | 07/29/ | Office | [facility] | Jason Elizondo MD | Proliferative | | 2019 | Visit | [place] [facility] | [address] | diabetic retinopathy | | | | Kimberly [address] | [address] | with macular edema, | | | | [facility] | [place], [place] | right eye (Primary | | | | Clinic L[facility] [place], | [address] | Dx); Proliferative | | | | [place] [address] | [phone] | diabetic retinopathy | | | | [phone] | | of left eye with | | | | | | macular edema | | | | | | associated with type | | | | | | 1 diabetes mellitus | | | | | | ([facility]); | | | | | | Proliferative [...] ([facility]) | +--------+---------+ + + + Social History [...] AM PDT [facility] Progress Note 07/29/2019 Assessment & Plan: 29 y.o. male Proliferative diabetic retinopathy (s/p PPV/MP 31MAR2018) with macular edema, left eye PDR s/p PRP OU s/p PPV/MP OS 03/24 DME OU s/p Avastin OU Had [facility] OS in 11/2017, told to f/u in [place] for US, but did not show. VA had improved, bu t now much worse since last night. New [facility] Progressive PDR and DME OD PARQ Avastin OD now B-scan in [place] today to r/o RD OS Call for [...] + + + | B-scan OS | [facility] | | AC: Formed | [...] | + + + + + | [facility] | [address] | [place] [address] | | | INSTITUTE | [place]. | [...] bevacizumab 1.25 mg/0.05 mL | | | [facility]: [id number], Lot: [id number], Expiration date: 09/02/2019 | | | Route: [...] Performed At | + + + | Tobacco Classer | [facility] | | [facility] [...] + + | [facility] | [address] | [place] [address] | | | JOÃO | Faraz. | [...]
--- OUTSIDE RECORDS SUMMARY | ~2020-02-13 | XMS | Encounter Summary ---
Demographics + + + | Address | [address] [facility] | | | [place] [address] | + + + | Home Phone [...] Team Providers + +------+ + | Care Inside Sales Name | Role | Phone | + +------+ + | TacoDionne GREEN CHAINER | PCP | | + +------+ + [...] | OCT - Macula (OU) | | 2015 | Visit | [place] | | | | | | Photography at | | | | | | [address] | | | | | | [address] | | | | | | Eye [place], [facility] | | | | | | floor [place], [place] | | | | | | [address] | | | +--------+ + + + [...] documented as of this encounter Progress Notes Amador Mcclure - 05/01/2016 4:28 PM PDTThe interpretation for [...]
--- OUTSIDE RECORDS SUMMARY | ~2020-02-13 | XMS | Encounter Summary ---
Demographics + + + | Address | [address] [facility] | | | [place] [address] | + + + | Home Phone [...] Team Providers + +------+ + | Care Yoghurt Maker Name | Role | Phone | + +------+ + | Taco Dionne AIR AND WATER TESTER | PCP | | + +------+ + [...] | | | | | | | [place], [place] | | | | | | | [address] | | | | | | | Phone: | | | | | | | [phone] | | | | | | | Fax: | | | | | | | [phone] | +--------+--------+ + + + + Encounter Details +--------+---------+ + + + | Date | Type | Department | Care Team | Description | +--------+---------+ + + + | 08/21/ | Office | [facility] | Shahzad Awad, | Proliferative | | 2018 | Visit | [place] [facility] | [address] | diabetic retinopathy | | | | Kimberly [address] | [address] | of left eye with | | | | [facility] | [place], [place] | macular edema | | | | Clinic L[facility], | [address] | associated with type | | | | [place] [address] | [phone] | 1 diabetes mellitus | | | | [phone] | | ([facility]); | | | | | | Proliferative [...] might be different fr om the original. [facility] Progress Note 08/21/2018 Assessment & Plan: 28 [...] pump 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: The exhibit 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 Performed At | + + + | Crm Marketing Executive | [facility] | | [facility] [...] [facility] | [address] | [place] [address] | | | JOÃO | Faraz. | [...]
--- OUTSIDE RECORDS SUMMARY | ~2020-02-13 | XMS | Encounter Summary ---
Demographics + + + | Address | [address] [facility] | | | [place] [address] | + + + | Home Phone [...] Team Providers + +------+ + | Care Porcelain Slusher Name | Role | Phone | + +------+ + | TacoDionne UNBUNDLER | PCP | | + +------+ + Encounter Details +--------+ + + + + | Date | Type | Department | Care Team | Description | +--------+ + + + + | 05/18/ | Telephone | [facility] | Allan Snell | | | 2018 | | [facility] | MD [address] | | | | | Aarti [address]ello [facility] [address] | [address] | | | | | [address] | [place], [place] | | | | | Eye [place], [facility] | [address] | | | | | [place], [place] | [phone] | | | | | [address] | [...]
--- OUTSIDE RECORDS SUMMARY | ~2020-02-13 | XMS | Encounter Summary ---
Demographics + + + | Address | [address] [facility] | | | [place] [address] | + + + | Home Phone [...] Team Providers + +------+ + | Care Booth Operator Name | Role | Phone | + +------+ + | TacoDionne MEDICAL EDITOR | PCP | | + +------+ + [...] (OU) | | 2015 | Visit | Opp | | | | | | Photography at | | | | | | [address] | | | | | | [address] | | | | | | Eye [place], [facility] | | | | | | floor [place], [place] | | | | | | [address] | | | +--------+ + + + [...]
--- OUTSIDE RECORDS SUMMARY | ~2020-02-13 | XMS | Encounter Summary ---
Demographics + + + | Address | [address] [facility] | | | [place] [address] | + + + | Home Phone [...] Providers + +------+ + | Care Rn Home Health Name | Role | Phone | + [...]
--- OUTSIDE RECORDS SUMMARY | ~2020-02-13 | XMS | Encounter Summary ---
Demographics + + + | Address | [address] [facility] | | | [place] [address] | + + + | Home Phone [...] Providers + +------+ + | Care Supervisor Evaporator Name | Role | Phone | + [...] Refill Request | | 2018 | | [facility] | MD [address] | (Needing refill for | | | | Aarti [place] [address] | [address] | Prednisolone) | | | | [address] | [place], [place] | | | | | Eye [facility], [facility] | [address] | | | | | [place], [place] | [phone] | | | | | [address] | [...]
[2020-02-13] MEDS ORDERED: CYCLOBENZAPRINE10 MG PO (05:07)
[2020-02-13] MEDS ORDERED: NORCO 5-325 TA1 EACH PO (05:08)
== END 2020-02-13 05:18 | disposition home or self-care (01) ==
LOC: ED 03:39
DX: S39.012A Strain of muscle, fascia and tendon of lower back, initial encounter (principal); E10.9 Type 1 diabetes mellitus without complications; I10 Essential (primary) hypertension; F17.200 Nicotine dependence, unspecified, uncomplicated; Z88.0 Allergy status to penicillin; Z88.1 Allergy status to other antibiotic agents; Z79.899 Other long term (current) drug therapy; X50.0XXA Overexertion from strenuous movement or load, initial encounter
CPT/HCPCS: 72131; 96372; 99283-25; J1885

== ENCOUNTER 2021-03-02 22:41 | Emergency (ER) | payer OTHER ==
[~2021-03-02] VITALS: Ht 170.2 cm; Wt 83.9 kg
[~2021-03-02 22:41] MED LIST changes: +LOSARTAN POTASS25 MG PO
--- OUTSIDE RECORDS SUMMARY | 2021-03-02 22:44 | XMS ---
PreManage Notification: MARCO GARCIA Security Product/Device Technologist Events No recent Security Events currently on file CRITERIA MET - [facility] - 2 Visits in 30 Days CARE PROVIDERS JOSE QUEZADA Dentist: Corrections Officer 07/29/2019-Current PHONE: [phone] CHILO JUNIOR Internal Medicine: Pulmonary Disease 06/10/2018-Current PHONE: Unknown Sondra has no Care Guidelines for this patient. Arlene VISIT COUNT (12 MO.) 2 [facility] TOTAL 2 NOTE: Visits indicate total known visits. ED/UCC VISIT TRACKING (12 MO.) 03/02/2021 22:42 [facility] [place] TYPE: Emergency COMPLAINT: - LT EYE PAIN 01/31/2021 08:52 [facility] [place] TYPE: Emergency COMPLAINT: - BACK PAIN DIAGNOSES: - Other fci (current) drug therapy - Type 1 diabetes mellitus without complications - Allergy status to penicillin - FPC (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 - Strain of muscle and tendon of back wall of thorax, initial encounter - Nicotine dependence, unspecified, uncomplicated - Exposure to other specified factors, initial encounter - Essential (primary) hypertension INPATIENT VISIT TRACKING (12 MO.) No inpatient visits to display in this time frame [email or web address]
[2021-03-29] MEDS ORDERED: CEPHALEXIN500 M1 PO ×2 (21:44→21:46)
== END 2021-03-02 23:32 | disposition home or self-care (01) ==
LOC: ED 22:41
DX: H43.12 Vitreous hemorrhage, left eye (principal); E10.9 Type 1 diabetes mellitus without complications; I10 Essential (primary) hypertension; F17.200 Nicotine dependence, unspecified, uncomplicated; Z88.0 Allergy status to penicillin; Z79.899 Other long term (current) drug therapy
CPT/HCPCS: 99284

== ENCOUNTER → 2021-03-29 | Emergency (ER) | payer OTHER ==
[~2021-03-29] VITALS: Ht 170.2 cm; Wt 81.0 kg
[~2021-03-29] MED LIST changes: +CEPHALEXIN500 M1 PO; +HYDROCODON-ACE1 EA10 PO
--- OUTSIDE RECORDS SUMMARY | 2021-03-29 20:52 | XMS ---
PreManage Notification: MARCO GARCIA Security Raw Stock Machine Loader Events No recent Security Events currently on file CRITERIA MET - [facility] - 2 Visits in 30 Days CARE PROVIDERS DAMIEN [facility] 03/03/2021-Current PHONE: [phone] CHILO JUNIOR Internal Medicine: Pulmonary Disease 06/10/2018-Current PHONE: Unknown Sondra has no Care Guidelines for this patient. Arlene VISIT COUNT (12 MO[address] [place] [address] TOTAL 3 NOTE: Visits indicate total known visits. ED/UCC VISIT TRACKING (12 MO.) 03/29/2021 20:50 [facility] [place] TYPE: Emergency COMPLAINT: - L LEG LACERATION 03/02/2021 22:42 [facility] [place] TYPE: Emergency COMPLAINT: - LT EYE PAIN/ NON INJURY DIAGNOSES: - Allergy status to penicillin - Essential (primary) hypertension - Other care home (current) drug therapy - Nicotine dependence, unspecified, uncomplicated - Type 1 diabetes mellitus without complications - Vitreous hemorrhage, left eye 01/31/2021 08:[address] [facility] [place] TYPE: Emergency COMPLAINT: - BACK PAIN DIAGNOSES: - Other care home (current) drug therapy - Type 1 diabetes mellitus without complications - Allergy status to penicillin - senior living (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 - Strain of muscle and tendon of back wall of thorax, initial encounter - Nicotine dependence, unspecified, uncomplicated - Exposure to other specified factors, initial encounter - Essential (primary) hypertension INPATIENT VISIT TRACKING (12 MO.) No inpatient visits to display in this time frame [email or web address]
== END ==
LOC: ED 20:50
DX: E10.622 Type 1 diabetes mellitus with other skin ulcer (principal); L97.829 Non-pressure chronic ulcer of other part of left lower leg with unspecified severity; I10 Essential (primary) hypertension; F17.200 Nicotine dependence, unspecified, uncomplicated; Z79.4 Long term (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; Z88.0 Allergy status to penicillin
CPT/HCPCS: 99283; J0131; J0330; J1100; J1885; J2250; J2405; J2704; J2765; J3010; J7121

== ENCOUNTER 2021-04-07 08:50 | Emergency (ER) | payer OTHER ==
[~2021-04-07] VITALS: Ht 170.2 cm; Wt 80.7 kg
[~2021-04-07 08:50] MED LIST changes: -HYDROCODON-ACE1 EA10 PO
--- OUTSIDE RECORDS SUMMARY | 2021-04-07 08:52 | XMS ---
PreManage Notification: MARCO GARCIA Security Front Desk Clerk Events No recent Security Events currently on file CRITERIA MET - [facility] - 2 Visits in 30 Days CARE PROVIDERS JOSE QUEZADA [facility] 03/03/2021-Current PHONE: [phone] YVETTE FERRO Internal Medicine 03/30/2021-Current PHONE: [phone] CHILO JUNIOR Internal Medicine: Pulmonary Disease 06/10/2018-Current PHONE: Unknown Sondra has no Care Guidelines for this patient. Care History Medical/Surgical 03/30/2021 [facility] - Patient is currently established with [facility]. If patient is seen in the ED during business hours. Please contact CHWs at [facility]. Care Recommendation: If this patient has had 5 or more Emergency Department visits in the last 12 months.\T\nbsp; Patient will require education on the scope and purpose of the ED as an acute care provider not a Primary Care Provider and should not be utilized for chronic conditions.\T\nbsp; These are guidelines and the provider should exercise clinical judgment when providing care. E.D. VISIT COUNT (12 MO.) 4 [facility] TOTAL 4 NOTE: Visits indicate total known visits. ED/UCC VISIT TRACKING (12 MO.) 04/07/2021 08:51 [facility] TYPE: Emergency COMPLAINT: - R ARM PAIN 03/29/2021 20:50 [facility] TYPE: Emergency COMPLAINT: - L LEG LACERATION 03/02/2021 22:42 [facility] TYPE: Emergency COMPLAINT: - LT EYE PAIN/ NON INJURY DIAGNOSES: - Allergy status to penicillin - Essential (primary) hypertension - Other senior living (current) drug therapy - Nicotine dependence, unspecified, uncomplicated - Type 1 diabetes mellitus without complications - Vitreous hemorrhage, left eye 01/31/2021 08:52 [facility] TYPE: Emergency COMPLAINT: - BACK PAIN DIAGNOSES: - Other termite treater helper (current) drug therapy - Type 1 diabetes mellitus without complications - Allergy status to penicillin - longterm (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 - Strain of muscle and tendon of back wall of thorax, initial encounter - Nicotine dependence, unspecified, uncomplicated - Exposure to other specified factors, initial encounter - Essential (primary) hypertension INPATIENT VISIT TRACKING (12 MO.) No inpatient visits to display in this time frame [id number]
[2021-04-07] MEDS ORDERED: CEPHALEXIN500 MG PO (09:00)
[2021-04-07] MEDS ORDERED: HYDROCODON-ACE1 EA10 PO (09:54)
== END 2021-04-07 10:14 | disposition home or self-care (01) ==
LOC: ED 08:50
DX: S62.336A Displaced fracture of neck of fifth metacarpal bone, right hand, initial encounter for closed fracture (principal); W22.8XXA Striking against or struck by other objects, initial encounter; E10.9 Type 1 diabetes mellitus without complications; I10 Essential (primary) hypertension; F17.200 Nicotine dependence, unspecified, uncomplicated; Z88.0 Allergy status to penicillin; Z79.899 Other long term (current) drug therapy; Z79.4 Long term (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
CPT/HCPCS: 73110; 99283-25

== ENCOUNTER 2021-11-07 14:15 | Emergency (ER) | payer OTHER ==
[~2021-11-07] VITALS: Ht 170.2 cm; Wt 78.9 kg
[~2021-11-07 14:15] MED LIST changes: +HYDROCODON-ACE1 EA10 PO
== END 2021-11-07 15:46 | disposition home or self-care (01) ==
LOC: ED 14:15
DX: H43.12 Vitreous hemorrhage, left eye (principal); E10.9 Type 1 diabetes mellitus without complications; I10 Essential (primary) hypertension; F17.200 Nicotine dependence, unspecified, uncomplicated; Z88.0 Allergy status to penicillin; Z79.4 Long term (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
CPT/HCPCS: 99283

== ENCOUNTER 2022-04-06 01:14 | Emergency (ER) | payer OTHER ==
[~2022-04-06] VITALS: Ht 170.2 cm; Wt 80.3 kg
== END 2022-04-06 02:46 | disposition home or self-care (01) ==
LOC: ED 01:14
DX: E10.3531 Type 1 diabetes mellitus with proliferative diabetic retinopathy with traction retinal detachment not involving the macula, right eye (principal); I10 Essential (primary) hypertension; F17.200 Nicotine dependence, unspecified, uncomplicated; Z88.0 Allergy status to penicillin; Z79.4 Long term (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
CPT/HCPCS: 99284-25

== ENCOUNTER 2023-04-09 16:07 | Emergency (ER) | payer OTHER ==
[~2023-04-09] VITALS: Ht 170.2 cm; Wt 80.3 kg
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
--- OUTSIDE RECORDS SUMMARY | ~2023-04-09 | XMS | Continuity of Care Document ---
Demographics + + + | Address | [address] | | | [place] [address] | + + + | Preferred Language | Unknown | + + + | Marital Status | | + + + | Scientology Affiliation | Unknown | + + + | Race | White | + + + | Ethnic Group | Not or | + + + Author + + + | Author | [facility] | + + + | Organization | [facility] | + + + | Address | [address] | | | [place] [address] | + + + | Phone | | + + + Care Team Providers + + + + | Care Laundry Pricing Clerk Name | Role | Phone | [...] | (no date) | Mild | [facility] | (unknown) | | | | Hospital [...] + | 2014-03-12 00:00 | DTaP | [facility] | + + + + Medications + + + + | date | description | facility | + + + + | 2022-04-16 00:00 | INSULIN LISPRO | [facility] | + + + + | 2021-03-29 00:00 | CEPHALEXIN | [facility] | + + + + | 2015-08-27 00:00 | IBUPROFEN | [facility] | + + + + | 2015-08-27 00:00 | CIPROFLOXACIN HCL | [facility] | + + + + | 2015-07-09 00:00 | SILVER SULFADIAZINE | [facility] | + + + + | 2015-08-31 00:00 | CEPHALEXIN | [facility] | + + + + | 2015-10-24 00:00 | CLINDAMYCIN HCL | [facility] | + + + + | 2015-02-17 00:00 | CEPHALEXIN | [facility] | + + + + | 2015-06-03 00:00 | CEPHALEXIN | [facility] | + + + + | 2022-04-16 00:00 | CEPHALEXIN | [facility] | + + + + | 2022-04-16 00:00 | GABAPENTIN | [facility] | + + + + | 2022-04-16 00:00 | PREGABALIN | [facility] | + + + + | 2022-04-16 00:00 | DULOXETINE HCL | [facility] | + + + + | 2020-02-13 00:00 | CYCLOBENZAPRINE HCL | [facility] | + + + + | 2022-04-16 00:00 | CYCLOBENZAPRINE HCL | [facility] | + + + + | 2018-06-09 00:00 | KETOROLAC TROMETHAMINE | [facility] | + + + + | 2015-07-09 00:00 | TRAMADOL HCL | [facility] | + + + + | 2015-08-31 00:00 | TRAMADOL HCL | [facility] | + + + + | 2016-04-24 00:00 | TRAMADOL HCL | [facility] | + + + + | 2015-02-17 00:00 | | [facility] | | | SULFAMETHOXAZOLE/TRIMETHOPR | | | | IM DS | | + + + + | 2015-06-03 00:00 | | [facility] | | | SULFAMETHOXAZOLE/TRIMETHOPR | | | | IM DS | | + + + + | 2015-08-27 00:00 | | [facility] | | | SULFAMETHOXAZOLE/TRIMETHOPR | | | | IM DS | | + + + + | 2021-04-07 00:00 | HYDROCODONE | [facility] | | | BIT/ACETAMINOPHEN | | + + + + | 2014-02-08 00:00 | HYDROCODONE | [facility] | | | BIT/ACETAMINOPHEN | | + + + + | 2015-06-03 00:00 | HYDROCODONE | [facility] | | | BIT/ACETAMINOPHEN | | + + + + | 2015-11-29 00:00 | HYDROCODONE | [facility] | | | BIT/ACETAMINOPHEN | | + + + + | 2020-02-13 00:00 | HYDROCODONE | [facility] | | | BIT/ACETAMINOPHEN | | + + + + | 2022-04-16 00:00 | LOSARTAN POTASSIUM | [facility] | + + + + | 2015-02-17 00:00 | ACETAMINOPHEN WITH CODEINE | [facility] | | | | | + + + + Problems + + + + | date | description | facility | + + + + | 2014-09-13 00:00 | Vomiting | [facility] | + + + + | 2014-11-26 00:00 | Rotator cuff injury | [facility] | + + + + | 2014-11-28 00:00 | Tendinitis of right | [facility] | | | rotator cuff | | + + + + | 2015-02-17 00:00 | Local infection of wound | [facility] | + + + + | 2015-06-03 00:00 | Abscess of skin or | [facility] | | | subcutaneous tissue | | + + + + | 2015-06-22 00:00 | Fracture of tooth | [facility] | + + + + | 2015-07-09 00:00 | Second degree burn of left | [facility] | | | forearm | | + + + + | 2015-08-27 00:00 | Abscess of face | [facility] | + + + + | 2015-08-31 00:00 | Abscess | [facility] | + + + + | 2015-11-29 00:00 | Sprain of left knee | [facility] | + + + + | 2017-08-13 00:00 | Vitreous hemorrhage of | [facility] | | | right eye | | + + + + | 2018-06-09 00:00 | Rib pain on left side | [facility] | + + + + | 2019-01-08 00:00 | Encounter for medical | [facility] | | | screening examination | | + + + + | 2019-07-28 00:00 | Sudden visual loss of left | [facility] | | | eye | | + + + + | 2020-02-13 00:00 | Acute myofascial strain of | [facility] | | | lumbar region | | + + + + | 2021-01-31 00:00 | Thoracic myofascial strain | [facility] | | | | | + + + + | 2021-03-29 00:00 | Ulcer of ankle due to | [facility] | | | diabetes mellitus | | + + + + | 2021-11-07 00:00 | Vitreous hemorrhage of | [facility] | | | left eye | | + + + + | 2022-04-06 00:00 | 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
[2023-04-09 19:13] VITALS: BP 110/65
== END 2023-04-09 19:14 | disposition home or self-care (01) ==
LOC: ED 16:07
DX: T40.411A Poisoning by fentanyl or fentanyl analogs, accidental (unintentional), initial encounter (principal); E10.9 Type 1 diabetes mellitus without complications; I10 Essential (primary) hypertension; F17.200 Nicotine dependence, unspecified, uncomplicated; Z88.0 Allergy status to penicillin; Z79.4 Long term (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
CPT/HCPCS: 99284

== ENCOUNTER 2023-05-01 22:52 | Emergency (ER) | payer OTHER ==
[~2023-05-01] VITALS: Ht 170.2 cm; Wt 70.3 kg
--- OUTSIDE RECORDS SUMMARY | 2023-05-01 22:58 | XMS ---
PreManage Notification: MARCO GARCIA Security Entry Level Recruiter Events No recent Security Events currently on file CRITERIA MET - [facility] - 2 Visits in 30 Days CARE PROVIDERS -Camilo- Dentist: Jewel Bearing Broacher [facility] PHONE: [phone] DAMIEN [facility] 03/03/2021-Current PHONE: [phone] YVETTE FERRO Internal Medicine 03/30/2021-Current PHONE: Unknown CHILO JUNIOR Internal Medicine: Pulmonary Disease 06/10/2018-Current PHONE: Unknown Sondra has no Care Guidelines for this patient. Care History Medical/Surgical 03/30/2021 [facility] - Patient is currently established with [facility]. If patient is seen in the ED during business hours. Please contact CHWs at [facility]. Care Recommendation: If this patient has [...] providing care. E.D. VISIT COUNT (12 MO.) 2 [facility] TOTAL 2 NOTE: Visits indicate total known visits. ED/UCC VISIT TRACKING (12 MO.) 05/01/2023 22:53 [facility] TYPE: Emergency COMPLAINT: - PAIN 04/09/2023 16:07 [facility] TYPE: Emergency COMPLAINT: - OVERDOSE DIAGNOSES: - Allergy status to penicillin - Essential (primary) hypertension - residential (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 - Nicotine dependence, unspecified, uncomplicated - Poisoning by fentanyl or fentanyl analogs, accidental (unintentional), initial encounter - Syncope and collapse - Type 1 diabetes mellitus without complications INPATIENT VISIT TRACKING (12 MO.) No inpatient visits to display in this time frame [id number]
[2023-05-02] MEDS ORDERED: ANTIBIOTIC28.4 GM TOP (01:13)
[2023-05-02 01:20] VITALS: BP 118/60
== END 2023-05-02 01:20 | disposition home or self-care (01) ==
LOC: ED 22:52
DX: S20.311A Abrasion of right front wall of thorax, initial encounter (principal); S70.212A Abrasion, left hip, initial encounter; S70.312A Abrasion, left thigh, initial encounter; E10.65 Type 1 diabetes mellitus with hyperglycemia; V87.8XXA Person injured in other specified noncollision transport accidents involving motor vehicle (traffic), initial encounter; I10 Essential (primary) hypertension; F17.200 Nicotine dependence, unspecified, uncomplicated; Z88.0 Allergy status to penicillin; Z79.4 Long term (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
CPT/HCPCS: 36415; 70450; 71045; 71260; 72125; 72170; 73502; 74177; 80053; 81003; 83690; 83735; 85025; 90471; 90715; 96361; 96375; 99285 25; J1815; J2270; J7121; Q9967

== ENCOUNTER 2023-08-25 22:25 | Inpatient (IN) | payer OTHER ==
[~2023-08-25] VITALS: Ht 170.2 cm; Wt 70.6 kg
[~2023-08-25 22:25] MED LIST changes: +ANTIBIOTIC28.4 GM TOP
[2023-08-25] MEDS ORDERED: NOVOLOG100 UNIT/2 SUB-Q (22:37)
[2023-08-25 22:57] LABS: BASOPHILS 0.3 % (0-2); EOSINOPHILS 0.2 % (0-6); HEMOGLOBIN 11.4 g/dL (12.0-18.0); LYMPHOCYTES 6.1 % (24-44); MCH 30.1 (27-36); MCHC 31.6 g/dl (30-36); MCV 95.4 fl (81-99); MONOCYTES 7.5 % (0-12); NEUTROPHILS 85.9 % (39-80); PLATELET COUNT 492 K/uL (140-440); RBC 3.77 M/ul (4.3-5.7); RDW 14.5 (10.5-15.0)
[2023-08-25 23:07] LABS: INR 1.05 (0.80-1.30); PROTIME 13.2 Sec (11.2-14.2)
[2023-08-25 23:12] LABS: ALBUMIN 2.4 g/dL (3.4-5.0); ALBUMIN/GLOBULIN RATIO 0.43 (1.1-2.4); ANION GAP 25.6 (7-21); BILIRUBIN, TOTAL 0.6 ng/dL (0.2-1.0); BUN/CREATININE RATIO 12.34 (6.0-28.6); CALCIUM 9.3 mg/dL (8.5-10.1); CREATININE, SERUM 2.35 mg/dL (0.70-1.30); POTASSIUM 4.6 mmol/L (3.5-5.1)
[2023-08-25 23:21] LABS: LACTIC ACID, BLOOD 2.3 mmol/L (0.4-2.0)
[2023-08-26] VITALS (29 sets, daily range): BP systolic 120–147; BP diastolic 64–88
[2023-08-26 00:10] LABS: PH, VENOUS 7.176 (7.31-7.41)
--- NOTE | 2023-08-26 02:15 | NUR ---
PT ARRIVED TO UNIT, REPORT RECIEVED AT BEDSIDE. PT ARRIVED WITH 6UNITS/HR OF INSULIN RUNNING AND LR AT 200ML/HR. PT WAS DROWSY BUT WOULD WAKE UP AND ANSWER QUESTIONS APPROPRIATLY. PT DOES HAVE AN OUT OF PROPORTION PAIN RESPONSE WHEN BEING TOUCHED. NEW MEDICATIONS STARTED. PT IS SLIGHTLY HYPERTENSIVE AND HEART RATE IS SINUS TACHYCARDIA IN THE 120'S. LUNGS ARE COARSE BUT REMAINS ON ROOMAIR. PT EDUCATED AND ORIENTATED TO THE ROOM. PT ALSO ENCOURAGED TO URINATE. ALL QUESTIONS AND CONCERNS ARE ADDRESSED AT THIS TIME.
[2023-08-26 03:21] LABS: ALBUMIN 1.8 g/dL (3.4-5.0); ALBUMIN/GLOBULIN RATIO 0.4 (1.1-2.4); ANION GAP 26.8 (7-21); BILIRUBIN, TOTAL 0.5 ng/dL (0.2-1.0); BUN/CREATININE RATIO 12.22 (6.0-28.6); CALCIUM 8.2 mg/dL (8.5-10.1); CREATININE, SERUM 2.29 mg/dL (0.70-1.30); POTASSIUM 3.8 mmol/L (3.5-5.1); PROTEIN, TOTAL 6.3 g/dL (6.4-8.2)
--- NOTE | 2023-08-26 04:00 | NUR ---
PT IS RESTING IN BED WITH LEFT LEG ELEVATED. PT REMAINS ON INSULIN DRIP. VITAL SIGNS REMAIN WITH IN NORMAL LIMITS. CALL LIGHT WITH IN REACH, BED IS LOWERED AND LOCKED. ALL QUESTIONS AND CONCERNS ADDRESSED.
[2023-08-26 05:32] LABS: BASOPHILS 0.3 % (0-2); EOSINOPHILS 0.6 % (0-6); HEMATOCRIT 31.2 % (35.0-50.0); HEMOGLOBIN 10.1 g/dL (12.0-18.0); LYMPHOCYTES 7.8 % (24-44); MCH 29.9 (27-36); MCHC 32.3 g/dl (30-36); MCV 92.7 fl (81-99); MONOCYTES 6.6 % (0-12); NEUTROPHILS 84.7 % (39-80); PLATELET COUNT 380 K/uL (140-440); RBC 3.37 M/ul (4.3-5.7); RDW 14.2 (10.5-15.0)
[2023-08-26 05:53] LABS: ALBUMIN 1.8 g/dL (3.4-5.0); ALBUMIN/GLOBULIN RATIO 0.38 (1.1-2.4); ANION GAP 19.9 (7-21); BILIRUBIN, TOTAL 0.4 ng/dL (0.2-1.0); BUN/CREATININE RATIO 12.82 (6.0-28.6); CALCIUM 8.4 mg/dL (8.5-10.1); CREATININE, SERUM 1.95 mg/dL (0.70-1.30); POTASSIUM 3.9 mmol/L (3.5-5.1); PROTEIN, TOTAL 6.5 g/dL (6.4-8.2)
--- NOTE | 2023-08-26 06:30 | NUR ---
PT IS UNABLE TO URINATE AFTER MULTIPLE ATTEMPTS, BLADDER SCAN WAS GREATER THEN 1300ML. PROVIDER WAS MADE AWARE, WHELAN ORDERED AND PLACED. PT REMAINS ON THE INSULIN, BICARB DRIP, AND LR. PT IS DROWSY BUT ARROUSABLE. CMPS ORDERED Q4 HRS. CALL LIGHT WIHT IN REACH. ALL QUESTIONS AND CONCERNS ADDRESSED AT THIS TIME.
[2023-08-26 06:43] LABS: AMPHETAMINES, URINE NEGATIVE (NEGATIVE); BARBITURATES, URINE NEGATIVE (NEGATIVE); BENZODIAZEPINE, URINE NEGATIVE (NEGATIVE); BUPRENORPHINE, URINE NEGATIVE (NEGATIVE); CANNABINOID, URINE NEGATIVE (NEGATIVE); COCAINE, URINE NEGATIVE (NEGATIVE); ECSTASY, URINE NEGATIVE (NEGATIVE); FENTANYL, URINE POSITIVE (NEGATIVE); METHADONE, URINE NEGATIVE (NEGATIVE); OPIATES, URINE POSITIVE (NEGATIVE); OXYCODONE, URINE NEGATIVE (NEGATIVE); PHENCYCLIDINE, URINE NEGATIVE (NEGATIVE)
--- NOTE | 2023-08-26 07:30 | NUR ---
REPORT RECEIVED FROM SUPERVISOR FEED HOUSE
--- NOTE | 2023-08-26 08:37 | NUR ---
ASSESSMENT COMPLETE. PT NONCOMPLIENT WITH [employer]ER AND REFUSED TO TAKE ORAL PROTONIX. PT YELLS OUT IN PAIN WHEN STAFF TOUCHES OR TALKS ABOUT TOUCHING PT. DIFFICULT TO GET PT TO ANSWER QUESTIONS WITH WORDS. PT MOANING IN BED BUT UNABLE TO VERBALIZE WHAT HE NEEDS.
--- NOTE | 2023-08-26 09:00 | NUR ---
PT MORE RESPONSIVE AND COMPLIENT. PT REPORTS 7/10 PAIN IN LEG AND ASKS WHAT HIS BLOOD SUGAR IS. PT MEDICATED FOR PAIN AND IS RESTING MORE COMFORTABLY IN BED.
--- NOTE | 2023-08-26 09:59 | NUR ---
LAB IN ROOM TO DRAW REPEAT CMP. PT TOLERATES.
[2023-08-26 10:17] LABS: ALBUMIN 1.7 g/dL (3.4-5.0); ALBUMIN/GLOBULIN RATIO 0.39 (1.1-2.4); ANION GAP 14.7 (7-21); BILIRUBIN, TOTAL 0.5 ng/dL (0.2-1.0); BUN/CREATININE RATIO 11.41 (6.0-28.6); CALCIUM 8.2 mg/dL (8.5-10.1); CREATININE, SERUM 1.84 mg/dL (0.70-1.30); POTASSIUM 3.7 mmol/L (3.5-5.1); PROTEIN, TOTAL 6.1 g/dL (6.4-8.2)
--- NOTE | 2023-08-26 10:31 | NUR ---
1000 CMP SHOWS CLOSED ANION GAP. CLL TO MD. ORDERS RECEIVED TO DC INSULIN DRIP AND MOVE TO BLOOD SUGAR CHECKS WITH MEALS AND SLIDING SCALE INSULIN. PT RESTING IN BED AND VSS.
--- NOTE | 2023-08-26 11:29 | NUR ---
PT LAYING RIGHT LATERAL. RESP EVEN AND UNLABORED. PT DOES NOT WAKE TO RN IN ROOM.
--- NOTE | 2023-08-26 11:49 | NUR ---
IN TO COMPLETE ASSESSMENT. PATIENT SOMNOLENT AT THIS TIME. WILL REATTEMPT ASSESSMENT AT A LATER TIME.
--- NOTE | 2023-08-26 12:01 | NUR ---
PT LAYING IN BED. PT RESPONSIVE TO RN WHEN ASKED QUESTIONS ABOUT PAIN/BLOOD SUGAR. PT'S BLOOD SUGAR 314, 7 UNITS GIVEN. PT REFUSING LUNCH TRAY BUT TOLERATING AND DRINKING WATER. PT REPORTS DECREASE IN PAIN LEVEL.
--- NOTE | 2023-08-26 13:16 | NUR ---
PT SLEEPING. DID NOT WAKE. PRAYED FOR WISDOM AND DISCERNMENT IN LIFE CHOICES
--- NOTE | 2023-08-26 13:43 | NUR ---
REMAINS SOMNOLENT, UNABLE TO COMPLETE ASSESSMENT AT THIS TIME.
--- NOTE | 2023-08-26 14:18 | NUR ---
IN ROOM. PT NOT A CANDIDATE FOR SURGERY AT THIS TIME. ORDERS RECEIVED TO ELEVATE LLE ABOVE LEVEL OF HEART. PILLOWS PLACED UNDER AFFECTED LEG. ABX STARTED. PT MEDICATED FOR PAIN SEE EMAR. PT DENIES OTHER NEEDS AT THIS TIME.
--- NOTE | 2023-08-26 15:59 | NUR ---
PT APPEARS TO BE SLEEPING IN BED WITH RESP EVEN AND UNLABORED. LEG ELEVATED ON PILLOWS. PT ANGRY ABOUT IV CONTINUING TO BEEP WHEN HE BENDS HIS ARMS. PT DECLINES TO HAVE NEW IV STARTED IN ANOTHER PLACE. PT STATES "ILL KEEP MY ARMS STRAIGHT THEN".
--- NOTE | 2023-08-26 17:36 | NUR ---
PT YELLS OUT TO RN'S. THIS RN IN ROOM. PT REPORTS "MY BLOOD SUGAR IS HIGH". BLOOD SUGAR CHECKED FOR 481. ORDERS FROM MD RECEIVED TO GIVE 15 UNITS OF INSULIN. CMP DRAWN. PT REPORTS NAUSEA AND EXTREME THIRST. ZOFRAN GIVEN.
[2023-08-26 18:05] LABS: ALBUMIN 1.5 g/dL (3.4-5.0); ALBUMIN/GLOBULIN RATIO 0.32 (1.1-2.4); ANION GAP 25.1 (7-21); BILIRUBIN, TOTAL 0.7 ng/dL (0.2-1.0); BUN/CREATININE RATIO 12.84 (6.0-28.6); CALCIUM 8.3 mg/dL (8.5-10.1); CREATININE, SERUM 1.79 mg/dL (0.70-1.30); POTASSIUM 4.1 mmol/L (3.5-5.1); PROTEIN, TOTAL 6.2 g/dL (6.4-8.2)
--- NOTE | 2023-08-26 18:08 | NUR ---
CRITICAL VALUE RECEIVED GLUCOSE 525 FROM LAB, DR DOMINGUEZ IN UNIT AND NOTIFIED.
[2023-08-26 18:16] LABS: PH, VENOUS 7.348 (7.31-7.41)
--- NOTE | 2023-08-26 20:00 | NUR ---
PT IS RESTING IN BED. REPORT RECIEVED. VS ARE WITH IN NORMAL LIMITS. PT IS COMPLAINING OF PAIN, PT REPOSITIONED. PT REMINDED TO KEEP LEGS HIGHER THEN HEART. PT EDUCATED ABOUT THE CLINICAL PICTURE AND CURRENT PLAN OF CARE. PT IS AGITATED WHEN NOT LEFT ALONE. CALL LIGHT IS WITH IN REACH, BED IS LOCKED, BED ALARM IS ON. ALL QUESTIONS AND CONCERNS ADDRESSED AT THIS TIME.
--- NOTE | 2023-08-26 22:00 | NUR ---
PT IS RESTING IN BED. PT STATES HE IS HAVING PAIN IN HIS LEFT LEG AT THIS TIME. PT REPOSITIONED. VS ARE STABLE. ALL QUESTIONS AND CONCERNS ADDRESSED. CALL LIGHT IS WITH IN REACH. BED IS LOCKED AND BED ALARM SET.
--- NOTE | 2023-08-26 22:35 | NUR ---
PT IS RESTING IN BED, PT DOES COMPLAIN OF PAIN IN MARI LEFT LOWER LEG. PRN MEDICATION GIVEN. NEW PIV PLACED. PROVIDER NOTIFIED OF LAB RESULTS, SEE ORDERS. PT VS ARE WITH IN NORMAL LIMITS. CALL LIGHT IS WITH IN REACH. BED IS LOCKED, BED ALARM IS PLACED ON. ALL QUESTIONS AND CONCERNS ADDRESSED AT THIS TIME. PT REPOSITIONS SELF.
[2023-08-26 22:38] LABS: ALBUMIN 1.5 g/dL (3.4-5.0); ALBUMIN/GLOBULIN RATIO 0.36 (1.1-2.4); BILIRUBIN, TOTAL 0.4 ng/dL (0.2-1.0); BUN/CREATININE RATIO 10.9 (6.0-28.6); CALCIUM 7.9 mg/dL (8.5-10.1); CREATININE, SERUM 1.65 mg/dL (0.70-1.30); PROTEIN, TOTAL 5.7 g/dL (6.4-8.2)
[2023-08-27] VITALS (18 sets, daily range): BP systolic 118–144; BP diastolic 60–93
--- NOTE | 2023-08-27 | NUR ---
PT IS RESTING IN BED. PT'S WHELAN CATHETER DISCONNECTED FROM WHELAN BAG, CHANGED FULL SET OF LINENS. CHG WIPE BATH PERFORMED, WHELAN CARES PERFORMED. PT COMPLAINS OF PAIN, PRN MEDICATION GIVEN. VS ARE WITH IN NORMAL LIMITS. CALL LIGHT WITH IN REACH. BED IS LOCKED AND BED ALARM IS ON.
[2023-08-27 02:18] LABS: ALBUMIN 1.4 g/dL (3.4-5.0); ALBUMIN/GLOBULIN RATIO 0.31 (1.1-2.4); ANION GAP 11.2 (7-21); BILIRUBIN, TOTAL 0.3 ng/dL (0.2-1.0); BUN/CREATININE RATIO 10.52 (6.0-28.6); CALCIUM 7.9 mg/dL (8.5-10.1); CREATININE, SERUM 1.52 mg/dL (0.70-1.30); POTASSIUM 3.2 mmol/L (3.5-5.1); PROTEIN, TOTAL 5.9 g/dL (6.4-8.2)
--- NOTE | 2023-08-27 02:19 | NUR ---
PT IS RESTING IN BED. PT DOES IS COMFORTABLE AT THIS TIME. LAB AT BEDSIDE. VS ARE WITH IN NORMAL RANGE. CALL LIGHT IS IN REACH. BED IS LOCKED, BED ALARM IS ON. PT REPOSITIONS SELF. ALL QUESTIONS AND CONCERNS ADDRESSED AT THIS TIME.
--- NOTE | 2023-08-27 04:00 | NUR ---
PT IS RESTING IN BED. PT COMPLAINING OF PAIN BUT STILL ABLE TO DRIFT TO SLEEP. PT REPOSITIONS SELF. VS ARE WITH IN NORMAL LIMITS. CALL LIGHT IS WITH IN REACH. BED LOCKED AND ALARM ON.
[2023-08-27 05:36] LABS: HEMATOCRIT 26.7 % (35.0-50.0); HEMOGLOBIN 8.9 g/dL (12.0-18.0); MCH 30.2 (27-36); MCHC 33.4 g/dl (30-36); MCV 90.3 fl (81-99); PLATELET COUNT 341 K/uL (140-440); RBC 2.96 M/ul (4.3-5.7); RDW 13.9 (10.5-15.0)
[2023-08-27 05:45] LABS: ALBUMIN 1.4 g/dL (3.4-5.0); ALBUMIN/GLOBULIN RATIO 0.33 (1.1-2.4); ANION GAP 10.2 (7-21); BILIRUBIN, TOTAL 0.3 ng/dL (0.2-1.0); BUN/CREATININE RATIO 10.63 (6.0-28.6); CALCIUM 7.7 mg/dL (8.5-10.1); CREATININE, SERUM 1.41 mg/dL (0.70-1.30); POTASSIUM 3.2 mmol/L (3.5-5.1); PROTEIN, TOTAL 5.6 g/dL (6.4-8.2)
[2023-08-27 05:58] LABS: BANDS, MANUAL DIFF 11; LYMPHOCYTES, MANUAL DIFF 14; MONOCYTES, MANUAL DIFF 2; NEUTROPHILS, MANUAL DIFF 73
--- NOTE | 2023-08-27 06:44 | NUR ---
PT HAD COMPLAINED OF PAIN, PRN MEDICATION GIVE. LABS DRAWN. PT REPOSITIONED AND REMINDED TO KEEP LEFT LEG ELEVATED HIGHER THEN HEART LEVEL. PT ALSO EDUCATED ON IMPORTANCE OF EATING TODAY. PT MORE ALERT AND TALKATIVE THIS MORNING. CALL LIGHT WITH IN REACH. BED LOCKED AND ALARM ON.
--- NOTE | 2023-08-27 07:50 | NUR ---
REPORT FROM EDITH RN, PT EYES CLOSED RESP RATE REG, LEFT LEG ELEVATED ON PILLOW AND INSULIN DRIP FUSING AT 1 PER ORDER. CALL LIGHT IN REACH. HOURLY BS CHECKS.
--- NOTE | 2023-08-27 08:14 | NUR ---
BS 196, DR DOMINGUEZ IN ROOM WITH RN AND PT, CONTINUE INSULIN, 40 MEQ KCL ORDERED PO.
--- NOTE | 2023-08-27 08:58 | NUR ---
pt just finished us with rosendo, pt restless, and rn had to use nix voice to educate pt on procedure and need, pt agreed to test, lowered his voice after rn laid down some ground rules of mutual respect and care. iv and po pain meds provided to pt with oral kcl replacent, educated pt left leg. 9 am bs is 222.
--- NOTE | 2023-08-27 09:22 | NUR ---
pt very unsteady on feet, almost lost balance fell - 2 person assist to bathroom for bm, hair wash and chlorhexidine wipe down, linens changed - warm blkt to pt, left leg elevated, iv fusing. call light in reach .
--- NOTE | 2023-08-27 09:30 | NUR ---
PATIENT UP TO BR WITH 1PA, VERY UNSTEADY. MED GREEN LOOSE STOOL. PATIENT USED CHG WIPES ON BODY. LINEN CHANGED, BACK TO BED, LEG ELEVATED. UNDERSTANDS TO USE CALL LIGHT FOR ASSISTANCE RATHER THAN SCREAM FOR STAFF.
--- NOTE | 2023-08-27 09:37 | NUR ---
PT APPEARED TO BE SLEEPING. DID NOT DISTURB. PRAYED FOR COMPLETE RECOVERY AND ABIDING PEACE.
--- NOTE | 2023-08-27 10:05 | NUR ---
MED REC COMPLETE
--- NOTE | 2023-08-27 10:25 | NUR ---
PATIENT ORIENTED, DOES NOT OPEN EYES TO LOOK AT STAFF. SHORT ANSWERS. STATES HE DOESN'T KNOW HIS CURRENT ADDRESS. STATES HE DOES NOT HAVE A SINGLE RESIDENCE. MOVES AROUND, COUCH HOPPING. DOES NOT HAVE A WORKING PHONE. POSITIVE FOR [place] AT ADMISSION, PREVIOUSLY WORKED WITH [facility] AND [facility] PER Mitch BURGOS RN-PATIENT INFORMED HER. THIS NURSE OFFERED TO CALL ENDER AND SET UP MEETING, REFUSES. STATES HE KNOWS HOW TO GET INTO [facility], REFUSES ASSISTANCE. DISCUSSED HOW PATIENT GETS INSULIN, STATES HE GETS IT FROM [facility]. NO PCP. INFORMED IF PCP IS SET UP, THEY WILL HAVE TO CALL HIM TO SCHEDULE. STATES SINCE HE HAS NO PHONE, BEAKER, FRIEND, CAN RECEIVE CALLS. NO VEHICLE. WALKS TO GET TO WHERE HE WANTS TO GO. STATES HE IS AWARE OF [place], DOES NOT WANT INFORMATION. INFORMED [facility] HAS MEALS AT LUNCH, STATES HE IS AWARE AND DOES NOT GO FOR MEALS. BECOMES AGITATED WITH QUESTIONS BEING ASKED, STARTS TO RAISE HIS VOICE MORE WITH EACH QUESTION. INFORMED ENDER CARD IS ON TABLE AND LEFT ROOM. PRIMARY NURSE, Mitch BURGOS, JESSICA, NOTIFIED PATIENT IS REFUSING RESOURCES AT THIS TIME.
[2023-08-27 10:52] LABS: ALBUMIN 1.4 g/dL (3.4-5.0); ALBUMIN/GLOBULIN RATIO 0.33 (1.1-2.4); ANION GAP 7.9 (7-21); BILIRUBIN, TOTAL 0.3 ng/dL (0.2-1.0); BUN/CREATININE RATIO 9.92 (6.0-28.6); CALCIUM 7.7 mg/dL (8.5-10.1); CREATININE, SERUM 1.41 mg/dL (0.70-1.30); MAGNESIUM 1.8 mg/dL (1.8-2.4); POTASSIUM 2.9 mmol/L (3.5-5.1); PROTEIN, TOTAL 5.6 g/dL (6.4-8.2)
--- NOTE | 2023-08-27 10:56 | NUR ---
Information sent to clinic to set up patient with PCP.
--- NOTE | 2023-08-27 10:58 | NUR ---
bs checked - 176 dr tello here - aware of titration. pt restless, when rn in, yet falls asleep easily, hr 85, room air. leg left elevated.
--- NOTE | 2023-08-27 12:05 | NUR ---
bs 160 - iv kcl fusing on pump. pt hr 82 sleeping on right side with call light in reach.
--- NOTE | 2023-08-27 13:28 | NUR ---
CONSULT RECEIVED FOR PATIENT BEING A NON-COMPLIANT DIABETIC AND HOMELESS. PATIENT IS NOT IN A CONDITION RIGHT NOW TO RECEIVE EDUCATION ON DIET. WILL CONTINUE TO MONITOR PATIENT'S BEHAVIOR AND IF APPROPRIATE PROVIDE NUTRITION INTERVENTION TO HELP HIM ON DISCHARGE.
--- NOTE | 2023-08-27 13:44 | NUR ---
rosendo from ay in for us of abd. pt resting in bed.
--- NOTE | 2023-08-27 15:41 | NUR ---
updated zinc furnace charger rosa m on orders and plan of care - pharmacy sridevi yani up long acting insulin at this time and provided to me for pt. pt continues to rest in bed hr 88, eyes closed. call light in reach - long acting insulin given now.
--- NOTE | 2023-08-27 17:07 | NUR ---
pt drank 300 ml of water and ate a cheesburger and mpg. irritable to iv pump and conversation, iv insulin drip continues at 3.4 see med flowsheet, 1000 ml urine out in [facility] - lab recheck at 2030 pm . pt ate then fell asleep on side after rolling around in bed. call light in reach rr. 21.
--- NOTE | 2023-08-27 18:16 | NUR ---
pt awakened for bs check 174- yells this is to much - "god damn it this is f..kin stupid". rolls over and sleeps. insulin drip stopped. water at bedside and iv kcl is fusing.
--- NOTE | 2023-08-27 18:57 | NUR ---
pt yelling and swearing from room, rn enters - call light is in reach - pt yelling take me to the bathroom i need to shit!! rn assisted pt who was unsteady to be seated on toilet - bm - linen changed and chux replaced to legs. warm blkt to pt. bs checked and it is 256 - drip was turned off 1 hr ago. next sugar check prn or 2100 schedulued. call light in reach .
--- NOTE | 2023-08-27 19:08 | CONS ---
[facility] [address], [place] [address] Signed DATE OF CONSULTATION: 08/26/2023 REQUESTING PHYSICIAN: Dr. Mirza and Dr. Ryan Pemberton. ISSUE: Left leg cellulitis (recurrent persistent and underlying diabetes mellitus). HISTORY OF PRESENT ILLNESS: This 33-year-old man who self-described homelessness generally presents to the emergency room at approximately 2:00 in the morning with complaints of leg pain for the preceding four days. The patient said he developed fever and chills and has had a wound on the anterior song for the past two years. He has had no direct wound care for this problem. He does have poorly-controlled diabetes mellitus and was found to have acute kidney injury and hyperglycemia. This included a glucose of 430. He did not have diabetic ketoacidosis proper, however. His lactic acid initially was 2.3, subsequently 1.9. His white count was markedly elevated at 28.4, hematocrit at 36 and platelets at 492,000. His evaluation in the emergency room included a CT scan of his leg, which was alarming to all parties with a consideration of "cellulitis and fasciitis" of the mid to lower leg extending to the foot. No evidence of abscess or gas-forming soft tissue infection and no evidence of osteomyelitis. His care was assumed upon admission to the intensive care unit by Dr. Mirza, hospitalist and, for which IV antibiotic therapy had been initiated and maintained. He had improvement of his white count to 22.4 by approximately 5:00 a.m. today. The patient's other studies at presentation include coag studies, which were normal with an INR of 1.05. A Chem profile is considered to be normal. The tox screen, which showed fentanyl and positive opiate screen. It is uncertain the timing of that study in relation to pain medicine he may have been given. His medication at admission has included daptomycin (Cubicin) as well as cefepime. He is being managed for his diabetes with insulin currently. REVIEW OF SYSTEMS: The patient is able to answer questions, so does not want to open his eyes and does not engage fully in our conversation. He does not appear to have delirium per se, but I believe his underlying illness and other social factors prevent him from answering as fully as I would hope. He does complain of left lower extremity pain related to his cellulitis, but complains of right-sided leg pain as well. He denies shortness of breath. He does not feel nauseated. He denies abdominal pain. Electronically Signed By: WANDY BURRIS MD 08/27/23 1908 PATIENT NAME: MARCO GARCIA CONSULTATION DATE OF : 86 REPORT #: [id number] PHYSICIAN: WANDY BURRIS MD PCP: NO PRIMARY CARE PHYSICIAN REPORT IS CONFIDENTIAL AND NOT TO BE RELEASED WITHOUT AUTHORIZATION [facility] [address] [place] [id number] Signed PHYSICAL EXAMINATION: GENERAL: A relatively thin and small white man, his height 5 feet 7 inches tall, 70.6 kg with a BMI of 24.4. VITAL SIGNS: His temperature evaluation was 98.7, pulse 99, blood pressure 131/76, O2 saturation 99% on room air. HEENT: His mucous membranes are slightly dry. Trachea is midline. CHEST: Clear. HEART: Regular without murmur. ABDOMEN: Nondistended and easily palpated. There is no palpable mass or tenderness. EXTREMITIES: Show cellulitis of the left leg as well as a small 2.5 cm skin defect. There is no crepitus. He shows no evidence of gangrene. He does have erythema and edema at the level of the ankle and more proximally. He has exquisite tenderness to the soft tissue, but again no sign of necrotizing fasciitis. The right side is reasonably normal in appearance. ASSESSMENT: The patient certainly does have significant severe left lower extremity cellulitis with at least four days of ongoing neglect of this problem on his part. He does have diabetes, which is out of control of a sugar of 450. Measures to control the glucose are underway and antibiotic choice for his presumed cellulitis of the lower extremity are appropriate. I do not see signs of necrotizing soft tissue infection that would require immediate debridement in any way. He may require more elaborate wound care ultimately, but right now does not show undrained abscess or actual necrotic tissue. I will continue to follow with him. Leg elevation is recommended. I advised the nurses and subsequently Dr. Mirza that his legs should be elevated higher than his heart as much as possible to decrease edema and optimize healing. MD GROVER Montgomery/CODY /[id number] cc: DYAN CHOWDHURY Electronically Signed By: WANDY BURRIS MD 08/27/23 1908 PATIENT NAME: MARCO GARCIA CONSULTATION DATE OF : 86 REPORT #: [id number] PHYSICIAN: WANDY BURRIS MD PCP: NO PRIMARY CARE PHYSICIAN REPORT IS CONFIDENTIAL AND NOT TO BE RELEASED WITHOUT AUTHORIZATION [place] [facility] [place], [place] [address] Signed Copies: ~ Electronically Signed By: WANDY BURRIS MD 08/27/23 1908 PATIENT NAME: MARCO GARCIA AMANDA CONSULTATION DATE OF : 86 REPORT #: [id number] PHYSICIAN: WANDY BURRIS MD PCP: NO PRIMARY CARE PHYSICIAN REPORT IS CONFIDENTIAL AND NOT TO BE RELEASED WITHOUT AUTHORIZATION
--- NOTE | 2023-08-27 19:15 | NUR ---
pt awakens and demands that I call his mom suleiman andino and tell her to come in her right now! - I asked pt this am and he declined contact to his mom. now he is demanding she come in. This rn calls suleiman - she is suprised that he is here and his situation. she reports that he has been stealing from them and they were having trouble and he was kicked out and essentially homeless due to his choice. she reports he has been staying with danika in [place] and that suleiman (mom) fills his RX at [facility]. she is not sure who his pcp is and knows he does not follow up on care - she is aware of his sore on leg and prison problem with it. pt notified that his mom is on the way.
--- NOTE | 2023-08-27 20:15 | NUR ---
RN RECIEVED REPORT. MOTHER AT BEDSIDE, PT AND MOTHER EDUCATED. WITH EDUCATION PTS AGRESSION AND IRRITATION SUBSIDED, PT BECAME VERY COOPERATIVE AFTERWARDS. PT DOES COMPLAIN OF PAIN, PRN MEDICATION BEING GIVEN. MOTHER EDUCATED OUTSIDE THE ROOM. PT VS ARE WITH IN NORMAL LIMITS. PT IS ORIENTATED ALTHOUGH VOCAL WITH HIS PAIN, IT IS NOT DIRECTED TO STAFF AT THIS TIME. CIWA ARE ELEVATED. ALL QUESTIONS AND CONCERNS ADDRESSED AT THIS TIME. CALL LIGHT WITH IN REACH, BED LOCKED AND BED ALARM SET.
[2023-08-27 20:54] LABS: ALBUMIN 1.5 g/dL (3.4-5.0); ALBUMIN/GLOBULIN RATIO 0.33 (1.1-2.4); ANION GAP 12.1 (7-21); BILIRUBIN, TOTAL 0.3 ng/dL (0.2-1.0); BUN/CREATININE RATIO 11.2 (6.0-28.6); CALCIUM 7.7 mg/dL (8.5-10.1); CREATININE, SERUM 1.25 mg/dL (0.70-1.30); POTASSIUM 4.1 mmol/L (3.5-5.1)
[2023-08-28] VITALS (15 sets, daily range): BP systolic 113–167; BP diastolic 68–99
--- NOTE | 2023-08-28 | NUR ---
PT IS RESTING IN BED. PT BS ELEVATED, PROVIDER CALLED AND CHANGES TO ORDERS MADE. NICOTINE PATCH ORDERED. PT REPOSITIONED AND EDUCATED. VS STABLE, NO SIGNIFICANT CHANGES TO PT ASSESSMENT. ALL QUESTIONS AND CONCERNS ADDRESSED. CALL LIGHT WIHT IN REACH. BED LOCKED AND BED ALARM ON.
--- NOTE | 2023-08-28 02:00 | NUR ---
PT IS RSTING IN BED. NO COMPLAINTS OF PAIN AT THIS TIME. ALL QUESTIONS AND CONCERNS ADDRESSED. CALL LIGHT WITH IN REACH. BED IS LOWERED AND BED ALARM LOCKED. PT IS REQUESTING FREQUENT SUGAR FREE SNACKS.
--- NOTE | 2023-08-28 04:30 | NUR ---
PT IS IN BED, COMPLAINING OF PAIN. PRN MEDICATIONS GIVEN WITH MINIMAL RESOLVE, ICE PLACED TO LEFT LEG. SNACK PROVIDED. PT OPENED UP ABOUT DRUG USE AND STATED "HE IS HAVING TROUBLE FINDING RESOURCES TO HELP KEEP HIM CLEAN AND EMPLOYED." PT ALSO WOULD BE WILLING TO SPEAK WITH CASE MANAGMENT ABOUT PROGRAMS BUT WILL NOT GET INVOLVED UNLESS HIS PAIN IS ADDRESSED. PT ALSO STATED "THE PAIN IN THE LEG IS SO SEVRE HE WOULD RATHER HAVE IT CUT OFF." VS STABLE, ASSESSMENT UNCHANGED. CALL LIGHT WITH IN REACH. BED LOCKED AND BED ALARM ON.
[2023-08-28 05:31] LABS: HEMATOCRIT 27.1 % (35.0-50.0); HEMOGLOBIN 8.8 g/dL (12.0-18.0); MCH 29.9 (27-36); MCHC 32.3 g/dl (30-36); MCV 92.6 fl (81-99); PLATELET COUNT 314 K/uL (140-440); RBC 2.93 M/ul (4.3-5.7); RDW 14.4 (10.5-15.0)
[2023-08-28 05:42] LABS: BANDS, MANUAL DIFF 10; LYMPHOCYTES, MANUAL DIFF 13; MONOCYTES, MANUAL DIFF 6; NEUTROPHILS, MANUAL DIFF 71
[2023-08-28 05:54] LABS: ALBUMIN 1.3 g/dL (3.4-5.0); ALBUMIN/GLOBULIN RATIO 0.3 (1.1-2.4); ANION GAP 11.9 (7-21); BILIRUBIN, TOTAL 0.3 ng/dL (0.2-1.0); BUN/CREATININE RATIO 13.15 (6.0-28.6); CALCIUM 7.7 mg/dL (8.5-10.1); CREATININE, SERUM 1.14 mg/dL (0.70-1.30); POTASSIUM 2.9 mmol/L (3.5-5.1); PROTEIN, TOTAL 5.7 g/dL (6.4-8.2)
--- NOTE | 2023-08-28 06:40 | NUR ---
PT SLIGHTLY AGITATED AND ANXIOUS. CIWA PERFORMED AND ELEVATED PRN GIVE. PT REMAINS PLEASENT TO STAFF. PT REPOSITIONED. VS STABLE. ALL QUESTIONS AND CONCERNS ADDRESSED AT THIS TIME. CALL LIGHT WITH IN REACH, BED LOCKED AND BED ALARM ON.
--- NOTE | 2023-08-28 07:20 | NUR ---
REPORT RECEIVED FROM NIGHT RN ALL QUESTIONS ANSWERED.
--- NOTE | 2023-08-28 08:00 | NUR ---
PT UP TO RESTROOM, WHELAN REMOVED. PT WASHES FACE AND BRUSHED TEETH. PT AMBULATED 1 PERSON ASSIST BACK TO BED, UNSTEADY GAIT. LINENS CHANGED.
--- NOTE | 2023-08-28 08:51 | NUR ---
CCU ROUNDS. PT SLEEPING. DID NOT WAKE. PROVIDED PRAYER.
[2023-08-28] MEDS ORDERED: NOVOLIN N100 UNIT/2 SUB-Q (08:54)
--- NOTE | 2023-08-28 09:00 | NUR ---
MORNING ASSESSMENT COMPLETE. PT LYING AWAKE IN BED EATING BREAKFAST, BG 210, ORDERED INSULIN ADMINISTERED. LLE 1+ PITTING EDEMA, DRESSING PLACE FROM NIGHT RN, GÓMEZ. OPEN SORE NOTED TO CALF, COVERED WITH ALLEVYN. DOPPLER PULSE ON LLE. REDNESS WITHIIN PREVIOSULY MARKED PARAMETERS. PT IVS ALL PATENT. PT C/O 7/10 PAIN IN LLE. PRN PAIN MEDICATION GIVEN. PT DENIES FURTHER NEEDS AT THIS TIME. PT AND MOTHER UPDATED ON PLAN OF CARE. CALL LIGHT IN REACH AND MOTHER AT BEDSIDE.
[2023-08-28] MEDS ORDERED: NOVOLIN R100 UNIT/1 SUB-Q (09:08)
--- NOTE | 2023-08-28 10:16 | NUR ---
PATIENT'S MOTHER IN ROOM. STATES SHE HAS SPOKEN WITH PATIENT REGARDING TREATMENT AND NEED FOR PCP. INFORMED YESTERDAY PROCESS FOR INITIATING PCP CARE WAS STARTED. CLINIC IS SUPPOSED TO BE CONTACTING PATIENT ONCE CARE HAS BEEN ESTABLISHED. ENDER CONTACTED PER DISCUSSION WITH MOTHER. THEY WILL BE UP TO SEE PATIENT WITHIN AN HOUR. [facility] INFORMATION ALSO PROVIDED FOR TRANSPORT FOR APPOINTMENTS.
--- NOTE | 2023-08-28 11:05 | NUR ---
PT C/O 04/15 PAIN IN LLE, GIVEN PRN TYLENOL AND IBU. DENIES FURTHER NEEDS AT THIS TIME. CALL LIGHT IN REACH AND MOTHER AT BEDSIDE.
--- NOTE | 2023-08-28 11:10 | NUR ---
ENDER IN ROOM WITH PT AND MOTHER.
--- NOTE | 2023-08-28 11:12 | NUR ---
PATIENT IS MORE RECEPTIVE AND ALERT TODAY. HIS MOM IS HERE VISITING. SHE BOUGHT SOME STRING CHEESE FOR HIM TO SNACK ON. HE COUNTS CARBS. DOSES HIS INSULIN ACCORDING TO HOW HE FEELS. HE DOES NOT LIKE ANY FRUIT, ONLY FRUIT JUICES. MOM STATES HE ONLY LIKES CORN AND MAYBE GREEN BEANS FOR VEGGIES. HE DOES LIKE SF JELLO, MILK, ICE CREAM. HE SAID THE SF LEMON ICE SOUNDS GOOD. THESE PREFERENCES ARE ALREADY IN MEAL IQ. EXPLAINED TO THE PATIENT AND HIS MOM THAT IF HE DOESN'T WANT THE PRE-SET DINNER, HE CAN CALL THE KITCHEN BY 3:30 PM TO CHANGE HIS ORDER. THE GRAMS OF CARBS ARE LISTED ON THE PERSONAL CHOICE MENU. NO FURTHER NUTRITION INTERVENTION NEEDED AT THIS TIME. WILL REMAIN AVAILABLE IF NEEDED.
--- NOTE | 2023-08-28 12:32 | NUR ---
PT AMBULATES TO RESTROOM ONE PERSON ASSIST, UNSTEADY GAIT. BATH WIPES PROVIDED TO PT IN RESTROOM. PT VOIDS 350 MLS CLEAR YELLOW URINES. AMBULATES BACK TO BED. LLE ELEVATED ON BED AND WITH TWO PILLOWS. VSS. IVS PATENT AND RUNNING. PT DENIES FURTHER NEEDS AT THIS TIME. CALL LIGHT IN REACH AND MOTHER AT BEDSIDE.
--- NOTE | 2023-08-28 13:06 | NUR ---
UR NOTE MCG CELLULITIS (ISC) INPATIENT 08/26/23 MET CLINICAL INDICATIONS FOR ADMISSION TO INPATIENT CARE GL DAY 1 08/27/23 VARIANCE GL DAY 2 08/28/23 MET GL DAY 2
--- NOTE | 2023-08-28 13:21 | NUR ---
PT RESTING IN BED WITH EYES CLOSED, RESPIRATIONS EVEN AND UNLABORED. CALL LIGHT IN REACH AND MOTHER AT BEDSIDE.
[2023-08-28 13:47] LABS: ALBUMIN 1.5 g/dL (3.4-5.0); ALBUMIN/GLOBULIN RATIO 0.35 (1.1-2.4); ANION GAP 10.6 (7-21); BILIRUBIN, TOTAL 0.2 ng/dL (0.2-1.0); BUN/CREATININE RATIO 12.72 (6.0-28.6); CALCIUM 7.6 mg/dL (8.5-10.1); CREATININE, SERUM 1.1 mg/dL (0.70-1.30); POTASSIUM 4.6 mmol/L (3.5-5.1); PROTEIN, TOTAL 5.8 g/dL (6.4-8.2)
[2023-08-28 14:09] LABS: HEPATITIS A ANTIBODY, IGM Negative (Negative); HEPATITIS B CORE ANTIBODY, IGM Negative (Negative); HEPATITIS B SURFACE ANTIGEN Negative (Negative); HEPATITIS C AB CIA INTERP Negative (Negative); HEPATITIS C ANTIBODY CIA INDEX 0.04 IV (())
--- NOTE | 2023-08-28 16:14 | NUR ---
PT TACHYPNEIC, C/O 7/10 PAIN IN LLE. O2 SAT ON RA 96%. OTHER VSS. GIVEN PRN DILUADID. SEE EMAR. PT DENIES FURTHER NEEDS AT THIS TIME. LLE ELEVATED IN BED ON TWO PILLOWS. CALL LIGHT IN REACH AND MOTHER AT BEDSIDE.
--- NOTE | 2023-08-28 17:08 | NUR ---
PT ASSISTED TO RESTROOM AND BACK TO BED, UNSTEADY GAIT WITH AMBULATION. PT STATES PAIN 5/10. BACK TO BED, LLE ELEVATED. DENIES FURTHER NEEDS CALL LIGHT IN REACH.
[2023-08-28 18:43] LABS: ALBUMIN 1.3 g/dL (3.4-5.0); ALBUMIN/GLOBULIN RATIO 0.31 (1.1-2.4); BILIRUBIN, TOTAL 0.1 ng/dL (0.2-1.0); BUN/CREATININE RATIO 10.86 (6.0-28.6); CALCIUM 7.5 mg/dL (8.5-10.1); CREATININE, SERUM 1.38 mg/dL (0.70-1.30); PROTEIN, TOTAL 5.5 g/dL (6.4-8.2)
--- NOTE | 2023-08-28 20:01 | NUR ---
PATIENT REPORTS PAIN 8/10 IN HIS LEFT LEG. PRN PAIN MEDS PER ORDER. IV SITES WNL; X3. IV FLUIDS AND K+ RIDER INFUSING PER ORDER.
--- NOTE | 2023-08-28 22:06 | NUR ---
PATIENT UP TO THE BATHROOM. PATIENT PREVIOUSLY WITHOUT ASSISTANCE AND HAD A LARGE VOID ON THE FLOOR. PATIENT IS VERY ANXIOUS ABOUT HIS PAIN, THE MONITOR LINES, ETC. ASSURED PATIENT THAT THESE THINGS WERE OKAY BUT PATIENT CONTINUES TO CRY/WAIL. PRN ATIVAN PROVIDED. PATIENT'S FEET CLEANED AND FRESH SOCKS APPLIED. IV ABX AND FLUIDS INFUSING PER ORDER; SITES WNL X3. HOUSE KEEPING IN TO SANITIZE FLOOR. THEN LIGHTS DIMMED. BED ALARM ACTIVE AND ENCOURAGED PATIENT TO CALL FOR ANY NEEDS, ESPECIALLY GETTING OUT OF BED. PATIENT AGREES. CALL LIGHT IN REACH.
--- NOTE | 2023-08-28 22:54 | NUR ---
PATIENT RESTING WITH EYES CLOSED. VS STABLE. CALL LIGHT IN REACH. LIGHTS DIMMED.
--- NOTE | 2023-08-28 23:14 | NUR ---
PATIENT UP TO THE BATHROOM. PATIENT EMOTIONAL AND TEARFUL. REPORTS DIFFICULTY SLEEPING. WARM BLANKET PROVIDED. ASSISTED PATIENT TO ELEVATED HIS LEFT LEG IN THE BED. CALL LIGHT IN REACH; BED ALARM ACTIVE.
--- NOTE | 2023-08-28 23:58 | NUR ---
PATIENT CRYING OUT IN PAIN. ASSISTED PATIENT TO REPOSITION WITH LEFT LEG ELEAVTED. PATIENT PROVIDED PRN PAIN MEDS ALONG WITH ACCU CHECK AND SSI. PATIENT IS FRUSTERATED WITH HIS CONDIITION AND THE PAIN. PATIENT ALSO REPORTS IT IS DIFFICULT TO SLEEP. ENCOURAGED PATIENT TO REDUCE NOISE WITH THE TV AND KEEP LIGHTS DIMMED. PATIENT AGREES. CALL LIGHT IN REACH.
[2023-08-29] VITALS (8 sets, daily range): BP systolic 128–161; BP diastolic 84–99
--- NOTE | 2023-08-29 02:00 | NUR ---
PATIENT CRYING OUT IN PAIN. ATTEMPTS TO ASSIST PATIENT IN REPOSITIONING AND KEEPING FOOT ELEVATED. COOL WASH CLOTH APPLIED TO AREA; PATIENT REFUSING ICE PACK. PEDAL PULSE NOTED IN LEFT FOOT. FOOT IS RED AND SWOLLEN. DRESSING INTACT. VS STABLE. PRN PAIN MEDS PROVIDED. PATIENT IS DIFFICULT TO CONSOLE. ENOCURAGED PATIENT TO KEEP FOOT ELEVATED.
--- NOTE | 2023-08-29 04:30 | NUR ---
PATIENT UP TO THE BATHROOM. PATIENT IN BATHROOM FOR 15 MINS. WHEN PATIENT EXIT THE BATHROOM PATIENT HAD REMOVED HIS DRESSING ON HIS LEFT LEG. PATIENT DOES NOT FOLLOW INSTRUCTIONS WELL. HANNAH LOPEZ REPLACED DRESSING WITH XEROFORM; NON-ADHEARANT PADS AND CASSIDY WRAP. ENCOURAGED PATIENT TO ELEVATE HIS LEG WHILE IN BED.
[2023-08-29 05:38] LABS: ALBUMIN 1.4 g/dL (3.4-5.0); ALBUMIN/GLOBULIN RATIO 0.31 (1.1-2.4); ANION GAP 12.1 (7-21); BILIRUBIN, TOTAL 0.2 ng/dL (0.2-1.0); BUN/CREATININE RATIO 13.84 (6.0-28.6); CALCIUM 7.7 mg/dL (8.5-10.1); CREATININE, SERUM 1.3 mg/dL (0.70-1.30); MAGNESIUM 1.9 mg/dL (1.8-2.4); PHOSPHORUS, INORGANIC 2.7 mg/dL (2.5-4.9); POTASSIUM 4.1 mmol/L (3.5-5.1); PROTEIN, TOTAL 5.9 g/dL (6.4-8.2)
--- NOTE | 2023-08-29 08:35 | NUR ---
MORNING ASSESSMENT COMPLETE. PT AWAKE IN BED EATING BREAKFAST. C/O 10 LLE PAIN, EXPLAINED PAIN MEDICATION GIVEN THORKUN DRESS CUTTER, EDUCATED ON PAIN MEDICATION SCHEDULE. PT VERBALIZED UNDERSTANDING, PRN TYLENOL AND MOTRIN GIVEN. SCHEDULE MORNING MEDICATIONS ADMINISTERED. LLE ELEVATED IN BED WITH TWO PILLOWS ABOVE LEVEL OF HEART. PULSES FOUND WITH DOPPLER. REDNESS WITHIN PREVIOUSLY OUTLINED AREA. DRESSING CDI. IV X3 PATENT. PT DENIES FURTHER NEEDS AT THIS TIME. CALL LIGHT IN REACH.
--- NOTE | 2023-08-29 12:07 | NUR ---
PT AWAKENS TO EAT LUNCH. DENIES NEEDS AT THIS TIME. CALL LIGHT IN REACH. LAB IN ROOM.
[2023-08-29 12:13] LABS: HEMATOCRIT 28.8 % (35.0-50.0); HEMOGLOBIN 9.2 g/dL (12.0-18.0); MCH 29.7 (27-36); MCHC 32.1 g/dl (30-36); MCV 92.4 fl (81-99); PLATELET COUNT 367 K/uL (140-440); RBC 3.11 M/ul (4.3-5.7); RDW 14.7 (10.5-15.0)
[2023-08-29 12:30] LABS: ALBUMIN 1.6 g/dL (3.4-5.0); ALBUMIN/GLOBULIN RATIO 0.32 (1.1-2.4); ANION GAP 10.4 (7-21); BILIRUBIN, TOTAL 0.2 ng/dL (0.2-1.0); BUN/CREATININE RATIO 16.1 (6.0-28.6); CALCIUM 8.5 mg/dL (8.5-10.1); CREATININE, SERUM 1.18 mg/dL (0.70-1.30); POTASSIUM 4.4 mmol/L (3.5-5.1); PROTEIN, TOTAL 6.6 g/dL (6.4-8.2)
[2023-08-29 12:35] LABS: BANDS, MANUAL DIFF 4; BASOPHILS, MANUAL DIFF 1; LYMPHOCYTES, MANUAL DIFF 25; MONOCYTES, MANUAL DIFF 1; NEUTROPHILS, MANUAL DIFF 69
[2023-08-29 12:36] LABS: EOSINOPHILS, MANUAL DIFF 0
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
--- NOTE | 2023-08-29 15:42 | NUR ---
PT CONTINUES TO BE DROWSY, AWAKENS WITH TACTILE STIMULI AND BACK TO SLEEP. O2 SAT 99% ON RA, OTHER VSS. CALL LIGHT IN REACH.
--- NOTE | 2023-08-29 17:30 | NUR ---
PT AWAKE AND ALERT, CRYING. STATING PAIN IS 10/10. PRN TYLENOL AND DILAUDID GIVEN, SEE EMAR. PT DENIES FURTHER NEEDS AT THIS TIME. CALL LIGHT IN REACH.
--- NOTE | 2023-08-29 18:53 | NUR ---
PT TRANSFERED TO MED/SURG. JESSICA CLAY TO GIVE REPORT TO COMMERCIAL LOAN PROCESSOR RNVALENTINO. PT CALM AND COOPERATIVE. PT REPORTS 7/10 PAIN IN LLE. SEE MAR FOR MEDICATION GIVEN. PT REQUESTS "ANYTHING SWEET. SUGAR FREE PUDDING PROVIDED. NO ADDITIONAL REQUESTS OR COMPLAINTS AT THIS TIME. CALL LIGHT WITHIN REACH. BED RAILS UP. BED ALARM ON.
--- NOTE | 2023-08-29 20:17 | NUR ---
Pt moved to room 111, Pt setting bed alarm off frequently, crying, screaming, manic, restless. not very receptive to instructions. Pt moved closer to nursing station for closer observation. Medicated with Ativan by primary RN.Speech Pathology Teacher notified. Pt informed of move closer to nursing station for safety, stated "ok". all belongings moved too
--- NOTE | 2023-08-30 00:13 | NUR ---
wound assessment per report, dressing CDI
[2023-08-30 00:15] VITALS: BP 137/84
[2023-08-30 04:50] VITALS: BP 154/96
--- NOTE | 2023-08-30 04:54 | NUR ---
Pt got out of bed w/o calling. went into shower and showered, soaking his 2IV sites and L above the ankle dressing. voided clear urine using urinal. Back to bed. Leg dressing changed x2 wound areas, healing, adaptic, nonadherent gauze and covered with kendra wrap, edema to feet present, tolerated fair. IV site R AC 20g dc'd, not patent. lower R FA iv 20g dressing changed to opsite. flushed, patent. covered with coban to prevent accidental dislodgement. Hyperverbal, manic. follows instructions, will be medicated for pain. Bed alarm on. fluids and call light at hands reach. tolerating fluids, pudins and crackers well. Primary RN Dot in room too. Pt instructed display fabrication supervisor light and bed alarm, pain control and dressing changes, semi receptive.
--- NOTE | 2023-08-30 06:53 | NUR ---
Pt demanding his BG be checked. cheked and it is 385, phoned MD, ok to give morning SS. Advised Pt of MD order, he was ok with it, but during administration, Pt states "what! 11units? thats not going to work." I reassured him that he will bave a BG check within the next hour. He said "ok"
[2023-08-30 07:10] LABS: HEMATOCRIT 27.9 % (35.0-50.0); HEMOGLOBIN 9.1 g/dL (12.0-18.0); MCH 30.2 (27-36); MCHC 32.7 g/dl (30-36); MCV 92.2 fl (81-99); PLATELET COUNT 407 K/uL (140-440); RBC 3.03 M/ul (4.3-5.7); RDW 14.8 (10.5-15.0)
[2023-08-30 07:25] LABS: ALBUMIN 1.6 g/dL (3.4-5.0); ALBUMIN/GLOBULIN RATIO 0.31 (1.1-2.4); ANION GAP 10.6 (7-21); BILIRUBIN, TOTAL 0.2 ng/dL (0.2-1.0); BUN/CREATININE RATIO 15.51 (6.0-28.6); CALCIUM 8.3 mg/dL (8.5-10.1); CREATININE, SERUM 1.16 mg/dL (0.70-1.30); POTASSIUM 4.6 mmol/L (3.5-5.1); PROTEIN, TOTAL 6.7 g/dL (6.4-8.2)
--- NOTE | 2023-08-30 07:37 | NUR ---
RECIEVED REPORT FROM JESSICA AVELAR. PT SITTING UP IN BED, USES URINAL. REQUESTS ICE WATER, GIVEN. ASSUMING CARE OF PT WITH JESSICA RUVALCABA. CALL LIGHT WITHIN REACH, BED RAILS UP.
[2023-08-30 07:41] LABS: BANDS, MANUAL DIFF 10; LYMPHOCYTES, MANUAL DIFF 18; MONOCYTES, MANUAL DIFF 2; NEUTROPHILS, MANUAL DIFF 70
--- NOTE | 2023-08-30 07:57 | NUR ---
UR NOTE MCG CELLULITIS (ISC) INPATIENT 08/29/23 VARIANCE GL DAY 2 CARE DAY 5
--- NOTE | 2023-08-30 08:27 | NUR ---
PT LYING IN BED, COUSIN AT THE BEDSIDE. MEDICATIONS GIVEN (SEE EMAR), SUGAR FREE SNACKS GIVEN. PT REQUESTING "BETTER PAIN MEDS" AFTER GIVEN PAIN MEDICATION (SEE EMAR). PT AWAITING BREAKFAST AT THIS TIME. PT STATES NO FURTHER QUESTIONS AT THIS TIME, CALL LIGHT WITHIN REACH, BED RAILS UP.
--- NOTE | 2023-08-30 09:46 | NUR ---
ADMIN DILAUDID 1MG IV FOR REPORTS OF 10/10 RIGHT LEG PAIN.
--- NOTE | 2023-08-30 10:07 | NUR ---
MORNING ASSESSMENT. PT STATES PAIN IS 8/10 AT THIS TIME, HAD ATTEMPTED TO UNWRAP DRESSING ON LEFT LEG, THIS RN, REWRAPS DRESSING. EDUCATION PROVIDED ON NOT REMOVING DRESSINGS, PT STATES HE HAS BEEN USING LOTION AROUND WOUND, EDUCATION PROVIDED ON NOT USING THINGS ON OR AROUND WOUND UNTIL WOUND CONSULT IS DONE TO PREVENT RISKS, PT VERBALIZES UNDERSTANDING. WEAKNESS, NUMBNESS AND TINGLING REMAIN IN BILAT LOWER LEGS AND FEET. PT CONTINUES TO BE IRRATABLE AT TIMES, CONTINUES TO ATTEMPT TO AMBULATE INDEPENDENTLY, PT REQUIRES X1 PERSON ASSIST FOR AMBULATION D/T LEFT LEG WOUND AND UNSTEADY GAIT. PT CONTINUES TO HAVE OCCASIONAL HACKING COUGH, STATES HE IS NOT COUGHING ANYTHING UP ANYMORE. HEART TONES REGULAR, TACHYCARDIC. EDEMA REMAINS IN LLE. LLE CONTINUES TO BE ANNABELLE, LEG ELEVATED WHEN LYING DOWN, PT SITTING ON COUCH CURRENTLY, EDUCATION ON RAISING LEG PROVIDED, PT VERBALIZES UNDERSTANDING. PT STATES "I THINK I WENT THIS MORNING, BUT I DON'T KNOW" WHEN ASKED ABOUT LAST BM. DR. DOMINGUEZ AT THE BEDSIDE. PT STATES NO FURTHER NEEDS AT THIS TIME, CALL LIGHT WITHIN REACH.
[2023-08-30 10:39] VITALS: BP 124/76
--- NOTE | 2023-08-30 10:45 | NUR ---
DONAVON FROM DR. DOMINGUEZ TO DISCONTINUE TO CEFEPIME ORDER.
--- NOTE | 2023-08-30 11:14 | NUR ---
Blood sugar is [address] Mirza notfied at this time.
--- NOTE | 2023-08-30 12:43 | NUR ---
HOURLY ROUNDING, PT REQUESTS COMB, GIVEN. PT SITTING UP N BED TO EAT LUNCH, FEET ELEVATED. PT STATES NO FURTHER NEEDS AT THIS TIME, CALL LIGHT WITHIN REACH, BED RAILS UP.
--- NOTE | 2023-08-30 13:16 | NUR ---
ADMIN ATIVAN 1MG IV FOR ANXIETY. RIGHT LEG ELEVATED AT THIS TIME, ENCOURAGED PATIENT TO REST. WARM BLANKET PROVIDED.
--- NOTE | 2023-08-30 13:48 | NUR ---
AFTERNOON ASSESSMENT. PT LYING IN BED AWAKE AND ALERT. STATES PAIN IS CURRENTLY 8/10, REQUESTS PAIN MEDICATION, GIVEN (SEE EMAR). EDEMA UNCHANGED SINCE MORNING ASSESSMENT. LEFT LEG/FOOT UNCHANGED, ANNABELLE, EDEMA, PT PULLS AWAY TO TOUCH AND YELLS IN PAIN. PT CONTINUES TO BE TACHYCARDIC, HEART TONES CONTINUE TO BE REGULAR OTHERWISE. PT CONTINUES TO BE RESTLESS AND REQUESTS MULTIPLE SNACKS AT A TIME. PT STATES "I AM JUST SO HUNGRY ALL THE TIME". PT PROVIDED SNACKS AND WATER. PT STATES NO FURTHER NEEDS AT THIS TIME, CALL LIGHT WITHIN REACH, BED RAILS UP.
[2023-08-30 14:03] VITALS: BP 135/76
--- NOTE | 2023-08-30 15:20 | NUR ---
PT STANDS UP FROM BED, THIS RN ENTERS ROOM. PT STATES "I AM JUST STANDING IN MY SAFE ZONE, NOT WALKING ANYWHERE" AND STATES HE "JUST WANTED TO MOVE MY FOOT A LITTLE". PT EDUCATION ON USING CALL LIGHT AND FALL RISKS, PT VERBALIZES UNDERSTANDING. PT REQUESTS INSULIN, WHEN ASKED FOR REASONING ON NEEDING INSULIN AT THIS TIME PT STATES "I JUST ATE SOME CAKE AND SOME OTHER STUFF WHEN THEY CAME IN" REFERRING TO VISITORS PT HAD IN ROOM. PT EDUCATION ON DIABETIC DIET AND RELATION TO HEALING, PT VERBALIZES UNDERSTANDING AT THIS TIME. PT SITS DOWN ON BED, STATES NO FURTHER NEEDS AT THIS TIME. CALL LIGHT WITHIN REACH, BED RAILS UP.
--- NOTE | 2023-08-30 15:52 | NUR ---
Patient in bed resting, eyes closed, respirations even and non labored. No notable distress. Call light within reach. Personal supplies and call light within reach.
--- NOTE | 2023-08-30 16:52 | NUR ---
UPDATED DR. LEON REGARDING MOST RECENT BLOOD SUGAR OF 427. NO NEW ORDERS OBTAINED AT THIS TIME.
--- NOTE | 2023-08-30 17:10 | NUR ---
ATIVAN 1MG IV FOR REPORTS OF INCREASED ANXIETY. DINNER TRAY TO PATIENT AT THIS TIME. LLE DRESSING REMAINS INTACT. PATIENT ENCOURAGED TO KEEP HIS LEGS ELEVATED. NO CURRENT NEEDS.
--- NOTE | 2023-08-30 17:29 | NUR ---
THIS RN TO ROOM WHEN PT YELLING OUT AND MOVING AROUND RESTLESSLY IN BED. PT STATES PAIN IS 10/10, PAIN MEDICATION (SEE EMAR). PT STATES NO FURTHER NEEDS AT THIS TIME, CALL LIGHT WITHIN REACH, BED RAILS UP.
[2023-08-30 17:34] VITALS: BP 146/83
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
--- NOTE | 2023-08-30 18:32 | NUR ---
PT NOTED TO HAVE YEASTY RASH UNDER PANNUS, IN GABRIELLE ARE AND UNDER BREASTS. PT STATES THIS IS COMMON PLACE FOR HER. GABRIELLE CARE DONE. NEW PURE WICK PLACED. BARRIER CREAM APPLIED. NIO ORDER PLACED FOR MICONAZOLE POWDER. PTS PRIMARY RN UPDATED. PT RESTING IN BED, BED RAILS UP. HEAD OF BED ELEVATED TO 30 DEGREES. CALL LIGHT WITHIN REACH.
--- NOTE | 2023-08-30 18:54 | NUR ---
PT HERE FOR SEPSIS. PT AMBULATES WITH SBA AND LINE AND TUBE MANAGEMENT. TOLERATING 60G CARB DIET WELL, ASKS FOR MANY SNACKS THROUGHOUT THE SHIFT. ACHS BLOOD SUGAR CHECKS. CELLULITIS TO LEFT LOWER LEG/FOOT, NO CHANGES IN WOUND ON LEG THIS SHIFT, COVERED, WOUND CONSULT ORDERED. IV IN RIGHT ARM SALINE LOCKED. PT HAS MULTIPLE EPISODES OF INCREASED PAIN THROUGHOUT SHIFT, REQUESTS PAIN MEDICATIONS WHEN DUE. PT USES CALL LIGHT AT TIMES, DOES GET UP INDEPENDENTLY WITHOUT CALLING OTHER TIMES, INTENTIONAL HOURLY ROUNDING.
--- NOTE | 2023-08-30 19:22 | NUR ---
Report obtained from Clary LOPEZ. pt in bed, upset at unseen people/ people he had been talking via phone. denies any requests
[2023-08-30 19:39] VITALS: BP 129/58
--- NOTE | 2023-08-30 19:50 | NUR ---
BED ALRM GOING OFF, SAT EDGE OF BED, WA BANGING TABLE. REORIENTED AND CALMED DOWN. C/O L LEG PAIN, MEDICATED WITH IBUPROFEN 600MG, FRESH FLUIDS GIVEN. C/O WANTING A SMOKE, 1/2 NICORETTE GUM GIVEN. COOPERATIVE WITH ASSESSMENT. SL PATENT RFA. DRESSING TO LOWER LEFT LEG INTACT. CURRENTLY, CALMER, TALKING VIA PHONE WITH FAMILY, SITTING EDGE OF BED, AWARE TO CALL RN PRIOR TOG ETTING OUT OF BED.
--- NOTE | 2023-08-30 21:40 | NUR ---
dr beth notified about pts cbg [phone], "give him 12 units instead of the 11 untis " charge nurse notified, pt notified
--- NOTE | 2023-08-30 21:49 | NUR ---
C/O 8/10 L LEG PAIN, IRRITABLE MOOD, LABILE, CRYING, MEDICATED WITH DILAUDUD 1MG IV, INSULIN 12 UNIT SQ GIVEN PER CBG 418. PT IN BED, BED ALARM ON
--- NOTE | 2023-08-30 22:35 | NUR ---
CALMER, STASED PAIN MED PARTIALLY EFFECTIVE. VOIDED LARGE AMOUNTS VERY CLEAR URINE, ACCIDENTALLY SPILLED OVER THE BED, BED CHANGED DONE. COOPERATIVE, SAT IN CHAIR FOR A WHILE, BACK TO BED. CALMER, FOLLOWS INSTRUCTIONS, PRAISED FOR CALLING PRIOR TO GETTING OUT OF BED AND AFTER SPILLING URINE OVER BED.
--- NOTE | 2023-08-31 00:14 | NUR ---
USED CALL LIGHT, UP TO EDGE OF BED, VOIDING LARGE AMOUNTS OF CLEAR URINE. TOLERATING LIQUIDS WELL. C/O 10/10 L LEG PAIN, MEDICATED WITH TYLENOL PO. PT IRRITABLE BEHAVIOR AND VERBAL ANGER TOWARDS FAMILY MEMBER HE IS TALKING TO VIA PHONE, REDIRECTABLE, BACK TO BED.
--- NOTE | 2023-08-31 01:39 | NUR ---
pt visiting with female family member, very strong smell of marijuana noticed. pt and family member denied smoking in room family member stated" may be is my jacket, i smoked a jont before i came in here freya". Pt and family member informed that smoking and illegal drug use in rooms is not acceptable and is illegal, pt was slightly irritated, stated, we are not and have not done anything. charge nurse notified.
--- NOTE | 2023-08-31 02:25 | NUR ---
pt awake, stood edgeof bed, voided large amount of urine. back to bed. c/o 10/10 L leg pain, calm, cooperaive, appropriate. medicated with Ibuprofen 600mg po. fresh fluids. female significant other in room.
--- NOTE | 2023-08-31 04:30 | NUR ---
pt awake, screaming, c/o L leg pain when he stood up to void. Back to bed, Medicated with Dilaudid 1mg IV. L leg dressing in place, elevated, edema no changes, very tender to touch female friend in room.
[2023-08-31 05:21] VITALS: BP 166/91
[2023-08-31 05:24] LABS: BASOPHILS 1.1 % (0-2); EOSINOPHILS 0.8 % (0-6); HEMATOCRIT 26.9 % (35.0-50.0); HEMOGLOBIN 8.8 g/dL (12.0-18.0); LYMPHOCYTES 15.6 % (24-44); MCH 30.1 (27-36); MCHC 32.6 g/dl (30-36); MCV 92.2 fl (81-99); NEUTROPHILS 76.5 % (39-80); PLATELET COUNT 541 K/uL (140-440); RBC 2.92 M/ul (4.3-5.7); RDW 14.7 (10.5-15.0)
[2023-08-31 05:30] LABS: ANION GAP 14.3 (7-21); BUN/CREATININE RATIO 21.33 (6.0-28.6); CALCIUM 8.5 mg/dL (8.5-10.1); CREATININE, SERUM 1.5 mg/dL (0.70-1.30); POTASSIUM 4.3 mmol/L (3.5-5.1)
--- NOTE | 2023-08-31 07:59 | NUR ---
RECIEVED BEDSIDE REPORT FROM JESSICA HEARN. PT CALLED REQUESTING HELP CLEANING UP THE BATHROOM. CLEANED ROOM WITH [facility]. CBG 320, 7 UNITS LISPRO, 25 UNITS HUMALIN N. PT IS COMPLAINING OF SEVERE PAIN IN LEFT LEG, REFUSES TO ALLOW ANY TOUCH TO FEET. SENSATION TO UPPER THIGH IS INTACT. LEFT FOOT IS SWOLLEN AND RED. PT STATES IS "GAINING COLOR". PT ORDERED BREAKFAST FOR HIM AND HIS . EDUCATED ON WHAT PROTIEN FOODS ARE AND CARB FOODS ARE. DID BREATHING EXERCISES WITH PT TO GET PAIN UNDER CONTROL. PT RESTING IN BED WITH , BREATHING EVENLY.
--- NOTE | 2023-08-31 09:15 | NUR ---
WHEN ADMINISTERING MEDICATIONS, THIS RN DROPPED ONE CAPSULE OF LIBRIUM. WASTED ONE CAPSULE OF LIBRIUM WITH BRIDGET Renteria, INGOT HEADER RN. WITHDREW 1 ADDITIONAL CAPSULE TO CORRECT DOSE. THAT CAPUSLE WAS ADMINISTERED. CHANGED NICOTINE PATCH. MVI BAG WAS NOT IN THE PYXIS. PT IS DISCHARGING TODAY. PT IS GETTING IN THE SHOWER. EDUCATION PROVIDED ON SHOWER SAFETY. PT VERBALLY AGREED TO USE SHOWER CHAIR, KEEP NONSLIP SOCK ON, AND CALL IF NEEDED. HE IS AWARE OF THE BLUE CORD IN THE SHOWER TO PULL. CLEAN GOWN AND TOWELS SET OUT FOR HIM.
--- NOTE | 2023-08-31 10:34 | NUR ---
PT WAS IN SHOWER FOR OVER AN HOUR. WILL ADMINISTER MVI WHEN WOUND CARE IS COMPLETE.
--- NOTE | 2023-08-31 11:04 | NUR ---
PT GOT OUT OF SHOWER. HE IS RESTING IN BED WITH EYES HOODED AND UNFOCUSED. HE IS SLURING HIS WORDS AND VERY SLOW TO RESPOND. VERBAL ORDER FROM DR LOTT TO OTIS "BANANA BAG" VITAMIN SINCE IV IS GOING BAD AND HE IS DISCHARGING.
--- NOTE | 2023-08-31 11:08 | NUR ---
, HOUSE SUPERVISIOR, AND CHARGE NURSE AWARE OF POSSIBLE DRUG USE WHEN CAME IN.
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
[2023-08-31] MEDS ORDERED: BACTRIM DS TAB1 EACH PO (12:36)
[2023-08-31] MEDS ORDERED: LANTUS SOL100 UNIT/1 SUB-Q (12:39)
[2023-08-31] MEDS ORDERED: GABAPENTIN300 MG PO (12:56)
[2023-08-31] MEDS ORDERED: NOVOLOG FL100 UNIT/1 SUB-Q (13:02)
[2023-08-31] MEDS ORDERED: FLUOXETINE HCL20 MG PO (13:03)
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
[2023-09-01] MEDS ORDERED: LIFEMS NALO2 MG/2 ML NAS (22:15)
--- NOTE | 2023-09-02 10:54 | NUR ---
Received a call on Saturday from rn relief charge. Pt is requesting a cane. Let her know DME companies are not open in our area on the weekend. I will get an order on Saturday. Today, I spoke with the other case manage and a bariatric walker has been ordered through [facility] for this patient. I attempted to call the patient, but reached his mom. She states pt does not have a phone. Updated insurance will pay for a walker or a cane. She requests we cont. with the bariatric walker and and she will buy her son a cane if needed. I called and spoke with [facility] and they state the Bariatric walker will be delivered tomorrow or the next day, as it was ordered.
== END 2023-08-31 14:48 | disposition home or self-care (01) | DRG 872 ==
LOC: ED 22:25 → CCU 08-26 01:45 → MS 08-29 18:51
PROVIDERS: Family Medicine; ADMIT Internal Medicine; ATTEND Internal Medicine
DX: A41.9 Sepsis, unspecified organism (principal); L03.116 Cellulitis of left lower limb; Z59.00 Homelessness unspecified; N17.9 Acute kidney failure, unspecified; E87.20 Acidosis, unspecified; E10.65 Type 1 diabetes mellitus with hyperglycemia; I10 Essential (primary) hypertension; E87.6 Hypokalemia; F17.210 Nicotine dependence, cigarettes, uncomplicated; E10.42 Type 1 diabetes mellitus with diabetic polyneuropathy; F12.10 Cannabis abuse, uncomplicated; F11.10 Opioid abuse, uncomplicated; Z98.890 Other specified postprocedural states; Z88.0 Allergy status to penicillin; Z79.4 Long term (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; Z71.51 Drug abuse counseling and surveillance of drug abuser
CPT/HCPCS: 36415; 51798; 73700; 76705; 80048; 80053; 80074; 80307; 82010; 82803; 83605; 83735; 84100; 85025; 85060; 85610; 87040; 97161; A9270; J0692; J0878; J1170; J1650; J1815; J1885; J2060; J2270; J2405; J3411; J3475; J3480; J3490; J7030; J7040; J7060; J7070; J7121; Q9967

== ENCOUNTER 2023-09-05 15:44 | Inpatient (IN) | payer OTHER ==
[~2023-09-05] VITALS: Ht 170.2 cm; Wt 68.3 kg
[~2023-09-05 15:44] MED LIST changes: +FLUOXETINE HCL20 MG PO; +LANTUS SOL100 UNIT/1 SUB-Q; +LIFEMS NALO2 MG/2 ML NAS; +NOVOLIN N100 UNIT/2 SUB-Q; +NOVOLIN R100 UNIT/1 SUB-Q; +NOVOLOG FL100 UNIT/1 SUB-Q; +NOVOLOG100 UNIT/2 SUB-Q
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
[2023-09-05 16:39] LABS: PH, VENOUS 7.425 (7.31-7.41)
[2023-09-05 16:44] LABS: HEMATOCRIT 31.8 % (35.0-50.0); HEMOGLOBIN 9.7 g/dL (12.0-18.0); MCH 29.8 (27-36); MCHC 30.5 g/dl (30-36); MCV 97.7 fl (81-99); PLATELET COUNT 777 K/uL (140-440); RBC 3.25 M/ul (4.3-5.7); RDW 15.6 (10.5-15.0)
[2023-09-05 16:55] LABS: LACTIC ACID, BLOOD 1.3 mmol/L (0.4-2.0)
[2023-09-05 16:56] LABS: ALBUMIN 2.6 g/dL (3.4-5.0); ALBUMIN/GLOBULIN RATIO 0.43 (1.1-2.4); ANION GAP 16.9 (7-21); BILIRUBIN, TOTAL 0.3 ng/dL (0.2-1.0); BUN/CREATININE RATIO 16.4 (6.0-28.6); CREATININE, SERUM 1.89 mg/dL (0.70-1.30); POTASSIUM 5.9 mmol/L (3.5-5.1); PROTEIN, TOTAL 8.6 g/dL (6.4-8.2)
[2023-09-05 17:10] LABS: LYMPHOCYTES, MANUAL DIFF 22; MONOCYTES, MANUAL DIFF 1; NEUTROPHILS, MANUAL DIFF 77
[2023-09-05 17:49] LABS: ERYTHROCYTE SEDIMENTATION RATE 129
[2023-09-05 18:37] LABS: BILIRUBIN, URINE NEGATIVE (negative); BLOOD/HGB, URINE NEGATIVE (Negative); KETONE, URINE TRACE (Negative); LEUK ESTERASE, URINE NEGATIVE (negative); NITRITE, URINE NEGATIVE (negative)
[2023-09-05 18:42] LABS: BACTERIA, URINE NONE SEEN /hpf (negative); CASTS, URINE NONE SEEN \\lpf; COLLECTION TYPE, URINE CLEAN CATCH; CRYSTALS, URINE NONE SEEN (0-1+); EPITHELIAL CELLS, URINE 0 /lpf (0-1+); RED BLOOD CELLS, URINE 0-1 /hpf (0-5); REFLEX CULTURE, URINE No (No); WHITE BLOOD CELLS, URINE 0-1 /HPF (0-5)
[2023-09-05 18:50] LABS: AMPHETAMINES, URINE POSITIVE (NEGATIVE); BARBITURATES, URINE NEGATIVE (NEGATIVE); BENZODIAZEPINE, URINE NEGATIVE (NEGATIVE); BUPRENORPHINE, URINE NEGATIVE (NEGATIVE); CANNABINOID, URINE NEGATIVE (NEGATIVE); COCAINE, URINE NEGATIVE (NEGATIVE); ECSTASY, URINE NEGATIVE (NEGATIVE); FENTANYL, URINE NEGATIVE (NEGATIVE); METHADONE, URINE NEGATIVE (NEGATIVE); OPIATES, URINE NEGATIVE (NEGATIVE); OXYCODONE, URINE NEGATIVE (NEGATIVE); PHENCYCLIDINE, URINE NEGATIVE (NEGATIVE)
[2023-09-05 19:53] VITALS: BP 166/105
[2023-09-05 20:00] VITALS: BP 155/106
[2023-09-05 20:30] VITALS: BP 149/106
--- NOTE | 2023-09-05 20:45 | NUR ---
REPORTED PATIENT'S BLOOD GLUCOSE TO DR.HILBORN. KILLIAN TO PLACE ORDERS. ALSO DISCUSSED PATIENT'S PAIN AND ANXIETY CONCERNS. PATIENT REPORTS 9/10 PAIN WHICH WAS MORE TOLERABLE IN ED AFTER PATIENT RECEIVED DILAUDID.
[2023-09-05 21:00] VITALS: BP 160/97
--- NOTE | 2023-09-05 21:00 | NUR ---
1999 PATIENT ARRIVED TO THE UNIT VIA STRETCHER WITH FAMILY AT BEDSIDE. PATIENT TRANSFERED TO THE BED WITH MINIMAL ASSIST. PATIENT REPORTS 9/10 PAIN IN THE LEFT LEG AND FOOT. WORSE TODAY AND IN THE LAST FEW HOURS THAN IT HAD BEEN AT HOME. MULTIPLE SORES NOTED ON LEFT LOWER EXTREMITY. LEG IS CLEAN AND PICTURES TAKEN TO PLACE IN CHART. LEG ELEVATED ON 2 PILLOWS. K-PAD WITH COLD SETTING PLACED UNDER CHUCKS, UNDER THE LEFT CALF. PATIENT VS STABLE. NO GI UPSET. PATIENT HAS GOOD APPETITE AND ATE A DIET APPROVED SNACK AND A GENEROUS AMOUNT OF WATER. PATIENT AWARE OF NPO AT MIDNIGHT. PATIENT ALSO VOIDED TO URNAL; 1000 MLS CLEAR DILUTE URINE. INSULIN ADMINISTERED PER ORDER AND NICOTINE PATCH APPLIED TO LEFT SHOULDER. PATIENT BELONGINGS ARE MINIMAL; HISTORY OF IN-PATIENT DRUG ABUSE ON LAST ADMIT. PATIENT AGREED TO A SEARCH OF BELONGINGS FOR SAFETY. CIGARETTES NOTED; PATIENT VERBALIZED UNDERSTAND OF NO SMOKING ON PROPERTY. BELONGINGS PLACED OUT OF REACH. ENCOURAGED PATIENT TO SEND THEM HOME WITH FAMILY.
--- NOTE | 2023-09-05 21:08 | EKG ---
[facility] [address] [address] [place] [address] Signed Normal sinus rhythm Incomplete right bundle branch block Borderline ECG When compared with ECG of 01-SEP-2023 20:05, Incomplete right bundle branch block is now present Confirmed by Dilma Arenas MD () on 09/05/2023 9:08:39 PM Electronically Signed By: DILMA ARENAS MD [id number]/05/[id number] PATIENT NAME: JOYCEBRISSAMARCO AMANDA Electrocardiogram DATE OF : 86 PHYSICIAN: DILMA ARENAS MD REPORT #: [id number] REPORT IS CONFIDENTIAL AND NOT TO BE RELEASED WITHOUT AUTHORIZATION
[2023-09-05 22:00] VITALS: BP 171/107
[2023-09-05 22:34] LABS: ANION GAP 17.5 (7-21); BUN/CREATININE RATIO 15.65 (6.0-28.6); CALCIUM 8.6 mg/dL (8.5-10.1); CREATININE, SERUM 1.98 mg/dL (0.70-1.30); POTASSIUM 4.5 mmol/L (3.5-5.1)
--- NOTE | 2023-09-05 22:59 | NUR ---
DISCUSSED LAB RESULTS AND PATIENT'S VS WITH . PLAN TO REDRAW LABS AT 0200 AND CALL WITH RESULTS.
[2023-09-05 23:00] VITALS: BP 133/91
--- NOTE | 2023-09-05 23:17 | NUR ---
PATIENT RESTING IN BED WATCHING TV. PATIENT APPEARS RELAXED. REPORTS PAIN IS CONSTANT IN HIS LEFT LEG BUT TOLERABLE. CONTINUE TO KEEP LEFT LEG ELEAVTED ABOVE THE HEART AND COOLING PAD UNDER THE CALF FOR COMFORT. IV FLUIDS INCREASED TO 200 ML/HR PER ORDER. PATIENT VOIDING TO URNAL; LARGE AMOUNTS OF CLEAR DILUTE URINE. VS STABLE. BP IMPROVED WITH PATIENT RESTING. CALL LIGHT IN REACH.
[2023-09-06] VITALS (13 sets, daily range): BP systolic 137–160; BP diastolic 79–115
--- NOTE | 2023-09-06 00:15 | NUR ---
PATIENT RESTING IN BED WATCHING TV. APPEARS COMFORTABLE. AWARE OF NPO STATUS. WATER REMOVED FROM BEDSIDE. PATIENT DENIED OTHER NEEDS. CALL LIGHT IN REACH.
--- NOTE | 2023-09-06 02:10 | NUR ---
PATIENT RESTING IN BED; APPEARS SLIGHLTY RESTLESS. REPORTS PAIN 9/10 IN LEFT FOOT. PRN PAIN MEDS PROVIDED. LABS DRAWN FROM IV SITE PER PROTOCOL. PATIENT VS STABLE. LEFT LEG ELEVATED ON PILLOWS. K-PAD COOLING UNDER PATIENT'S CALF. PATIENT DENIED NEEDS OR CONCERNS. CALL LIGHT IN REACH.
[2023-09-06 02:35] LABS: ANION GAP 14.1 (7-21); BUN/CREATININE RATIO 20.76 (6.0-28.6); CREATININE, SERUM 1.3 mg/dL (0.70-1.30); POTASSIUM 4.1 mmol/L (3.5-5.1)
--- NOTE | 2023-09-06 02:50 | NUR ---
DISCUSSED LABS WITH . NO NEW ORDERS. PATIENT APPEARS TO BE RESTING COMFORTABLY. ALLOWED PATIENT TO REST. CALL LIGHT IN REACH.
--- NOTE | 2023-09-06 05:00 | NUR ---
PATIENT IN GOOD SPIRITS. REPORTS PAIN IS MANAGEABLE. 04/15. LEFT LEG CONTINUES TO STAY ELEAVTED. VS STABLE. IV FLUIDS PER ORDER, SITE WNL.
[2023-09-06 06:12] LABS: HEMATOCRIT 27.1 % (35.0-50.0); HEMOGLOBIN 9.1 g/dL (12.0-18.0); MCH 30.7 (27-36); MCHC 33.5 g/dl (30-36); MCV 91.4 fl (81-99); PLATELET COUNT 734 K/uL (140-440); RBC 2.96 M/ul (4.3-5.7)
--- NOTE | 2023-09-06 06:15 | NUR ---
LABS DRAWN PER ORDER. PATIENT CONTINUES TO DO WELL. NO CONCERNS. VS STABLE.
[2023-09-06 06:30] LABS: ALBUMIN 2.2 g/dL (3.4-5.0); ALBUMIN/GLOBULIN RATIO 0.42 (1.1-2.4); ANION GAP 11.1 (7-21); BILIRUBIN, TOTAL 0.3 ng/dL (0.2-1.0); BUN/CREATININE RATIO 18.96 (6.0-28.6); CALCIUM 8.7 mg/dL (8.5-10.1); CREATININE, SERUM 1.16 mg/dL (0.70-1.30); MAGNESIUM 1.8 mg/dL (1.8-2.4); PHOSPHORUS, INORGANIC 4.6 mg/dL (2.5-4.9); POTASSIUM 4.1 mmol/L (3.5-5.1); PROTEIN, TOTAL 7.5 g/dL (6.4-8.2)
[2023-09-06 06:35] LABS: BASOPHILS, MANUAL DIFF 1; EOSINOPHILS, MANUAL DIFF 1; LYMPHOCYTES, MANUAL DIFF 27; MONOCYTES, MANUAL DIFF 4; NEUTROPHILS, MANUAL DIFF 67
--- NOTE | 2023-09-06 07:30 | NUR ---
REPORT RECIEVED FROM FORMAL WAITER/WAITRESS RN. PATIENT RESTING IN BED. PATIENT CALLS APPROPRIATELY. PER REPORT [facility]
--- NOTE | 2023-09-06 08:15 | NUR ---
PATIENT REPORTING INCREASED PAIN. PRN PAIN MEDICATION NOT AVALABLE AT THIS TIME D/T TO EVERY 2HOURS. MD ARENAS UPDATED. AWAITING NEW ORDERS.
--- NOTE | 2023-09-06 08:29 | NUR ---
MED REC COMPLETED
--- NOTE | 2023-09-06 09:53 | NUR ---
CCU ROUNDS. 30 MINUTES. FACILITATED PROCESSING OF EMOTIONS. CONFIRMED INFORMATION REOM TREATMENT TEAM. ENCOURAGE SELF CARE. NORMALIZED EPXERIENCE OF PATIENT. ENCOURAGED ADHERENCE TO TREATMENT PLAN. LISTENED EMPATHETICALLY. PROVIDED HOSPITALITY. PROVIDED PRAYER. PT EXPERIENCED CATHARSIS. PT EXPRESSED REDUCED DISTRESS AND GRATITUDE. PROGRESSED TOWARDS ADHERENCE.
--- NOTE | 2023-09-06 10:41 | NUR ---
PRN PAIN MEDICATION GIVEN. MD MENDEZ IN TO SEE PATIENT. DISCUSSED PLAN OF CARE WITH PATIENT. AWAITING MD BURRIS FOR CONSULT. JUANA HAS BEEN NPO OVERNIGHT FOR POTENTIAL DRAINAGE OF WOUND THIS AM. PATIENTS MOM ON THE PHONE AND UPDATED ON CURRENT PLAN. PATIENT DENIES ANY OTHER NEEDS. PATIENT BREATH SOUNDS CLEAR. BOWEL TONES ACTIVE. PATIENTS LEFT LOWER LEG OPEN TO AIR AT THIS TIME AND RESTING ON KPAD. PATIENT HAS SEVERAL AREAS OF YELLOW SCAB OVER WOUNDS AND SOME REDNESS NOTED ON THE LEFT OUTTER ANKLE BONE AND BEHIND HEEL.
--- NOTE | 2023-09-06 10:45 | NUR ---
MD BURRIS IN AT THE BEDSIDE TO SEE PATIENT. PLAN OF CARE DISCUSSED. PATIENT WILL GO TO PROCEDURE FOR INCISION AND DRAINAGE.
--- NOTE | 2023-09-06 11:30 | NUR ---
VINICIUS MELARA PROVIDED PATIENT WITH CHLORHEXIDINE WIPE DOWN AND NEW GOWN.
--- NOTE | 2023-09-06 11:30 | NUR ---
PATIENT OFF TO PROCEDURE WITH DAY SURGERY RN.
--- NOTE | 2023-09-06 13:15 | NUR ---
PATIENT IN SURGERY, UNABLE TO COMPLETE ASSESSMENT.
--- NOTE | 2023-09-06 13:47 | NUR ---
UR NOTE [facility] GENERAL CRITERIA: OBSERVATION CARE (ISC) 09/06/23 MET OBSERVATION CARE ADMISSION CRITERIA
--- NOTE | 2023-09-06 13:50 | NUR ---
09/06/23 5180 [address] [facility] 9812 PT TO PACU AWAKE COMPLAINS OF PAIN, PT REPORTS 10/10 PAIN TO HIS LEFT FOOT. HE IS CRYING ASKING FOR PAIN MEDS.
--- NOTE | 2023-09-06 15:15 | NUR ---
PATIENT ARRIVED BACK TO CCU ROOM 126 VIA BED. PATIENTS AT THE BEDSIDE AND UPDATED. JESSICA ORTA GAVE REPORT ON PATIENTS PAIN AND THAT PATIENT HAS HIS LEG WRAPPED NOW AT THIS TIME. UNKNOWN ON WOUND STATUS AND PLAN OF CARE. AWAITING UPDATE FROM MD BURRIS. PATIENTS PAIN IS WELL CONTROLLED AT THIS TIME WITH PAIN 6/10 AND TOLERABLE PER PATIENT. PATIENT AWAKE AND REQUESTING FOOD. JELLO AND WATER PROVIDED.
--- NOTE | 2023-09-06 16:00 | NUR ---
PATIENT BLOOD SUGAR CHECKED AFTER RETURNING FROM SURGERY AND PATIENT HAD LUNCH PROVIDED AT THIS TIME. 9 UNITS OF INSULIN ADMINISTERED AND PATIENT ATE ALL OF HIS MEAL. PATIENT DENIES ANY OTHER NEEDS AT THIS TIME. PATIENTS AND KIDS IN AT THE BEDSIDE.
--- NOTE | 2023-09-06 17:15 | NUR ---
THIS RN AND SARITHA COLVIN TRANSPORTED PATIENT TO ROOM 123 VIA BED. ALL PATIENT BELONGINGS SENT WITH PATIENT. [facility] AT [facility]. REPORT GIVEN TO CURRY LOPEZ. NO REPORT RECIEVED YET FROM MD BURRIS TO THIS RN. PER MD ARENAS PATIENT HAS SOME DRAINS IN PLACE AND WILL STAY OVERNIGHT. DRESSING IS CURRENTLY CLEAN DRY AND INTACT. PATIENT CONTINUES TO REPORT PAIN 6/10. PATIENT UPDATED ON PLAN OF CARE. MD DREW DISCUSSED PLAN WITH PATIENT. NO OTHER QUESTIONS AT THIS TIME.
--- NOTE | 2023-09-06 17:25 | NUR ---
PT ARRIVES TO ROOM IN BED ACCOMPANIED BY JESSICA RANDHAWA AND VINICIUS MELARA. VINICIUS MELARA CHECKS PTs BG. BEDSIDE REPORT RECIEVED FORM JESSICA RANDHAWA. VITALS COMPLETE. PT REQUESTING MENU PT STATES "I WILL NOT EAT THIS FOOD." PT REPORTING PAIN 8/10 IN LEFT LEG. CASSIDY WRAP TO LEFT LEG C/D/I. PT ABLE TO WIGGLE TOES. CAP REFILL IN LEFT FOOT WNL. PT CRIES OUT IN PAIN WHEN TOE IS TOUCHED. WILL RETRUN WITH PRN PAIN MEDICATION.
--- NOTE | 2023-09-06 18:05 | NUR ---
IN TO ADMINISTER MEDICATION, SEE MAR. PT REPORTING PAIN 05/16. PRN PAIN MEDICATION ADMINISTERED, SEE DEC. ASSESSMENT COMPLETE. LUNG SOUNDS CLEAR. BOWEL TONES ACTIVE. DRESSING TO LEFT LEG C/D/I. PT ABLE TO WIGGLE TOES. PT REPORTS SENSATION IN LEFT FOOT. CAP REFILL IN LEFT FOOT WNL. WATER PROVIDED. SUGAR FREE JELLO AND PUDDING PROVIDED. IV IN RIGHT HAND REMOVED, SEE VASCULAR ACCESS. PT DENIES ANY OTHER NEEDS AT THIS TIME. CALL LIGHT IN REACH.
--- NOTE | 2023-09-06 19:13 | NUR ---
IN TO ADMINISTER PRN PAIN MEDICATION PT REPORTING PAIN 9/10 IN LEFT LEG. PRN PAIN MEDICATION ADMINISTRED. LIGHTS TURNED OFF FOR COMFORT. PT DENIES ANY OTHER NEEDS AT THIS TIME. CALL LIGHT IN REACH.
--- NOTE | 2023-09-06 19:30 | NUR ---
PT LYING IN BED WATCHING TV. BREATHING EVEN AND UNLABORED. DAY SHIFT NURSE AT BEDSIDE ADMINISTERING PAIN MEDICATION. SEE EMAR. NO OTHER NEEDS AT THIS TIME. PT DRESSING TO LEFT LEG C,D,I. CALL LIGHT WITHIN REACH. SAFETY PRECAUTIONS IN PLACE.
--- NOTE | 2023-09-07 00:08 | NUR ---
PT RESTING COMFORTABLY IN BED WITH EYES CLOSED. BREATHING EVEN AND UNLABORED. DRESSING TO LEFT LEG C,D,I. NO COMPLAINS OF PAIN AT THIS TIME. CALL LIGHT WITHIN REACH. IV FLUIDS INFUSING. SAFETY PRECAUTIONS IN PLACE.
--- NOTE | 2023-09-07 02:44 | NUR ---
PT LYING IN BED TALKING TO AT BEDSIDE. SUGAR FREE SNACKS PROVIDED FOR COMFORT. DRESSING REMAINS C,D,I. NO PAIN MEDS REQUESTED AT THIS TIME. FAMILY AT BEDSIDE. IV FLUIDS INFUSING. CALL LIGHT WITHIN REACH. SAFETY PRECAUTIONS IN PLACE.
[2023-09-07 05:21] LABS: BASOPHILS 0.8 % (0-2); HEMATOCRIT 27.5 % (35.0-50.0); HEMOGLOBIN 8.8 g/dL (12.0-18.0); LYMPHOCYTES 15.5 % (24-44); MCH 29.9 (27-36); MCHC 31.9 g/dl (30-36); MCV 93.7 fl (81-99); MONOCYTES 3.5 % (0-12); NEUTROPHILS 79.2 % (39-80); PLATELET COUNT 625 K/uL (140-440); RBC 2.93 M/ul (4.3-5.7); RDW 15.1 (10.5-15.0)
[2023-09-07 05:26] VITALS: BP 147/93
[2023-09-07 05:45] LABS: ALBUMIN 2.1 g/dL (3.4-5.0); ALBUMIN/GLOBULIN RATIO 0.42 (1.1-2.4); ANION GAP 11.8 (7-21); BILIRUBIN, TOTAL 0.1 ng/dL (0.2-1.0); BUN/CREATININE RATIO 19.83 (6.0-28.6); CALCIUM 8.3 mg/dL (8.5-10.1); CREATININE, SERUM 1.21 mg/dL (0.70-1.30); POTASSIUM 4.8 mmol/L (3.5-5.1); PROTEIN, TOTAL 7.1 g/dL (6.4-8.2)
--- NOTE | 2023-09-07 07:46 | NUR ---
Patient calls for assistance. Crying when calls. States his foot hurts. This nurse in room. PRN analgesic administered. Patient tearful, rolling around in bed and crying out. Signs of pain decreased while nurse in room. Denies other needs at this time.
[2023-09-07 10:01] VITALS: BP 149/88
--- NOTE | 2023-09-07 12:05 | NUR ---
PREVIOUS DRESSING REMOVED. AREA TO MEDIAL DE [place] NOTED TO BE RAISED. WOUND ABOVE RAISED AREA APPROXIMATELY 2 CM BY 2CM WITH YELLOW BASE NOTED. DRESSING LEFT OFF AND DR. BURRIS NOTIFIED. STATES HE WILL BE UP TO SEE LEG SOON.
--- NOTE | 2023-09-07 13:47 | OR ---
[facility] [place] [facility] [address], [place] [address] Signed DATE OF OPERATION: 09/06/2023 SURGEON: Wandy Burris MD PREOPERATIVE DIAGNOSES: 1. Type 1 diabetes mellitus with poor compliance and elevated serum glucose (previously 952, now 167). 2. Ongoing methamphetamine abuse. 3. History of left leg cellulitis with question of retained abscess posteriorly and anteriorly. POSTOPERATIVE DIAGNOSES: 1. Type 1 diabetes mellitus with poor compliance and elevated serum glucose (previously 952, now 167). 2. Ongoing methamphetamine abuse. 3. History of left leg cellulitis with question of retained abscess posteriorly and anteriorly. 4. Abscess of left anterior ankle, foot area. 5. Abscess, left posterior lower leg. PROCEDURES: 1. Exam under anesthesia. 2. Incision and drainage of left posterior lower leg with drainage of abscess and placement of yellow vessel loop drain. 3. Incision and drainage of left anterior leg, foot and ankle area x2 with placement of yellow vessel loops x2. ANESTHESIA: General, LMA; Tim Bullocks, HUMAN RESOURCE OFFICER INDICATIONS: This 33-year-old white male was admitted yesterday to the service of Dr. Olson with recurrent episode of blood sugar out of control with serum glucose of 952. The patient has type 1 diabetes and extremely poor compliance with his regimen for diet and insulin administration. He additionally is troubled by methamphetamine addiction, which he has additionally used recently and his tox screen confirms this. He presented to the [facility] yesterday and was noted to have wounds that were not healing though much improvement of cellulitis which was treated with concurrent sepsis over a week ago. He was directed to the emergency room where evaluation was undertaken and admitted by Dr. Olson for further management of his hyperglycemia and antibiotic administration, for Electronically Signed By: WANDY BURRIS MD 09/07/23 1347 PATIENT NAME: MARCO GARCIA OPERATIVE REPORT DATE OF : 86 REPORT #: [id number] PHYSICIAN: WANDY BURRIS MD PCP: NO PRIMARY CARE PHYSICIAN REPORT IS CONFIDENTIAL AND NOT TO BE RELEASED WITHOUT AUTHORIZATION [facility] [address], [place] [address] Signed what appeared to be residual cellulitis and questionable possible undrained abscesses of the leg, all of this was on the left side. Consultation by me this morning confirmed high probability of undrained purulence. On that basis, he is now to undergo exam under anesthesia, incision and drainage of the fluid collections and debridement as appropriate. The risk of bleeding, infection, progression of disease despite efforts to avoid all were reviewed with the patient, he understands and wished to proceed. FINDINGS: The posterior lower leg area indeed did have abscess fluid. Gram stain and cultures were obtained. The space which was drained extended inferiorly and a counter incision was made allowing for placement of yellow vessel loop and good irrigation of the wound. Anteriorly, he had a similar such lesion in the lower aspect of the anterior song and over the ankle and foot area. This lengthy area was debrided and drained and two yellow vessel loops placed for additional drainage. There were no other findings of concern. DESCRIPTION OF PROCEDURE: The patient was brought to the operating room, given a general LMA type anesthetic and placed in the right lateral decubitus position. His left leg was prepared with chlorhexidine solution and sterilely draped. Examination of the posterior aspect of the leg was undertaken. An area with excoriation and suspicious for retained drainage was gently manipulated and purulence with egress from the defect in the skin. Incision was made cephalad to this along the axial plane with a 15 blade. Hemostat inserted into the subcutaneous space, draining copious amounts of purulent material. This was Gram stain and cultured. A counter incision was made inferior to the area in question and a yellow vessel loop placed between it. Breakdown of loculations was with undertaken hemostats and irrigation with sterile saline undertaken. The yellow vessel loop was tied in a knot. Attention was turned to the anterior ankle by flexing the leg. An area of a nonhealing eschar over the ankle area was incised as it had a thick leathery consistency. This was removed and beneath it was nonhealing dermis. Insinuation of hemostat into the area allowed for egress of purulent material once again. Copious amounts were noted. A counter incision was taken superiorly and ultimately inferiorly draining the entire space. Two yellow vessel loops were used to tent the bridge of skin allowing for further debridement and irrigation until clear. A sterile gauze was applied as was an Harris wrap. He was ultimately allowed to emerge from anesthesia, taken to the recovery room in good condition, having suffered no known complications. Sponge, needle, and instrument counts were reported as correct x3. Blood loss was less than 10 mL in aggregate. Electronically Signed By: WANDY BURRIS MD 09/07/23 1346 PATIENT NAME: MARCO GARCIA OPERATIVE REPORT DATE OF : 86 REPORT #: [id number] PHYSICIAN: WANDY BURRIS MD PCP: NO PRIMARY CARE PHYSICIAN REPORT IS CONFIDENTIAL AND NOT TO BE RELEASED WITHOUT AUTHORIZATION [address] [address] Signed MD GROVER Montgomery/MODL /[id number] cc: Dr. Yuki Olson Copies: ~ Electronically Signed By: WANDY BURRIS MD 09/07/23 1347 PATIENT NAME: MARCO GARCIA OPERATIVE REPORT DATE OF : 86 REPORT #: [id number] PHYSICIAN: WANDY BURRIS MD PCP: NO PRIMARY CARE PHYSICIAN REPORT IS CONFIDENTIAL AND NOT TO BE RELEASED WITHOUT AUTHORIZATION
--- NOTE | 2023-09-07 13:47 | CONS ---
[facility] [address] [place], [place] [address] Signed DATE OF CONSULTATION: 09/06/2023 REQUESTING PHYSICIAN: Dr. Olson. PROBLEMS: Recurrent hyperglycemia, recent left lower extremity cellulitis and questionable undrained purulent collection, left lower leg. HISTORY OF PRESENT ILLNESS: This 33-year-old white man is known to me from the recent past. He had been admitted with hyperglycemia, delirium, and drug related problems due to substance abuse. He has underlying diabetes. He was hospitalized for five days for sepsis and left lower extremities cellulitis. He is impressively noncompliant with his regimen for insulin-dependent diabetes mellitus. He was treated with outpatient wound care, in the wound care clinic was identified there to have a questionable undrained purulence of the left posterior lower leg related to his previous cellulitis. He was intolerant of any manipulation of the wound, was sent to the emergency room where he was evaluated and found to have significant hyperglycemia once again with a blood sugar (glucose of greater than 500, previously reported as 900). Notably, he did not have acidosis. He was positive for amphetamines on his tox screen consistent with his methamphetamine abuse problem. Urine glucose was greater than 1000. He was admitted by Dr. Olson for hyperglycemia management. Consultation was undertaken regarding the left leg issue. The patient continues to smoke one pack of cigarettes a day. He has been doing dressing changes on the left lower leg three times a week through the wound care clinic. His white count was elevated at 13.9 upon presentation with a blood sugar noted at 952. Venous blood gas pH at 7.42, anion gap 11, lactic acid 1.3. REVIEW OF SYSTEMS: He still has what he describes as neuropathy pain of both lower extremities. He is more cooperative than usual today on evaluation. PHYSICAL EXAMINATION: GENERAL: Alert and oriented white man who does not look to be delirious at this time. VITAL SIGNS: Height 5 feet 7 inches. Weight is 68.3 kg, BMI is 23.6. NECK: Trachea is midline. CHEST: Shows normal respiratory excursion. HEART: Regular. ABDOMEN: Nondistended. EXTREMITIES: Lower extremity examination shows far less edema than he had previously on Electronically Signed By: WANDY BURRIS MD 09/07/23 1347 PATIENT NAME: MARCO GARCIA CONSULTATION DATE OF : 86 REPORT #: [id number] PHYSICIAN: WANDY BURRIS MD PCP: NO PRIMARY CARE PHYSICIAN REPORT IS CONFIDENTIAL AND NOT TO BE RELEASED WITHOUT AUTHORIZATION [facility] [address] [place], [place] [address] Signed left lower extremity. He does have intrinsic hypersensitivity to both feet and legs. In the lateral decubitus position right side down examination of his posterior calf shows an area of excoriation approximately 10 cm above the ankle, which may or may not represent undrained purulence. LABORATORY DATA: His lab studies this morning show white count still elevated now at 14.1, hematocrit 27.1, platelets 734,000. Chem profile is normal. Creatinine is 1.16. His alkaline phosphatase is 187, has been identified as elevated previously and gallbladder ultrasound previously noted to be normal. His glucose this morning is 164. ASSESSMENT: He may have undrained purulence in the left posterior calf, which may account for his resistance to better blood sugar control. However, noncompliance with his insulin regimen and diet is far more likely cause. Under the circumstances of his inability to tolerate much manipulation of his extremity, would recommend exam under anesthesia and incision and drainage and debridement of the leg and areas that are problematic. The risk of bleeding, infection, and so forth were reviewed with him. He understands and agrees to proceed. He has been n.p.o. since his admission and we will make arrangements to do this today. MD GROVER Montgomery/JUSTICEL /[id number] cc: DILMA OLSON MD Copies: ~ Electronically Signed By: WANDY BURRIS MD 09/07/23 1347 PATIENT NAME: MARCO GARCIA CONSULTATION DATE OF : 86 REPORT #: [id number] PHYSICIAN: WANDY BURRIS MD PCP: NO PRIMARY CARE PHYSICIAN REPORT IS CONFIDENTIAL AND NOT TO BE RELEASED WITHOUT AUTHORIZATION
--- NOTE | 2023-09-07 14:26 | NUR ---
Dr. Brizuela in room to see patient. Patient encouraged to shower and wash around wound. Requests analgesic prior to shower. See EMAR
[2023-09-07 14:44] VITALS: BP 148/93
--- NOTE | 2023-09-07 14:53 | NUR ---
Set up for shower after PRN analgesic administered. Showers self. Tearful upon returning to bed. Cries while new dressing is applied. IV fluids restarted after IV site flushed without difficulty
--- NOTE | 2023-09-07 16:35 | NUR ---
Glucose 548, Dr. Olson notified.
--- NOTE | 2023-09-07 17:10 | NUR ---
IV rate decreased. Patient informed of elevated glucose and need to give extra insulin this evening. Verbalizes understanding.
[2023-09-07 18:24] VITALS: BP 155/90
--- NOTE | 2023-09-07 19:49 | NUR ---
REPORT RECIEVED FROM DAY SHIFT RN. PATIENT RESTING IN BED. VISITORS IN ROOM. PATIENT REPORTS NO CURRENT NEEDS. WHITE BOARD UPDATED. CALL LIGHT IN REACH.
[2023-09-07 21:47] VITALS: BP 148/79
--- NOTE | 2023-09-07 22:25 | NUR ---
PATIENT IN BED WATCHING TV. VS AND I&Os OBTAINED AND RECORDED. ASSESSMENT COMPLETE. LLE DRESSING C/D/I. LLE ELEVATED ON A PILLOW. PATIENT REPORTS 10/10 PAIN IN LLE. PRN PAIN MEDICATION GIVEN, SEE DEC. PATIENT BS DRAWN AND WAS HIGH. MD NOTIFIED. NEW ORDERS RECEIVED. IV FLUSHED AND IS WNL. IV FLUID INFUSING PER ORDER. PATIENT HAS NO FURTHER NEEDS. CALL LIGHT IN REACH. SCHEDULED MEDS ADMINISTERED.
--- NOTE | 2023-09-07 22:53 | NUR ---
PATIENT IN BED RESTING ON RIGHT SIDE. IV INFUSING PER ORDER. FRESH WATER PROVIDED. NO FURTHER NEEDS. CALL LIGHT IN REACH.
--- NOTE | 2023-09-08 00:20 | NUR ---
PATIENT IN BED RESTING ON LEFT SIDE WITH EYES CLOSED. PATIENT AWAKENS EASILY. PATIENT STATES NO FURTHER NEEDS. CALL LIGHT IN REACH.
--- NOTE | 2023-09-08 02:08 | NUR ---
CALL LIGHT ANSWERED. PATIENT STATES 9/10 PAIN IN LLE. PRN PAIN MEDICATION ADMINISTERED PER PATIENT REQUEST. ICE PACK PROVIDED. PATIENT STATES NO FURTHER NEEDS. CALL LIGHT IN REACH.
--- NOTE | 2023-09-08 04:26 | NUR ---
PATIENT IN BED ON LEFT SIDE RESTING WITH EYES CLOSED. RESPIRATIONS EVEN AND UNLABORED. CALL LIGHT IN REACH.
[2023-09-08 05:24] VITALS: BP 136/83
[2023-09-08 05:38] LABS: BASOPHILS 1.5 % (0-2); EOSINOPHILS 0.9 % (0-6); HEMATOCRIT 25.5 % (35.0-50.0); HEMOGLOBIN 8.3 g/dL (12.0-18.0); MCH 30.1 (27-36); MCHC 32.5 g/dl (30-36); MCV 92.8 fl (81-99); MONOCYTES 5.2 % (0-12); NEUTROPHILS 69.4 % (39-80); PLATELET COUNT 549 K/uL (140-440); RBC 2.75 M/ul (4.3-5.7); RDW 15.7 (10.5-15.0)
--- NOTE | 2023-09-08 05:46 | NUR ---
PATIENT RESTING IN BED. VS AND I&Os OBTAINED AND RECORDED. ASSESSMENT COMPLETE. PATIENT STATES 9/10 PAIN IN LLE. ICE PACK IN PLACE. LLE DRESSING C/D/I. PRN PAIN MEDICATION ADMINISTERED. SCHEDULED MEDICATIONS ADMINISTERED, SEE MAR. NEW BAG IV FLUID AND ABX INFUSING. FRESH WATER PROVIDED. PATIENT STATES NO FURTHER NEEDS. CALL LIGHT IN REACH.
[2023-09-08 05:52] LABS: ALBUMIN 1.9 g/dL (3.4-5.0); ALBUMIN/GLOBULIN RATIO 0.4 (1.1-2.4); ANION GAP 9.5 (7-21); BILIRUBIN, TOTAL 0.1 ng/dL (0.2-1.0); CALCIUM 8.2 mg/dL (8.5-10.1); POTASSIUM 4.5 mmol/L (3.5-5.1); PROTEIN, TOTAL 6.7 g/dL (6.4-8.2)
[2023-09-08 11:00] VITALS: BP 163/93
[2023-09-08] MEDS ORDERED: BACTRIM DS TAB1 EACH PO (11:18)
[2023-09-08] MEDS ORDERED: CIPROFLOXACIN750 MG PO (11:19)
[2023-09-08] MEDS ORDERED: OXYCODONE HCL5 MG PO (11:20)
== END 2023-09-08 13:28 | disposition home or self-care (01) | DRG 603 ==
LOC: ED 15:44 → CCU 15:45 → MS 09-06 17:25
PROVIDERS: Student in an Organized Health Care Education/Training Program; Surgery; ADMIT Family Medicine; ATTEND Family Medicine
PROC: 0H9LXZZ Drainage of Left Lower Leg Skin, External Approach (ICD-10-PCS; principal; 2023-09-06 12:00)
DX: L03.116 Cellulitis of left lower limb (principal); N17.9 Acute kidney failure, unspecified; E10.65 Type 1 diabetes mellitus with hyperglycemia; F11.10 Opioid abuse, uncomplicated; F15.10 Other stimulant abuse, uncomplicated; F17.210 Nicotine dependence, cigarettes, uncomplicated; I10 Essential (primary) hypertension; Z98.890 Other specified postprocedural states; Z88.0 Allergy status to penicillin; Z79.899 Other long term (current) drug therapy; Z79.4 Long term (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
CPT/HCPCS: 00400; 36415; 80048; 80053; 80307; 81001; 82803; 83036; 83605; 83735; 84100; 85025; 85651; 86140; 87040; 87070; 87075; 87205; 93005; 93010; 96361; 96374; 96375; 96376; 99284-25; A9270; G0378; J0131; J0690; J0692; J0878; J1170; J1815; J1885; J2001; J2250; J2270; J2405; J2704; J3010; J3490; J7030

== ENCOUNTER 2023-09-14 15:42 | Emergency (ER) | payer OTHER ==
[~2023-09-14] VITALS: Ht 170.2 cm; Wt 68.4 kg
[~2023-09-14 15:42] MED LIST changes: +CIPROFLOXACIN750 MG PO; +OXYCODONE HCL5 MG PO
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
[2023-09-14 17:11] LABS: BASOPHILS 1.1 % (0-2); HEMATOCRIT 32.1 % (35.0-50.0); HEMOGLOBIN 10.5 g/dL (12.0-18.0); LYMPHOCYTES 18.9 % (24-44); MCHC 32.7 g/dl (30-36); MCV 94.9 fl (81-99); MONOCYTES 5.4 % (0-12); NEUTROPHILS 73.6 % (39-80); PLATELET COUNT 518 K/uL (140-440); RBC 3.38 M/ul (4.3-5.7); RDW 15.6 (10.5-15.0)
[2023-09-14 17:24] LABS: ALBUMIN 2.8 g/dL (3.4-5.0); ALBUMIN/GLOBULIN RATIO 0.49 (1.1-2.4); ANION GAP 19.5 (7-21); BILIRUBIN, TOTAL 0.5 ng/dL (0.2-1.0); BUN/CREATININE RATIO 19.35 (6.0-28.6); CALCIUM 9.3 mg/dL (8.5-10.1); CREATININE, SERUM 1.24 mg/dL (0.70-1.30); POTASSIUM 5.5 mmol/L (3.5-5.1); PROTEIN, TOTAL 8.5 g/dL (6.4-8.2)
[2023-09-14] MEDS ORDERED: PERCOCET 7.5-31 EACH PO (18:50)
[2023-09-14 19:10] VITALS: BP 159/98
== END 2023-09-14 19:10 | disposition home or self-care (01) ==
LOC: ED 15:42
PROVIDERS: Emergency Medicine
DX: M79.672 Pain in left foot (principal); E10.40 Type 1 diabetes mellitus with diabetic neuropathy, unspecified; I10 Essential (primary) hypertension; F17.200 Nicotine dependence, unspecified, uncomplicated; Z88.0 Allergy status to penicillin; Z79.899 Other long term (current) drug therapy
CPT/HCPCS: 36415; 80053; 85025; 96374; 96376; 99283-25; A9270; J1170; J1815; J7040

== ENCOUNTER 2023-09-25 15:22 | Inpatient (IN) | payer OTHER ==
[~2023-09-25] VITALS: Ht 170.2 cm; Wt 74.6 kg
--- NOTE | ~2023-09-25 | OR ---
[facility] [address] [place], [place] [address] Draft DATE OF OPERATION: 09/27/2023 SURGEON: Wandy Burris MD PREOPERATIVE DIAGNOSES: 1. Left leg cellulitis (recurrent) with history of left anterolateral and posterior abscesses, status post drainage. 2. Type 1 diabetes mellitus (noncompliant). 3. Chronic recent recurrent substance abuse disorder. POSTOPERATIVE DIAGNOSES: 1. Left leg cellulitis (recurrent) with history of left anterolateral and posterior abscesses, status post drainage. 2. Type 1 diabetes mellitus (noncompliant). 3. Chronic recent recurrent substance abuse disorder. 4. Left posterior calf undrained abscess (small with undermining subcutaneous tissue). 5. Necrotic wounds of left anterior foot and ankle (debrided). PROCEDURES: 1. Exam under anesthesia, left leg. 2. Incision and drainage of left posterior calf subcutaneous abscess with placement of tunneled yellow vessel loop drain. 3. Debridement of anterolateral foot and ankle area with debridement of necrotic tissue. ANESTHESIA: General endotracheal, Wandy Nick CRNA and postoperative left transgluteal and femoral block (anticipated). INDICATIONS FOR THE PROCEDURE: This 33-year-old white man suffers from type 1 diabetes with poor compliance to his insulin regimen as well as chronic recurrent use of fentanyl and methamphetamine. He has chronic pain of his left leg and to a lesser extent to the right leg. He several weeks ago underwent incision and drainage of subcutaneous abscess, which is not easily detectable by imaging studies associated with profound left lower extremity cellulitis. The yellow vessel loops were placed to facilitate drainage. The patient was completely noncompliant to wound care Followup unfortunately and presented once again to the emergency room on 09/25/2023 with complaints of left lower extremity pain and a tox screen positive once again for fentanyl and methamphetamine. Evaluation showed much improvement of his previous erythema and swelling and retained placement of yellow vessel loops that I had placed during operative intervention previously. Necrosis was PATIENT NAME: MARCO GARCIA OPERATIVE REPORT DATE OF : 86 REPORT #: [id number] PHYSICIAN: WANDY BURRIS MD PCP: MARÍA HAWK NP REPORT IS CONFIDENTIAL AND NOT TO BE RELEASED WITHOUT AUTHORIZATION [facility] [address] [place], [place] [address] Draft noted in the soft tissue associated with those wounds to some degree. A CT scan of the leg was obtained under the direction of Dr. Mirza, the hospitalist who admitted him. There were signs of air beneath the subcutaneous tissue, uncertain if associated with actual infection or the drains that were in place. Mindful of the poor sensitivity of detection of actual abscess in this setting, I have recommend exam under anesthesia, drainage as appropriate, debridement of necrotic tissue associated with the wounds and other indicated procedures. The patient understands the risk of this procedure including, but not limited to bleeding, infection, failure to cure the problem, and so on. We were all mindful of his impressively poor compliance with medical care, but this does appear to be the most appropriate approach in spite of that reality. FINDINGS: There was no sign of profound cellulitis as it had been in the past. He did have an undrained purulent collection in the posterior superior calf. This was Gram stain and culture, the studies were pending. There was some tunneling inferiorly to this allowing for counter incision and placement of the yellow vessel loop. There were other areas of yellow vessel loop drainage showed no sign of undrained abscess, but did show some necrotic tissue at the base of the wound, particularly at anterolateral forefoot area, for which debridement was undertaken more fully. DESCRIPTION OF PROCEDURE: The patient was brought to the operating room, given a general endotracheal anesthetic and placed in the lateral decubitus position with the left leg up. The left leg was prepared with a Betadine solution and draped sterilely. Examination of the previous wounds showed necrotic tissue associated with the exit site of the yellow vessel loops. These areas were debrided with sharp dissection using a #15 blade and ultimately a banjo curette. Necrotic tissue was noted, particularly anteromedial ankle and foot area. The yellow vessel loops were allowed to remain in place. Examination of posterior calf showed previously placed the yellow vessel loops to well position, those areas were gently debrided. The area cephalad to it from the posterior calf showed a small subtle nodule area, this was incised and egress of purulent material was noted. Material was Gram stained and cultured. Interrogation of the wound with a hemostat allowed for breakdown of loculations and easy passage inferiorly of the area of the infected tissue space. A counter incision was made allowing for delivery of yellow vessel loop allowing to be tied in a knot. A similar such lesion was noted more inferiorly and treated the same way. Irrigation was undertaken in all the wounds after complete debridement and irrigation. Dressings included plain gauze, a Kerlix wrap and an Harris wrap. He was ultimately extubated, anticipating placement for nerve blocks in the recovery area. PATIENT NAME: MARCO GARCIA OPERATIVE REPORT DATE OF : [birth year] REPORT #: [id number] PHYSICIAN: WANDY BURRIS MD PCP: MARÍA HAWK NP REPORT IS CONFIDENTIAL AND NOT TO BE RELEASED WITHOUT AUTHORIZATION [address] [place], [place] [address] Draft MD GROVER Montgomery/CODY /[id number] cc: NICHOLAS Kurtz Copies: ~ PATIENT NAME: MARCO GARICA AMANDA OPERATIVE REPORT DATE OF : 86 REPORT #: [id number] PHYSICIAN: WANDY BURRIS MD PCP: MARÍA HAWK NP REPORT IS CONFIDENTIAL AND NOT TO BE RELEASED WITHOUT AUTHORIZATION
--- NOTE | ~2023-09-25 | CONS ---
[facility] [address] [place], [place] [address] Draft DATE OF CONSULTATION: 09/26/2023 REQUESTING PHYSICIAN: Dr. Mirza. PROBLEM: Recurrent left lower extremity cellulitis, previous drainage. HISTORY OF PRESENT ILLNESS: This 33-year-old white man is type 1 diabetic and additionally afflicted by long-standing drug problems. I consulted on him on September 06, 2023, at the request of Dr. Olson. At that time, he had profound hyperglycemia and left lower extremity cellulitis and questionable undrained purulence. He did undergo incision and drainage of left lower extremity subcutaneous abscesses, which were not clinically evident by radiographic evidence. Placement of yellow vessel loop drains were undertaken in the left anterior leg and posterior Achilles area. Wound care evaluation and followup was undertaken as an outpatient in the wound care clinic, but the patient had impressive noncompliance with his wound care regimen. The patient has a long-standing perpetual peripheral neuropathic pain problems in addition to the underlying cellulitis issues. He was evaluated approximately at 6:15 p.m. on September 25 in the emergency room by Dr. Ryan Pemberton, complained of severe pain around the left lower extremity and ankle. Evaluation had been undertaken on September 14 for which increased dose of gabapentin was initiated as he had complaints of persistent pain. He had been on Cipro and Bactrim since this procedure. He has had no fever that he knows. His medicines at presentation included Bactrim, Cipro, insulin, gabapentin, fluoxetine and naloxone. He had been taking oxycodone for his left lower extremity pain. Emergency room evaluation included a CBC, which showed a white count of 9.9, electrolytes which were normal. Creatinine elevated at 1.12. Alkaline phosphatase 227. Other liver enzymes normal. A CT scan of the leg showed extensive cellulitis with areas of soft tissue ulceration as provided surgically. There was some soft tissue gas anteromedially not far from the drain site. This was thought considered related to open wound or possibly necrotizing soft tissue infection. There is no sign of abscess or undrained fluid collection. No intramuscular fascial edema. No evidence by CT scan criteria of osteomyelitis. REVIEW OF SYSTEMS: The patient has had persistent pain of the left lower extremity despite interventions as described. PHYSICAL EXAMINATION: VITAL SIGNS: At this time show a pulse of 89, blood pressure 126/78, O2 saturation 100% on room air. PATIENT NAME: MARCO GARCIA CONSULTATION DATE OF : 86 REPORT #: [id number] PHYSICIAN: WANDY BURRIS MD PCP: NO PRIMARY CARE PHYSICIAN REPORT IS CONFIDENTIAL AND NOT TO BE RELEASED WITHOUT AUTHORIZATION [facility] [address] [place], [place] [address] Draft NECK: Trachea is midline. CHEST: Shows normal respiratory excursion. Pulses regular. ABDOMEN: Nondistended. EXTREMITIES: Left lower extremity is examined and the left lower extremity does appear to have chronic inflammatory changes, but markedly improved as regard to edema and inflammation as had been seen in the past. Yellow vessel loops are well positioned in the subcutaneous space. The exit sites do have a saucerized appearance with some chronic inflammatory tissue. The posterior aspect shows a single small yellow vessel loop. The Achilles tendon appears to be well defined. I do not detect fluctuance or sign of necrotizing fasciitis in any way. There is no crepitus particularly. ASSESSMENT: This problem is multifactorial; he has poor diabetes control and type 1 diabetes of long standing. He has faith moises infection having afflicted the soft tissue in the past and although on appropriate antibiotics episodically, he is markedly noncompliant with wound care recommendations and followup that has been available to him. He is at strong hazard of progression of infectious processes for which a threatened limb may one day be the ultimate outcome. I have asked him to be n.p.o. after midnight and reassessment tomorrow morning, may indicate the possibility of additional exploration under anesthesia to assess for any occult undrained infection, however, continued IV antibiotics as already undertaken by Dr. Mirza is most appropriate for the time being. MD GROVER Montgomery/CODY /[id number] Copies: ~ PATIENT NAME: MARCO GARCIA CONSULTATION DATE OF : 86 REPORT #: [id number] PHYSICIAN: WANDY BURRIS MD PCP: NO PRIMARY CARE PHYSICIAN REPORT IS CONFIDENTIAL AND NOT TO BE RELEASED WITHOUT AUTHORIZATION
[~2023-09-25 15:22] MED LIST changes: +PERCOCET 7.5-31 EACH PO
[2023-09-25 17:47] LABS: EOSINOPHILS 1.6 % (0-6); HEMATOCRIT 36.8 % (35.0-50.0); HEMOGLOBIN 11.6 g/dL (12.0-18.0); LYMPHOCYTES 26.9 % (24-44); MCH 29.6 (27-36); MCHC 31.6 g/dl (30-36); MCV 93.7 fl (81-99); MONOCYTES 6.4 % (0-12); NEUTROPHILS 64.1 % (39-80); PLATELET COUNT 512 K/uL (140-440); RBC 3.93 M/ul (4.3-5.7); RDW 15.9 (10.5-15.0)
[2023-09-25 17:58] LABS: ALBUMIN/GLOBULIN RATIO 0.56 (1.1-2.4); ANION GAP 14.4 (7-21); BILIRUBIN, TOTAL 0.1 ng/dL (0.2-1.0); BUN/CREATININE RATIO 15.17 (6.0-28.6); CALCIUM 9.2 mg/dL (8.5-10.1); CREATININE, SERUM 1.12 mg/dL (0.70-1.30); POTASSIUM 4.4 mmol/L (3.5-5.1); PROTEIN, TOTAL 8.4 g/dL (6.4-8.2)
[2023-09-25 21:27] VITALS: BP 154/97
--- NOTE | 2023-09-25 22:07 | NUR ---
PT ADMITTED TO ROOM 122 FROM ED ACCOMPAINED BY HIS MOM MEIR, @ 2135. SELF TRANSFERED FROM STRETCHER TO BED. ANSWERED ADMISSION QUESTIONS, WITH MOM SUPPLEMENTING INFORMATION. RA, AFEBRILE. BLOOD SUGAR 150, GIVEN SANDWICH AND PUDDINGS, FRESH ICE WATER. CURRENTLY LIVES WITH HIS MOM; HAS HAD APPOINTMENTS WITH "ENDER". AND HAS AN APPOINTMENT WITH FILTER CLEANER "OUT OF [place]" PER PT AND MEIR. EXPLAINED CALL LIGHT, HE WAS AWARE, WELL TO CALL BEFORE GETTING UP, COULD USE URINAL IN BED AND ALERT STAFF; HE AGREED.
[2023-09-26] VITALS (12 sets, daily range): BP systolic 117–173; BP diastolic 73–94
--- NOTE | 2023-09-26 00:03 | NUR ---
PT IS IN BED, PT IS WRITHING IN PAIN AND MOANING. PT DOES NOT SEEK OUT MEDICATION FOR PAIN. RN AT BEDSIDE, SPOKE WITH PROVIDER AND RECIEVED NEW ORDERS. ALL QUESTIONS AND CONCERNS ARE ADDRESSED AT THIS TIME. CALL LIGHT IS WITH IN REACH, PT EDUCATED ON PT SAFTEY, 2/[address] AT THIS TIME.
--- NOTE | 2023-09-26 04:35 | NUR ---
Resting, eyes closed, no s/sx distress, left leg elevated in pillows. SL LA patent. voiding ligth tea colored urine, uses urinal, emptied.
--- NOTE | 2023-09-26 05:42 | NUR ---
PT CRYING, TRASHING IN BED. MEDICATED WITH TORADOL 30MG IV, C/O 10/10 PAIN. LEFT LEG ELEVATED IN PILLOWS, WOUND OPEN TO AIR. SCANT AMOUNT OF SEROUS DRAINAGE, [address], GOOD CMS, TENDER. SL PATENT LAC. COOPERATIV WITH ASSESSMENT
[2023-09-26 06:01] LABS: HEMATOCRIT 33.5 % (35.0-50.0); NEUTROPHILS 63.2 % (39-80)
[2023-09-26 06:06] LABS: BASOPHILS 1.3 % (0-2); EOSINOPHILS 1.3 % (0-6); HEMOGLOBIN 10.6 g/dL (12.0-18.0); LYMPHOCYTES 27.3 % (24-44); MCH 30.4 (27-36); MCHC 31.6 g/dl (30-36); MCV 96.4 fl (81-99); MONOCYTES 6.9 % (0-12); PLATELET COUNT 400 K/uL (140-440); RBC 3.47 M/ul (4.3-5.7); RDW 15.9 (10.5-15.0)
[2023-09-26 06:29] LABS: BUN/CREATININE RATIO 19.7 (6.0-28.6); CALCIUM 8.4 mg/dL (8.5-10.1); CREATININE, SERUM 1.37 mg/dL (0.70-1.30)
--- NOTE | 2023-09-26 06:32 | NUR ---
DR DOMINGUEZ NOTIFIED OF CRITICAL LAB VALUE BLOOD SUGAR 15 UNITS INSULINLISPRO SC AND RECHECK BS IN ONE HOUR.
[2023-09-26 06:38] LABS: POTASSIUM 7.1 mmol/L (3.5-5.1)
--- NOTE | 2023-09-26 06:42 | NUR ---
pt laying on left side, instructed on new med 1x insulin 15units per bs of over 700. 'i know it was high, i get very thirsty.
--- NOTE | 2023-09-26 06:42 | NUR ---
CALLED AND NOTIFIED DR DOMINGUEZ OF POTASSIUM VALUE 7.1 VIA BLOOD DRAW
--- NOTE | 2023-09-26 06:44 | NUR ---
dr tello in room, pt potassium 7.1. will order albuterol treatment and EKG. pt awake, alert and oriented. c/o left leg pain, was just recently medicated. denies c/o CP or sob
--- NOTE | 2023-09-26 06:49 | NUR ---
TELE#[address], WARDROBE TECHNICIAN RHYTHM, OCASSIONAL SVPB'S
--- NOTE | 2023-09-26 06:58 | NUR ---
DR DOMINGUEZ ON UNIT ASSESSING PT. EKG COMPLETED; NEB BEING ADMINISTERED PER RT. TEL # 10, IV FLUIDS INFUSING PER PRIMARY RN. LAB TO REDRAW GLUCOSE AT 0730.
--- NOTE | 2023-09-26 07:13 | NUR ---
LASIX GIVEN PER ORDERS, PT AWAKE, ALERT, DENIES CP, TELE#[address], WAITING FOR OPHARMACY TO BRING CALCIUM GLUCONATGE AND KYEXELATE
--- NOTE | 2023-09-26 07:33 | NUR ---
CA GLUCONATE AND KYEXELATE GIVEN, ALERT AND ORINETED, NO CP
--- NOTE | 2023-09-26 07:59 | NUR ---
CBG 479, DR DOMINGUEZ NOTIFIED, LAB HERE A FEW MINUTES AGO DRAWING BLOOD GLUCOSE. MEDICATED WITH SCHEDULED SLIDING SCALE LISPRO INSULIN 11 UNITS, PER DR DOMINGUEZ. PT AWAKE, ALERT AND ORIOENTED, TELE IN PLACE SR. NO C/O CP, VOIDED LARGE AMOUNT OF CLEAR URINE. LEFT LEG ELEVATED, NO CHANGES.
--- NOTE | 2023-09-26 09:00 | NUR ---
MD DOMINGUEZ IN TO DISCUSS PLAN OF CARE WITH THIS RN. PER MD CHANGE INSULIN TO SUB Q EVERY 4 HRS. MD AWAITING CMP RESULTS. WILL UPDATE WHEN RESULTS COME THROUGH.
--- NOTE | 2023-09-26 09:02 | NUR ---
MOVED TO ROOM 127 AT THIS TIME. PT AWAKE, ALERT AND ORIENTED, ATE 100% MEALS. RESPORT TO BE GIVEN TO ARMY MANAGER
--- NOTE | 2023-09-26 09:30 | NUR ---
PATIENT ARRIVED TO ROOM 127 WITH JESSICA HEARN. REPORT RECIEVED. THIS RN NOTED NO LABS HAVE BEEN DONE PER MDS REQUEST. LABS PLACED FOR FOLLOW UP. ORDERES CHANGED PER MDS REQUEST. NO OTHER NEEDS AT THIS TIME. PATIENT RESTING IN BED. UPDATED ON PLAN OF CARE. CALL LIGHT IN REACH.
[2023-09-26 09:53] LABS: ALBUMIN 2.5 g/dL (3.4-5.0); ALBUMIN/GLOBULIN RATIO 0.56 (1.1-2.4); ANION GAP 16.4 (7-21); BILIRUBIN, TOTAL 0.2 ng/dL (0.2-1.0); BUN/CREATININE RATIO 19.46 (6.0-28.6); CALCIUM 9.1 mg/dL (8.5-10.1); CREATININE, SERUM 1.49 mg/dL (0.70-1.30); POTASSIUM 3.4 mmol/L (3.5-5.1)
--- NOTE | 2023-09-26 10:09 | NUR ---
UPDATED MD OF LAB RESULTS. NEW ORDERS PLACED FOR LONG ACTING INSULIN. AND A PHYSICIAN CONSULT ORDER PLACED FOR [facility] TO SEE PATIENT. PER CHARGE NURSE JESSICA CLAY ON [facility]. MD BURRIS IS AWARE PATIENT IS HERE.
--- NOTE | 2023-09-26 10:34 | NUR ---
PATIENT AWAKE BUT DROWSY. PATIENT STATES HE HAS PAIN IN HIS LEFT LOWER LEG. GOOD PULSES NOTED IN FOOT. WILL GIVE PATIENT PRN IBUPROFEN. PATIENT DENIES ANY OTHER NEEDS AT THIS TIME.
--- NOTE | 2023-09-26 11:06 | NUR ---
CCU ROUNDS. PT APPEARED TO BE SLEEPING. DID NOT DISTURB. PROVIDED SILENT PRAYER.
--- NOTE | 2023-09-26 11:40 | NUR ---
PRN IBUPOFEN GIVEN TO PATIENT. PATIENT AWAKENS WITH RN MOVING PATIENTS ARM AND SAYING NAME. PATIENT QUICKLY FALLS BACK TO SLEEP. PATIENT IS ALERT AND ORIENTED.
[2023-09-26] MEDS ORDERED: GABAPENTIN300 MG PO (11:56)
--- NOTE | 2023-09-26 11:58 | NUR ---
MED REC COMPLETE
--- NOTE | 2023-09-26 12:15 | NUR ---
THIS RN IN TO DO A PRN BLOOD SUGAR CHECK. BLOOD SUGAR WAS 202. UPDATED PATIENT ON PLAN OF CARE. PATIENT REMAINS DROWSY AT THIS TIME BUT EASILY AWAKENS AND FALLS BACK TO SLEEP.
--- NOTE | 2023-09-26 14:40 | NUR ---
PATIENT REPORTING 9/10 PAIN. PRN DOSE OF MEDICATION GIVEN FOR PATIENT YELLING OUT IN PAIN. PATIENT AWAKE AND ALERT AT THIS TIME.
--- NOTE | 2023-09-26 15:14 | NUR ---
SPOKE WITH MD ABOUT PATIENTS CONTINUED DROWSINESS. NEW ORDERED PLACED PER MD DOMINGUEZ FOR A DRUG SCREEN. PATIENTS BLOOD SUGAR ALSO NOTED TO BE IN THE 400'S. 11UNITS INSULIN GIVEN PER MD. WILL CHANGE BLOOD SUGAR AND INSULIN TO ACHS PER MD DOMINGUEZ. NO OTHER CHANGES AT THIS TIME.
[2023-09-26 15:18] LABS: AMPHETAMINES, URINE POSITIVE (NEGATIVE); BARBITURATES, URINE NEGATIVE (NEGATIVE); BENZODIAZEPINE, URINE NEGATIVE (NEGATIVE); BUPRENORPHINE, URINE NEGATIVE (NEGATIVE); CANNABINOID, URINE NEGATIVE (NEGATIVE); COCAINE, URINE NEGATIVE (NEGATIVE); ECSTASY, URINE NEGATIVE (NEGATIVE); FENTANYL, URINE POSITIVE (NEGATIVE); METHADONE, URINE NEGATIVE (NEGATIVE); OPIATES, URINE NEGATIVE (NEGATIVE); OXYCODONE, URINE NEGATIVE (NEGATIVE); PHENCYCLIDINE, URINE NEGATIVE (NEGATIVE)
--- NOTE | 2023-09-26 15:30 | NUR ---
PATIENTS MOM AT THE BEDSIDE AND UPDATED ON PLAN OF CARE. PATIENT WILL STAY HERE OVERNIGHT. DINNER ORDERED FOR PATIENT AT THIS TIME. PATIENTS PAIN IS BETTER CONTROLLED. PATIENT AWAKE AND TALKING AT THIS TIME.
--- NOTE | 2023-09-26 17:38 | NUR ---
PATIENT HAS BEEN SLEEPING SINCE HIS MOM LEFT. PATIENT RESTING IN BED. BLOOD SUGAR CHECKED AND IS IN THE 200'S AGAIN. WILL GIVE SLIDING SCALE INSULIN TO COVER WITH MEAL.
--- NOTE | 2023-09-26 18:00 | NUR ---
PATIENT CALLING OUT IN PAIN. PRN PAIN MEDICATION GIVEN. PATIENT INSULIN ALSO GIVEN FOR DINNER TIME. PATIENT REPORTS PAIN NOW 04/15 AND IT TOOK THE "EDGE OFF". PATIENT EATING DINNER AT THIS TIME. MD DOMINGUEZ UPDATED THAT PATIENTS TOX SCREEN WAS POSITIVE. NEW ORDERS FOR ATIVAN AND BENEDRYL. SEE EMAR FOR ORDERS.
--- NOTE | 2023-09-26 19:18 | EKG ---
[facility] [address] [facility] [place] [address] Signed Normal sinus rhythm Incomplete right bundle branch block Borderline ECG When compared with ECG of 05-SEP-2023 17:23, No significant change was found Confirmed by DYAN DOMINGUEZ MD ([id number]) on 09/26/2023 7:18:11 PM Electronically Signed By: DYAN DOMINGUEZ 09/26/231917 PATIENT NAME: MARCO GARCIA AMANDA Electrocardiogram DATE OF : 86 PHYSICIAN: DYAN DOMINGUEZ REPORT #: [id number] REPORT IS CONFIDENTIAL AND NOT TO BE RELEASED WITHOUT AUTHORIZATION
--- NOTE | 2023-09-26 20:00 | NUR ---
SHIFT ASSESSMENT COMPLETE. SEE [facility]. PT RESTING WITH EYES CLOSED, EASILY AWAKENED TO VOICE. PT ALERT AND ORIENTED. DRAIN TO L LEG PATENT. L LEG ELEVATED ON PILLOW. PT VERBALIZES UNDERSTANDING TO USE CALL LIGHT WITH NEEDS. BED IN LOW, LOCKED POSITION. PT DENIES ADDITIONAL NEEDS AT THIS TIME. VSS AND NAD NOTED VIA DIRECT OBS AND CONTINUOUS MONITOR.
--- NOTE | 2023-09-26 20:00 | NUR ---
REPORT RECEIVED FROM JESSICA JHAVERI.
--- NOTE | 2023-09-26 22:00 | NUR ---
PT MOTHER CALLED FOR PT STATUS UPDATE, UPDATE GIVEN PER PT REQUEST. ALL QUESTIONS ANSWERED. PT REQUESTED AND PROVIDED SNACKS, DENIES ADDITIONAL NEEDS.
[2023-09-27] VITALS (16 sets, daily range): BP systolic 97–163; BP diastolic 59–97
--- NOTE | 2023-09-27 | NUR ---
SHIFT ASSESSMENT COMPLETE. SEE [facility]. PT REQUESTED AND PROVIDED PRN IV DILAUDED PER EMAR FOR PAIN. PT TEARFUL AND COMMUNICATIVE. PT DENIES ADDITIONAL NEEDS. L LOWER LEG REMAINS ELEVATED. PT VERBALIZES UNDERSTANDING TO USE CALL LIGHTS WITH NEEDS. VSS AND NAD NOTED VIA PT STATEMENT, CONTINUOUS MONITOR AND DIRECT OBS.
--- NOTE | 2023-09-27 02:00 | NUR ---
PT RESTING IN BED, EYES CLOSED. EASILY AWAKENED TO VOICE. PT DENIES ADDITIONAL NEEDS. VSS AND NAD NOTED. CALL LIGHT IN REACH.
--- NOTE | 2023-09-27 04:00 | NUR ---
SHIFT ASSESSMENT COMPLETE. SEE [employer] FOR DETAILS. PT RESTING IN BED. PT VERBALIZES UNDERSTANDING TO USE CALL LIGHT WITH NEEDS. BED IN LOW, LOCKED POSITION. VSS AND NAD NOTED VIA DIRECT OBS AND CONTINUOUS MONITOR.
[2023-09-27 05:41] LABS: BASOPHILS 0.3 % (0-2); EOSINOPHILS 1.6 % (0-6); HEMATOCRIT 29.8 % (35.0-50.0); HEMOGLOBIN 9.7 g/dL (12.0-18.0); LYMPHOCYTES 35.9 % (24-44); MCH 30.8 (27-36); MCHC 32.4 g/dl (30-36); MCV 94.8 fl (81-99); MONOCYTES 6.4 % (0-12); NEUTROPHILS 55.8 % (39-80); PLATELET COUNT 364 K/uL (140-440); RBC 3.15 M/ul (4.3-5.7); RDW 16.1 (10.5-15.0)
[2023-09-27 05:54] LABS: ANION GAP 11.9 (7-21); BUN/CREATININE RATIO 24.29 (6.0-28.6); CALCIUM 8.4 mg/dL (8.5-10.1); CREATININE, SERUM 1.07 mg/dL (0.70-1.30); POTASSIUM 3.9 mmol/L (3.5-5.1)
--- NOTE | 2023-09-27 07:05 | NUR ---
REPORT GIVEN AND CARE ENDORSED TO ONCOMING SHIFT. VSS AND NAD NOTED VIA CONTINUOUS MONITOR AND DIRECT OBS.
--- NOTE | 2023-09-27 07:45 | NUR ---
REPORT RECIEVED FROM GENETICS NURSE RN. PATIENT RESTING IN BED. PATIENT DENIES ANY NEEDS AT THIS TIME. CALL LIGHT IN REACH. PATIENT CALLS APPROPRIATLY.
--- NOTE | 2023-09-27 09:45 | NUR ---
PATIENTS ASSESSMENT COMPLETED. MEDICATIONS GIVEN. PATIENT UPDATED ON PLAN OF CARE. PATIENT CURRENTLY NPO AWAITING MD BURRIS TO COME SEE FOR POTENTIAL SURGERY. CALL LIGHT IN REACH. NO OTHER NEEDS AT THIS TIME.
--- NOTE | 2023-09-27 10:19 | NUR ---
pts mom updated on plan of care
--- NOTE | 2023-09-27 11:02 | NUR ---
CCU ROUNDS. PT APPEARED TO BE SLEEPING. DID NOT AWAKEN. PROVIDED SILENT PRAYER.
--- NOTE | 2023-09-27 11:15 | NUR ---
Spoke with Naif. He is more awake today. He states he did fill his meds and keep his appt with the pcp. She schedule him to see an [facility] in [place] on Oct. He states he is almost out of insulin and will need of dc. He states his and mom have helped him with is blood sugar checks. He also spoke with [facility] after his last discharge. He declines to have them visit him. He is in agreement to cont. at the wound clinic for wound care if needed after dc.
--- NOTE | 2023-09-27 11:20 | NUR ---
PATIENTS BLOOD SUGAR 135 PRIOR TO GOING TO THE PROCEDURE.
--- NOTE | 2023-09-27 11:25 | NUR ---
OR STAFF HERE TO TAKE PATIENT TO PROCEDURE. WANDY LENZ HERE AND REVIEWED PLAN WITH PATIENT. PATIENT WAS OFFERED A BLOCK FOR HIS LEG PAIN AND WAS AGREEABLE.
--- NOTE | 2023-09-27 12:30 | NUR ---
09/27/23 1230 Sheets,Tamera 1221 PT ARRIVED TO PACU ON 10L VIA MASK, ORAL AIRWAY IN PLACE. RESP EVEN AND UNLABORED. PT NONAROUSABLE.
--- NOTE | 2023-09-27 13:15 | NUR ---
PATIENT BACK FROM PROCEDURE AND RESTING AT THIS TIME. WANDY RANDALL UPDATED THAT PATIENT HAD 2 BLOCKS PLACED. CAN GIVE ADDITIONAL PRN MEDICATIONS IF BLOCKS DO NOT CONTROL PAIN. DRESSING IS CLEAN DRY AND INTACT. PUBLIC POLICY MANAGER INTACT. CALL LIGHT IN REACH. PATIENT ON 3L OXYGEN AFTER PROCEDURE DUE TO DROWSYNESS.
--- NOTE | 2023-09-27 13:53 | NUR ---
UR NOTE [facility] CELLULITIS (ISC) INPATIENT 09/26/23 MET CLINICAL INDICATIONS FOR ADMISSION TO INPATIENT CARE
--- NOTE | 2023-09-27 14:35 | NUR ---
PATIENT CALLED REPORTING BURNING SENSATIUON IN THE BACK OF HIS LEG AND HEEL. CALL PLACED TO WANDY WITH [facility]. PER WANDY THIS CAN BE A NORMAL SENSATION FOR PATIENTS. WILL GIVE PRN DOSE OF PAIN MEDICATION FOR INCREASED PAIN 05/16. PATIENTS LONG ACTING INSULIN GIVEN AND PATIENT EATING LUNCH AT THIS TIME. WILL RECHECK PATIENTS BLOOD SUGAR AND DOSE INSULIN WITH MEAL. PATIENT UNSURE HOW MUCH HE WILL EAT.
--- NOTE | 2023-09-27 16:17 | NUR ---
PATIENTS AND MOM IN TO VISIT. PATIENTS BROUGHT IN SUGAR FREE SNACKS AND GAVE TO PATIENT. PATIENTS BLOOD SUGAR ALREADY ELEVATED IN THE 300'S. PATIENT STATED THEY ARE SUGAR FREE. PATIENT HAD 8 EMPTY CUPS OF JELLO AND PUDDING ON HIS LUNCH TRAY. THIS RN REVIEWED CARBS AND JELLO HAD 0 CARBS AND PUDDING HAD 10 CARBS EACH. EDUCATED PATIENT TO MONITOR CARBS WELL AND NOT JUST THE SUGARS. PATIENT STATED "I WAS HUNGRY". PATIENT HAD JUST FINISHED HIS MEAL WHICH WAS A CHEESE BURGER AND ADDITIONAL CHICKEN THA.
--- NOTE | 2023-09-27 17:57 | NUR ---
PATIENTS DINNER ARRIVED. BLOOD SUGAR CHECKED AND INSULIN GIVEN PER EMAR. PATIENT GIVEN IBUPROFEN FOR PAIN CONTROL. SPOKE WITH PATIENT ABOUT PLAN OF CARE FOR DISCHARGE. PATIENT STATED HE IS SEEING MARÍA MARROQUIN ONCE A WEEK TO GET PAIN MEDICATION FOR COVERAGE. PATIENT STATES HE IS BEING SET UP TO USE THE PAIN CLINIC THROUGH [facility] BUT IT WONT BE DONE TILL OCTOBER.
--- NOTE | 2023-09-27 20:00 | NUR ---
SBAR REPORT RECEIVED FROM JESSICA JHAVERI. PATIENT MARCO IS FOUND TO BE GROANING FROM PAIN. 1MG PRN HYDROMORPHONE ADMINISTERED FOR A LEFT LG PAIN /. PM CARE WAS ALSO PROVIDED, WARM BLANKET FROM WARMER BROUGHT IN, SAFETY CHECK PERFORMED, BED IN LOW POSITION, CALL LIGHT WITH PATIENT IN BED, LIGHTS DIMMED, TV ON PER PATIENT REQUEST. EDUCATION REGARDING PLAN OF CARE PROVIDED. LAC IS PATENT AND INTACT. DRESSING CHANGE PERFORMED DUE TO SLIGHT LEAKING AT INSERTION SIGHT
--- NOTE | 2023-09-27 22:29 | NUR ---
1MG HYDROMORPHONE PROVIDED FOR 10/10 LEFT LEG PAIN. PATIENT EDUCATED ON THE APPROPRIATE METHOD TO CALL NURSE HE WAS FOUND TO BE GROANING AND YELLING. PATIENT STATES UNDERSTANDING AND IS COOPERATIVE
[2023-09-28] VITALS (7 sets, daily range): BP systolic 95–160; BP diastolic 74–102
--- NOTE | 2023-09-28 01:43 | NUR ---
MARCO WAS NOTED TO BE GROANING IN PAIN. HE ENDORSED PAIN 10/10 IN LEFT LEG. 1MG PRN HYDROMORPHONE ADMINISTERED. MARCO HAS BEEN ABLE TO SETTLE DOWN AND IS NOW RESTING COMFORTTABLY WITH EYES CLOSED. VSS AND WDL PER MONITOR
--- NOTE | 2023-09-28 06:02 | NUR ---
PATIENT RADHA HAD A FAIRLY PLEASANT EVENING. HE SPENT MOST OF THE SHIFT RESTING WITH EYES CLOSED. VSS WDL ACCORDING TO MONITOR. HYDROMORPHONE PRN ADMINISTERED WHEN PAINFUL NEURO-ORIENTED X4, MOVES ALL EXTREMITIES, PAIN 10/10 ENDORSED INTERMITTENTLY IN LOWER LEFT LEG, PERRL CARDIAC- SR, NORMOTENSIVE, AFEBRILE, NO EDEMA NOTED RESP- RA, SPOT CHECK O2 MAINTAINED GREATER THAN 94%, BREATH SOUNDS CLEAR, ABLE TO COUGH AND DEEP BREATH GI/- NORMOACTIVE BOWEL TONES, VOID IN BEDSIDE URINAL INT- SEE ASSESSMENT
--- NOTE | 2023-09-28 07:03 | NUR ---
DR DOMINGUEZ AT BEDSIDE FOR PT ASSESSMENT. ORDERS RECEIVED, READ BACK AND ENTERED INTO [email or web address].
--- NOTE | 2023-09-28 08:30 | NUR ---
CALLED PATIENTS MOM TO DISCUSS DISCHARGE PLAN AND GOALS PER PATIENTS REQUEST. NO ANSWER. MESSAGE LEFT TO HAVE HER CALL US BACK.
--- NOTE | 2023-09-28 09:15 | NUR ---
MEDICATIONS GIVEN THIS AM. PATIENT CONTINUES TO REPROT PAIN 9/10 IN LEFT LOWER LEG. PATIENT AWAKENS FOR A MINUTE AND THEN QUICKLY FALLS BACK TO SLEEP. PATIENT DOS NOT CRY OUT HE DID YESTERDAY WITH PAIN. PATIENT HAS GOOD CMS IN LEG. EDUCATED PATIENT THAT IF HE NEEDS TO STAND HE NEEDS TO FIRST CALL THE STAFF SO WE CAN STAND WITH HIM THE FIRST TIME TO ENSURE THE BLOCK HAS WORN OFF THAT WAS PLACED YESTERDAY.
--- NOTE | 2023-09-28 09:30 | NUR ---
PATIENT MOM CALLED BACK. PATIENTS MOM IS UNSURE OF EXACT APTS AND PLANS. WHAT SHE HAS BEEN TOLD IS HE ISNT IN THE PAIN CLINIC YET. PATIENTS MOM WILL BE IN THIS AFTERNOON. WILL GO THROUGH DC INSTRUCTIONS WITH HER ON HER ARRIVAL.
[2023-09-28] MEDS ORDERED: HYDROCODON-ACE1 EA11 PO (09:57)
[2023-09-28] MEDS ORDERED: GABAPENTIN300 MG PO (09:58)
--- NOTE | 2023-09-28 11:52 | NUR ---
PATIENT UP AND STANDING ON HIS FOOT. PATIENT IS STABLE. PATIENT INITIALL RESTING WITH NO VERBAL MOANS OR CRIES. PATIENT STOOD AND PEED ONCE PATIENT LAYING BACK DOWN PATIENT STATES "THE BOTTOM OF MY FOOT CROFT AND HURTS". PATIENT NOW LAYING BACK IN BED RESTING AND EATING THE LAST BIT OF HIS BREAKFAST. PATIENT STATED HE HAS ALL NORMAL SENSATION FOR HIP AND DENIES WEAKNESS IN THE LEG OR FOOT FROM THE BLOCKS THAT WERE PLACED YESTERDAY.
[2023-09-28] MEDS ORDERED: BACTRIM DS TAB1 EACH PO (12:38)
--- NOTE | 2023-09-28 12:45 | NUR ---
SPOKE WITH MD BURRIS ABOUT DISCHARGE PLANS. COMPLETED ORDERS FOR WOUND CARE. UPDATED MD DOMINGUEZ ABOUT MD EPSINOSA REQUEST FOR ABX.
--- NOTE | 2023-09-28 13:25 | NUR ---
PATIENT VITALS COMPLETED. PATIENTS LEFT LOWER LEG WOUNDS CLEANED AND REDRESSED PER ORDERS. PATIENT TOLERATED WELL, BUT DID REPORT INCREASED PAIN WITH DRESSING CHANGE. PATIENT REPORTS BURNING IN HIS LEFT FOOT AND SEVRE PAIN WITH ANY TOUCH TO EVEN THE NON-WOUND AREAS. PATIENT ABLE TO DRESS HIMSELF. IV DCD. ALL BELONGINGS GATHERED. PATIENT NOW BACK IN BED RESTING AGAIN. PATIENT HAS BEEN IN BED ALL DAY SLEEPING. HE EASILY AWAKENS TO VOICE. PATIENT HAS ONLY WANTED TO BE AWAKE TO EAT AND THEN GOES BACK TO SLEEP. PATIENT LESS INTERACTIVE THAN PRIOR DAY. PATIENT DENEIS ANY OTHER NEEDS AT THIS TIME. CALL LIGHT IN REACH. AWAITING PATIENTS MOMS ARRIVAL.
--- NOTE | 2023-09-28 14:00 | NUR ---
PHARMACY IN TO REVIEW HOME MEDICATIONS WITH PATIENT AND HIS MOM. MD IN TO UPDATE ON PLAN OF CARE. THIS RN IN AFTER TO FOLLOW-UP WITH PAPERWORK AND INSTRUCTIONS. ALL BELONGIGNS GATHERED AND SENT WITH PATIENT. EXTRA SUPPLIES SENT SO PATIENT CAN SHOWER AT HOME PER ORDERS. PATIENT AND HIS MOM REPEATED ALL INFORMATION BACK TO STAFF. PATIENT UP SITITNG ON THE BED WIDE AWAKE AND INVOLVED IN DECISIONS. PATIENT NO LONGER MOANING WITH MOVEMENT OR ACTIVITY. PATIENT STOOD AND WALKED TO THE WHEELCHAIR WITH NO ISSUES. THIS RN TOOK PATIENT TO THE FRONT VIA WHEELCHAIR AND ASSISTED PATIENT TO CAR.
== END 2023-09-28 14:00 | disposition home or self-care (01) | DRG 622 ==
LOC: ED 15:22 → MS 15:23 → CCU 09-26 07:50
PROVIDERS: Emergency Medicine; Surgery; ADMIT Internal Medicine; ATTEND Internal Medicine
PROC: 0J9R00Z Drainage of Left Foot Subcutaneous Tissue and Fascia with Drainage Device, Open Approach (ICD-10-PCS; 2023-09-27)
PROC: 0JBR0ZZ Excision of Left Foot Subcutaneous Tissue and Fascia, Open Approach (ICD-10-PCS; principal; 2023-09-27 10:30)
DX: E10.628 Type 1 diabetes mellitus with other skin complications (principal); A48.0 Gas gangrene; E10.52 Type 1 diabetes mellitus with diabetic peripheral angiopathy with gangrene; L03.116 Cellulitis of left lower limb; L03.90 Cellulitis, unspecified; F15.20 Other stimulant dependence, uncomplicated; F11.20 Opioid dependence, uncomplicated; E10.40 Type 1 diabetes mellitus with diabetic neuropathy, unspecified; E10.621 Type 1 diabetes mellitus with foot ulcer; E87.6 Hypokalemia; F17.210 Nicotine dependence, cigarettes, uncomplicated; L97.529 Non-pressure chronic ulcer of other part of left foot with unspecified severity; Z91.199 Patient's noncompliance with other medical treatment and regimen due to unspecified reason
CPT/HCPCS: 36415; 73701; 80048; 80053; 80307; 82553; 82947; 85025; 87205; 93005; 93010; 94640; A9270; J0461; J0878; J1100; J1170; J1200; J1815; J1885; J1940; J2250; J2405; J2704; J2765; J3010; J7030; J7121; Q9967

== ENCOUNTER 2023-10-01 00:35 | Emergency (ER) | payer OTHER ==
[~2023-10-01] VITALS: Ht 170.2 cm; Wt 74.6 kg
[~2023-10-01 00:35] MED LIST changes: +HYDROCODON-ACE1 EA11 PO
[2023-10-01 01:15] LABS: HEMOGLOBIN 9.2 g/dL (12.0-18.0)
[2023-10-01 01:17] LABS: BASOPHILS 0.8 % (0-2); EOSINOPHILS 1.8 % (0-6); HEMATOCRIT 29.3 % (35.0-50.0); LYMPHOCYTES 25.8 % (24-44); MCH 29.8 (27-36); MCHC 31.2 g/dl (30-36); MCV 95.3 fl (81-99); MONOCYTES 8.3 % (0-12); NEUTROPHILS 63.3 % (39-80); PLATELET COUNT 457 K/uL (140-440); RBC 3.07 M/ul (4.3-5.7); RDW 16.2 (10.5-15.0)
[2023-10-01 01:24] LABS: ALBUMIN 3.2 g/dL (3.4-5.0); ALBUMIN/GLOBULIN RATIO 0.71 (1.1-2.4); BILIRUBIN, TOTAL 0.1 ng/dL (0.2-1.0); BUN/CREATININE RATIO 19.1 (6.0-28.6); CALCIUM 8.9 mg/dL (8.5-10.1); CREATININE, SERUM 1.57 mg/dL (0.70-1.30); PROTEIN, TOTAL 7.7 g/dL (6.4-8.2)
[2023-10-01 01:27] LABS: LACTIC ACID, BLOOD 1.6 mmol/L (0.4-2.0)
[2023-10-01] MEDS ORDERED: PERCOCET 5-3251 EACH PO (01:36)
[2023-10-01 01:50] VITALS: BP 144/73
== END 2023-10-01 01:52 | disposition home or self-care (01) ==
LOC: ED 00:35
PROVIDERS: Family Medicine
DX: L03.116 Cellulitis of left lower limb (principal); I10 Essential (primary) hypertension; E10.9 Type 1 diabetes mellitus without complications; F17.200 Nicotine dependence, unspecified, uncomplicated; Z88.0 Allergy status to penicillin; Z79.4 Long term (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; Z79.899 Other long term (current) drug therapy
CPT/HCPCS: 36415; 80053; 83605; 85025; 87040; 96374; 99283-25; A9270; J1170; J7030

== ENCOUNTER 2023-10-18 06:16 | Emergency (ER) | payer OTHER ==
[~2023-10-18] VITALS: Ht 170.2 cm; Wt 72.5 kg
[~2023-10-18 06:16] MED LIST changes: +PERCOCET 5-3251 EACH PO
[2023-10-18] MEDS ORDERED: SULFAMETHOXAZO1 EAC1 PO (06:29)
[2023-10-18] MEDS ORDERED: CIPROFLOXACIN750 MG PO (06:30)
[2023-10-18 06:40] LABS: PH, VENOUS 7.323 (7.31-7.41)
[2023-10-18 07:15] LABS: BASOPHILS 1.3 % (0-2); EOSINOPHILS 0.6 % (0-6); HEMATOCRIT 36.3 % (35.0-50.0); HEMOGLOBIN 11.9 g/dL (12.0-18.0); LYMPHOCYTES 21.4 % (24-44); MCHC 32.7 g/dl (30-36); MCV 91.7 fl (81-99); MONOCYTES 4.5 % (0-12); NEUTROPHILS 72.2 % (39-80); PLATELET COUNT 522 K/uL (140-440); RBC 3.95 M/ul (4.3-5.7); RDW 14.4 (10.5-15.0)
[2023-10-18 07:33] LABS: ALBUMIN 3.2 g/dL (3.4-5.0); ALBUMIN/GLOBULIN RATIO 0.63 (1.1-2.4); ANION GAP 19.5 (7-21); BILIRUBIN, TOTAL 0.3 ng/dL (0.2-1.0); BUN/CREATININE RATIO 14.55 (6.0-28.6); CALCIUM 9.4 mg/dL (8.5-10.1); CREATININE, SERUM 1.58 mg/dL (0.70-1.30); POTASSIUM 3.5 mmol/L (3.5-5.1); PROTEIN, TOTAL 8.3 g/dL (6.4-8.2)
[2023-10-18 07:38] LABS: LACTIC ACID, BLOOD 5.5 mmol/L (0.4-2.0)
[2023-10-18 09:43] LABS: BILIRUBIN, URINE NEGATIVE (negative); BLOOD/HGB, URINE TRACE-I (Negative); KETONE, URINE NEGATIVE (Negative); LEUK ESTERASE, URINE NEGATIVE (negative); NITRITE, URINE NEGATIVE (negative)
[2023-10-18 09:55] LABS: BACTERIA, URINE NONE SEEN /hpf (negative); CASTS, URINE NONE SEEN \\lpf; COLLECTION TYPE, URINE CLEAN CATCH; CRYSTALS, URINE NONE SEEN (0-1+); EPITHELIAL CELLS, URINE SQUAMOUS 1+ /lpf (0-1+); REFLEX CULTURE, URINE No (No)
[2023-10-18 09:59] LABS: AMPHETAMINES, URINE POSITIVE (NEGATIVE); BARBITURATES, URINE NEGATIVE (NEGATIVE); BENZODIAZEPINE, URINE NEGATIVE (NEGATIVE); BUPRENORPHINE, URINE NEGATIVE (NEGATIVE); CANNABINOID, URINE NEGATIVE (NEGATIVE); COCAINE, URINE NEGATIVE (NEGATIVE); ECSTASY, URINE NEGATIVE (NEGATIVE); FENTANYL, URINE POSITIVE (NEGATIVE); METHADONE, URINE NEGATIVE (NEGATIVE); OPIATES, URINE POSITIVE (NEGATIVE); OXYCODONE, URINE NEGATIVE (NEGATIVE); PHENCYCLIDINE, URINE NEGATIVE (NEGATIVE)
[2023-10-19 04:20] VITALS: BP 130/71
== END 2023-10-19 04:20 | disposition short-term general hospital (02) ==
LOC: ED 06:16
PROVIDERS: Family Medicine
DX: E10.622 Type 1 diabetes mellitus with other skin ulcer (principal); L97.329 Non-pressure chronic ulcer of left ankle with unspecified severity; E10.65 Type 1 diabetes mellitus with hyperglycemia; L03.116 Cellulitis of left lower limb; I10 Essential (primary) hypertension; F17.200 Nicotine dependence, unspecified, uncomplicated; Z88.0 Allergy status to penicillin; Z79.4 Long term (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
CPT/HCPCS: 36415; 73701; 80053; 80307; 81001; 82010; 82803; 83605; 85025; 87040; 96361; 96375; 96376; 99284-25; J0878; J1170; J2270; J2405; J3370; J7030

== ENCOUNTER 2023-11-01 13:34 | Emergency (ER) | payer OTHER ==
[~2023-11-01] VITALS: Ht 170.2 cm; Wt 75.6 kg
--- OUTSIDE RECORDS SUMMARY | ~2023-11-01 | XMS | Continuity of Care Document ---
Demographics + + + | Address | [address] | | | [place] [address] | + + + | Preferred Language | Unknown | + + + | Marital Status | Unknown | + + + | Adventist Affiliation | Unknown | + + + | Race | White | + + + | Ethnic Group | Not or | + + + Author + + + | Author | [facility] | + + + | Organization | [facility] | + + + | Address | [address] | | | [place], [place] [address] | + + + | Phone | | + + + Care Team Providers + + + + | Care Senior Validation Engineer Name | Role | Phone | + + + + Unavailable | Unavailable | + + + + Allergies No information. Encounters No information. Functional Status No information. Immunizations No information. Medications No information. 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 Results/Labs No information. Social History +--------+ + + | date | description | facility | +--------+ + + Vital Signs No information."
[~2023-11-01 13:34] MED LIST changes: +SULFAMETHOXAZO1 EAC1 PO
[2023-11-01 14:40] LABS: BASOPHILS 1.1 % (0-2); EOSINOPHILS 0.6 % (0-6); HEMATOCRIT 36.1 % (35.0-50.0); HEMOGLOBIN 11.6 g/dL (12.0-18.0); LYMPHOCYTES 16.6 % (24-44); MCH 29.9 (27-36); MCHC 32.2 g/dl (30-36); MCV 92.9 fl (81-99); MONOCYTES 4.3 % (0-12); NEUTROPHILS 77.4 % (39-80); PLATELET COUNT 396 K/uL (140-440); RBC 3.89 M/ul (4.3-5.7); RDW 14.6 (10.5-15.0)
[2023-11-01 15:13] LABS: ALBUMIN 2.9 g/dL (3.4-5.0); ALBUMIN/GLOBULIN RATIO 0.63 (1.1-2.4); ANION GAP 15.6 (7-21); BILIRUBIN, TOTAL 0.2 ng/dL (0.2-1.0); BUN/CREATININE RATIO 18.43 (6.0-28.6); CALCIUM 8.8 mg/dL (8.5-10.1); CREATININE, SERUM 1.79 mg/dL (0.70-1.30); POTASSIUM 4.6 mmol/L (3.5-5.1); PROTEIN, TOTAL 7.5 g/dL (6.4-8.2)
[2023-11-01] MEDS ORDERED: HYDROCODON-ACE1 EA11 PO (18:47)
[2023-11-01 19:16] VITALS: BP 119/69
== END 2023-11-01 19:18 | disposition home or self-care (01) ==
LOC: ED 13:34
PROVIDERS: Emergency Medicine
DX: E10.40 Type 1 diabetes mellitus with diabetic neuropathy, unspecified (principal); E10.65 Type 1 diabetes mellitus with hyperglycemia; L97.329 Non-pressure chronic ulcer of left ankle with unspecified severity; I10 Essential (primary) hypertension; F17.200 Nicotine dependence, unspecified, uncomplicated; Z88.0 Allergy status to penicillin; Z79.899 Other long term (current) drug therapy
CPT/HCPCS: 36415; 80053; 85025; 93926; 96374; 96375; 96376; 99284-25; A9270; J1170; J1885; J3490

== ENCOUNTER 2023-11-14 03:55 | Emergency (ER) | payer OTHER ==
[~2023-11-14] VITALS: Ht 170.2 cm; Wt 75.6 kg
--- OUTSIDE RECORDS SUMMARY | ~2023-11-14 | XMS | Continuity of Care Document ---
Demographics + + + | Address | [address] | | | [place] [address] | + + + | Preferred Language | Unknown | + + + | Marital Status | Unknown | + + + | Quaker Affiliation | Unknown | + + + | Race | White | + + + | Ethnic Group | Not or | + + + Author + + + | Author | [facility] | + + + | Organization | [facility] | + + + | Address | [address] | | | [place], [place] [address] | + + + | Phone | | + + + Care Team Providers + + + + | Care Business Account Manager Name | Role | Phone | [...]
[2023-11-14 04:15] LABS: PH, VENOUS 7.287 (7.31-7.41)
[2023-11-14] MEDS ORDERED: SODIUM CHLORIDE 0.9% 1,000 ML IV ONE (04:15)
[2023-11-14] MEDS ORDERED: LACTATED RINGER'S 1,000 ML IV ONE (04:15)
[2023-11-14] MEDS ORDERED: droPERidol 5 MG/2 ML VIAL IV ONE (04:15)
[2023-11-14] MEDS ORDERED: MORPHINE SULFATE 4 MG/ML VIAL IV ONE (04:15)
[2023-11-14 04:19] LABS: MCV 91.8 fl (81-99)
[2023-11-14 04:22] LABS: BASOPHILS 0.7 % (0-2); EOSINOPHILS 1.4 % (0-6); HEMATOCRIT 32.8 % (35.0-50.0); HEMOGLOBIN 10.5 g/dL (12.0-18.0); LYMPHOCYTES 30.9 % (24-44); MCH 29.5 (27-36); MCHC 32.2 g/dl (30-36); MONOCYTES 7.4 % (0-12); NEUTROPHILS 59.6 % (39-80); PLATELET COUNT 372 K/uL (140-440); RBC 3.57 M/ul (4.3-5.7); RDW 14.4 (10.5-15.0)
[2023-11-14 04:33] LABS: ALBUMIN 3.2 g/dL (3.4-5.0); ALBUMIN/GLOBULIN RATIO 0.73 (1.1-2.4); ANION GAP 10.7 (7-21); BILIRUBIN, TOTAL 0.2 ng/dL (0.2-1.0); BUN/CREATININE RATIO 19.69 (6.0-28.6); CALCIUM 8.8 mg/dL (8.5-10.1); CREATININE, SERUM 1.32 mg/dL (0.70-1.30); POTASSIUM 3.7 mmol/L (3.5-5.1); PROTEIN, TOTAL 7.6 g/dL (6.4-8.2)
[2023-11-14] MEDS ORDERED: HYDROCODON-ACE1 EA10 PO (05:59)
[2023-11-14] MEDS ORDERED: LEVOFLOXACIN500 MG PO (05:59)
[2023-11-14] MEDS ORDERED: levoFLOXacin 500 MG TAB PO ONE (06:00)
[2023-11-14] MEDS ORDERED: HYDROCODONE BIT/ACETAMINOPHEN 5/325 MG 1 TAB HOME.PACK PO ONE (06:00)
== END 2023-11-14 06:20 | disposition home or self-care (01) ==
LOC: ED 03:55
PROVIDERS: Family Medicine
DX: E10.622 Type 1 diabetes mellitus with other skin ulcer (principal); L97.329 Non-pressure chronic ulcer of left ankle with unspecified severity; L03.116 Cellulitis of left lower limb; I10 Essential (primary) hypertension; F17.200 Nicotine dependence, unspecified, uncomplicated; Z79.899 Other long term (current) drug therapy; Z88.0 Allergy status to penicillin
CPT/HCPCS: 36415; 73701; 80053; 82010; 82803; 85025; 96375; 99283-25; A9270; J1790; J2270; J7030; J7121; Q9967

== ENCOUNTER 2024-02-28 03:15 | Emergency (ER) | payer OTHER ==
[~2024-02-28] VITALS: Ht 170.2 cm; Wt 79.2 kg
[~2024-02-28 03:15] MED LIST changes: +INSULIN AS100 UNIT/2 SUB-Q; +LEVOFLOXACIN500 MG PO
[2024-02-28] MEDS ORDERED: SULFAMETHOXAZO1 EAC1 PO (03:34)
[2024-02-28] MEDS ORDERED: CLINDAMYCIN HC300 MG PO (03:35)
[2024-02-28 03:36] LABS: PH, VENOUS 7.375 (7.31-7.41)
[2024-02-28] MEDS ORDERED: DEXCOM G7 SENS1 EACH MC (03:37)
[2024-02-28 03:40] LABS: BASOPHILS 1.7 % (0-2); EOSINOPHILS 2.5 % (0-6); HEMATOCRIT 34.3 % (35.0-50.0); HEMOGLOBIN 10.9 g/dL (12.0-18.0); LYMPHOCYTES 29.4 % (24-44); MCH 28.4 (27-36); MCHC 31.9 g/dl (30-36); MCV 89.1 fl (81-99); MONOCYTES 5.4 % (0-12); PLATELET COUNT 407 K/uL (140-440); RBC 3.85 M/ul (4.3-5.7); RDW 14.3 (10.5-15.0)
[2024-02-28] MEDS ORDERED: DOXYCYCLINE HYCLATE 100 MG HOME.PACK PO ONE (03:45)
[2024-02-28 03:53] LABS: ALBUMIN/GLOBULIN RATIO 0.61 (1.1-2.4); ANION GAP 15.3 (7-21); BILIRUBIN, TOTAL 0.2 ng/dL (0.2-1.0); BUN/CREATININE RATIO 19.59 (6.0-28.6); CREATININE, SERUM 1.48 mg/dL (0.70-1.30); POTASSIUM 4.3 mmol/L (3.5-5.1); PROTEIN, TOTAL 7.9 g/dL (6.4-8.2)
[2024-02-28 04:17] VITALS: BP 150/111
== END 2024-02-28 04:14 | disposition home or self-care (01) ==
LOC: ED 03:15
PROVIDERS: Family Medicine
DX: E10.622 Type 1 diabetes mellitus with other skin ulcer (principal); L98.499 Non-pressure chronic ulcer of skin of other sites with unspecified severity; E10.65 Type 1 diabetes mellitus with hyperglycemia; I10 Essential (primary) hypertension; F17.200 Nicotine dependence, unspecified, uncomplicated; Z91.148 Patient's other noncompliance with medication regimen for other reason; Z88.0 Allergy status to penicillin; Z79.899 Other long term (current) drug therapy
CPT/HCPCS: 36415; 80053; 82010; 82803; 85025; 99283; A9270

== ENCOUNTER 2024-03-03 00:17 | Emergency (ER) | payer OTHER ==
[~2024-03-03] VITALS: Ht 170.2 cm; Wt 76.5 kg
[~2024-03-03 00:17] MED LIST changes: +DEXCOM G7 SENS1 EACH MC
[2024-03-03 01:05] LABS: BASOPHILS 1.2 % (0-2); EOSINOPHILS 0.5 % (0-6); HEMATOCRIT 38.7 % (35.0-50.0); HEMOGLOBIN 12.4 g/dL (12.0-18.0); LYMPHOCYTES 23.2 % (24-44); MCH 28.6 (27-36); MCHC 32.1 g/dl (30-36); MCV 89.2 fl (81-99); MONOCYTES 4.6 % (0-12); NEUTROPHILS 70.5 % (39-80); PLATELET COUNT 411 K/uL (140-440); RBC 4.34 M/ul (4.3-5.7); RDW 14.3 (10.5-15.0)
[2024-03-03 01:20] LABS: ALBUMIN 2.9 g/dL (3.4-5.0); ALBUMIN/GLOBULIN RATIO 0.67 (1.1-2.4); ANION GAP 16.5 (7-21); BILIRUBIN, TOTAL 0.4 ng/dL (0.2-1.0); BUN/CREATININE RATIO 11.94 (6.0-28.6); CALCIUM 8.5 mg/dL (8.5-10.1); CREATININE, SERUM 1.59 mg/dL (0.70-1.30); MAGNESIUM 1.9 mg/dL (1.8-2.4); POTASSIUM 4.5 mmol/L (3.5-5.1); PROTEIN, TOTAL 7.2 g/dL (6.4-8.2)
[2024-03-03] MEDS ORDERED: HYDROCODONE/ACETA 5/325 TAB PO ONE (01:30)
[2024-03-03] MEDS ORDERED: LACTATED RINGER'S 1,000 ML IV ONE (01:30)
[2024-03-03] MEDS ORDERED: Insulin Regular, Human 100 UNIT/ML ML IV ONE (01:30)
[2024-03-03 01:56] LABS: BILIRUBIN, URINE NEGATIVE (negative); BLOOD/HGB, URINE NEGATIVE (Negative); KETONE, URINE NEGATIVE (Negative); LEUK ESTERASE, URINE NEGATIVE (negative); NITRITE, URINE NEGATIVE (negative)
[2024-03-03 02:10] LABS: AMPHETAMINES, URINE NEGATIVE (NEGATIVE); BARBITURATES, URINE NEGATIVE (NEGATIVE); BENZODIAZEPINE, URINE NEGATIVE (NEGATIVE); BUPRENORPHINE, URINE NEGATIVE (NEGATIVE); CANNABINOID, URINE NEGATIVE (NEGATIVE); COCAINE, URINE NEGATIVE (NEGATIVE); ECSTASY, URINE NEGATIVE (NEGATIVE); FENTANYL, URINE NEGATIVE (NEGATIVE); METHADONE, URINE NEGATIVE (NEGATIVE); OPIATES, URINE NEGATIVE (NEGATIVE); OXYCODONE, URINE NEGATIVE (NEGATIVE); PHENCYCLIDINE, URINE NEGATIVE (NEGATIVE)
[2024-03-03] MEDS ORDERED: HYDROCODONE BIT/ACETAMINOPHEN 5/325 MG 1 TAB HOME.PACK PO ONE (02:45)
[2024-03-03 03:10] VITALS: BP 159/96
== END 2024-03-03 03:12 | disposition home or self-care (01) ==
LOC: ED 00:17
PROVIDERS: Internal Medicine
DX: E10.65 Type 1 diabetes mellitus with hyperglycemia (principal); L03.116 Cellulitis of left lower limb; I10 Essential (primary) hypertension; F17.200 Nicotine dependence, unspecified, uncomplicated; Z88.0 Allergy status to penicillin; Z79.899 Other long term (current) drug therapy
CPT/HCPCS: 36415; 73590; 80053; 80307; 81003; 82010; 82553; 83735; 85025; 86140; 96374; 99284-25; A9270; J1815; J7121

== ENCOUNTER 2024-03-20 18:48 | Emergency (ER) | payer OTHER ==
[~2024-03-20] VITALS: Ht 170.2 cm; Wt 75.0 kg
[2024-03-20 19:26] LABS: PH, VENOUS 7.398 (7.31-7.41)
[2024-03-20 19:27] LABS: BASOPHILS 0.6 % (0-2); EOSINOPHILS 1.2 % (0-6); HEMATOCRIT 32.5 % (35.0-50.0); HEMOGLOBIN 10.5 g/dL (12.0-18.0); MCH 28.4 (27-36); MCHC 32.4 g/dl (30-36); MCV 87.6 fl (81-99); MONOCYTES 8.6 % (0-12); NEUTROPHILS 70.6 % (39-80); PLATELET COUNT 238 K/uL (140-440); RBC 3.71 M/ul (4.3-5.7); RDW 14.1 (10.5-15.0)
[2024-03-20 19:44] LABS: ALBUMIN 2.9 g/dL (3.4-5.0); ALBUMIN/GLOBULIN RATIO 0.71 (1.1-2.4); ANION GAP 10.5 (7-21); BILIRUBIN, TOTAL 0.2 ng/dL (0.2-1.0); BUN/CREATININE RATIO 20.83 (6.0-28.6); CALCIUM 8.9 mg/dL (8.5-10.1); CREATININE, SERUM 1.2 mg/dL (0.70-1.30); POTASSIUM 3.5 mmol/L (3.5-5.1)
[2024-03-20] MEDS ORDERED: DOXYCYCLINE HYCLATE 100 MG HOME.PACK PO ONE (20:15)
[2024-03-20 20:30] VITALS: BP 143/90
== END 2024-03-20 20:30 | disposition home or self-care (01) ==
LOC: ED 18:48
PROVIDERS: Family Medicine
DX: E10.65 Type 1 diabetes mellitus with hyperglycemia (principal); L03.116 Cellulitis of left lower limb; L03.115 Cellulitis of right lower limb; I10 Essential (primary) hypertension; F17.200 Nicotine dependence, unspecified, uncomplicated; Z88.0 Allergy status to penicillin; Z79.4 Long term (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
CPT/HCPCS: 36415; 80053; 82803; 85025; 99285; A9270

== ENCOUNTER 2024-07-23 15:43 | Emergency (ER) | payer OTHER ==
[~2024-07-23] VITALS: Ht 170.2 cm; Wt 85.4 kg
[2024-07-23] MEDS ORDERED: CEPHALEXIN MONOHYDRATE 500 MG CAP PO ONE (16:15)
[2024-07-23] MEDS ORDERED: INSULIN NPH HUM/REG INSULIN HM 100 UNIT/ML ML SUB-Q ONE ×2 (16:15→17:15)
[2024-07-23] MEDS ORDERED: SODIUM CHLORIDE 0.9% 1,000 ML IV ONE (18:15)
[2024-07-23 18:19] LABS: BASOPHILS 0.9 % (0-2); HEMATOCRIT 36.1 % (35.0-50.0); HEMOGLOBIN 11.8 g/dL (12.0-18.0); LYMPHOCYTES 19.2 % (24-44); MCH 29.1 (27-36); MCHC 32.6 g/dl (30-36); MCV 89.4 fl (81-99); MONOCYTES 6.3 % (0-12); NEUTROPHILS 72.6 % (39-80); PLATELET COUNT 303 K/uL (140-440); RBC 4.04 M/ul (4.3-5.7); RDW 14.3 (10.5-15.0)
[2024-07-23 18:35] LABS: ALBUMIN 2.7 g/dL (3.4-5.0); ALBUMIN/GLOBULIN RATIO 0.6 (1.1-2.4); ANION GAP 13.3 (7-21); BILIRUBIN, TOTAL 0.5 ng/dL (0.2-1.0); BUN/CREATININE RATIO 12.94 (6.0-28.6); CALCIUM 8.9 mg/dL (8.5-10.1); CREATININE, SERUM 1.7 mg/dL (0.70-1.30); POTASSIUM 4.3 mmol/L (3.5-5.1); PROTEIN, TOTAL 7.2 g/dL (6.4-8.2)
[2024-07-23] MEDS ORDERED: DOXYCYCLINE HYCLATE 100 MG HOME.PACK PO ONE (20:30)
[2024-07-23] MEDS ORDERED: INSULIN SYRING1 EA44 MISC (20:46)
[2024-07-23] MEDS ORDERED: HUMULIN 70100 UNIT/1 SUB-Q (20:46)
[2024-07-23 20:50] VITALS: BP 137/68
== END 2024-07-23 20:50 | disposition home or self-care (01) ==
LOC: ED 15:43
PROVIDERS: Emergency Medicine
DX: E10.65 Type 1 diabetes mellitus with hyperglycemia (principal); L03.116 Cellulitis of left lower limb; I10 Essential (primary) hypertension; F17.200 Nicotine dependence, unspecified, uncomplicated; Z88.0 Allergy status to penicillin; Z79.4 Long term (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
CPT/HCPCS: 36415; 80053; 82010; 82800; 85025; 99283; A9270; J1815; J7030

== ENCOUNTER 2024-07-31 06:48 | Emergency (ER) | payer OTHER ==
[~2024-07-31] VITALS: Ht 170.2 cm; Wt 85.0 kg
[~2024-07-31 06:48] MED LIST changes: +HUMULIN 70100 UNIT/1 SUB-Q; +INSULIN SYRING1 EA44 MISC
[2024-07-31] MEDS ORDERED: fentaNYL citrate 100 MCG/2 ML VIAL ONE (07:07)
[2024-07-31] MEDS ORDERED: fentaNYL citrate 100 MCG/2 ML VIAL IV ONE (07:15)
[2024-07-31] MEDS ORDERED: CEFTRIAXONE/SODIUM CHLORIDE 2 GM/100 ML PIGGYBACK IV ONE (07:15)
[2024-07-31 07:24] LABS: BASOPHILS 0.4 % (0-2); EOSINOPHILS 0.1 % (0-6); HEMATOCRIT 35.3 % (35.0-50.0); HEMOGLOBIN 12.1 g/dL (12.0-18.0); MCH 29.7 (27-36); MCHC 34.3 g/dl (30-36); MCV 86.7 fl (81-99); MONOCYTES 8.7 % (0-12); NEUTROPHILS 81.8 % (39-80); PLATELET COUNT 458 K/uL (140-440); RBC 4.07 M/ul (4.3-5.7)
[2024-07-31 07:26] LABS: PARTIAL THROMBOPLASTIN TIME 32.1 Sec (22.9-41.3)
[2024-07-31 07:27] LABS: INR 0.96 (0.80-1.30); PROTIME 12.1 Sec (11.2-14.2)
[2024-07-31] MEDS ORDERED: CEFTRIAXONE/SODIUM CHLORIDE 1 GM/100 ML PIGGYBACK IV ONE (07:30)
[2024-07-31 07:31] LABS: ALBUMIN 2.9 g/dL (3.4-5.0); ALBUMIN/GLOBULIN RATIO 0.52 (1.1-2.4); ANION GAP 13.6 (7-21); BILIRUBIN, TOTAL 0.2 ng/dL (0.2-1.0); BUN/CREATININE RATIO 10.79 (6.0-28.6); CALCIUM 9.8 mg/dL (8.5-10.1); CREATININE, SERUM 1.76 mg/dL (0.70-1.30); POTASSIUM 3.6 mmol/L (3.5-5.1); PROTEIN, TOTAL 8.5 g/dL (6.4-8.2)
[2024-07-31 07:34] LABS: LACTIC ACID, BLOOD 1.7 mmol/L (0.4-2.0)
[2024-07-31] MEDS ORDERED: SODIUM CHLORIDE 0.9% 1,000 ML IV PRN (07:45)
[2024-07-31] MEDS ORDERED: HYDROCODONE/ACETA 5/325 TAB PO ONE (08:45)
[2024-07-31] MEDS ORDERED: CLEOCIN HCL300 MG PO (09:36)
[2024-07-31 09:47] VITALS: BP 172/94
--- NOTE | 2024-08-02 20:42 | EKG ---
[facility] [address] [place] [address] Signed Sinus tachycardia Incomplete right bundle branch block Borderline ECG When compared with ECG of 26-SEP-2023 06:52, T wave amplitude has decreased in Inferior leads T wave amplitude has decreased in Anterior leads Confirmed by Marcelino Perez MD ([id number]) on 08/02/2024 8:42:33 PM Electronically Signed By: MARCELINO PEREZ DO 08/02/242041 PATIENT NAME: RADHAMARCO AMANDA Electrocardiogram DATE OF : 86 PHYSICIAN: MARCELINO PEREZ DO REPORT #: [id number] REPORT IS CONFIDENTIAL AND NOT TO BE RELEASED WITHOUT AUTHORIZATION
== END 2024-07-31 09:47 | disposition left against medical advice (07) ==
LOC: ED 06:48
PROVIDERS: Emergency Medicine
DX: S92.514A Nondisplaced fracture of proximal phalanx of right lesser toe(s), initial encounter for closed fracture (principal); E10.621 Type 1 diabetes mellitus with foot ulcer; L97.519 Non-pressure chronic ulcer of other part of right foot with unspecified severity; E10.22 Type 1 diabetes mellitus with diabetic chronic kidney disease; I12.9 Hypertensive chronic kidney disease with stage 1 through stage 4 chronic kidney disease, or unspecified chronic kidney disease; N18.9 Chronic kidney disease, unspecified; F17.200 Nicotine dependence, unspecified, uncomplicated; Z88.0 Allergy status to penicillin; Z79.4 Long term (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
CPT/HCPCS: 36415; 71045; 73630; 80053; 83605; 85025; 85060; 85610; 85651; 85730; 86140; 87040; 93005; 93010; 96365; 96375; 99284-25; J0696; J3010; J7030

== ENCOUNTER 2024-11-13 09:25 | Emergency (ER) | payer OTHER ==
[~2024-11-13] VITALS: Ht 170.2 cm; Wt 79.8 kg
[~2024-11-13 09:25] MED LIST changes: +ALCOHOL PADS1 EACH TOP; +CLEOCIN HCL300 MG PO; +DOXYCYCLINE HY100 MG PO; +MIRTAZAPINE15 MG PO
[2024-11-13] MEDS ORDERED: MIRTAZAPINE30 MG PO (09:44)
[2024-11-13] MEDS ORDERED: BUPRENORPHIN-N1 EACH SL (09:44)
[2024-11-13] MEDS ORDERED: HYDROCODON-ACE1 EA10 PO (11:13)
[2024-11-13 11:18] VITALS: BP 114/99
== END 2024-11-13 11:18 | disposition home or self-care (01) ==
LOC: ED 09:25
DX: S39.92XA Unspecified injury of lower back, initial encounter (principal); E10.9 Type 1 diabetes mellitus without complications; I10 Essential (primary) hypertension; F17.200 Nicotine dependence, unspecified, uncomplicated; Z88.0 Allergy status to penicillin; Z79.4 Long term (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; Z79.899 Other long term (current) drug therapy; W00.1XXA Fall from stairs and steps due to ice and snow, initial encounter
CPT/HCPCS: 72080; 99283

== ENCOUNTER 2025-08-15 13:50 | Emergency (ER) | payer OTHER ==
[~2025-08-15] VITALS: Ht 170.2 cm; Wt 78.4 kg
[~2025-08-15 13:50] MED LIST changes: +BUPRENORPHIN-N1 EACH SL; +MIRTAZAPINE30 MG PO
[2025-08-15 20:17] VITALS: BP 00/00
== END 2025-08-15 20:19 | disposition left against medical advice (07) ==
LOC: ED 13:50
DX: Z53.21 Procedure and treatment not carried out due to patient leaving prior to being seen by health care provider (principal)